=== PATIENT | male | born 1945 | race Caucasian/White ===

== ENCOUNTER 2020-07-01 09:58 | Outpatient (REF) | payer MEDICARE, SELFPAY ==
[2020-07-01 10:57] LABS: Alanine Aminotransferase 17 U/L (0-40); Albumin Level 4.6 g/dL (3.5-5.0); Alkaline Phosphatase 81 U/L (39-117); Anion Gap 14 (12-20); Aspartate Amino Transferase 20 U/L (5-37); Bilirubin Total 1.4 mg/dL (0.0-1.0); Blood Urea Nitrogen 14 mg/dL (9-16); Calcium 9.1 mg/dL (8.4-10.2); Carbon Dioxide 26 mmol/L (22-29); Chloride 102 mmol/L (96-108); Cholesterol 204 mg/dL; Estimated Glomerular Filt Rate > 60; Glucose Fasting 118 mg/dL (60-99); HDL Cholesterol 47 mg/dL; LDL Cholesterol Calculated 133 mg/dl; Potassium 4.3 mmol/L (3.3-5.1); Sodium 138 mmol/L (135-145); Triglycerides 121 mg/dL; Uric Acid 8.5 mg/dL (3.4-7.0)
[2020-07-01 11:04] LABS: B Type Natriuretic Peptide 891 pg/mL (<100)
[2020-07-01 11:19] LABS: Vitamin D 25-OH Total 34.9 ng/mL (>30)
== END 2020-07-01 09:59 | disposition home or self-care (01) ==
LOC: HO.LAB 09:58
PROVIDERS: PCP Internal Medicine; Visit Provider Internal Medicine
DX: E55.9 Vitamin D deficiency, unspecified (principal)
CPT/HCPCS: 36415; 80053; 80061; 82306; 83880; 84550

== ENCOUNTER 2020-07-24 10:00 | Outpatient (REF) | payer MEDICARE, SELFPAY ==
[2020-07-24 11:03] LABS: Basophils Percent Auto 0.6 % (0-2); Eosinophils Absolute Auto 0.2 X10*3/uL (0.0-0.4); Eosinophils Percent Auto 3.4 % (0-4); Hematocrit 47.6 % (42-52); Hemoglobin 15.8 g/dl (14.0-18.0); Imm Gran Abs Auto 0.01 X10*3/uL (0.00-0.03); Imm Gran Pct Auto 0.1 % (0.0-0.4); Lymphocytes Absolute Auto 1.9 X10*3/uL (1.2-4.9); Lymphocytes Percent Auto 28.3 % (20-40); MANUAL DIFF FLAG SCAN; Mean Corpuscular HGB Conc 33.2 g/dl (31.0-36.0); Mean Corpuscular Hemoglobin 29.5 pg (27.0-33.0); Mean Corpuscular Volume 88.8 fL (80-98); Monocytes Absolute Auto 0.7 X10*3/uL (0.1-1.2); Monocytes Percent Auto 10.3 % (2-11); Neutrophils Absolute Auto 3.9 X10*3/uL (2.0-8.3); Neutrophils Percent Auto 57.3 % (45-73); PLT CLUMP 1; Red Blood Count 5.36 X10*6/uL (4.60-5.80); Red Cell Distribution Width 13.5 % (11.0-16.0); SCAN SMEAR FLAG 1
[2020-07-24 11:22] LABS: Alanine Aminotransferase 27 U/L (0-40); Albumin Level 4.7 g/dL (3.5-5.0); Alkaline Phosphatase 87 U/L (39-117); Anion Gap 16 (12-20); Aspartate Amino Transferase 27 U/L (5-37); Bilirubin Total 1.3 mg/dL (0.0-1.0); Blood Urea Nitrogen 28 mg/dL (9-16); Calcium 9.3 mg/dL (8.4-10.2); Carbon Dioxide 28 mmol/L (22-29); Chloride 97 mmol/L (96-108); Cholesterol 129 mg/dL; Estimated Glomerular Filt Rate 55; Glucose Fasting 144 mg/dL (60-99); HDL Cholesterol 35 mg/dL; LDL Cholesterol Calculated 65 mg/dl; Potassium 4.8 mmol/L (3.3-5.1); Sodium 136 mmol/L (135-145); Total Protein 8.1 g/dL (6.5-8.0); Triglycerides 148 mg/dL
[2020-07-24 11:24] LABS: B Type Natriuretic Peptide 326 pg/mL (<100)
[2020-07-24 11:36] LABS: Creatinine Urine 155.85 mg/dL; Microalbum/Creatinine Ratio Ur 11.5 ug/mg cr
[2020-07-24 12:18] LABS: Platelet Count 154 X10*3/uL (160-400); White Blood Count 6.7 X10*3/uL (4.8-10.8)
[2020-07-24 12:19] LABS: SLIDE REVIEW VERIFIED
[2020-07-30 11:32] LABS: Vitamin D 25-OH, D2 <4 ng/mL; Vitamin D 25-OH, D3 34 ng/mL; Vitamin D 25-OH, Total 34 ng/mL (30-100)
== END 2020-07-24 10:01 | disposition home or self-care (01) ==
LOC: HO.LAB 10:00
PROVIDERS: PCP Internal Medicine; Visit Provider Internal Medicine
DX: I50.22 Chronic systolic (congestive) heart failure (principal); D64.9 Anemia, unspecified; E11.9 Type 2 diabetes mellitus without complications; E78.5 Hyperlipidemia, unspecified; M1A.0690 Idiopathic chronic gout, unspecified knee, without tophus (tophi); E55.9 Vitamin D deficiency, unspecified; Z79.01 Long term (current) use of anticoagulants
CPT/HCPCS: 36415; 80053; 80061; 82043; 82306; 83880; 84550; 85025

== ENCOUNTER 2020-08-19 08:35 | Inpatient (IN) | payer MEDICARE, SELFPAY ==
--- NOTE | ~2020-08-19 | CT_ITS ---
EXAMINATION: CT ABDOMEN AND PELVIS WITHOUT CONTRAST CLINICAL INFORMATION: Cholecystitis. COMPARISON: Limited abdominal ultrasound done earlier the same day. CT abdomen/pelvis dated 07/11/2017. TECHNIQUE: Multidetector volumetric imaging was performed from the superior aspect of the liver through the pubic symphysis. Sagittal and coronal reformatted images were obtained on the technologist's workstation. This CT examination was performed using dose optimization techniques as appropriate, variously including the following: *Automated exposure control *Adjustment of mA and/or kV according to patient size (this includes techniques or standardized protocols for targeted exams where dose is matched to indication/reason for exam; i.e. extremities or head) *Use of iterative reconstruction technique DLP: 522 mGy-cm FINDINGS: LUNG BASES: Mild bilateral dependent atelectasis. Mild cardiomegaly, increased when compared to the prior CT. LIVER, GALLBLADDER, AND BILIARY TREE: The liver is normal in size, shape, and attenuation. No focal hepatic lesion or biliary ductal dilatation is present. Tiny, dependent gallstone within the gallbladder fundus. Mild wall thickening with adjacent inflammatory change. Findings are consistent with acute cholecystitis. PANCREAS: Unremarkable. SPLEEN: Unremarkable. ADRENAL GLANDS: Unremarkable. KIDNEYS AND URETERS: The kidneys are normal in size, shape, and attenuation. No hydronephrosis, hydroureter, or calculi seen. Nonspecific bilateral perinephric stranding. BLADDER: Partially distended and unremarkable. GASTROINTESTINAL TRACT: Prominent diverticulosis without evidence of acute diverticulitis. No bowel wall thickening or associated inflammatory change. No small or large bowel obstruction. Appendix not identified. No other inflammatory change to suggest acute appendicitis. PERITONEAL CAVITY: No intra-abdominal free air or free fluid. No intra-abdominal mass or organized fluid collection/abscess formation. ABDOMINAL WALL: No significant hernia is appreciated. LYMPH NODES: No significant lymphadenopathy. VASCULAR: No abdominal aortic dilatation. Scattered atherosclerotic calcifications. PELVIC VISCERA: Seed implants redemonstrated within the pelvis. OSSEOUS STRUCTURES: Unremarkable. CT/CT abdomen pelvis wo con IMPRESSION: 1. Tiny, dependent gallstone with mild gallbladder wall thickening and prominent adjacent inflammatory change, consistent with acute cholecystitis. 2. Diverticulosis without evidence of acute diverticulitis. No small or large bowel obstruction. 3. No intra-abdominal mass, lymphadenopathy, or ascites.
--- NOTE | ~2020-08-19 | US_ITS ---
EXAMINATION: US ABDOMEN LIMITED CLINICAL INFORMATION: Right upper quadrant pain. COMPARISON: CT abdomen/pelvis dated 02/08/2019. TECHNIQUE: Real-time imaging of the right upper quadrant abdominal viscera. FINDINGS: PANCREAS: Predominantly obscured by overlying bowel gas. LIVER: Normal. The liver is normal in size. The liver contour is normal. Parenchymal echogenicity is normal. No focal hepatic lesion. There is no intrahepatic biliary duct dilatation seen. GALLBLADDER: Mild gallbladder wall thickening. No cholelithiasis or pericholecystic free fluid. Right upper quadrant tenderness during the examination. COMMON BILE DUCT: Normal in caliber for the patient's age measuring 0.8 cm in diameter. RIGHT KIDNEY: Unremarkable. No hydronephrosis. No renal calculi or focal parenchymal lesions. The kidney measures 10 cm in maximum dimension. FREE FLUID: None. US/US abdomen limited IMPRESSION: Mild gallbladder wall thickening. No cholelithiasis or pericholecystic free fluid to suggest acute cholecystitis. Right upper quadrant tenderness during the examination. Findings are nonspecific. If there is persistent clinical concern for cholecystitis, MRCP/ERCP or nuclear medicine HIDA scan could help further evaluate.
--- NOTE | ~2020-08-19 | MR_ITS ---
EXAMINATION: MR CHOLANGIOPANCREATOGRAPHY CLINICAL INFORMATION: Elevated bilirubin COMPARISON: 08/19/2020 CT scan and ultrasound TECHNIQUE: Multiple routine MRI sequences through the abdomen were obtained. Heavily T2-weighted images were performed utilizing a dedicated MRCP technique. Contrast was not utilized for the study. FINDINGS: Biliary system: The common bile duct is normal in course and prominent in caliber measuring up to 0.8 cm with no evidence for intra-or extrahepatic biliary ductal dilatation. No intraluminal filling defects are appreciated. Gallbladder: Tiny gallstones. There is diffuse gallbladder wall thickening and mild pericholecystic inflammatory changes. Liver parenchyma is homogeneous in signal with no focal hepatic lesion appreciated. Pancreas: The pancreatic duct is normal in course and measures up to 0.4 cm in maximal caliber with no evidence for pancreatic ductal obstruction. There is homogeneous signal to the pancreas with no focal suspicious pancreatic lesion. No visualized abnormalities are seen in the kidneys, adrenals, or spleen. MR/MR MRCP IMPRESSION: Tiny gallstones within the dependent portion of the gallbladder with associated gallbladder wall thickening and pericholecystic inflammatory changes concerning for cholecystitis. I do not appreciate any intraluminal filling defects within the common bile duct which measures up to 0.8 cm in maximal thickness.
--- NOTE | 2020-08-19 08:46 | ED.ABDPAIN ---
HPI - Abdominal Pain General Chief Complaint: Abdominal Pain Stated Complaint: ABD PAIN Time Seen by Provider: 08/19/20 08:45 Source: patient Mode of arrival: ambulatory Limitations: language barrier History of Present Illness HPI narrative: nausea, vomiting and diarrhea for 3 days, now with increased pain. patient feels that his abdomen is distended MD elicited complaint: abdominal pain Onset (ago): day(s) (3) Pain Consistency: constant Location: RUQ Severity: severe Quality: cramping, stabbing and sharp Radiation: none Migration to: no migration Exacerbating factors: eating Associated symptoms: nausea, vomiting and diarrhea Related Data Home Medications Medication Instructions Recorded Confirmed colchicine 0.6 mg tablet 0.6 mg PO DAILY 02/12/20 08/19/20 rivaroxaban 20 mg tablet 20 mg PO DAILY@1800 07/15/20 08/19/20 dicyclomine 10 mg capsule 20 mg PO QID 08/19/20 08/19/20 lisinopril 5 mg PO BID 08/19/20 08/19/20 metformin 500 mg PO BIDWM 08/19/20 08/19/20 omeprazole 20 mg capsule,delayed 20 mg PO BID 08/19/20 08/19/20 release spironolactone 12.5 tab PO DAILY 08/19/20 08/19/20 sucralfate 1 gram tablet 1 g PO QID 08/19/20 08/19/20 Previous Rx's Medication Instructions Recorded atorvastatin 80 mg tablet 80 mg PO DAILY 90 Days #90 tab 02/20/20 diclofenac sodium 1 % topical gel 4 g TOPICAL QID 30 Days #100 g 07/01/20 gabapentin 400 mg capsule 400 mg PO TID 90 Days #270 cap 07/01/20 metoprolol succinate 100 mg 100 mg PO DAILY 90 Days #90 tab 07/01/20 tablet,extended release 24 hr tamsulosin 0.4 mg capsule 0.4 mg PO BEDTIME 90 Days #90 cap 07/01/20 furosemide 40 mg tablet 40 mg PO DAILY 90 Days #90 tab 07/22/20 lancets 28 gauge #100 ea 07/22/20 clotrimazole-betamethasone 1 1 appl TOPICAL BID 30 Days #45 g 07/29/20 %-0.05 % topical cream oxycodone-acetaminophen 5 mg-325 1 tab PO Q8H PRN 30 Days #90 tab 07/29/20 mg tablet temazepam 30 mg capsule 30 mg PO BEDTIME PRN 30 Days #30 07/29/20 cap cholecalciferol (vitamin D3) 50 50 mcg PO DAILY 90 Days #90 cap 08/06/20 mcg (2,000 unit) capsule allopurinol 300 mg tablet 300 mg PO DAILY 90 Days #90 tab 08/19/20 Allergies Allergy/AdvReac Type Severity Reaction Status Date / Time No Known Allergies Allergy Verified 08/19/20 08:09 [No Known Allergies*] Review of Systems Constitutional: Reports no additional constitutional complaints Eyes: Reports no additional eye complaints Denies dizziness Cardiovascular: Reports no additional cardiovascular complaints Respiratory: Reports as per HPI Gastrointestinal: Reports no additional gastrointestinal complaints Musculoskeletal: Reports no additional musculoskeletal complaints Skin/Breast: Denies rash Reports system reviewed and no additional complaints, except as documented, Denies dizziness and Denies Sensory deficit (Neuro) Psychiatric: Denies anxiety Physical Exam Vital Signs: Vital Signs: Last Vital Signs Temp 98.3 F 08/19/20 13:43 Pulse 96 08/19/20 13:43 Resp 17 08/19/20 13:43 BP 119/79 08/19/20 13:43 Pulse Ox 97 08/19/20 13:43 Body Mass Index 26.6 Const: General: healthy appearing Nutritional Appearance: average body habitus Orientation/consciousness: oriented to person and patient oriented x3 Limitations: no limitations HENMT: Head: Yes normal to inspection Ears: external ears normal General nose exam: Normal external nose present Mouth: Normal oral and palatal mucosa present and oropharynx normal Throat: Yes posterior oropharynx normal Eyes: General: appearance normal, both eyes and all related structures Neck: Other: supple Neck: Yes normal visual inspection Chest: Chest palpation & inspection: normal inspection of the chest Resp: Auscultation: clear to auscultation bilaterally Cardio: Jugular venous distension: no JVD Rate: regular rate Rhythm: regular rhythm Heart sounds: S1 normal heart sound present and S2 normal heart sound present GI: Other: Midline scar, slightly distended, severe right upper quadrant pain with guarding and rebound Auscultation: normal bowel sounds : General: Yes no CVA tenderness Back/Spine/Pelvis: Back: no CVA tenderness Skin: General skin exam: no rashes or lesions noted Neuro: General: oriented to person and patient oriented x3 Cranial nerves: Yes CN's II-XII intact bilaterally Motor exam (neuro): 5/5 motor strength present throughout Sensory Exam: No Sensory deficit (Neuro) Extrem: General: Yes normal to inspection Psych: Appearance: grossly normal Course Course Course Narrative: discussed with Dr. Rodriguez who wants patient to have a CT scan Reevaluation(s) Reevaluation #1: Because the patient is on anticoagulation Dr. Rodriguez wants patient admitted to hospitalist, Dr Galaviz accepted MDM - Abdominal Pain MDM Narrative Medical decision making narrative: CT shows GB stones with cholecystitis will admit to Dr. Rodriguez Lab Data Result diagrams: 08/19/20 09:04 08/19/20 09:04 Labs: Lab Results 08/19/20 08/19/20 08/19/20 Range/Units 09:04 09:04 10:20 WBC 13.7 H (4.8-10.8) X10*3/uL RBC 4.84 (4.60-5.80) X10*6/uL Hgb 14.3 (14.0-18.0) g/dl Hct 42.2 (42-52) % MCV 87.2 (80-98) fL MCH 29.5 (27.0-33.0) pg MCHC 33.9 (31.0-36.0) g/dl RDW 13.8 (11.0-16.0) % Plt Count 160 (160-400) X10*3/uL MPV 8.8 L (9.4-12.4) fL Immature Gran % (Auto) 0.4 (0.0-0.4) % Neut % (Auto) 81.1 H (45-73) % Lymph % (Auto) 9.6 L (20-40) % [place] % (Auto) 8.6 (2-11) % Eos % (Auto) 0.1 (0-4) % Baso % (Auto) 0.2 (0-2) % Lymph # (Auto) 1.3 (1.2-4.9) X10*3/uL [place] # (Auto) 1.2 (0.1-1.2) X10*3/uL Eos # (Auto) 0.0 (0.0-0.4) X10*3/uL Baso # (Auto) 0.0 (0.0-0.2) X10*3/uL Abs Immat Gran (auto) 0.05 H (0.00-0.03) X10*3/uL Absolute Neuts (auto) 11.1 H (2.0-8.3) X10*3/uL Absolute Nucleated RBC 0.000 (0.0-0.012) X10*3/uL Nucleated RBC % (auto) 0.0 (0.0-0.2) /100WBC Sodium 131 L (135-145) mmol/L Potassium 4.7 (3.3-5.1) mmol/L Chloride 96 (96-108) mmol/L Carbon Dioxide 25 (22-29) mmol/L Anion Gap 15 (12-20) BUN 23 H (9-16) mg/dL Creatinine 1.52 H (0.5-1.4) mg/dL Estim Creat Clear Calc 42.6 Estimated GFR 45 Random Glucose 160 H (60-115) mg/dL Calcium 9.0 (8.4-10.2) mg/dL Total Bilirubin 2.7 H (0.0-1.0) mg/dL Direct Bilirubin 1.1 H (0.0-0.5) mg/dL AST 32 (5-37) U/L ALT 48 H (0-40) U/L Alkaline Phosphatase 84 (39-117) U/L Total Protein 7.6 (6.5-8.0) g/dL Albumin 4.2 (3.5-5.0) g/dL Lipase 35 (8-78) U/L Urine Color DARK YELLOW Urine Appearance HAZY Urine pH 5.5 (5.0-8.0) Ur Specific [place] 1.025 (1.005-1.025) Urine Protein NEG (NEG-TRACE) MG/DL Urine Glucose (UA) NEG (NEG) MG/DL Urine Ketones 5 (NEG) MG/DL Urine Blood NEG (NEG) Urine Nitrite NEG (NEG) Ur Leukocyte Esterase NEG (NEG) Imaging Data US abdoment: Radiologist's impression: thickened GB wall CT scan - abdomen: Radiologist's impression: GB stones with evidence of cholecystitis ECG Data Attestation: I personally reviewed and interpreted this ECG as follows: Interpretation: Atrial fibrillation rate of 90, old inferior and anterior septal OR, no st or twave changes Critical Care Time Critical Care Time Attestation: I spent 40 minutes of critical care, with interventions, assessments, speaking to patient, consultants, and family. Discharge Plan Discharge Clinical Impression: Acute cholecystitis Patient Disposition: Admitted As Inpatient [facility] Past Medical History Medical History Abdominal pain Atrial fibrillation CHF (congestive heart failure) Chronic anticoagulation Diabetes mellitus Essential hypertension Gout Herpes zoster Lumbar degenerative disc disease Primary insomnia Pure hypercholesterolemia Surgical History History of cardiac catheterization History of colonoscopy History of prostate surgery Family History Family History Father Diabetes Mother Cancer Social History Social History Alcohol intake: unknown Smoking Status: Never smoker Tobacco Type: Cigarette Use of substances other than those prescribed or required for medical reasons: Unknown Advance Directives: No Advance Directives Information Provided: No
[2020-08-19 08:49] VITALS: BP 132/75; PULSE 100; RESP 18; TEMP 36.8; BMI 26.6
--- NOTE | 2020-08-19 08:53 | ECG_ITS ---
Test Reason : ABDOMINAL PAIN Blood Pressure : / mmHG Vent. 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
[2020-08-19 09:09] LABS: MANUAL DIFF FLAG NO
[2020-08-19] MEDS: Morphine Sulfate 4 MG/ML CARTRIDGE IVPUSH ×3 (09:09→20:02)
[2020-08-19] MEDS: 0.9 % Sodium Chloride 1,000 ML 999 ML IVCONT ×2 (09:09→11:28)
[2020-08-19] MEDS: ondansetron HCL 4 MG/2 ML VIAL IVPUSH (09:09)
[2020-08-19] MEDS: Pantoprazole Sodium 40 MG/10 ML VIAL IVPUSH (09:09)
[2020-08-19 09:15] LABS: Basophils Percent Auto 0.2 % (0-2); Eosinophils Percent Auto 0.1 % (0-4); Hematocrit 42.2 % (42-52); Hemoglobin 14.3 g/dl (14.0-18.0); Imm Gran Abs Auto 0.05 X10*3/uL (0.00-0.03); Imm Gran Pct Auto 0.4 % (0.0-0.4); Lymphocytes Absolute Auto 1.3 X10*3/uL (1.2-4.9); Lymphocytes Percent Auto 9.6 % (20-40); Mean Corpuscular HGB Conc 33.9 g/dl (31.0-36.0); Mean Corpuscular Hemoglobin 29.5 pg (27.0-33.0); Mean Corpuscular Volume 87.2 fL (80-98); Mean Platelet Volume 8.8 fL (9.4-12.4); Monocytes Absolute Auto 1.2 X10*3/uL (0.1-1.2); Monocytes Percent Auto 8.6 % (2-11); Neutrophils Absolute Auto 11.1 X10*3/uL (2.0-8.3); Neutrophils Percent Auto 81.1 % (45-73); Platelet Count 160 X10*3/uL (160-400); Red Blood Count 4.84 X10*6/uL (4.60-5.80); Red Cell Distribution Width 13.8 % (11.0-16.0); White Blood Count 13.7 X10*3/uL (4.8-10.8)
--- NOTE | 2020-08-19 09:23 | PC.NURSE ---
t off unit to ultrasound
[2020-08-19 09:50] LABS: Alanine Aminotransferase 48 U/L (0-40); Albumin Level 4.2 g/dL (3.5-5.0); Alkaline Phosphatase 84 U/L (39-117); Anion Gap 15 (12-20); Aspartate Amino Transferase 32 U/L (5-37); Bilirubin Direct 1.1 mg/dL (0.0-0.5); Bilirubin Total 2.7 mg/dL (0.0-1.0); Blood Urea Nitrogen 23 mg/dL (9-16); Carbon Dioxide 25 mmol/L (22-29); Chloride 96 mmol/L (96-108); Creatinine Clr Calc Pharmacy 42.6; Estimated Glomerular Filt Rate 45; Glucose Random 160 mg/dL (60-115); Lipase 35 U/L (8-78); Potassium 4.7 mmol/L (3.3-5.1); Sodium 131 mmol/L (135-145); Total Protein 7.6 g/dL (6.5-8.0)
[2020-08-19 10:20] VITALS: BP 100/63; PULSE 80; RESP 18
[2020-08-19 10:43] LABS: Glucose Urine UA NEG (NEG); Leukocyte Esterase Urine NEG (NEG); Nitrite Urine NEG (NEG); PH 5.5 (5.0-8.0); Specific Gravity - Urine 1.025 (1.005-1.025); Urine Blood NEG (NEG); Urine Ketones 5 MG/DL (NEG); Urine Protein NEG (NEG-TRACE)
[2020-08-19 10:44] LABS: Appearance Urine HAZY; Color Urine DARK YELLOW
[2020-08-19] MEDS: cefTRIAXone sodium 1 GM in 0.9 % Sodium Chloride 50 ML IV (11:39)
[2020-08-19] MEDS: metroNIDAZOLE/NS 500 MG/100 ML PIGGYBACK 100 MG IV (11:56)
[2020-08-19 13:43] VITALS: BP 119/79; PULSE 96; RESP 17; TEMP 36.8; O2SAT 97
--- NOTE | 2020-08-19 18:11 | PM.CNGS ---
History of Present Illness Consult details Consult date: 08/19/20 Narrative: 74-year-old male referred from the ER because of gallstones with cholecystitis. He says he has had some pain on the upper abdomen for about 2-3 days now. He describes sensation of bloating as well. He denies any vomiting although he did have some nausea. He denies any fever. He does state that he feels better now although does have some pain on the right upper quadrant. He is ultrasound did not reveal gallstones initially he had a CAT scan showing a floating gallstone with some inflammatory changes around the gallbladder consistent with acute cholecystitis. Patient has a significant cardiac history. He had previously of NV in the past in 2009 as well as in 2019 after surgery for an incisional hernia. 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 He was noted to have an EF of 30%, with hypokinesis of the left ventricle. He is also on anticoagulation with rivaroxaban for atrial fibrillation. Review of Systems Constitutional: Constitutional: Denies chills and Denies fever(s) Cardiovascular: Cardiovascular: Denies chest pain, Denies dyspnea and Reports dyspnea on exertion Respiratory: Respiratory: Denies cough, Denies dyspnea and Reports dyspnea on exertion Gastrointestinal: Gastrointestinal: Denies hematochezia and Denies change in bowel habits Genitourinary: Genitourinary: Denies hematuria and Denies difficulty urinating Musculoskeletal: Musculoskeletal: Denies back pain and Denies limited range of motion Neurologic: Denies focal weakness and Denies convulsions Psychiatric: Psychiatric: Denies depression and Denies mood swings [facility] Past Medical History Medical History Abdominal pain Atrial fibrillation CHF (congestive heart failure) Chronic anticoagulation Diabetes mellitus Essential hypertension Gout Herpes zoster Lumbar degenerative disc disease Primary insomnia Pure hypercholesterolemia Family History Family History Father Diabetes Mother Cancer Surgical History Surgical History History of cardiac catheterization History of colonoscopy History of prostate surgery Social History Social History Alcohol intake: unknown Smoking Status: Never smoker Tobacco Type: Cigarette Use of substances other than those prescribed or required for medical reasons: Unknown Advance Directives: No Advance Directives Information Provided: No Meds Allergies Allergy/AdvReac Type Severity Reaction Status Date / Time No Known Allergies Allergy Verified 08/19/20 08:09 [No Known Allergies*] Home Medications Medication Instructions Recorded Confirmed Last Taken Type colchicine 0.6 mg tablet 0.6 mg PO DAILY 02/12/20 08/19/20 Unknown History rivaroxaban 20 mg tablet 20 mg PO DAILY@1800 07/15/20 08/19/20 Unknown History dicyclomine 10 mg capsule 20 mg PO QID 08/19/20 08/19/20 Unknown History lisinopril 5 mg PO BID 08/19/20 08/19/20 Unknown History metformin 500 mg PO BIDWM 08/19/20 08/19/20 Unknown History omeprazole 20 mg capsule,delayed 20 mg PO BID 08/19/20 08/19/20 Unknown History release spironolactone 12.5 tab PO DAILY 08/19/20 08/19/20 Unknown History sucralfate 1 gram tablet 1 g PO QID 08/19/20 08/19/20 Unknown History Physical Exam Vital Signs: Vital Signs: Last Vital Signs Temp 98.3 F 08/19/20 13:43 Pulse 96 08/19/20 13:43 Resp 17 08/19/20 13:43 BP 119/79 08/19/20 13:43 Pulse Ox 97 08/19/20 13:43 Body Mass Index 26.6 Const: General: comfortable and no acute distress Orientation/consciousness: patient oriented x3 Neck: Neck: Yes no lymphadenopathy Resp: Auscultation: clear to auscultation bilaterally Cardio: Rhythm: regular rhythm GI: Palpation (GI): Soft to palpation, Tenderness to palpation present (GI) (Some tenderness on right upper quadrant) and no guarding Neuro: General: patient oriented x3 Results Labs Result diagrams: 08/19/20 09:04 08/19/20 09:04 Labs: Abnormal lab results 08/19/20 08/19/20 Range/Units 09:04 09:04 WBC 13.7 H (4.8-10.8) X10*3/uL MPV 8.8 L (9.4-12.4) fL Neut % (Auto) 81.1 H (45-73) % Lymph % (Auto) 9.6 L (20-40) % Abs Immat Gran (auto) 0.05 H (0.00-0.03) X10*3/uL Absolute Neuts (auto) 11.1 H (2.0-8.3) X10*3/uL Sodium 131 L (135-145) mmol/L BUN 23 H (9-16) mg/dL Creatinine 1.52 H (0.5-1.4) mg/dL Random Glucose 160 H (60-115) mg/dL Total Bilirubin 2.7 H (0.0-1.0) mg/dL Direct Bilirubin 1.1 H (0.0-0.5) mg/dL ALT 48 H (0-40) U/L Short CBC 08/19/20 Range/Units 09:04 WBC 13.7 H (4.8-10.8) X10*3/uL Hgb 14.3 (14.0-18.0) g/dl Hct 42.2 (42-52) % Plt Count 160 (160-400) X10*3/uL BMP 08/19/20 09:04 Sodium 131 L Potassium 4.7 Chloride 96 Carbon Dioxide 25 BUN 23 H Creatinine 1.52 H Calcium 9.0 Liver Function 08/19/20 Range/Units 09:04 Total Bilirubin 2.7 H (0.0-1.0) mg/dL Direct Bilirubin 1.1 H (0.0-0.5) mg/dL AST 32 (5-37) U/L ALT 48 H (0-40) U/L Alkaline Phosphatase 84 (39-117) U/L Albumin 4.2 (3.5-5.0) g/dL Urine 08/19/20 Range/Units 10:20 Urine Color DARK YELLOW Urine Appearance HAZY Urine pH 5.5 (5.0-8.0) Ur Specific [place] 1.025 (1.005-1.025) Urine Protein NEG (NEG-TRACE) MG/DL Urine Glucose (UA) NEG (NEG) MG/DL All other labs normal. Imaging Abdomen CT scan report/results: report reviewed and image reviewed Assessment and Plan (1) Acute cholecystitis: Status: Acute His CAT scan does not suggest acute cholecystitis with inflammatory changes around the gallbladder. However, he has significant cardiac history. He has a low ejection fraction, CHF as well as diffuse hypokinesia of the left ventricle on an echocardiogram done last June,. I had a long discussion with his son Nikunj. I explained to him that option for acute cholecystitis is cholecystectomy. However, he was concerned about he is difficult cardiac history including a postop NV for an incisional hernia last 2018. He therefore states that if there is any way of avoiding surgery, that is the family's preference. The patient also has an elevated bilirubin. We need to work him up for CBD obstruction although this is not suggestive base CT scan. His LFTs with should therefore be followed and an MRCP should be considered. As per discussions with the family, will treat him with IV antibiotics for now. His rivaroxaban should be held temporarily. He may also benefit from CT-guided tube cholecystostomy if he does not improve with antibiotics and the family wishes to avoid surgery. I have discussed the above with the emergency room physician.
[2020-08-19 18:37] VITALS: BP 118/62; PULSE 84; RESP 18; TEMP 37.3; O2SAT 97
[2020-08-19 19:50] VITALS: BP 119/61; PULSE 101; RESP 18; TEMP 37.8; O2SAT 96
--- NOTE | 2020-08-19 19:51 | PC.NURSE ---
Pt aaox4, resting on stretcher in NAD, breathing with ease on RA. Pt [place]ian speaking primarily, able to communicate effectively with this RN. Pt endorses RUQ abd pain 6/10 as charted. Pt offers no additional complaints/concerns at this time. Pt stretcher is in lowest locked position, rails raised, call conn within reach.
[2020-08-19] MEDS: Ketorolac Tromethamine 30 MG/ML VIAL IVPUSH (20:01)
[2020-08-19 22:45] VITALS: BP 110/61; PULSE 81; RESP 19; TEMP 36.9; O2SAT 96
[2020-08-19] MEDS: Temazepam 15 MG CAPSULE 30 MG PO (22:52)
[2020-08-19] MEDS: cefEPime HCl 2 GM in 0.9 % Sodium Chloride 50 ML IV (22:52)
--- NOTE | 2020-08-19 23:04 | P.HPHOSP_ITS ---
History of Present Illness Date of Service: 08/19/20 Chief Complaint: abdominal pain 74-year-old male with past medical history of AFib on Xarelto, CHF, DM, HTN, prostate cancer status post mastectomy, HLD who presents to the hospital with abdominal pain. Patient reports that the pain started this morning localized to the right upper quadrant, 10/10, radiating to the left, worse with movement, not associated with eating or drinking, no previous similar episode. He denies any chest pain, headache, change in vision, no nausea or vomiting, no diarrhea constipation, no urinary symptoms and no lower extremity edema. On arrival to the ED Patient hemodynamically stable with no significant abnormal vitals Labs are significant for WBC count of 13.7, sodium of 131, potassium 4.7, BUN of 23, creatinine of 1.52 with a baseline around 1, total bili of 2.7, direct of 1.1, ALT of 84, UA negative. Abdominal CT shows small dependent gallstones with mild gallbladder wall thickening and prominent adjacent vomit origin consistent with acute cholecystitis. Patient was evaluated by surgical team, at this time patient is not interested in surgical intervention due to his history of MRI while having has hernia. Alee gannon wants to speak to his cardiology 1st and then decide Review of Systems Review of Systems: Yes all other systems are reviewed and are negative [facility] Medical History Abdominal pain Atrial fibrillation CHF (congestive heart failure) Chronic anticoagulation Diabetes mellitus Essential hypertension Gout Herpes zoster Lumbar degenerative disc disease Primary insomnia Pure hypercholesterolemia Family History Father Diabetes Mother Cancer Surgical History History of cardiac catheterization History of colonoscopy History of prostate surgery Social History Household Members: Spouse and Children Housing: House Do you presently have visiting nurse or other home services: No ( takes care of him) Alcohol intake: unknown Smoking Status: Never smoker Tobacco Type: Cigarette Use of substances other than those prescribed or required for medical reasons: No Have you been hit, kicked, punched, or otherwise hurt by someone within the past year? If so, by whom?: No Do you feel safe in your current relationship?: No Is there a partner from a previous relationship who is making you feel unsafe no w?: No Are you made to feel afraid or neglected: No Advance Directives: No Advance Directives Information Provided: No Do you have thoughts of harming others: None Do you have a plan to hurt others: No Plan Recently lost weight without trying: No Meds Allergies Allergy/AdvReac Type Severity Reaction Status Date / Time No Known Allergies Allergy Verified 08/19/20 08:09 [No Known Allergies*] Active Medications: Current Medications Generic Name Dose Route Start Last Admin Trade Name Freq PRN Reason Stop Dose Admin Acetaminophen 650 mg 08/19/20 22:02 Acetaminophen 325 Mg Tablet PO Q6H PRN Pain, Mild (Pain Scale 1-3) Atorvastatin Calcium 80 mg 08/20/20 21:00 Atorvastatin Calcium 80 Mg Tablet PO BEDTIME [facility] Dicyclomine HCl 20 mg 08/20/20 09:00 Dicyclomine Hcl 10 Mg Capsule PO QID [facility] Docusate Sodium 100 mg 08/19/20 22:02 Docusate Sodium 100 Mg Capsule PO DAILY PRN Constipation Furosemide 40 mg 08/20/20 09:00 Furosemide 40 Mg Tablet PO DAILY [facility] Protocol Gabapentin 400 mg 08/20/20 09:00 Gabapentin 400 Mg Capsule PO TID [facility] Cefepime HCl 2 gm/ Sodium 50 mls @ 100 mls/hr 08/19/20 23:00 08/19/20 22:52 Chloride IV 100 mls/hr Q8H [facility] Administration Insulin Human Lispro 0 unit 08/20/20 07:30 Insulin Lispro 100 Unit/Ml 3 Ml Vial SUBCUT QIDACHS [facility] Protocol Lisinopril 5 mg 08/20/20 09:00 Lisinopril 5 Mg Tablet PO BID [facility] Protocol Metoprolol Succinate 100 mg 08/20/20 09:00 Metoprolol Succinate Er 100 Mg Tab.Er.24h PO DAILY [facility] Protocol Metronidazole 500 mg 08/19/20 23:00 08/19/20 22:29 Metronidazole 500 Mg Tablet PO Not Given Q8H [facility] Morphine Sulfate 4 mg 08/19/20 21:50 Morphine Sulfate 4 Mg/Ml Cartridge IVPUSH Q4H PRN Pain, Severe (Pain Scale 7-10) Non-Formulary Medication 4 gm 08/20/20 09:00 Diclofenac Sodium TOPICAL QID [facility] Nystatin/Triamcinolone Acetonide 1 appl 08/20/20 09:00 Nystatin/Triamcinolone Cream 15 Gm Tube TOPICAL BID [facility] Omeprazole 20 mg 08/20/20 09:00 Omeprazole 20 Mg Capsule.Dr PO BID [facility] Ondansetron HCl 4 mg 08/19/20 22:02 Ondansetron Hcl 4 Mg/2 Ml Vial IVPUSH Q8H PRN Nausea and Vomiting Rivaroxaban 20 mg 08/20/20 18:00 Rivaroxaban 20 Mg Tablet PO DAILY@1800 [facility] Sodium Chloride 3 ml 08/20/20 00:00 0.9 % Sodium Chloride Flush 3 Ml Syringe IVFLUSH QSHIFT [facility] Spironolactone 12.5 mg 08/20/20 09:00 Spironolactone 25 Mg Tablet PO DAILY [facility] Protocol Sucralfate 1 gm 08/20/20 09:00 Sucralfate 1 Gm Tablet PO QID [facility] Tamsulosin HCl 0.4 mg 08/20/20 21:00 Tamsulosin Hcl 0.4 Mg Capsule PO BEDTIME [facility] Temazepam 30 mg 08/19/20 22:11 08/19/20 22:52 Temazepam 15 Mg Capsule PO 30 mg BEDTIME PRN Administration sleep Vitamin D 50 mcg 08/20/20 09:00 Cholecalciferol (Vitamin D3) 25 Mcg Tablet PO DAILY [facility] Home Medications Medication Instructions Recorded Confirmed Last Taken Type colchicine 0.6 mg tablet 0.6 mg PO DAILY 02/12/20 08/19/20 Unknown History rivaroxaban 20 mg tablet 20 mg PO DAILY@1800 07/15/20 08/19/20 Unknown History dicyclomine 10 mg capsule 20 mg PO QID 08/19/20 08/19/20 Unknown History lisinopril 5 mg PO BID 08/19/20 08/19/20 Unknown History metformin 500 mg PO BIDWM 08/19/20 08/19/20 Unknown History omeprazole 20 mg capsule,delayed 20 mg PO BID 08/19/20 08/19/20 Unknown History release spironolactone 12.5 tab PO DAILY 08/19/20 08/19/20 Unknown History sucralfate 1 gram tablet 1 g PO QID 08/19/20 08/19/20 Unknown History Physical Exam Vital Signs and Narrative: Vital Signs: Last Vital Signs Temp 98.5 F 08/19/20 22:45 Pulse 81 08/19/20 22:45 Resp 19 08/19/20 22:45 BP 110/61 08/19/20 22:45 Pulse Ox 96 08/19/20 22:45 Body Mass Index 26.6 Const: General: cooperative and no acute distress Orientation/consciousness: patient oriented x3 Eyes: General: appearance normal, both eyes and all related structures Resp: Effort & Inspection: normal respiratory effort and able to speak in complete sentences Cardio: Rate: regular rate Rhythm: regular rhythm GI: Other: Abdominal tenderness worse on the right upper quadrant, no rebound, no guarding Palpation (GI): Soft to palpation Auscultation: normal bowel sounds Skin: General skin exam: no rashes or lesions noted Neuro: General: patient oriented x3 Cognition (Neuro): normal cognition Extrem: General: Yes normal to inspection and Yes no pedal edema Results Labs CBC and Chem 7: 08/20/20 04:11 08/19/20 09:04 Labs: Laboratory Results - last 24 hr 08/19/20 08/19/20 08/19/20 09:04 09:04 10:20 MCV 87.2 MCH 29.5 MCHC 33.9 RDW 13.8 Plt Count 160 MPV 8.8 L Immature Gran % (Auto) 0.4 Neut % (Auto) 81.1 H Lymph % (Auto) 9.6 L Esmeralda % (Auto) 8.6 Eos % (Auto) 0.1 Baso % (Auto) 0.2 Lymph # (Auto) 1.3 Esmeralda # (Auto) 1.2 Eos # (Auto) 0.0 Baso # (Auto) 0.0 Abs Immat Gran (auto) 0.05 H Absolute Neuts (auto) 11.1 H Absolute Nucleated RBC 0.000 Nucleated RBC % (auto) 0.0 Anion Gap 15 Estim Creat Clear Calc 42.6 Estimated GFR 45 Random Glucose 160 H Calcium 9.0 Total Bilirubin 2.7 H Direct Bilirubin 1.1 H AST 32 ALT 48 H Alkaline Phosphatase 84 Total Protein 7.6 Albumin 4.2 Lipase 35 Urine Color DARK YELLOW Urine Appearance HAZY Urine pH 5.5 Ur Specific [place] 1.025 Urine Protein NEG Urine Glucose (UA) NEG Urine Ketones 5 Urine Blood NEG Urine Nitrite NEG Ur Leukocyte Esterase NEG Imaging Radiologist's Impressions: Impressions Abdomen Ultrasound 08/19/20 08:53 IMPRESSION: Mild gallbladder wall thickening. No cholelithiasis or pericholecystic free fluid to suggest acute cholecystitis. Right upper quadrant tenderness during the examination. Findings are nonspecific. If there is persistent clinical concern for cholecystitis, MRCP/ERCP or nuclear medicine HIDA scan could help further evaluate. Abdomen/Pelvis CT 08/19/20 11:39 IMPRESSION: 1. Tiny, dependent gallstone with mild gallbladder wall thickening and prominent adjacent inflammatory change, consistent with acute cholecystitis. 2. Diverticulosis without evidence of acute diverticulitis. No small or large bowel obstruction. 3. No intra-abdominal mass, lymphadenopathy, or ascites. Assessment and Plan (1) Acute cholecystitis: Status: Acute (2) Abdominal pain: Qualifiers: Abdominal location: right upper quadrant Qualified Code(s): R10.11 - Right upper quadrant pain Status: Acute 74-year-old male with past medical history of CHF, AFib, diabetes, hypertension, among others who presents to the hospital with abdominal pain # acute cholecystitis - CT findings as above - patient at this time is not interested in surgical intervention due to his history of ND while getting hernia repaired - will start him on IV antibiotics Flagyl and cefepime - follow blood cultures - spoke to patient about possibility of not improving on IV antibiotics alone and needing surgical intervention - 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
[2020-08-19 23:56] LABS: COVID-19 Test Negative (Negative); IDNOW Serial# 9DD0AD1C
[2020-08-20] VITALS (8 sets, daily range): BP systolic 96–139; BP diastolic 54–78; PULSE 82–130; RESP 18–20; TEMP 36.3–37.2; O2SAT 94–98
[2020-08-20] MEDS: 0.9 % Sodium Chloride Flush 3 ML SYRINGE IVFLUSH ×4 (00:10→22:32)
[2020-08-20 00:19] LABS: Glucose, Whole Blood 123 mg/dL (60-115)
--- NOTE | 2020-08-20 01:50 | PC.NURSE ---
Report attempted x 1
[2020-08-20] MEDS: Morphine Sulfate 4 MG/ML CARTRIDGE IVPUSH (03:01)
[2020-08-20 05:01] LABS: MANUAL DIFF FLAG NO
[2020-08-20 05:08] LABS: Basophils Percent Auto 0.3 % (0-2); Eosinophils Absolute Auto 0.1 X10*3/uL (0.0-0.4); Eosinophils Percent Auto 0.8 % (0-4); Hematocrit 37.8 % (42-52); Hemoglobin 12.6 g/dl (14.0-18.0); Imm Gran Abs Auto 0.03 X10*3/uL (0.00-0.03); Imm Gran Pct Auto 0.4 % (0.0-0.4); Lymphocytes Absolute Auto 0.8 X10*3/uL (1.2-4.9); Lymphocytes Percent Auto 10.4 % (20-40); Mean Corpuscular HGB Conc 33.3 g/dl (31.0-36.0); Mean Corpuscular Hemoglobin 29.5 pg (27.0-33.0); Mean Corpuscular Volume 88.5 fL (80-98); Mean Platelet Volume 9.6 fL (9.4-12.4); Monocytes Absolute Auto 0.7 X10*3/uL (0.1-1.2); Neutrophils Absolute Auto 5.8 X10*3/uL (2.0-8.3); Neutrophils Percent Auto 78.1 % (45-73); Platelet Count 134 X10*3/uL (160-400); Red Blood Count 4.27 X10*6/uL (4.60-5.80); Red Cell Distribution Width 13.8 % (11.0-16.0); White Blood Count 7.4 X10*3/uL (4.8-10.8)
[2020-08-20 05:59] LABS: Anion Gap 14 (12-20); Blood Urea Nitrogen 22 mg/dL (9-16); Calcium 8.3 mg/dL (8.4-10.2); Carbon Dioxide 23 mmol/L (22-29); Chloride 101 mmol/L (96-108); Creatinine Clr Calc Pharmacy 54.4; Estimated Glomerular Filt Rate 60; Glucose Random 117 mg/dL (60-115); Potassium 4.2 mmol/L (3.3-5.1); Sodium 134 mmol/L (135-145)
[2020-08-20 06:37] LABS: INTERNATIONAL NORM RATIO 1.5 (0.9-1.1); Prothrombin Time 18.2 SEC (10.8-13.0)
[2020-08-20] MEDS: cefEPime HCl 2 GM in 0.9 % Sodium Chloride 50 ML IV ×3 (06:39→22:26)
[2020-08-20] MEDS: metroNIDAZOLE 500 MG TABLET PO ×3 (06:41→22:26)
[2020-08-20 08:07] LABS: Glucose, Whole Blood 105 mg/dL (60-115)
--- NOTE | 2020-08-20 08:43 | PM.PNGS ---
Subjective Subjective Date of Service: 08/20/20 Interval history: Feels much better states pain has resolved denies GI complaints Physical Exam Vital Signs: Vital Signs: Last Vital Signs Temp 98.4 F 08/20/20 07:16 Pulse 112 H 08/20/20 07:16 Resp 18 08/20/20 07:16 BP 107/77 08/20/20 07:16 Pulse Ox 95 08/20/20 07:16 Body Mass Index 26.6 Laboratory Results - last 24 hr 08/19/20 08/19/20 08/19/20 09:04 09:04 10:20 WBC 13.7 H RBC 4.84 Hgb 14.3 Hct 42.2 MCV 87.2 MCH 29.5 MCHC 33.9 RDW 13.8 Plt Count 160 MPV 8.8 L Immature Gran % (A uto) 0.4 Neut % (Auto) 81.1 H Lymph % (Auto) 9.6 L [place] % (Auto) 8.6 Eos % (Auto) 0.1 Baso % (Auto) 0.2 Lymph # (Auto) 1.3 [place] # (Auto) 1.2 Eos # (Auto) 0.0 Baso # (Auto) 0.0 Abs Immat Gran (au to) 0.05 H Absolute Neuts (au to) 11.1 H Absolute Nucleated RBC 0.000 Nucleated RBC % (a uto) 0.0 PT INR Sodium 131 L Potassium 4.7 Chloride 96 Carbon Dioxide 25 Anion Gap 15 BUN 23 H Creatinine 1.52 H Estim Creat Clear Calc 42.6 Estimated GFR 45 POC Glucose Random Glucose 160 H Calcium 9.0 Total Bilirubin 2.7 H Direct Bilirubin 1.1 H AST 32 ALT 48 H Alkaline Phosphata se 84 Total Protein 7.6 Albumin 4.2 Lipase 35 Urine Color DARK YELLOW Urine Appearance HAZY Urine pH 5.5 Ur Specific Gravit y 1.025 Urine Protein NEG Urine Glucose (UA) NEG Urine Ketones 5 Urine Blood NEG Urine Nitrite NEG Ur Leukocyte Danielle ase NEG COVID-19 ([facility]) COVID-19 Clin Com 08/19/20 08/20/20 08/20/20 23:33 00:15 04:11 WBC 7.4 RBC 4.27 L Hgb 12.6 L Hct 37.8 L MCV 88.5 MCH 29.5 MCHC 33.3 RDW 13.8 Plt Count 134 L MPV 9.6 Immature Gran % (A uto) 0.4 Neut % (Auto) 78.1 H Lymph % (Auto) 10.4 L [place] % (Auto) 10.0 Eos % (Auto) 0.8 Baso % (Auto) 0.3 Lymph # (Auto) 0.8 L [place] # (Auto) 0.7 Eos # (Auto) 0.1 Baso # (Auto) 0.0 Abs Immat Gran (au to) 0.03 Absolute Neuts (au to) 5.8 Absolute Nucleated RBC 0.000 Nucleated RBC % (a uto) 0.0 PT INR Sodium Potassium Chloride Carbon Dioxide Anion Gap BUN Creatinine Estim Creat Clear Calc Estimated GFR POC Glucose 123 H Random Glucose Calcium Total Bilirubin Direct Bilirubin AST ALT Alkaline Phosphata se Total Protein Albumin Lipase Urine Color Urine Appearance Urine pH Ur Specific Gravit y Urine Protein Urine Glucose (UA) Urine Ketones Urine Blood Urine Nitrite Ur Leukocyte Danielle ase COVID-19 ([facility]) Negative COVID-19 Clin Com See Note 08/20/20 08/20/20 08/20/20 04:11 05:58 07:14 WBC RBC Hgb Hct MCV MCH MCHC RDW Plt Count MPV Immature Gran % (A uto) Neut % (Auto) Lymph % (Auto) [place] % (Auto) Eos % (Auto) Baso % (Auto) Lymph # (Auto) [place] # (Auto) Eos # (Auto) Baso # (Auto) Abs Immat Gran (au to) Absolute Neuts (au to) Absolute Nucleated RBC Nucleated RBC % (a uto) PT 18.2 H INR 1.5 H Sodium 134 L Potassium 4.2 Chloride 101 Carbon Dioxide 23 Anion Gap 14 BUN 22 H Creatinine 1.19 Estim Creat Clear Calc 54.4 Estimated GFR 60 POC Glucose 105 Random Glucose 117 H Calcium 8.3 L D Total Bilirubin Direct Bilirubin AST ALT Alkaline Phosphata se Total Protein Albumin Lipase Urine Color Urine Appearance Urine pH Ur Specific Gravit y Urine Protein Urine Glucose (UA) Urine Ketones Urine Blood Urine Nitrite Ur Leukocyte Danielle ase COVID-19 ([facility]) COVID-19 Clin Com Const: General: comfortable and no acute distress Eyes: Sclerae: sclerae normal Resp: Effort & Inspection: normal respiratory effort Cardio: Rate: tachycardic GI: Palpation (GI): Soft to palpation, not firm, nontender, no guarding and not rigid Progress Note: A&P Assessment and plan (1) Acute cholecystitis: Status: Acute Assessment and Plan: Much improved White count down No fever Tachycardia- has chronic atrial fibrillation Significant cardiac problems with AR in the past postop - As per son, antibiotics for now, no surgery Patient is improving with current treatment MRCP ordered for elevated bilirubin yesterday Plans discussed with son again today Fall Risk Details Current Medications: Current Medications Generic Name Dose Route Start Last Admin Trade Name Freq PRN Reason Stop Dose Admin Acetaminophen 650 mg 08/19/20 22:02 Acetaminophen 325 Mg Tablet PO Q6H PRN Pain, Mild (Pain Scale 1-3) Atorvastatin Calcium 80 mg 08/20/20 21:00 Atorvastatin Calcium 80 Mg Tablet PO BEDTIME [facility] Dicyclomine HCl 20 mg 08/20/20 09:00 Dicyclomine Hcl 10 Mg Capsule PO QID [facility] Docusate Sodium 100 mg 08/19/20 22:02 Docusate Sodium 100 Mg Capsule PO DAILY PRN Constipation Furosemide 40 mg 08/20/20 09:00 Furosemide 40 Mg Tablet PO DAILY [facility] Protocol Gabapentin 400 mg 08/20/20 09:00 Gabapentin 400 Mg Capsule PO TID [facility] Cefepime HCl 2 gm/ Sodium 50 mls @ 100 mls/hr 08/19/20 23:00 08/20/20 07:13 Chloride IV Infused Q8H [facility] Infusion Insulin Human Lispro 0 unit 08/20/20 07:30 08/20/20 07:51 Insulin Lispro 100 Unit/Ml 3 Ml Vial SUBCUT Not Given QIDACHS [facility] Protocol Lisinopril 5 mg 08/20/20 09:00 Lisinopril 5 Mg Tablet PO BID [facility] Protocol Metoprolol Succinate 100 mg 08/20/20 09:00 Metoprolol Succinate Er 100 Mg Tab.Er.24h PO DAILY [facility] Protocol Metronidazole 500 mg 08/19/20 23:00 08/20/20 06:41 Metronidazole 500 Mg Tablet PO 500 mg Q8H [facility] Administration Morphine Sulfate 4 mg 08/19/20 21:50 08/20/20 03:01 Morphine Sulfate 4 Mg/Ml Cartridge IVPUSH 4 mg Q4H PRN Administration Pain, Severe (Pain Scale 7-10) Non-Formulary Medication 4 gm 08/20/20 09:00 Diclofenac Sodium TOPICAL QID [facility] Nystatin/Triamcinolone Acetonide 1 appl 08/20/20 09:00 Nystatin/Triamcinolone Cream 15 Gm Tube TOPICAL BID [facility] Omeprazole 20 mg 08/20/20 09:00 Omeprazole 20 Mg Capsule.Dr PO BID [facility] Ondansetron HCl 4 mg 08/19/20 22:02 Ondansetron Hcl 4 Mg/2 Ml Vial IVPUSH Q8H PRN Nausea and Vomiting Rivaroxaban 20 mg 08/20/20 18:00 Rivaroxaban 20 Mg Tablet PO DAILY@1800 [facility] Sodium Chloride 3 ml 08/20/20 00:00 08/20/20 00:10 0.9 % Sodium Chloride Flush 3 Ml Syringe IVFLUSH 3 ml QSHIFT [facility] Administration Spironolactone 12.5 mg 08/20/20 09:00 Spironolactone 25 Mg Tablet PO DAILY [facility] Protocol Sucralfate 1 gm 08/20/20 09:00 Sucralfate 1 Gm Tablet PO QID [facility] Tamsulosin HCl 0.4 mg 08/20/20 21:00 Tamsulosin Hcl 0.4 Mg Capsule PO BEDTIME [facility] Temazepam 30 mg 08/19/20 22:11 08/19/20 22:52 Temazepam 15 Mg Capsule PO 30 mg BEDTIME PRN Administration sleep Vitamin D 50 mcg 08/20/20 09:00 Cholecalciferol (Vitamin D3) 25 Mcg Tablet PO DAILY [facility] Time Spent With Patient Time: Total time spent is greater than 50% in coordination of care (as documented) at patient's floor/unit and/or counseling patient: Time with patient: 15 - 24 minutes
[2020-08-20] MEDS: Dicyclomine HCl 10 MG CAPSULE 20 MG PO ×4 (08:52→20:50)
[2020-08-20] MEDS: Metoprolol Succinate ER 100 MG TAB.ER.24H PO (08:52)
[2020-08-20] MEDS: Cholecalciferol (Vitamin D3) 25 MCG TABLET 50 MCG PO (08:52)
[2020-08-20] MEDS: Omeprazole 20 MG CAPSULE.DR PO ×2 (08:52→20:51)
[2020-08-20] MEDS: Sucralfate 1 GM TABLET PO ×4 (08:52→20:50)
[2020-08-20] MEDS: Spironolactone 25 MG TABLET 12.5 MG PO (08:54)
[2020-08-20] MEDS: Furosemide 40 MG TABLET PO (08:54)
[2020-08-20] MEDS: Nystatin/Triamcinolone Cream 15 GM TUBE 1 APPL TOPICAL ×2 (08:54→22:16)
[2020-08-20] MEDS: Gabapentin 400 MG CAPSULE PO ×3 (08:54→20:51)
[2020-08-20] MEDS: lisinopriL 5 MG TABLET PO (08:54)
--- NOTE | 2020-08-20 11:30 | MHC.CM.PN ---
this interview was conducted through pt's son who is at bedside as he speaks comoran. pt lives in his home c his who is also cares for him. he uses a cane and walker as needed for ambulation and has a [employer] chair through [employer] pt's son will provide transportation [place] dc plan is home c [employer] social [employer] department chair via [employer]. cm to cont. to follow.
[2020-08-20 11:32] LABS: Glucose, Whole Blood 125 mg/dL (60-115)
--- NOTE | 2020-08-20 11:32 | HO.PM.IMPN ---
Subjective Subjective Date of Service: 08/20/20 Interval History: Seen in f/u cholecystitis, feels better, no fever and in AFIB with RVR, he has opted for no surgery at this time. Review of Systems Gen: no fever Resp: no sob, no cough CV: no chest, no POWELL, no leg edema, tachycar GI: No n/v, no abd pain Neuro: No confusion Physical Exam Vital Signs: Vital Signs: Last Vital Signs Temp 98.4 F 08/20/20 07:16 Pulse 130 H 08/20/20 08:54 Resp 18 08/20/20 07:16 BP 107/77 08/20/20 08:54 Pulse Ox 95 08/20/20 07:16 Body Mass Index 26.6 General: AO X 3, no acute distress Resp: CTA bilateral CVS: S1,S2,RRR GI: Soft to palpation, not firm, nontender, no guarding and not rigid Skin: No rash Neuro: motor grossly intact Psych: appropriate affect Objective Data Current Medications Generic Name Dose Route Start Last Admin Trade Name Freq PRN Reason Stop Dose Admin Acetaminophen 650 mg 08/19/20 22:02 Acetaminophen 325 Mg Tablet PO Q6H PRN Pain, Mild (Pain Scale 1-3) Atorvastatin Calcium 80 mg 08/20/20 21:00 Atorvastatin Calcium 80 Mg Tablet PO BEDTIME ALEX Dicyclomine HCl 20 mg 08/20/20 09:00 08/20/20 08:52 Dicyclomine Hcl 10 Mg Capsule PO 20 mg QID ALEX Administration Docusate Sodium 100 mg 08/19/20 22:02 Docusate Sodium 100 Mg Capsule PO DAILY PRN Constipation Furosemide 40 mg 08/20/20 09:00 08/20/20 08:54 Furosemide 40 Mg Tablet PO 40 mg DAILY ALEX Administration Protocol Gabapentin 400 mg 08/20/20 09:00 08/20/20 08:54 Gabapentin 400 Mg Capsule PO 400 mg TID ALEX Administration Cefepime HCl 2 gm/ Sodium 50 mls @ 100 mls/hr 08/19/20 23:00 08/20/20 07:13 Chloride IV Infused Q8H ALEX Infusion Insulin Human Lispro 0 unit 08/20/20 07:30 08/20/20 07:51 Insulin Lispro 100 Unit/Ml 3 Ml Vial SUBCUT Not Given QIDACHS [facility] Protocol Lisinopril 5 mg 08/20/20 09:00 08/20/20 08:54 Lisinopril 5 Mg Tablet PO 5 mg BID [facility] Administration Protocol Metoprolol Succinate 100 mg 08/20/20 09:00 08/20/20 08:52 Metoprolol Succinate Er 100 Mg Tab.Er.24h PO 100 mg DAILY [facility] Administration Protocol Metronidazole 500 mg 08/19/20 23:00 08/20/20 06:41 Metronidazole 500 Mg Tablet PO 500 mg Q8H ALEX Administration Morphine Sulfate 4 mg 08/19/20 21:50 08/20/20 03:01 Morphine Sulfate 4 Mg/Ml Cartridge IVPUSH 4 mg Q4H PRN Administration Pain, Severe (Pain Scale 7-10) Non-Formulary Medication 4 gm 08/20/20 09:00 Diclofenac Sodium TOPICAL QID [facility] Nystatin/Triamcinolone Acetonide 1 appl 08/20/20 09:00 08/20/20 08:54 Nystatin/Triamcinolone Cream 15 Gm Tube TOPICAL 1 appl BID [facility] Administration Omeprazole 20 mg 08/20/20 09:00 08/20/20 08:52 Omeprazole 20 Mg Capsule.Dr PO 20 mg BID [facility] Administration Ondansetron HCl 4 mg 08/19/20 22:02 Ondansetron Hcl 4 Mg/2 Ml Vial IVPUSH Q8H PRN Nausea and Vomiting Rivaroxaban 20 mg 08/20/20 18:00 Rivaroxaban 20 Mg Tablet PO DAILY@1800 [facility] Sodium Chloride 3 ml 08/20/20 00:00 08/20/20 08:52 0.9 % Sodium Chloride Flush 3 Ml Syringe IVFLUSH 3 ml QSHIFT [facility] Administration Spironolactone 12.5 mg 08/20/20 09:00 08/20/20 08:54 Spironolactone 25 Mg Tablet PO 12.5 mg DAILY [facility] Administration Protocol Sucralfate 1 gm 08/20/20 09:00 08/20/20 08:52 Sucralfate 1 Gm Tablet PO 1 gm QID [facility] Administration Tamsulosin HCl 0.4 mg 08/20/20 21:00 Tamsulosin Hcl 0.4 Mg Capsule PO BEDTIME [facility] Temazepam 30 mg 08/19/20 22:11 08/19/20 22:52 Temazepam 15 Mg Capsule PO 30 mg BEDTIME PRN Administration sleep Vitamin D 50 mcg 08/20/20 09:00 08/20/20 08:52 Cholecalciferol (Vitamin D3) 25 Mcg Tablet PO 50 mcg DAILY ALEX Administration Labs CBC & Chem 7: 08/20/20 04:11 08/20/20 04:11 Assessment and Plan (1) Acute cholecystitis: Status: Acute (2) Abdominal pain: Status: Acute Assessment and Plan: 74-year-old male with past medical history of CHF, AFib, diabetes, hypertension, among others who presents to the hospital with abdominal pain # acute cholecystitis, responding to IV abx -He and son wants to hold of surgery -continue Cefepime and Flagyl D2 -Dr. Rodriguez following and if worse might consider cholecystoctomy # abdominal pain d/t above, -Morphine for pain # HTN--controlled, continue metoprolol, aldactone and lisinopril # diabetes - low-dose sliding scale insulin, diabetic diet # CHF - no exacerbation - continue continue lasix # AFib--briefly was on RVR -continue Toprol -hold Xarelto in the even he needs procedure
[2020-08-20 16:17] LABS: Glucose, Whole Blood 179 mg/dL (60-115)
[2020-08-20] MEDS: Insulin Lispro 100 UNIT/ML 3 ML VIAL SUBCUT (16:29)
[2020-08-20 20:21] LABS: Glucose, Whole Blood 117 mg/dL (60-115)
[2020-08-20] MEDS: Tamsulosin HCL 0.4 MG CAPSULE PO (20:51)
[2020-08-20] MEDS: Atorvastatin Calcium 80 MG TABLET PO (20:51)
[2020-08-20] MEDS: Temazepam 15 MG CAPSULE 30 MG PO (22:08)
[2020-08-21] VITALS (10 sets, daily range): BP systolic 100–132; BP diastolic 54–72; PULSE 54–111; RESP 18–20; TEMP 36.3–36.9; O2SAT 97–100
--- NOTE | 2020-08-21 02:48 | PC.NURSE ---
Pt had a 10 beat V tach. Otherwise asymptomatic notified
[2020-08-21 04:41] LABS: Magnesium 2.2 mg/dL (1.6-2.6); Potassium 4.2 mmol/L (3.3-5.1)
[2020-08-21] MEDS: cefEPime HCl 2 GM in 0.9 % Sodium Chloride 50 ML IV ×3 (06:06→22:33)
[2020-08-21] MEDS: metroNIDAZOLE 500 MG TABLET PO ×3 (06:31→22:33)
[2020-08-21 08:07] LABS: Glucose, Whole Blood 132 mg/dL (60-115)
[2020-08-21] MEDS: 0.9 % Sodium Chloride Flush 3 ML SYRINGE IVFLUSH ×2 (09:56→16:27)
[2020-08-21] MEDS: Spironolactone 25 MG TABLET 12.5 MG PO (09:56)
[2020-08-21] MEDS: Dicyclomine HCl 10 MG CAPSULE 20 MG PO ×4 (09:56→20:56)
[2020-08-21] MEDS: Cholecalciferol (Vitamin D3) 25 MCG TABLET 50 MCG PO (09:56)
[2020-08-21] MEDS: Furosemide 40 MG TABLET PO (09:56)
[2020-08-21] MEDS: Metoprolol Succinate ER 100 MG TAB.ER.24H PO (09:57)
[2020-08-21] MEDS: Gabapentin 400 MG CAPSULE PO ×3 (09:57→20:56)
[2020-08-21] MEDS: Sucralfate 1 GM TABLET PO ×4 (09:57→20:56)
[2020-08-21] MEDS: Omeprazole 20 MG CAPSULE.DR PO ×2 (09:57→20:56)
[2020-08-21] MEDS: lisinopriL 5 MG TABLET PO (09:57)
[2020-08-21] MEDS: Nystatin/Triamcinolone Cream 15 GM TUBE 1 APPL TOPICAL ×2 (10:03→20:58)
--- NOTE | 2020-08-21 11:07 | P.PNIM_ITS ---
Subjective Subjective Date of Service: 08/21/20 Interval History: Seen in f/u cholecystitis, feels better, no fever, no palpitation, has minimal pain Review of Systems Gen: no fever Resp: no sob, no cough CV: no chest, no POWELL, no leg edema, tachycar GI: No n/v, mild abd pain Neuro: No confusion Physical Exam Vital Signs: Vital Signs: Last Vital Signs Temp 98.4 F 08/21/20 07:21 Pulse 111 H 08/21/20 09:57 Resp 20 08/21/20 07:21 BP 114/57 L 08/21/20 09:57 Pulse Ox 98 08/21/20 07:21 Body Mass Index 26.6 Const: Other: General: AO X 3, no acute distress Resp: CTA bilateral CVS: S1,S2,RRR GI: +BS, mild ruq tenderness Skin: No rash Neuro: motor grossly intact Psych: appropriate affect Objective Data Current Medications Generic Name Dose Route Start Last Admin Trade Name Freq PRN Reason Stop Dose Admin Acetaminophen 650 mg 08/19/20 22:02 Acetaminophen 325 Mg Tablet PO Q6H PRN Pain, Mild (Pain Scale 1-3) Atorvastatin Calcium 80 mg 08/20/20 21:00 08/20/20 20:51 Atorvastatin Calcium 80 Mg Tablet PO 80 mg BEDTIME ALEX Administration Dicyclomine HCl 20 mg 08/20/20 09:00 08/21/20 09:56 Dicyclomine Hcl 10 Mg Capsule PO 20 mg QID ALEX Administration Docusate Sodium 100 mg 08/19/20 22:02 Docusate Sodium 100 Mg Capsule PO DAILY PRN Constipation Furosemide 40 mg 08/20/20 09:00 08/21/20 09:56 Furosemide 40 Mg Tablet PO 40 mg DAILY ALEX Administration Protocol Gabapentin 400 mg 08/20/20 09:00 08/21/20 09:57 Gabapentin 400 Mg Capsule PO 400 mg TID ALEX Administration Cefepime HCl 2 gm/ Sodium 50 mls @ 100 mls/hr 08/19/20 23:00 08/21/20 06:46 Chloride IV Infused Q8H ALEX Infusion Insulin Human Lispro 0 unit 08/20/20 07:30 08/21/20 08:08 Insulin Lispro 100 Unit/Ml 3 Ml Vial SUBCUT Not Given QIDACHS [facility] Protocol Lisinopril 5 mg 08/20/20 09:00 08/21/20 09:57 Lisinopril 5 Mg Tablet PO 5 mg BID [facility] Administration Protocol Metoprolol Succinate 100 mg 08/20/20 09:00 08/21/20 09:57 Metoprolol Succinate Er 100 Mg Tab.Er.24h PO 100 mg DAILY [facility] Administration Protocol Metronidazole 500 mg 08/19/20 23:00 08/21/20 06:31 Metronidazole 500 Mg Tablet PO 500 mg Q8H ALEX Administration Morphine Sulfate 4 mg 08/19/20 21:50 08/20/20 03:01 Morphine Sulfate 4 Mg/Ml Cartridge IVPUSH 4 mg Q4H PRN Administration Pain, Severe (Pain Scale 7-10) Non-Formulary Medication 4 gm 08/20/20 09:00 Diclofenac Sodium TOPICAL QID [facility] Nystatin/Triamcinolone Acetonide 1 appl 08/20/20 09:00 08/21/20 10:03 Nystatin/Triamcinolone Cream 15 Gm Tube TOPICAL 1 appl BID [facility] Administration Omeprazole 20 mg 08/20/20 09:00 08/21/20 09:57 Omeprazole 20 Mg Capsule.Dr PO 20 mg BID [facility] Administration Ondansetron HCl 4 mg 08/19/20 22:02 Ondansetron Hcl 4 Mg/2 Ml Vial IVPUSH Q8H PRN Nausea and Vomiting Rivaroxaban 20 mg 08/20/20 18:00 08/20/20 17:13 Rivaroxaban 20 Mg Tablet PO Not Given DAILY@1800 [facility] Sodium Chloride 3 ml 08/20/20 00:00 08/21/20 09:56 0.9 % Sodium Chloride Flush 3 Ml Syringe IVFLUSH 3 ml QSHIFT [facility] Administration Spironolactone 12.5 mg 08/20/20 09:00 08/21/20 09:56 Spironolactone 25 Mg Tablet PO 12.5 mg DAILY [facility] Administration Protocol Sucralfate 1 gm 08/20/20 09:00 08/21/20 09:57 Sucralfate 1 Gm Tablet PO 1 gm QID [facility] Administration Tamsulosin HCl 0.4 mg 08/20/20 21:00 08/20/20 20:51 Tamsulosin Hcl 0.4 Mg Capsule PO 0.4 mg BEDTIME ALEX Administration Temazepam 30 mg 08/19/20 22:11 08/20/20 22:08 Temazepam 15 Mg Capsule PO 30 mg BEDTIME PRN Administration sleep Vitamin D 50 mcg 08/20/20 09:00 08/21/20 09:56 Cholecalciferol (Vitamin D3) 25 Mcg Tablet PO 50 mcg DAILY ALEX Administration Labs CBC & Chem 7: 08/20/20 04:11 08/21/20 03:50 Microbiology Microbiology Results: Microbiology 08/19/20 11:37 Blood - Venous Blood Culture - Preliminary No growth after 24 hours. 08/19/20 11:32 Blood - Venous Blood Culture - Preliminary No growth after 24 hours. Assessment and Plan (1) Acute cholecystitis: Status: Acute (2) Abdominal pain: Status: Acute Assessment and Plan: 74-year-old male with past medical history of CHF, AFib, diabetes, hypertension, among others who presents to the hospital with abdominal pain # acute cholecystitis, responding to IV abx -He and son wants to hold of surgery -continue Cefepime and Flagyl D3 -Dr. Rodriguez following and if worse might consider cholecystoctomy if not getting beter # abdominal pain d/t above, -Morphine for pain # HTN--controlled, continue metoprolol, aldactone and lisinopril # diabetes - low-dose sliding scale insulin, diabetic diet # CHF - no exacerbation - continue continue lasix # AFib--rate is high -continue Toprol and persistently high add cardizem or dig -continu Xarelto if no surgery is planned
[2020-08-21 11:37] LABS: Glucose, Whole Blood 216 mg/dL (60-115)
[2020-08-21] MEDS: Insulin Lispro 100 UNIT/ML 3 ML VIAL SUBCUT (11:42)
--- NOTE | 2020-08-21 16:10 | PM.PNGS ---
Subjective Subjective Date of Service: 08/21/20 Interval history: Patient reports feeling improved today with minimal to no abdominal pain. Family not interested in pursuing surgery due to his cardiac history. Physical Exam Vital Signs: Vital Signs: Last Vital Signs Temp 97.5 F 08/21/20 15:45 Pulse 110 H 08/21/20 15:45 Resp 18 08/21/20 15:45 BP 103/58 L 08/21/20 15:45 Pulse Ox 100 08/21/20 15:45 Body Mass Index 26.6 Const: General: cooperative, healthy appearing, comfortable and no acute distress GI: Other: soft, nondistended, non tender, no rebound or guarding. Abdomen image: 1. Skin: General skin exam: no rashes or lesions noted Extrem: General: Yes normal to inspection and Yes full ROM Progress Note: A&P Assessment and plan (1) Acute cholecystitis: Status: Acute Assessment and Plan: Patient is now much improved with no further abdominal pain. Patient and family are not interested in surgical intervention. Will sign off; please consult for any changes. Fall Risk Details Current Medications: Current Medications Generic Name Dose Route Start Last Admin Trade Name Freq PRN Reason Stop Dose Admin Acetaminophen 650 mg 08/19/20 22:02 Acetaminophen 325 Mg Tablet PO Q6H PRN Pain, Mild (Pain Scale 1-3) Atorvastatin Calcium 80 mg 08/20/20 21:00 08/20/20 20:51 Atorvastatin Calcium 80 Mg Tablet PO 80 mg BEDTIME ALEX Administration Dicyclomine HCl 20 mg 08/20/20 09:00 08/21/20 13:46 Dicyclomine Hcl 10 Mg Capsule PO 20 mg QID ALEX Administration Diltiazem HCl 30 mg 08/21/20 15:00 Diltiazem Hcl 30 Mg Tablet PO TID ALEX Protocol Docusate Sodium 100 mg 08/19/20 22:02 Docusate Sodium 100 Mg Capsule PO DAILY PRN Constipation Furosemide 40 mg 08/20/20 09:00 08/21/20 09:56 Furosemide 40 Mg Tablet PO 40 mg DAILY ALEX Administration Protocol Gabapentin 400 mg 08/20/20 09:00 08/21/20 09:57 Gabapentin 400 Mg Capsule PO 400 mg TID ALEX Administration Cefepime HCl 2 gm/ Sodium 50 mls @ 100 mls/hr 08/19/20 23:00 08/21/20 06:46 Chloride IV Infused Q8H [facility] Infusion Insulin Human Lispro 0 unit 08/20/20 07:30 08/21/20 11:42 Insulin Lispro 100 Unit/Ml 3 Ml Vial SUBCUT 4 unit QIDACHS [facility] Administration Protocol Lisinopril 5 mg 08/20/20 09:00 08/21/20 09:57 Lisinopril 5 Mg Tablet PO 5 mg BID [facility] Administration Protocol Metoprolol Succinate 100 mg 08/20/20 09:00 08/21/20 09:57 Metoprolol Succinate Er 100 Mg Tab.Er.24h PO 100 mg DAILY [facility] Administration Protocol Metronidazole 500 mg 08/19/20 23:00 08/21/20 06:31 Metronidazole 500 Mg Tablet PO 500 mg Q8H [facility] Administration Morphine Sulfate 4 mg 08/19/20 21:50 08/20/20 03:01 Morphine Sulfate 4 Mg/Ml Cartridge IVPUSH 4 mg Q4H PRN Administration Pain, Severe (Pain Scale 7-10) Non-Formulary Medication 4 gm 08/20/20 09:00 Diclofenac Sodium TOPICAL QID [facility] Nystatin/Triamcinolone Acetonide 1 appl 08/20/20 09:00 08/21/20 10:03 Nystatin/Triamcinolone Cream 15 Gm Tube TOPICAL 1 appl BID [facility] Administration Omeprazole 20 mg 08/20/20 09:00 08/21/20 09:57 Omeprazole 20 Mg Capsule.Dr PO 20 mg BID [facility] Administration Ondansetron HCl 4 mg 08/19/20 22:02 Ondansetron Hcl 4 Mg/2 Ml Vial IVPUSH Q8H PRN Nausea and Vomiting Rivaroxaban 20 mg 08/20/20 18:00 08/20/20 17:13 Rivaroxaban 20 Mg Tablet PO Not Given DAILY@1800 [facility] Sodium Chloride 3 ml 08/20/20 00:00 08/21/20 09:56 0.9 % Sodium Chloride Flush 3 Ml Syringe IVFLUSH 3 ml QSHIFT [facility] Administration Spironolactone 12.5 mg 08/20/20 09:00 08/21/20 09:56 Spironolactone 25 Mg Tablet PO 12.5 mg DAILY [facility] Administration Protocol Sucralfate 1 gm 08/20/20 09:00 08/21/20 13:46 Sucralfate 1 Gm Tablet PO 1 gm QID [facility] Administration Tamsulosin HCl 0.4 mg 08/20/20 21:00 08/20/20 20:51 Tamsulosin Hcl 0.4 Mg Capsule PO 0.4 mg BEDTIME [facility]LEX Administration Temazepam 30 mg 08/19/20 22:11 08/20/20 22:08 Temazepam 15 Mg Capsule PO 30 mg BEDTIME PRN Administration sleep Vitamin D 50 mcg 08/20/20 09:00 08/21/20 09:56 Cholecalciferol (Vitamin D3) 25 Mcg Tablet PO 50 mcg DAILY ALEX Administration Time Spent With Patient Time: Total time spent is greater than 50% in coordination of care (as documented) at patient's floor/unit and/or counseling patient: Time with patient: 15 - 24 minutes
[2020-08-21 16:19] LABS: Glucose, Whole Blood 107 mg/dL (60-115)
[2020-08-21] MEDS: Rivaroxaban 20 MG TABLET PO (16:26)
[2020-08-21] MEDS: dilTIAZem HCL 30 MG TABLET PO (16:27)
[2020-08-21 20:20] LABS: Glucose, Whole Blood 146 mg/dL (60-115)
[2020-08-21] MEDS: Tamsulosin HCL 0.4 MG CAPSULE PO (20:56)
[2020-08-21] MEDS: Atorvastatin Calcium 80 MG TABLET PO (20:56)
[2020-08-21] MEDS: Temazepam 15 MG CAPSULE 30 MG PO (22:33)
[2020-08-22] MEDS: 0.9 % Sodium Chloride Flush 3 ML SYRINGE IVFLUSH ×2 (00:13→08:14)
[2020-08-22 04:00] VITALS: BP 146/83; PULSE 78; RESP 20; TEMP 36.9; O2SAT 98
[2020-08-22] MEDS: cefEPime HCl 2 GM in 0.9 % Sodium Chloride 50 ML IV (06:12)
[2020-08-22] MEDS: metroNIDAZOLE 500 MG TABLET PO (06:16)
[2020-08-22 07:10] VITALS: BP 124/64; PULSE 72; RESP 18; TEMP 36.4; O2SAT 98
[2020-08-22 08:11] VITALS: PULSE 79
[2020-08-22] MEDS: Dicyclomine HCl 10 MG CAPSULE 20 MG PO (08:11)
[2020-08-22] MEDS: Spironolactone 25 MG TABLET 12.5 MG PO (08:11)
[2020-08-22 08:13] VITALS: BP 124/64; PULSE 79
[2020-08-22] MEDS: Cholecalciferol (Vitamin D3) 25 MCG TABLET 50 MCG PO (08:13)
[2020-08-22] MEDS: Omeprazole 20 MG CAPSULE.DR PO (08:13)
[2020-08-22] MEDS: Furosemide 40 MG TABLET PO (08:13)
[2020-08-22] MEDS: Gabapentin 400 MG CAPSULE PO (08:13)
[2020-08-22] MEDS: lisinopriL 5 MG TABLET PO (08:13)
[2020-08-22] MEDS: Metoprolol Succinate ER 100 MG TAB.ER.24H PO (08:13)
[2020-08-22] MEDS: Sucralfate 1 GM TABLET PO (08:14)
[2020-08-22] MEDS: Nystatin/Triamcinolone Cream 15 GM TUBE 1 APPL TOPICAL (08:22)
[2020-08-22 08:27] LABS: Glucose, Whole Blood 128 mg/dL (60-115)
--- NOTE | 2020-08-22 09:45 | PM.DS ---
DS: Providers Provider Date of Service: 09/02/20 Date of admission: 08/19/20 21:49 Primary care physician: Tatiana Stokes MD Consults: 08/20/20 08:33 Consult to General Surgery Routine Consulting Provider: Tong Rodriguez Reason for consultation: cholecystitis Has provider been notified: Yes DS: Diagnosis Discharge Diagnosis (1) Acute cholecystitis: Status: Acute DS: Medications Discharge Medications Home Medications: Home Medications Medication Instructions Recorded Confirmed rivaroxaban 20 mg tablet 20 mg PO DAILY@1800 07/15/20 08/19/20 dicyclomine 10 mg capsule 20 mg PO QID 08/19/20 08/19/20 lisinopril 5 mg PO BID 08/19/20 08/19/20 metformin 500 mg PO BIDWM 08/19/20 08/19/20 omeprazole 20 mg capsule,delayed 20 mg PO BID 08/19/20 08/19/20 release spironolactone 12.5 tab PO DAILY 08/19/20 08/19/20 sucralfate 1 gram tablet 1 g PO QID 08/19/20 08/19/20 Previous Rx's Medication Instructions Recorded atorvastatin 80 mg tablet 80 mg PO DAILY 90 Days #90 tab 02/20/20 diclofenac sodium 1 % topical gel 4 g TOPICAL QID 30 Days #100 g 07/01/20 gabapentin 400 mg capsule 400 mg PO TID 90 Days #270 cap 07/01/20 metoprolol succinate 100 mg 100 mg PO DAILY 90 Days #90 tab 07/01/20 tablet,extended release 24 hr tamsulosin 0.4 mg capsule 0.4 mg PO BEDTIME 90 Days #90 cap 07/01/20 furosemide 40 mg tablet 40 mg PO DAILY 90 Days #90 tab 07/22/20 lancets 28 gauge #100 ea 07/22/20 clotrimazole-betamethasone 1 1 appl TOPICAL BID 30 Days #45 g 07/29/20 %-0.05 % topical cream oxycodone-acetaminophen 5 mg-325 1 tab PO Q8H PRN 30 Days #90 tab 07/29/20 mg tablet temazepam 30 mg capsule 30 mg PO BEDTIME PRN 30 Days #30 07/29/20 cap cholecalciferol (vitamin D3) 50 50 mcg PO DAILY 90 Days #90 cap 08/06/20 mcg (2,000 unit) capsule allopurinol 300 mg tablet 300 mg PO DAILY 90 Days #90 tab 08/19/20 DS: Summary Hospital Course Hospital Course: Chief Complaint: abdominal pain 74-year-old male with past medical history of AFib on Xarelto, CHF, DM, HTN, prostate cancer status post mastectomy, HLD who presents to the hospital with abdominal pain. Patient reports that the pain started this morning localized to the right upper quadrant, 10/10, radiating to the left, worse with movement, not associated with eating or drinking, no previous similar episode. He denies any chest pain, headache, change in vision, no nausea or vomiting, no diarrhea constipation, no urinary symptoms and no lower extremity edema. On arrival to the ED Patient hemodynamically stable with no significant abnormal vitals Labs are significant for WBC count of 13.7, sodium of 131, potassium 4.7, BUN of 23, creatinine of 1.52 with a baseline around 1, total bili of 2.7, direct of 1.1, ALT of 84, UA negative. Abdominal CT shows small dependent gallstones with mild gallbladder wall thickening and prominent adjacent vomit origin consistent with acute cholecystitis. Patient was evaluated by surgical team, at this time patient is not interested in surgical intervention and therefore was admitted to the surgical service and treated with IV Abx Hospital course: Patient presented with acute abdominal pain and labs, clinical and imaging finding was consistent with acute cholecystitis and was offered sugical intervention but patient and son(HCP) declined in favor of antibotics. Surgery followed and opted for possible Cholecystectomy if did not improve but they are not intrested in intervention. He has been treated with Cefepime and Flagyl and is doing well no pain at this time, no fever and benng exam and is tolerating regular diet. He will be transition to oral Augmentin and Flagyl and to follow up with surgery on outpatient basis and perhaps reconsider surgery LANDON--pre renal, Creatinine was 1.52 on presentation and next day improved to 1.19 AFIB--he has history of AFIB and did have episodes or RVR, likely from acute . His rate is controlled with Toprol and should continue anticoagulation with Xarelto # HTN--controlled, continue metoprolol, aldactone and lisinopril # diabetes - low-dose sliding scale insulin, diabetic diet # CHF - no exacerbation - continue Lasix Discharge plan discussed with patient and son at bedside and they are comfortable with the plan as set forth Time Spent with Patient Time attestation: Total time spent providing and/or coordinating discharge services: Discharge coordination time: Greater than 30 minutes Physical Exam Vital Signs: Vital Signs: Last Vital Signs Temp 97.6 F 08/22/20 07:10 Pulse 79 08/22/20 08:13 Resp 18 08/22/20 07:10 BP 124/64 08/22/20 08:13 Pulse Ox 98 08/22/20 07:10 Body Mass Index 26.6 DS: Data Data Completed and Pending Labs on day of discharge: Laboratory Results - last 24 hr 08/21/20 08/21/20 08/21/20 11:05 16:11 20:12 POC Glucose 216 H 107 146 H 08/22/20 07:13 POC Glucose 128 H Preliminary micro results at discharge 08/19/20 11:37 Blood Culture - Preliminary Blood - Venous No growth after 48 hours. 08/19/20 11:32 Blood Culture - Preliminary Blood - Venous No growth after 48 hours. Discharge Plan Discharge Anticipated Discharge Date/Time: 08/22/20 09:33 Patient Disposition: Home, Self-Care Discharge Diagnosis: Acute cholecystitis Referrals: Tong Rodriguez MD [Physician] - 1 Week (follow up for acute cholecystitis) Tatiana Gordon MD [Primary Care Provider] - 1 Week Discharge Medications: New amoxicillin-pot clavulanate 875-125 mg Tablet 1 tab PO Q12H Qty: 14 RF: 0 metronidazole 500 mg Tablet 500 mg PO Q8H Qty: 21 RF: 0 oxycodone 5 mg tablet 5 mg PO Q6H PRN (Reason: pain (scale score 7-10)) Qty: 10 RF: 0 Continued atorvastatin 80 mg tablet 80 mg PO DAILY 90 Days Qty: 90 RF: 3 diclofenac sodium 1 % gel 4 g topical QID 30 Days Qty: 100 RF: 11 tamsulosin 0.4 mg capsule 0.4 mg PO BEDTIME 90 Days Qty: 90 RF: 3 metoprolol succinate 100 mg tablet extended release 24 hr 100 mg PO DAILY 90 Days Qty: 90 RF: 3 gabapentin 400 mg capsule 400 mg PO TID 90 Days Qty: 270 RF: 3 (DME) lancets [Acti-Ambrocio Lancets] 28 gauge misc See Rx Instructions .ROUTE .MEDSUPPLY Qty: 100 RF: 11 furosemide 40 mg tablet 40 mg PO DAILY 90 Days Qty: 90 RF: 3 clotrimazole-betamethasone 1-0.05 % cream 1 appl topical BID 30 Days Qty: 45 RF: 2 cholecalciferol (vitamin D3) 50 mcg (2,000 unit) capsule 50 mcg PO DAILY 90 Days Qty: 90 RF: 3 spironolactone 25 mg tablet 12.5 tab PO DAILY RF: 0 metformin 500 mg tablet 500 mg PO BIDWM RF: 0 lisinopril 5 mg tablet 5 mg PO BID RF: 0 Xarelto 20 mg tablet 20 mg PO DAILY@1800 RF: 0 omeprazole 20 mg capsule,delayed release(DR/EC) 20 mg PO BID RF: 0 dicyclomine 10 mg capsule 20 mg PO QID RF: 0 sucralfate 1 gram tablet 1 g PO QID RF: 0 allopurinol 300 mg tablet 300 mg PO DAILY 90 Days Qty: 90 RF: 3 No Action oxycodone-acetaminophen 5-325 mg tablet 1 tab PO Q8H PRN (Reason: pain) 30 Days Qty: 90 RF: 0 temazepam 30 mg capsule 30 mg PO BEDTIME PRN (Reason: sleep) 30 Days Qty: 30 RF: 0 Discharge Orders: Discharge Order (Routine); Ordered 08/22/20 Ordered By: Eran Williamson Diet: advance to usual diet Activity on Discharge: As tolerated Stand Alone Forms: Patient Portal Discharge page Care Plan Goals: Resolution of acute cholecystitis (gallbladder infection) Health Concerns: Acute gallbladder infection Assessment: cholecystitis Discharge Date/Time: 08/22/20 11:00
--- NOTE | 2020-08-22 09:56 | PC.NURSE ---
Cardizem and lisinopril held overnight a pt HR in 40s. In am RN checked with MD on if wanted any meds held as pt HR then in 70s but had metoprolol cardizem and lisinopril due. Per MD hold cardizem this am. PT remains in a fib. VSS.
--- NOTE | 2020-08-22 10:26 | MHC.CM.PN ---
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 MARTIN AT [facility] NOTIFIED OF DC VIA T/C ([phone]).
[2020-08-22] MEDS: Amoxicillin/Potassium Clav 875 MG TABLET PO (11:02)
== END 2020-08-22 11:00 | disposition home or self-care (01) | DRG 445 ==
LOC: HO.ED 15:55 → HO.EDOVER 22:08 → HO.S3 08-20 00:52
PROVIDERS: Admitting Provider Internal Medicine; Emergency Provider Emergency Medicine; PCP Internal Medicine; Visit Provider Internal Medicine
DX: K81.0 Acute cholecystitis (principal); N17.9 Acute kidney failure, unspecified; I50.22 Chronic systolic (congestive) heart failure; I48.91 Unspecified atrial fibrillation; I11.0 Hypertensive heart disease with heart failure; I25.2 Old myocardial infarction; Z20.822 Contact with and (suspected) exposure to COVID-19; Z79.01 Long term (current) use of anticoagulants; Z79.84 Long term (current) use of oral hypoglycemic drugs; Z79.899 Other long term (current) drug therapy
CPT/HCPCS: 36415; 74176; 74181; 76705; 80048; 80076; 81003; 82947; 83690; 83735; 84132; 85025; 85610; 87040; 87635; 93005; 96365; 96368; 96375; 99285; 99291; J0692; J0696; J1885; J2270; J2405

== ENCOUNTER 2020-10-07 09:51 | Outpatient (REF) | payer MEDICARE, SELFPAY ==
--- NOTE | ~2020-10-07 | XR_ITS ---
EXAMINATION: XR KNEE, RIGHT CLINICAL INFORMATION: Right knee pain. COMPARISON: None TECHNIQUE: AP and lateral views of the right knee. FINDINGS: Mild patellofemoral joint space narrowing with tiny marginal osteophytes. No osseous erosion. No fracture or dislocation. Medial and lateral compartment chondrocalcinosis. Atherosclerotic calcifications. XR/XR knee RT 2V IMPRESSION: Mild patellofemoral osteoarthritis. Medial and lateral compartment chondrocalcinosis.
[2020-10-07 12:01] LABS: MANUAL DIFF FLAG NO
[2020-10-07 12:11] LABS: Basophils Absolute Auto 0.1 X10*3/uL (0.0-0.2); Basophils Percent Auto 0.7 % (0-2); Eosinophils Absolute Auto 0.2 X10*3/uL (0.0-0.4); Eosinophils Percent Auto 2.7 % (0-4); Hematocrit 40.8 % (42-52); Hemoglobin 14.1 g/dl (14.0-18.0); Imm Gran Abs Auto 0.08 X10*3/uL (0.00-0.03); Imm Gran Pct Auto 1.1 % (0.0-0.4); Lymphocytes Absolute Auto 1.9 X10*3/uL (1.2-4.9); Lymphocytes Percent Auto 25.3 % (20-40); Mean Corpuscular HGB Conc 34.6 g/dl (31.0-36.0); Mean Corpuscular Hemoglobin 30.7 pg (27.0-33.0); Mean Corpuscular Volume 88.7 fL (80-98); Mean Platelet Volume 9.5 fL (9.4-12.4); Monocytes Absolute Auto 0.6 X10*3/uL (0.1-1.2); Neutrophils Absolute Auto 4.6 X10*3/uL (2.0-8.3); Neutrophils Percent Auto 62.2 % (45-73); Platelet Count 258 X10*3/uL (160-400); Red Cell Distribution Width 14.3 % (11.0-16.0); White Blood Count 7.4 X10*3/uL (4.8-10.8)
[2020-10-07 13:45] LABS: Alanine Aminotransferase 38 U/L (0-40); Albumin Level 4.7 g/dL (3.5-5.0); Alkaline Phosphatase 104 U/L (39-117); Anion Gap 16 (12-20); Aspartate Amino Transferase 29 U/L (5-37); Bilirubin Total 1.3 mg/dL (0.0-1.0); Blood Urea Nitrogen 20 mg/dL (9-16); Calcium 9.9 mg/dL (8.4-10.2); Carbon Dioxide 26 mmol/L (22-29); Chloride 97 mmol/L (96-108); Cholesterol 167 mg/dL; Estimated Glomerular Filt Rate 50; Glucose Fasting 160 mg/dL (60-99); HDL Cholesterol 34 mg/dL; LDL Cholesterol Calculated 76 mg/dl; Potassium 4.9 mmol/L (3.3-5.1); Sodium 134 mmol/L (135-145); Total Protein 8.2 g/dL (6.5-8.0); Triglycerides 285 mg/dL
[2020-10-07 13:53] LABS: Creatinine Urine 251.35 mg/dL; Microalbum/Creatinine Ratio Ur 7.1 ug/mg cr
[2020-10-08 18:07] LABS: NT-proBNP 1150 pg/mL
[2020-10-11 13:22] LABS: Vitamin D 25-OH, D2 <4 ng/mL; Vitamin D 25-OH, D3 37 ng/mL; Vitamin D 25-OH, Total 37 ng/mL (30-100)
== END 2020-10-07 09:52 | disposition home or self-care (01) ==
LOC: HO.LAB 09:51
PROVIDERS: PCP Internal Medicine; Visit Provider Internal Medicine
DX: Z01.812 Encounter for preprocedural laboratory examination (principal); E78.5 Hyperlipidemia, unspecified; D64.9 Anemia, unspecified; E11.9 Type 2 diabetes mellitus without complications; M25.561 Pain in right knee; E55.9 Vitamin D deficiency, unspecified; I50.22 Chronic systolic (congestive) heart failure; Z20.822 Contact with and (suspected) exposure to COVID-19
CPT/HCPCS: 36415; 73560; 80053; 80061; 82043; 82306; 83880; 85025; C9803; U0003; U0005

== ENCOUNTER 2020-11-21 08:42 | Outpatient (REF) | payer MEDICARE, SELFPAY ==
[2020-11-21 09:37] LABS: Anion Gap 14 (12-20); Blood Urea Nitrogen 21 mg/dL (9-16); Calcium 9.7 mg/dL (8.4-10.2); Carbon Dioxide 24 mmol/L (22-29); Chloride 102 mmol/L (96-108); Estimated Glomerular Filt Rate 53; Glucose Random 130 mg/dL (60-115); Potassium 5.4 mmol/L (3.3-5.1); Sodium 135 mmol/L (135-145)
== END 2020-11-21 08:43 | disposition home or self-care (01) ==
LOC: HO.LAB 08:42
PROVIDERS: Visit Provider Internal Medicine
DX: I25.10 Atherosclerotic heart disease of native coronary artery without angina pectoris (principal); I50.22 Chronic systolic (congestive) heart failure
CPT/HCPCS: 36415; 80048

== ENCOUNTER 2020-11-25 12:49 | Outpatient (REF) | payer MEDICARE, SELFPAY ==
[2020-11-25 13:56] LABS: MANUAL DIFF FLAG NO
[2020-11-25 14:04] LABS: Basophils Percent Auto 0.5 % (0-2); Eosinophils Absolute Auto 0.6 X10*3/uL (0.0-0.4); Eosinophils Percent Auto 8.4 % (0-4); Hematocrit 36.8 % (42-52); Hemoglobin 12.2 g/dl (14.0-18.0); Imm Gran Abs Auto 0.03 X10*3/uL (0.00-0.03); Imm Gran Pct Auto 0.5 % (0.0-0.4); Lymphocytes Absolute Auto 1.6 X10*3/uL (1.2-4.9); Lymphocytes Percent Auto 23.9 % (20-40); Mean Corpuscular HGB Conc 33.2 g/dl (31.0-36.0); Mean Corpuscular Hemoglobin 30.7 pg (27.0-33.0); Mean Corpuscular Volume 92.7 fL (80-98); Mean Platelet Volume 10.1 fL (9.4-12.4); Monocytes Absolute Auto 0.7 X10*3/uL (0.1-1.2); Monocytes Percent Auto 11.3 % (2-11); Neutrophils Absolute Auto 3.6 X10*3/uL (2.0-8.3); Neutrophils Percent Auto 55.4 % (45-73); Platelet Count 256 X10*3/uL (160-400); Red Blood Count 3.97 X10*6/uL (4.60-5.80); Red Cell Distribution Width 13.1 % (11.0-16.0); White Blood Count 6.5 X10*3/uL (4.8-10.8)
[2020-11-25 14:23] LABS: Creatinine Urine 160.04 mg/dL; Microalbum/Creatinine Ratio Ur 6.8 ug/mg cr
[2020-11-25 14:25] LABS: Alanine Aminotransferase 16 U/L (0-40); Albumin Level 4.4 g/dL (3.5-5.0); Alkaline Phosphatase 106 U/L (39-117); Anion Gap 15 (12-20); Aspartate Amino Transferase 23 U/L (5-37); Bilirubin Total 0.8 mg/dL (0.0-1.0); Blood Urea Nitrogen 23 mg/dL (9-16); Calcium 9.2 mg/dL (8.4-10.2); Carbon Dioxide 21 mmol/L (22-29); Chloride 105 mmol/L (96-108); Cholesterol 116 mg/dL; Estimated Glomerular Filt Rate > 60; Glucose Fasting 108 mg/dL (60-99); HDL Cholesterol 27 mg/dL; LDL Cholesterol Calculated 55 mg/dl; Sodium 136 mmol/L (135-145); Total Protein 7.6 g/dL (6.5-8.0); Triglycerides 171 mg/dL; Uric Acid 6.8 mg/dL (3.4-7.0)
[2020-11-30 13:26] LABS: Vitamin D 25-OH, D2 <4 ng/mL; Vitamin D 25-OH, D3 29 ng/mL; Vitamin D 25-OH, Total 29 ng/mL (30-100)
== END 2020-11-25 12:50 | disposition home or self-care (01) ==
LOC: HO.LAB 12:49
PROVIDERS: PCP Internal Medicine; Visit Provider Internal Medicine Cardiovascular Disease
DX: E55.9 Vitamin D deficiency, unspecified (principal); D64.9 Anemia, unspecified; M10.9 Gout, unspecified; E11.9 Type 2 diabetes mellitus without complications; E78.5 Hyperlipidemia, unspecified; I50.22 Chronic systolic (congestive) heart failure; I27.9 Pulmonary heart disease, unspecified
CPT/HCPCS: 36415; 80053; 80061; 82043; 82306; 84550; 85025

== ENCOUNTER 2020-12-03 08:00 | Outpatient (REF) | payer MEDICARE, SELFPAY ==
[2020-12-03 09:11] LABS: Glucose Urine UA NEG (NEG); Leukocyte Esterase Urine 3+ (NEG); Nitrite Urine NEG (NEG); UACC Culture Trigger YES; Urine Blood 3+ (NEG); Urine Ketones NEG (NEG); Urine Protein 2+ MG/DL (NEG-TRACE)
[2020-12-03 09:13] LABS: Appearance Urine CLOUDY; Color Urine YELLOW
[2020-12-03 09:44] LABS: Bacteria Urine 2+ /LPF; Squamous Epithelial Cell Urine 2+ /LPF; WBC Urine TNTC /HPF (0-4)
== END 2020-12-03 08:01 | disposition home or self-care (01) ==
LOC: HO.LAB 08:00
PROVIDERS: PCP Internal Medicine; Visit Provider Internal Medicine
DX: R30.0 Dysuria (principal)
CPT/HCPCS: 81001

== ENCOUNTER → 2020-12-04 14:50 | Outpatient (REF) | payer MEDICARE, SELFPAY ==
[2020-12-04 15:42] LABS: Glucose Urine UA NEG (NEG); Leukocyte Esterase Urine 2+ (NEG); Nitrite Urine NEG (NEG); Specific Gravity - Urine 1.025 (1.005-1.025); UACC Culture Trigger YES; Urine Blood 2+ (NEG); Urine Ketones NEG (NEG); Urine Protein 1+ MG/DL (NEG-TRACE)
[2020-12-04 15:45] LABS: Color Urine YELLOW
[2020-12-04 15:46] LABS: Appearance Urine CLOUDY
[2020-12-04 16:11] LABS: Bacteria Urine TRACE /LPF; Squamous Epithelial Cell Urine 1+ /LPF
== END ==
LOC: HO.CARD 14:50
PROVIDERS: PCP Internal Medicine; Visit Provider Internal Medicine
DX: R30.0 Dysuria (principal)
CPT/HCPCS: 81001; 87086

== ENCOUNTER → 2020-12-08 12:33 | Outpatient (REF) | payer MEDICARE, SELFPAY ==
--- NOTE | 2020-12-08 12:44 | ECG_ITS ---
Test Reason : PERSISTENT AFIB Blood Pressure : / mmHG Vent. Rate : 078 BPM Atrial Rate : 081 BPM P-R Int : 000 ms QRS Dur : 078 ms QT Int : 366 ms P-R-T Axes : 000 -52 -23 degrees QTc Int : 417 ms Atrial fibrillation Left axis deviation Inferior infarct (cited on or before 11-JUL-2017) Abnormal ECG When compared with ECG of 19-AUG-2020 10:13, Nonspecific T wave abnormality no longer evident in Lateral leads Referred By: Tatiana Stokes Electronically Signed By:ANGEL LOPEZ MD
== END ==
LOC: HO.CARD 12:33
PROVIDERS: PCP Internal Medicine; Visit Provider Internal Medicine
DX: I48.11 Longstanding persistent atrial fibrillation (principal)
CPT/HCPCS: 93005

== ENCOUNTER 2020-12-23 12:42 | Outpatient (REF) | payer MEDICARE, SELFPAY ==
[2020-12-23 14:02] LABS: Glucose Urine UA NEG (NEG); Leukocyte Esterase Urine NEG (NEG); Nitrite Urine NEG (NEG); Specific Gravity - Urine 1.025 (1.005-1.025); Urine Blood NEG (NEG); Urine Ketones NEG (NEG); Urine Protein NEG (NEG-TRACE)
[2020-12-23 14:11] LABS: Appearance Urine CLEAR; Color Urine YELLOW
== END 2020-12-23 12:43 | disposition home or self-care (01) ==
LOC: HO.LAB 12:42
PROVIDERS: PCP Internal Medicine; Visit Provider Internal Medicine
DX: R30.0 Dysuria (principal); N39.0 Urinary tract infection, site not specified
CPT/HCPCS: 81003; 87086

== ENCOUNTER 2021-01-16 10:12 | Outpatient (REF) | payer MEDICARE, SELFPAY ==
--- NOTE | ~2021-01-16 | XR_ITS ---
EXAMINATION: XR SHOULDER, RIGHT CLINICAL INFORMATION: Right shoulder pain. COMPARISON: None TECHNIQUE: AP external rotation, Grashey, scapular Y, and axillary views of the right shoulder. FINDINGS: No acute fracture or dislocation. Severe glenohumeral joint space narrowing with bony remodeling, subchondral sclerosis, subchondral cystic change, and large marginal osteophytes. Acromioclavicular joint space narrowing with marginal osteophytes. No abnormal soft tissue calcification. 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
== END 2021-01-16 10:13 | disposition home or self-care (01) ==
LOC: HO.XRAY 10:12
PROVIDERS: PCP Internal Medicine; Referring Provider Internal Medicine; Visit Provider Nurse Practitioner Family
DX: M25.511 Pain in right shoulder (principal); M89.49 Other hypertrophic osteoarthropathy, multiple sites; M10.9 Gout, unspecified; Z79.899 Other long term (current) drug therapy
CPT/HCPCS: 73030; 99212

== ENCOUNTER → 2021-01-29 08:28 | Outpatient (BNVA) | payer MEDICARE, SELFPAY | PROVIDERS: Visit Provider Physician Assistant | DX: M19.011 Primary osteoarthritis, right shoulder (principal) | CPT/HCPCS: 99202 ==

== ENCOUNTER 2021-03-20 08:54 | Outpatient (REF) | payer MEDICARE, SELFPAY ==
[2021-03-20 10:50] LABS: Alanine Aminotransferase 22 U/L (0-40); Albumin Level 4.2 g/dL (3.5-5.0); Alkaline Phosphatase 91 U/L (39-117); Anion Gap 14 (12-20); Aspartate Amino Transferase 23 U/L (5-37); Bilirubin Total 0.7 mg/dL (0.0-1.0); Blood Urea Nitrogen 18 mg/dL (9-16); Calcium 9.1 mg/dL (8.4-10.2); Carbon Dioxide 25 mmol/L (22-29); Chloride 103 mmol/L (96-108); Cholesterol 119 mg/dL; Estimated Glomerular Filt Rate > 60; Glucose Fasting 133 mg/dL (60-99); HDL Cholesterol 29 mg/dL; LDL Cholesterol Calculated 63 mg/dl; Potassium 5.4 mmol/L (3.3-5.1); Sodium 137 mmol/L (135-145); Total Protein 7.4 g/dL (6.5-8.0); Triglycerides 137 mg/dL
[2021-03-20 11:35] LABS: Creatinine Urine 85.22 mg/dL
[2021-03-20 11:38] LABS: Microalbum/Creatinine Ratio Ur 5.8 ug/mg cr
[2021-03-25 13:11] LABS: Vitamin D 25-OH, D2 <4 ng/mL; Vitamin D 25-OH, D3 30 ng/mL; Vitamin D 25-OH, Total 30 ng/mL (30-100)
== END 2021-03-20 08:55 | disposition home or self-care (01) ==
LOC: HO.LAB 08:54
PROVIDERS: PCP Internal Medicine; Visit Provider Internal Medicine
DX: M19.011 Primary osteoarthritis, right shoulder (principal); E55.9 Vitamin D deficiency, unspecified; E11.9 Type 2 diabetes mellitus without complications; E78.5 Hyperlipidemia, unspecified
CPT/HCPCS: 36415; 80053; 80061; 82043; 82306

== ENCOUNTER 2021-03-20 09:06 | Outpatient (REF) | payer MEDICARE, SELFPAY | END 2021-03-20 09:07 | disposition home or self-care (01) | LOC: HO.LAB 09:06 | PROVIDERS: PCP Internal Medicine; Visit Provider Internal Medicine | DX: Z20.822 Contact with and (suspected) exposure to COVID-19 (principal) | CPT/HCPCS: C9803; U0003; U0005 ==

== ENCOUNTER → 2021-03-23 14:17 | Outpatient (BNVA) | payer MEDICARE, SELFPAY | PROVIDERS: PCP Internal Medicine; Visit Provider Internal Medicine | DX: M19.011 Primary osteoarthritis, right shoulder (principal) | CPT/HCPCS: 20611; J3300 ==

== ENCOUNTER 2021-07-30 08:37 | Outpatient (REF) | payer OTHER, SELFPAY ==
[2021-07-30 09:12] LABS: MANUAL DIFF FLAG NO
[2021-07-30 09:28] LABS: Basophils Percent Auto 0.6 % (0-2); Eosinophils Absolute Auto 0.3 X10*3/uL (0.0-0.4); Eosinophils Percent Auto 5.6 % (0-4); Hemoglobin 14.1 g/dl (14.0-18.0); Imm Gran Abs Auto 0.03 X10*3/uL (0.00-0.03); Imm Gran Pct Auto 0.6 % (0.0-0.4); Lymphocytes Absolute Auto 1.9 X10*3/uL (1.2-4.9); Lymphocytes Percent Auto 37.7 % (20-40); Mean Corpuscular HGB Conc 32.8 g/dl (31.0-36.0); Mean Corpuscular Hemoglobin 30.3 pg (27.0-33.0); Mean Corpuscular Volume 92.3 fL (80.0-98.0); Monocytes Absolute Auto 0.5 X10*3/uL (0.1-1.2); Monocytes Percent Auto 10.1 % (2-11); Neutrophils Absolute Auto 2.3 x10*3/uL (2.0-8.3); Neutrophils Percent Auto 45.4 % (45-73); Platelet Count 204 X10*3/uL (160-400); Red Blood Count 4.66 X10*6/uL (4.60-5.80); Red Cell Distribution Width 13.4 % (11.0-16.0); White Blood Count 5.1 X10*3/uL (4.8-10.8)
[2021-07-30 10:03] LABS: Alanine Aminotransferase 22 U/L (0-40); Albumin Level 4.6 g/dL (3.5-5.0); Alkaline Phosphatase 96 U/L (39-117); Anion Gap 13 (12-20); Aspartate Amino Transferase 21 U/L (5-37); Blood Urea Nitrogen 20 mg/dL (9-16); Calcium 9.5 mg/dL (8.4-10.2); Carbon Dioxide 29 mmol/L (22-29); Chloride 100 mmol/L (96-108); Cholesterol 123 mg/dL; Estimated Glomerular Filt Rate 52; Glucose Fasting 127 mg/dL (60-99); HDL Cholesterol 34 mg/dL; LDL Cholesterol Calculated 65 mg/dl; Potassium 4.8 mmol/L (3.3-5.1); Sodium 137 mmol/L (135-145); Total Protein 8.1 g/dL (6.5-8.0); Triglycerides 124 mg/dL
[2021-07-30 10:10] LABS: Creatinine Urine 140.09 mg/dL; Microalbum/Creatinine Ratio Ur 9.2 ug/mg cr
[2021-08-04 14:06] LABS: Vitamin D 25-OH, D2 <4 ng/mL; Vitamin D 25-OH, D3 30 ng/mL; Vitamin D 25-OH, Total 30 ng/mL (30-100)
== END 2021-07-30 08:38 | disposition home or self-care (01) ==
LOC: HO.LAB 08:37
PROVIDERS: PCP Internal Medicine; Visit Provider Internal Medicine
DX: E55.9 Vitamin D deficiency, unspecified (principal); E11.9 Type 2 diabetes mellitus without complications; E78.5 Hyperlipidemia, unspecified; M89.49 Other hypertrophic osteoarthropathy, multiple sites; D64.9 Anemia, unspecified
CPT/HCPCS: 36415; 80053; 80061; 82043; 82306; 85025

== ENCOUNTER 2021-10-29 14:25 | Outpatient (REF) | payer OTHER, SELFPAY ==
--- NOTE | ~2021-10-29 | XR_ITS ---
EXAMINATION: XR SACROILIAC JOINTS CLINICAL INFORMATION: M53.3 - Sacrococcygeal disorders, not elsewhere classified COMPARISON: CT abdomen and pelvis 08/19/2020. TECHNIQUE: 4 views of the sacroiliac joints FINDINGS: There are seed implants again seen overlying the prostate. There is no bony sclerotic or lytic lesion. No fracture or destructive process. No diastases SI joints or pubis. No SI joint erosive change or subchondral sclerosis or ankylosis. There are degenerative changes facet joints L4-S1. 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 XR/XR sacroiliac joint 1-2V IMPRESSION: -Unremarkable SI joints. No erosive change or subchondral sclerosis. -Degenerative changes L4-S1.
== END 2021-10-29 14:26 | disposition home or self-care (01) ==
LOC: HO.XRAY 14:25
PROVIDERS: PCP Internal Medicine; Visit Provider Nurse Practitioner Family
DX: M51.36 Other intervertebral disc degeneration, lumbar region (principal); M53.3 Sacrococcygeal disorders, not elsewhere classified
CPT/HCPCS: 72200; 99212

== ENCOUNTER 2021-11-12 09:44 | Outpatient (REF) | payer OTHER, SELFPAY ==
[2021-11-12 11:33] LABS: Alanine Aminotransferase 23 U/L (0-40); Alanine Aminotransferase 25 U/L (0-40); Albumin Level 4.3 g/dL (3.5-5.0); Albumin Level 4.4 g/dL (3.5-5.0); Alkaline Phosphatase 103 U/L (39-117); Alkaline Phosphatase 105 U/L (39-117); Anion Gap 12 (12-20); Anion Gap 13 (12-20); Aspartate Amino Transferase 19 U/L (5-37); Bilirubin Total 0.8 mg/dL (0.0-1.0); Bilirubin Total 0.9 mg/dL (0.0-1.0); Blood Urea Nitrogen 18 mg/dL (9-16); Blood Urea Nitrogen 20 mg/dL (9-16); Calcium 9.3 mg/dL (8.4-10.2); Calcium 9.5 mg/dL (8.4-10.2); Carbon Dioxide 25 mmol/L (22-29); Carbon Dioxide 26 mmol/L (22-29); Chloride 102 mmol/L (96-108); Cholesterol 115 mg/dL; Estimated Glomerular Filt Rate > 60; Glucose Fasting 147 mg/dL (60-99); Glucose Random 148 mg/dL (60-115); HDL Cholesterol 29 mg/dL; LDL Cholesterol Calculated 59 mg/dl; Potassium 4.9 mmol/L (3.3-5.1); Sodium 134 mmol/L (135-145); Sodium 136 mmol/L (135-145); Total Protein 7.6 g/dL (6.5-8.0); Total Protein 7.7 g/dL (6.5-8.0); Triglycerides 139 mg/dL
[2021-11-12 11:52] LABS: Uric Acid 4.2 mg/dL (3.4-7.0)
[2021-11-12 11:59] LABS: Vitamin D 25-OH Total 30.7 ng/mL (>30)
[2021-11-16 21:22] LABS: NT-proBNP 856 pg/mL
== END 2021-11-12 09:45 | disposition home or self-care (01) ==
LOC: HO.LAB 09:44
PROVIDERS: Absent Provider Nurse Practitioner Family; PCP Internal Medicine; Referring Provider Internal Medicine Cardiovascular Disease; Visit Provider Internal Medicine
DX: M1A.0690 Idiopathic chronic gout, unspecified knee, without tophus (tophi) (principal); I11.0 Hypertensive heart disease with heart failure; I50.22 Chronic systolic (congestive) heart failure; E55.9 Vitamin D deficiency, unspecified; E78.5 Hyperlipidemia, unspecified
CPT/HCPCS: 36415; 80053; 80061; 82306; 83880; 84550

== ENCOUNTER → 2021-11-30 13:43 | Outpatient (BNVA) | payer OTHER, SELFPAY | PROVIDERS: PCP Internal Medicine; Visit Provider Internal Medicine | DX: M47.816 Spondylosis without myelopathy or radiculopathy, lumbar region (principal); M19.011 Primary osteoarthritis, right shoulder | CPT/HCPCS: 99212 ==

== ENCOUNTER 2021-12-08 11:11 | Emergency (ER) | payer OTHER, SELFPAY ==
--- NOTE | ~2021-12-08 | US_ITS ---
EXAMINATION: US SCROTUM CLINICAL INFORMATION: Bilateral testicular pain. COMPARISON: None TECHNIQUE: A sonogram of the scrotum was performed assessing page-scale appearance and color Doppler flow. Spectral Doppler analysis of the arterial and venous flow were performed in the testes bilaterally. FINDINGS: RIGHT: Right testicle measures 4.6 x 2.3 x 2.6 cm, volume 14 mL. No focal testicular parenchymal lesions are visualized. Spectral Doppler analysis of the arterial and venous flow is normal in the right testis. Right epididymal head is normal in size. There is a 3 x 4 mm right epididymal head. There is a small right varicocele. There is no right hydrocele. Right epididymal Doppler flow is normal. LEFT: Left testicle measures 3.5 x 2.5 x 2.9 cm, volume 13 mL. No focal testicular parenchymal lesions are visualized. Spectral Doppler analysis of the arterial and venous flow is normal in the left testis. There are 2 left epididymal head cysts measuring 1.2 x 1 x 1.3 cm 0.8 x 0.6 x 0.6 cm. The left epididymis is slightly prominent, heterogeneous and hypervascular questionable for epididymitis. There is a large complex left hydrocele. There is a small left varicocele. US/US scrotum doppler IMPRESSION: Normal-appearing testicles. Bilateral epididymal head cysts in the slightly heterogeneous enlarged hypervascular left epididymis questionable for epididymitis and large complex left hydrocele. Bilateral small varicoceles.
--- NOTE | ~2021-12-08 | US_ITS ---
EXAMINATION: US SCROTUM CLINICAL INFORMATION: Bilateral testicular pain. COMPARISON: None TECHNIQUE: A sonogram of the scrotum was performed assessing page-scale appearance and color Doppler flow. Spectral Doppler analysis of the arterial and venous flow were performed in the testes bilaterally. FINDINGS: RIGHT: Right testicle measures 4.6 x 2.3 x 2.6 cm, volume 14 mL. No focal testicular parenchymal lesions are visualized. Spectral Doppler analysis of the arterial and venous flow is normal in the right testis. Right epididymal head is normal in size. There is a 3 x 4 mm right epididymal head. There is a small right varicocele. There is no right hydrocele. Right epididymal Doppler flow is normal. LEFT: Left testicle measures 3.5 x 2.5 x 2.9 cm, volume 13 mL. No focal testicular parenchymal lesions are visualized. Spectral Doppler analysis of the arterial and venous flow is normal in the left testis. There are 2 left epididymal head cysts measuring 1.2 x 1 x 1.3 cm 0.8 x 0.6 x 0.6 cm. The left epididymis is slightly prominent, heterogeneous and hypervascular questionable for epididymitis. There is a large complex left hydrocele. There is a small left varicocele. US/US scrotum IMPRESSION: Normal-appearing testicles. Bilateral epididymal head cysts in the slightly heterogeneous enlarged hypervascular left epididymis questionable for epididymitis and large complex left hydrocele. Bilateral small varicoceles.
[2021-12-08 11:13] VITALS: BP 147/86; PULSE 94; RESP 16; TEMP 36.5; O2SAT 98; BMI 25.8
[2021-12-08 11:36] LABS: MANUAL DIFF FLAG NO
[2021-12-08 11:39] LABS: Basophils Percent Auto 0.3 % (0-2); Eosinophils Absolute Auto 0.2 X10*3/uL (0.0-0.4); Eosinophils Percent Auto 2.2 % (0-4); Hematocrit 39.4 % (42.0-52.0); Hemoglobin 13.5 g/dl (14.0-18.0); Imm Gran Abs Auto 0.03 X10*3/uL (0.00-0.03); Imm Gran Pct Auto 0.4 % (0.0-0.4); Lymphocytes Absolute Auto 1.4 X10*3/uL (1.2-4.9); Lymphocytes Percent Auto 18.3 % (20-40); Mean Corpuscular HGB Conc 34.3 g/dl (31.0-36.0); Mean Corpuscular Hemoglobin 29.7 pg (27.0-33.0); Mean Corpuscular Volume 86.8 fL (80.0-98.0); Mean Platelet Volume 9.2 fL (9.4-12.4); Monocytes Absolute Auto 0.7 X10*3/uL (0.1-1.2); Monocytes Percent Auto 8.9 % (2-11); Neutrophils Absolute Auto 5.5 x10*3/uL (2.0-8.3); Neutrophils Percent Auto 69.9 % (45-73); Platelet Count 216 X10*3/uL (160-400); Red Blood Count 4.54 X10*6/uL (4.60-5.80); Red Cell Distribution Width 13.8 % (11.0-16.0); White Blood Count 7.9 X10*3/uL (4.8-10.8)
[2021-12-08 11:47] LABS: Appearance Urine HAZY; Color Urine YELLOW; Glucose Urine UA NEG (NEG); Leukocyte Esterase Urine NEG (NEG); Nitrite Urine NEG (NEG); PH 5.5 (5.0-8.0); Urine Blood NEG (NEG); Urine Ketones NEG (NEG); Urine Protein NEG (NEG-TRACE)
[2021-12-08 12:09] LABS: Anion Gap 19 (12-20); Blood Urea Nitrogen 23 mg/dL (9-16); Calcium 9.5 mg/dL (8.4-10.2); Carbon Dioxide 21 mmol/L (22-29); Chloride 105 mmol/L (96-108); Creatinine Clr Calc Pharmacy 49.4; Estimated Glomerular Filt Rate 54; Glucose Random 114 mg/dL (60-115); Potassium 4.5 mmol/L (3.3-5.1); Sodium 140 mmol/L (135-145)
--- NOTE | 2021-12-08 14:12 | ED.MALEGU ---
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 Patient denies any injury or trauma. No reports of burning, frequency, blood in the urine, fevers, chills, nausea or vomiting or abdominal pain. Related Data Home Medications Medication Instructions Recorded Confirmed sacubitril 49 mg-valsartan 51 mg 1 tab PO BID 11/26/21 11/30/21 tablet (Entresto) Previous Rx's Medication Instructions Recorded dicyclomine 10 mg capsule 20 mg PO QID 30 days #240 caps 10/07/20 blood-glucose meter (FreeStyle #1 ea 12/09/20 Lite Meter kit) allopurinol 300 mg tablet 300 mg PO DAILY 90 days #90 tabs 01/06/21 cane #1 ea 01/16/21 diabetic shoes #1 ea 01/29/21 atorvastatin 80 mg tablet 80 mg PO DAILY 90 days #90 tabs 04/01/21 lancets 28 gauge (Acti-Ambrocio #100 ea 04/01/21 Lancets) rivaroxaban 20 mg tablet (Xarelto) 20 mg PO QPM 90 days #90 tabs 04/27/21 tamsulosin 0.4 mg capsule 0.4 mg PO BEDTIME 90 days #90 caps 05/21/21 diclofenac sodium 1 % topical gel 4 g topical QID 30 days #100 grams 07/05/21 clotrimazole-betamethasone 1 1 appl topical BID 30 days #45 07/09/21 %-0.05 % topical cream grams gabapentin 400 mg capsule 400 mg PO TID 90 days #270 caps 08/11/21 omeprazole 20 mg capsule,delayed 20 mg PO BID 90 days #180 caps 08/11/21 release sucralfate 1 gram tablet 1 g PO QID 30 days #120 tabs 08/11/21 blood sugar diagnostic (FreeStyle #100 ea 08/13/21 Test strips) cholecalciferol (vitamin D3) 50 50 mcg PO DAILY 90 days #90 caps 08/29/21 mcg (2,000 unit) capsule nitroglycerin 0.4 mg sublingual 0.4 mg sublingual ONCE PRN chest 09/21/21 tablet pain 30 days #7 tabs loratadine 10 mg tablet (Allergy 10 mg PO DAILY 90 days #90 tabs 10/28/21 Relief (loratadine)) colchicine 0.6 mg tablet 0.6 mg PO DAILY #4 tabs 11/26/21 spironolactone 25 mg tablet 12.5 mg PO DAILY 90 days #45 tabs 11/27/21 oxycodone-acetaminophen 5 mg-325 1 tab PO Q8H PRN pain 30 days #90 12/03/21 mg tablet tabs temazepam 30 mg capsule 30 mg PO BEDTIME PRN sleep 30 days 12/03/21 #30 caps metformin 500 mg tablet 500 mg PO BID 90 days #180 tabs 12/05/21 amoxicillin 875 mg-potassium 1 tab PO BID #20 tabs 12/08/21 clavulanate 125 mg tablet Allergies Allergy/AdvReac Type Severity Reaction Status Date / Time No Known Allergies Allergy Verified 11/30/21 14:02 [No Known Allergies*] Review of Systems Review of Systems: Yes all other systems are reviewed and are negative Constitutional: Constitutional: Reports no additional constitutional complaints, Denies body ache(s), Denies chills, Denies fever(s), Denies headache(s) and Denies weakness Eyes: Eyes: Reports no additional eye complaints and Denies change in vision ENT: Reports system reviewed and no additional complaints, except as documented, Denies dizziness, Denies headache(s), Denies nasal congestion, Denies nasal discharge and Denies neck pain Cardiovascular: Cardiovascular: Reports no additional cardiovascular complaints, Denies chest pain, Denies leg edema and Denies dyspnea Respiratory: Respiratory: Reports no additional respiratory complaints, Denies cough and Denies dyspnea Gastrointestinal: Gastrointestinal: Reports no additional gastrointestinal complaints, Denies abdominal pain, Denies diarrhea, Denies nausea and Denies vomiting Genitourinary: Genitourinary: Denies hematuria, Denies dysuria, Denies flank pain, Reports scrotal swelling, Reports testicular pain, Denies urinary frequency and Denies urinary incontinence Musculoskeletal: Musculoskeletal: Reports no additional musculoskeletal complaints, Denies back pain, Denies arthralgias, Denies joint swelling, Denies neck pain, Denies numbness and Denies tingling Integumentary/Breasts: Skin/Breast: Reports system reviewed and no additional complaints, except as docu and Denies rash Neurologic: Reports system reviewed and no additional complaints, except as documented, Denies Abnormal speech present, Denies dizziness, Denies headache(s), Denies numbness, Denies tingling and Denies weakness PMFSH Past Medical History Attestation statement: The following information was validated with the patient. Source: old records reviewed and nursing notes reviewed Medical History Abdominal pain Atrial fibrillation CHF (congestive heart failure) Chronic anticoagulation Diabetes mellitus Essential hypertension Gout Herpes zoster Lumbar degenerative disc disease Primary insomnia Pure hypercholesterolemia Right knee pain Right shoulder pain UTI (urinary tract infection), uncomplicated Surgical History History of cardiac catheterization History of colonoscopy History of laparoscopic cholecystectomy History of prostate surgery Family History Family History Father Diabetes Mother Cancer Social History Social History Household Members: Spouse and Children Housing: House Do you presently have visiting nurse or other home services: No ( takes care of him) Alcohol intake: never Patient Tobacco Use Status: Former Tobacco user Tobacco use type: Cigarette e-Cigarette/Vaping Use: Never Used Second Hand Smoke Exposure: No Advance Directives: Yes Advance Directives Information Provided: No Advance Directives on File: No service: No Current occupational status: disabled Current occupation: right hand Cognitive needs: Yes Hearing needs: No Vision needs: Yes Physical Exam Vital Signs: Vital Signs: Last Vital Signs Temp 97.7 F 12/08/21 11:13 Pulse 72 12/08/21 14:15 Resp 14 12/08/21 14:15 BP 111/67 12/08/21 14:15 Pulse Ox 99 12/08/21 14:15 O2 Del Method 12/08/21 14:15 BMI result Body Mass Index 25.8 Const: General: cooperative, healthy appearing, comfortable and no acute distress Orientation/consciousness: patient oriented x3 Limitations: no limitations HEENT: Head: Yes normal to inspection Ears: hearing grossly normal bilaterally General nose exam: Normal external nose present Face and sinus: Yes normal facial exam Mouth: Normal oral and palatal mucosa present Throat: Yes posterior oropharynx normal Eyes: General: appearance normal, both eyes and all related structures Pupils: Equal, round and reactive pupils present Neck: Neck: Yes normal visual inspection Chest: Chest palpation & inspection: normal inspection of the chest Resp: Effort & Inspection: normal respiratory effort Auscultation: clear to auscultation bilaterally Cardio: Rate: regular rate Rhythm: regular rhythm Peripheral pulses: Peripheral pulses 2+ throughout GI: Inspection: Yes normal to inspection Palpation (GI): Soft to palpation and nontender Auscultation: normal bowel sounds : Other: There is tenderness the left testicle with a local swelling. There is no warmth or redness. Penis: normal penis Back/Spine/Pelvis: Thoracic/Lumbar Spine: thoracic and lumbar spine normal to inspection Skin: General skin exam: no rashes or lesions noted Neuro: General: patient oriented x3, no focal motor deficits and normal sensation to monofilament Cranial nerves: Yes Equal, round and reactive pupils present Cognition (Neuro): normal cognition Speech: No Abnormal speech present Gait exam (Neuro): Normal gait present Motor exam (neuro): 5/5 motor strength present throughout Extrem: General: Yes normal to inspection Course Course Course Narrative: Ultrasound shows a left-sided hydrocele and epididymitis. Patient has a UA that is negative. His labs are unremarkable. He will be treated with Augmentin. Recommend follow-up with Urology either at [facility] or at [place]. Reviewed worrisome signs and symptoms of when to return to the emergency department. Comfortable discharge home. MDM - Male Genitourinary MDM Narrative Medical decision making narrative: 75-year-old male here with a swollen and painful left testicle since Tuesday with no reports of injury or trauma or urinary or fevers or chills. Will check labs, UA, testicular ultrasound Consider torsion, UTI, epididymitis Differential Diagnosis Differential diagnosis: Likely urinary tract infection and epididymitis Medical Records Attestation: I reviewed the patient's medical records. Lab Data Attestation: I reviewed the patient's lab results. Result diagrams: 12/08/21 11:28 12/08/21 11:28 Labs: Lab Results 12/08/21 12/08/21 12/08/21 Range/Units 11:28 11:28 11:28 WBC 7.9 (4.8-10.8) X10*3/uL RBC 4.54 L (4.60-5.80) X10*6/uL Hgb 13.5 L (14.0-18.0) g/dl Hct 39.4 L (42.0-52.0) % MCV 86.8 (80.0-98.0) fL MCH 29.7 (27.0-33.0) pg MCHC 34.3 (31.0-36.0) g/dl RDW 13.8 (11.0-16.0) % Plt Count 216 (160-400) X10*3/uL MPV 9.2 L (9.4-12.4) fL Immature Gran % (Auto) 0.4 (0.0-0.4) % Neut % (Auto) 69.9 (45-73) % Lymph % (Auto) 18.3 L (20-40) % [place] % (Auto) 8.9 (2-11) % Eos % (Auto) 2.2 (0-4) % Baso % (Auto) 0.3 (0-2) % Lymph # (Auto) 1.4 (1.2-4.9) X10*3/uL [place] # (Auto) 0.7 (0.1-1.2) X10*3/uL Eos # (Auto) 0.2 (0.0-0.4) X10*3/uL Baso # (Auto) 0.0 (0.0-0.2) X10*3/uL Abs Immat Gran (auto) 0.03 (0.00-0.03) X10*3/uL Absolute Neuts (auto) 5.5 (2.0-8.3) x10*3/uL Absolute Nucleated RBC 0.000 (0.0-0.012) X10*3/uL Nucleated RBC % (auto) 0.0 (0.0-0.2) /100WBC Sodium 140 (135-145) mmol/L Potassium 4.5 (3.3-5.1) mmol/L Chloride 105 (96-108) mmol/L Carbon Dioxide 21 L (22-29) mmol/L Anion Gap 19 (12-20) BUN 23 H (9-16) mg/dL Creatinine 1.29 (0.5-1.4) mg/dL Estim Creat Clear Calc 49.4 Estimated GFR 54 Random Glucose 114 (60-115) mg/dL Calcium 9.5 (8.4-10.2) mg/dL Urine Color YELLOW Urine Appearance HAZY Urine pH 5.5 (5.0-8.0) Ur Specific [place] 1.020 (1.005-1.025) Urine Protein NEG (NEG-TRACE) MG/DL Urine Glucose (UA) NEG (NEG) MG/DL Urine Ketones NEG (NEG) MG/DL Urine Blood NEG (NEG) Urine Nitrite NEG (NEG) Ur Leukocyte Esterase NEG (NEG) Imaging Data Testicular ultrasound: Attestation: I personally reviewed and interpreted this imaging study as follows: Radiologist's impression: [place] [id number] Ultrasound Report Signed Patient: J Luis Meyer MR#: [id number] : 1945 Acct:[id number] Age/Sex: 75 / M ADM Date: 12/08/21 Loc: .ED Attending Dr: Ordering Physician: Patsy Ly MD Date of Service: 12/08/21 Procedure(s): US scrotum Accession Number(s): [id number] cc: Patsy Ly MD~ EXAMINATION: US SCROTUM CLINICAL INFORMATION: Bilateral testicular pain. COMPARISON: None TECHNIQUE: A sonogram of the scrotum was performed assessing page-scale appearance and color Doppler flow. Spectral Doppler analysis of the arterial and venous flow were performed in the testes bilaterally. FINDINGS: RIGHT: Right testicle measures 4.6 x 2.3 x 2.6 cm, volume 14 mL. No focal testicular parenchymal lesions are visualized. Spectral Doppler analysis of the arterial and venous flow is normal in the right testis. Right epididymal head is normal in size. There is a 3 x 4 mm right epididymal head. There is a small right varicocele. There is no right hydrocele. Right epididymal Doppler flow is normal. LEFT: Left testicle measures 3.5 x 2.5 x 2.9 cm, volume 13 mL. No focal testicular parenchymal lesions are visualized. Spectral Doppler analysis of the arterial and venous flow is normal in the left testis. There are 2 left epididymal head cysts measuring 1.2 x 1 x 1.3 cm 0.8 x 0.6 x 0.6 cm. The left epididymis is slightly prominent, heterogeneous and hypervascular questionable for epididymitis. There is a large complex left hydrocele. There is a small left varicocele. US/US scrotum IMPRESSION: Normal-appearing testicles. Bilateral epididymal head cysts in the slightly heterogeneous enlarged hypervascular left epididymis questionable for epididymitis and large complex left hydrocele. Bilateral small varicoceles. Discharge Plan Discharge Clinical Impression: Epididymitis, Hydrocele Patient Disposition: Home, Self-Care Instructions: Epididymitis (ED), Hydrocele (ED) Additional Instructions: Elevate the scrotum Prescriptions: New amoxicillin-pot clavulanate 875-125 mg tablet 1 tab PO BID Qty: 20 0RF No Action dicyclomine 10 mg capsule 20 mg PO QID 30 Days Qty: 240 6RF (DME) blood-glucose meter [FreeStyle Lite Meter] Kit See Rx Instructions .Route Qty: 1 0RF Rx Instructions: Test Daily allopurinol 300 mg tablet 300 mg PO DAILY 90 Days Qty: 90 3RF (DME) diabetic shoes 9.5 See Rx Instructions .Route .MEDSUPPLY Qty: 1 0RF Rx Instructions: As directed atorvastatin 80 mg tablet 80 mg PO DAILY 90 Days Qty: 90 3RF (DME) lancets [Acti-Ambrocio Lancets] 28 gauge misc See Rx Instructions .ROUTE .MEDSUPPLY Qty: 100 11RF Rx Instructions: As directed Xarelto 20 mg tablet 20 mg PO QPM 90 Days Qty: 90 3RF tamsulosin 0.4 mg capsule 0.4 mg PO BEDTIME 90 Days Qty: 90 3RF diclofenac sodium 1 % gel 4 g topical QID 30 Days Qty: 100 11RF Rx Instructions: apply to single knee, ankle, foot; for foot includes sole/toes/top of foot clotrimazole-betamethasone 1-0.05 % cream 1 appl topical BID 30 Days Qty: 45 2RF gabapentin 400 mg capsule 400 mg PO TID 90 Days Qty: 270 3RF omeprazole 20 mg capsule,delayed release(/EC) 20 mg PO BID 90 Days Qty: 180 3RF sucralfate 1 gram tablet 1 g PO QID 30 Days Qty: 120 6RF (DME) FreeStyle Test Strip See Rx Instructions .Route Qty: 100 3RF Rx Instructions: Use 1 test strip once a day cholecalciferol (vitamin D3) 50 mcg (2,000 unit) capsule 50 mcg PO DAILY 90 Days Qty: 90 3RF nitroglycerin 0.4 mg tablet, sublingual 0.4 mg sublingual ONCE PRN (Reason: chest pain) 30 Days Qty: 7 0RF loratadine [Allergy Relief (loratadine)] 10 mg tablet 10 mg PO DAILY 90 Days Qty: 90 0RF spironolactone 25 mg tablet 12.5 mg PO DAILY 90 Days Qty: 45 0RF oxycodone-acetaminophen 5-325 mg tablet 1 tab PO Q8H PRN (Reason: pain) 30 Days Qty: 90 0RF temazepam 30 mg capsule 30 mg PO BEDTIME PRN (Reason: sleep) 30 Days Qty: 30 0RF metformin 500 mg tablet 500 mg PO BID 90 Days Qty: 180 2RF Entresto 49-51 mg tablet 1 tab PO BID colchicine 0.6 mg tablet 0.6 mg PO DAILY Qty: 4 0RF Rx Instructions: hold dose if diarrhea occurs (DME) cane Device See Rx Instructions .Route Qty: 1 0RF Rx Instructions: As directed Referrals: Jared Villanueva MD [Physician] - 2 weeks Print Language: Ukrainian
[2021-12-08 14:15] VITALS: BP 111/67; PULSE 72; RESP 14; O2SAT 99
[2021-12-08] MEDS: Amoxicillin/Potassium Clav 875 MG TABLET PO (15:02)
== END 2021-12-08 15:45 | disposition home or self-care (01) ==
PROVIDERS: Emergency Provider Student in an Organized Health Care Education/Training Program; PCP Internal Medicine
DX: N45.1 Epididymitis (principal); N43.3 Hydrocele, unspecified; N50.812 Left testicular pain; I11.0 Hypertensive heart disease with heart failure; I50.9 Heart failure, unspecified; E11.9 Type 2 diabetes mellitus without complications; I48.91 Unspecified atrial fibrillation; C61 Malignant neoplasm of prostate; Z79.01 Long term (current) use of anticoagulants; Z79.02 Long term (current) use of antithrombotics/antiplatelets; Z79.899 Other long term (current) drug therapy; Z79.84 Long term (current) use of oral hypoglycemic drugs
CPT/HCPCS: 36415; 76870; 80048; 81003; 85025; 93975; 99283; 99284

== ENCOUNTER 2022-01-07 14:29 | Outpatient (REF) | payer OTHER, SELFPAY ==
[2022-01-07 16:38] LABS: Prostate Specific Antigen < 0.05 ng/mL (<0.05-4.0)
== END 2022-01-07 14:30 | disposition home or self-care (01) ==
LOC: HO.LAB 14:29
PROVIDERS: PCP Internal Medicine; Visit Provider Internal Medicine
DX: Z12.5 Encounter for screening for malignant neoplasm of prostate (principal); N40.0 Benign prostatic hyperplasia without lower urinary tract symptoms
CPT/HCPCS: 36415; 84153

== ENCOUNTER 2022-01-20 05:52 | Outpatient (REF) | payer OTHER, SELFPAY ==
--- NOTE | ~2022-01-20 | FL_ITS ---
EXAMINATION: XR FLUOROSCOPY WITH IMAGES CLINICAL INFORMATION: Shoulder pain. Right glenohumeral joint injection. COMPARISON: Radiographs right shoulder 01/16/2021 TECHNIQUE: Fluoroscopy performed by Dr. Nakul Martinez. Fluoroscopy time: 0.3 minutes. Cumulative Dose: 2.13 mGy. DAP: 0.275 Gy-cm2. Images: 2. FINDINGS: There is spinal needle overlying the right medial humeral head. There is contrast in the joint capsule. No visible vascular communication. There are prominent osteoarthritic changes glenohumeral joint. There are degenerative changes acromioclavicular joint. Normal acromioclavicular alignment. FL/FL guidance in treatment room IMPRESSION: Fluoroscopy for pain management procedure.
--- NOTE | ~2022-01-20 | FL_ITS ---
EXAMINATION: XR FLUOROSCOPY WITH IMAGES CLINICAL INFORMATION: M47.816 - Spondylosis without myelopathy or radiculopathy, lumbar region COMPARISON: CT abdomen and pelvis 08/19/2020 TECHNIQUE: Fluoroscopy performed by Dr. Nakul Martinez. Fluoroscopy time: 0.2 minutes. Cumulative Dose: 4.44 mGy. DAP: 0.566 Gy-cm2. Images: 3. FINDINGS: There are spinal needles overlying the bilateral outer L3, L4, and L5 neural foramen. There is contrast seen in the respective nerve sheaths. Some early transforaminal epidural extension is suggested. No visible vascular communication. There are degenerative disc changes with associated vertebral spurring. FL/FL guidance in treatment room IMPRESSION: Fluoroscopy for pain management procedures.
== END 2022-01-20 05:53 | disposition home or self-care (01) ==
LOC: HO.RADIR 05:52
PROVIDERS: Visit Provider Internal Medicine
DX: M47.816 Spondylosis without myelopathy or radiculopathy, lumbar region (principal); M19.011 Primary osteoarthritis, right shoulder
CPT/HCPCS: 20610; 64493; 64494; J1020

== ENCOUNTER → 2022-01-22 12:15 | Outpatient (BNVA) | payer OTHER, SELFPAY | PROVIDERS: PCP Internal Medicine; Visit Provider Internal Medicine | DX: M47.816 Spondylosis without myelopathy or radiculopathy, lumbar region (principal) | CPT/HCPCS: Q3014 ==

== ENCOUNTER 2022-01-27 12:51 | Emergency (ER) | payer OTHER, SELFPAY ==
[2022-01-27 14:45] VITALS: BP 144/84; PULSE 82; RESP 16; TEMP 36.4; O2SAT 98; BMI 26.9
[2022-01-27 15:13] LABS: MANUAL DIFF FLAG NO
[2022-01-27 15:15] LABS: Basophils Percent Auto 0.4 % (0-2); Eosinophils Absolute Auto 0.3 X10*3/uL (0.0-0.4); Eosinophils Percent Auto 3.4 % (0-4); Hematocrit 40.2 % (42.0-52.0); Hemoglobin 13.5 g/dl (14.0-18.0); Imm Gran Abs Auto 0.07 X10*3/uL (0.00-0.03); Imm Gran Pct Auto 0.9 % (0.0-0.4); Lymphocytes Absolute Auto 1.8 X10*3/uL (1.2-4.9); Lymphocytes Percent Auto 23.8 % (20-40); Mean Corpuscular HGB Conc 33.6 g/dl (31.0-36.0); Mean Corpuscular Hemoglobin 29.1 pg (27.0-33.0); Mean Corpuscular Volume 86.6 fL (80.0-98.0); Mean Platelet Volume 8.7 fL (9.4-12.4); Monocytes Absolute Auto 0.7 X10*3/uL (0.1-1.2); Monocytes Percent Auto 9.6 % (2-11); Neutrophils Absolute Auto 4.6 x10*3/uL (2.0-8.3); Neutrophils Percent Auto 61.9 % (45-73); Platelet Count 206 X10*3/uL (160-400); Red Blood Count 4.64 X10*6/uL (4.60-5.80); Red Cell Distribution Width 14.1 % (11.0-16.0); White Blood Count 7.4 X10*3/uL (4.8-10.8)
[2022-01-27 15:33] LABS: Alanine Aminotransferase 31 U/L (0-40); Albumin Level 4.7 g/dL (3.5-5.0); Alkaline Phosphatase 105 U/L (39-117); Anion Gap 20 (12-20); Aspartate Amino Transferase 24 U/L (5-37); Bilirubin Direct 0.4 mg/dL (0.0-0.5); Bilirubin Total 0.9 mg/dL (0.0-1.0); Blood Urea Nitrogen 20 mg/dL (9-16); Calcium 9.3 mg/dL (8.4-10.2); Carbon Dioxide 23 mmol/L (22-29); Chloride 99 mmol/L (96-108); Creatinine Clr Calc Pharmacy 54.1; Estimated Glomerular Filt Rate > 60; Glucose Random 109 mg/dL (60-115); Sodium 137 mmol/L (135-145)
== END 2022-01-28 02:57 | disposition left against medical advice (07) ==
PROVIDERS: Emergency Provider Emergency Medicine; PCP Internal Medicine
DX: R10.9 Unspecified abdominal pain (principal); R51.9 Headache, unspecified; R11.0 Nausea
CPT/HCPCS: 36415; 80053; 82248; 85025; 99281; 99283

== ENCOUNTER 2022-04-02 08:53 | Outpatient (REF) | payer OTHER, SELFPAY ==
[2022-04-02 10:19] LABS: Alanine Aminotransferase 26 U/L (0-40); Albumin Level 4.4 g/dL (3.5-5.0); Alkaline Phosphatase 121 U/L (39-117); Anion Gap 11 (12-20); Aspartate Amino Transferase 22 U/L (5-37); Bilirubin Total 0.7 mg/dL (0.0-1.0); Blood Urea Nitrogen 13 mg/dL (9-16); Calcium 9.9 mg/dL (8.4-10.2); Carbon Dioxide 29 mmol/L (22-29); Chloride 98 mmol/L (96-108); Cholesterol 116 mg/dL; Estimated Glomerular Filt Rate > 60; Glucose Fasting 124 mg/dL (60-99); HDL Cholesterol 32 mg/dL; LDL Cholesterol Calculated 64 mg/dl; Potassium 4.9 mmol/L (3.3-5.1); Sodium 133 mmol/L (135-145); Total Protein 7.6 g/dL (6.5-8.0); Triglycerides 102 mg/dL; Vitamin D 25-OH Total 35.9 ng/mL (>30)
[2022-04-02 13:29] LABS: Creatinine Urine 47.83 mg/dL; Microalbum/Creatinine Ratio Ur 22.9 ug/mg cr
[2022-04-06 12:04] LABS: NT-proBNP 590 pg/mL
== END 2022-04-02 08:54 | disposition home or self-care (01) ==
LOC: HO.LAB 08:53
PROVIDERS: PCP Internal Medicine; Visit Provider Internal Medicine
DX: E55.9 Vitamin D deficiency, unspecified (principal); E11.9 Type 2 diabetes mellitus without complications; E78.5 Hyperlipidemia, unspecified; I50.22 Chronic systolic (congestive) heart failure
CPT/HCPCS: 36415; 80053; 80061; 82043; 82306; 83880

== ENCOUNTER 2022-07-20 10:15 | Outpatient (REF) | payer OTHER, SELFPAY ==
--- NOTE | ~2022-07-20 | US_ITS ---
EXAMINATION: MM DIAGNOSTIC DIGITAL BREAST TOMOSYNTHESIS, BILATERAL US DIAGNOSTIC ULTRASOUND BREAST, LEFT CLINICAL INFORMATION: 76-year-old male with tenderness and fullness left breast for approximately 6 months. Family history breast cancer and brother at age 65. No prior breast imaging. COMPARISON: None (current study represents initial baseline exam). TECHNIQUE: Digital breast tomosynthesis is performed in both the craniocaudal and mediolateral oblique views along with computer-aided detection (CAD). Synthesized 2D images are generated from the tomosynthesis. Additional exaggerated left CC view is provided. Ultrasound left breast is is performed with additional attention to the area of gynecomastia subareolar and periareolar region. In addition, ultrasound of the left axilla is performed. Grayscale imaging and color Doppler are performed without and with harmonics. FINDINGS: There are scattered areas of fibroglandular density (ACR BI-RADS breast composition Category b). There is typical gynecomastia type parenchymal pattern, moderate on left and mild right. There is no mass or architectural abnormality. No abnormal calcifications. The skin contours are smooth. No skin thickening or coarsening of the stromal markings. There is a 2-3 cm node left axilla with abundant fatty hilus and normal nolan architecture and tomography. Ultrasound left breast demonstrates no cystic or solid mass or architectural abnormality. No skin thickening or edema tracking in soft tissue planes. There is an incidental 2-3 cm node left axilla with normal fatty hilus and thin cortex and normal color flow pattern corresponding to the mammography. No lymphadenopathy. Comparison scanning retroareolar right breast also performed and unremarkable. Results are discussed with the patient at time of visit, using an black top machine operator. US/US breast LT limited IMPRESSION: -Asymmetric gynecomastia, moderate on left and mild right. -Unremarkable ultrasound left breast and axilla. ASSESSMENT: BI-RADS 2: Benign RECOMMENDATION: -Patient should be managed based on the clinical impression. If clinically indicated, further evaluation may be considered with surgical consult.
== END 2022-07-20 10:16 | disposition home or self-care (01) ==
LOC: HO.MAMMO 10:15
PROVIDERS: PCP Internal Medicine; Visit Provider Nurse Practitioner Family
DX: N63.21 Unspecified lump in the left breast, upper outer quadrant (principal)
CPT/HCPCS: 76642; 77062; 77066

== ENCOUNTER 2022-08-27 09:21 | Outpatient (REF) | payer OTHER, SELFPAY ==
[2022-08-27 10:46] LABS: Creatinine Urine 75.06 mg/dL; Microalbum/Creatinine Ratio Ur 22.6 ug/mg cr
[2022-08-27 11:17] LABS: Alanine Aminotransferase 32 U/L (0-40); Albumin Level 4.3 g/dL (3.5-5.0); Alkaline Phosphatase 96 U/L (39-117); Anion Gap 15 (12-20); Aspartate Amino Transferase 27 U/L (5-37); Blood Urea Nitrogen 19 mg/dL (9-16); Calcium 9.4 mg/dL (8.4-10.2); Carbon Dioxide 24 mmol/L (22-29); Chloride 102 mmol/L (96-108); Cholesterol 120 mg/dL; Estimated Glomerular Filt Rate > 60; Glucose Fasting 146 mg/dL (60-99); HDL Cholesterol 30 mg/dL; LDL Cholesterol Calculated 57 mg/dl; Potassium 5.2 mmol/L (3.3-5.1); Sodium 136 mmol/L (135-145); Total Protein 7.3 g/dL (6.5-8.0); Triglycerides 165 mg/dL; Vitamin D 25-OH Total 34.7 ng/mL (>30)
[2022-08-30 11:53] LABS: NT-proBNP 599 pg/mL
== END 2022-08-27 09:22 | disposition home or self-care (01) ==
LOC: HO.LAB 09:21
PROVIDERS: PCP Internal Medicine; Visit Provider Internal Medicine
DX: E55.9 Vitamin D deficiency, unspecified (principal); I50.22 Chronic systolic (congestive) heart failure; E11.9 Type 2 diabetes mellitus without complications; E78.5 Hyperlipidemia, unspecified
CPT/HCPCS: 36415; 80053; 80061; 82043; 82306; 83880

== ENCOUNTER 2023-03-14 12:54 | Outpatient (AMB) | payer OTHER, SELFPAY ==
[2023-03-14 12:55] VITALS: BP 112/74; PULSE 66; O2SAT 99; BMI 26.4
--- NOTE | 2023-03-14 12:55 | A.OFFPC_ITS ---
Vital Signs 03/14/23 12:55 Height 5 ft 9 in Weight 179 lb BMI 26.4 BP 112/74 Blood Pressure Location Lt brachial Position Sitting Pulse 66 Pulse Source Pulse Oximeter Pulse Oximetry (%) 99 Oxygen Delivery Method Room Air Intake Visit Reasons: Rheumatology referral Project Development Director Required: Yes Project Development Director Language: Sales Administration Specialist Name: Akiko in office stripper color. Information Interpreted: non-clinical & clinical Allergies No Known Allergies [No Known Allergies*] Allergy (Verified 03/14/23 13:01) Medication List - Last Reconciled 03/15/23 by ANDREE Sherman allopurinol 300 mg PO DAILY 90 days atorvastatin 80 mg PO DAILY 90 days blood sugar diagnostic (FreeStyle Test strips) Use 1 test strip 3 times per days directed blood-glucose meter (FreeStyle Lite Meter kit) Test Daily cane As directed cholecalciferol (vitamin D3) 50 mcg PO DAILY 90 days clotrimazole-betamethasone 1-0.05 % 1 appl topical BID 30 days colchicine (gout) 0.6 mg PO DAILY PRN 30 days [diabetic shoes with 3 inserts diabetic shoes with 3 inserts] diclofenac sodium 1% 4 grams topical QID 30 days eplerenone 25 mg PO DAILY 90 days gabapentin 400 mg PO TID 90 days lancets (Acti-Ambrocio Lancets) As directed loratadine (Allergy Relief (loratadine)) 10 mg PO DAILY 90 days metformin 1,000 mg (2 x 500 mg) PO BID 90 days metoprolol succinate ER 25 mg PO DAILY 90 days nitroglycerin 0.4 mg sublingual ONCE PRN 30 days omeprazole 20 mg PO BID 90 days oxycodone-acetaminophen 5-325 mg 1 tab PO Q8H PRN 30 days rivaroxaban (Xarelto) 20 mg PO QPM 90 days sacubitril-valsartan 24-26 mg (Entresto) 1 tab PO BID 30 days sucralfate 1 g PO QID 30 days tamsulosin 0.4 mg PO BEDTIME 90 days temazepam 30 mg PO BEDTIME PRN 30 days Tobacco use date assessed: 03/14/23 Fall risk assessment: No Falls in past year Last assessed Fall Risk: 03/14/23 Dental Screening Dental Screen Date: 03/14/23 Did you have a dental visit in the last 12 months?: Yes Did you have a dental problem in the last 6 months where you did not have access to dental care?: No Was dental information given to patient?: Patient has dentist HPI HPI Comments History of Present Illness Details This is a 76-year-old male with diabetes mellitus type 2, chronic systolic congestive heart failure, atrial fibrillation and pure hyperc holesterolemia. Patient of Dr. Marie, patient presents today for rheumatology referral. Patient was previous followed by [facility] Rheumatology for osteoarthritis last seen in September 2021, patient states he was told he needed a new referral to follow up. Referral entered. Patient reports ongoing joing pain in bilateral knees and elbows. Patient reports BS in 100's at home, denies low blood sugars. hgb A1c 7.0% today. [facility] Medical History Abdominal pain Atrial fibrillation CHF (congestive heart failure) Chronic anticoagulation Diabetes mellitus Essential hypertension Gout Herpes zoster Left breast lump Lumbar degenerative disc disease Primary insomnia Pure hypercholesterolemia Right knee pain Right shoulder pain UTI (urinary tract infection), uncomplicated Surgical History History of cardiac catheterization History of colonoscopy History of laparoscopic cholecystectomy History of prostate surgery Family History Father Diabetes Mother Cancer Son Diabetes Brother Prostate CA Social History Household Members: Spouse and Children Housing: House Do you presently have visiting nurse or other home services: No ( takes care of him) Alcohol intake: never Patient Tobacco Use Status: Former Tobacco user Tobacco use type: Cigarette e-Cigarette/Vaping Use: Never Used Second Hand Smoke Exposure: No service: No Current occupational status: disabled Current occupation: right hand Cognitive needs: Yes Hearing needs: No Vision needs: Yes Questionnaire Thrive Questionnaire Date Thrive assessed: 07/06/22 AUDIT C Alcohol Use Questionnaire (AUDIT-C) 1. How often do you have a drink containing alcohol?: Never Total Score: 0 MELBA-7 AMB Questionnaire MELBA-7 Date MELBA - 7 assessed: 07/06/22 Source: Developed by Drs. Isaiah Paul, Corinne Sierra, Shalom Leung and colleagues, with an educational neyda from [email or web address]. Review of Systems Const Denies chills, Denies fatigue, Denies fever(s) and Denies poor appetite Eyes Denies no additional complaints ENT Reports Normal hearing present Card Denies chest pain, Denies syncope, Denies rapid heart rate and Denies dyspnea Resp Denies cough and Denies dyspnea GI Denies change in stool character, Denies constipation, Denies diarrhea, Denies nausea and Denies vomiting Denies dysuria, Denies urinary frequency and Denies urinary urgency Neuro Reports Normal hearing present, Denies confusion and Denies syncope Psych Denies confusion Endo Denies fatigue Physical exam (Primary Care) Vital Signs: Last Vital Signs Pulse 66 03/14/23 12:55 BP 112/74 03/14/23 12:55 Pulse Ox 99 03/14/23 12:55 Oxygen Delivery Method Room Air 03/14/23 12:55 BMI result Body Mass Index 26.4 Tobacco/Smoking Status: Tobacco use Status Tobacco use date assessed 03/14/23 03/14/23 13:05 Patient Tobacco Use Status Former Tobacco user 03/14/23 13:05 Tobacco use type Cigarette 03/14/23 13:05 e-Cigarette/Vaping Use Never Used 03/14/23 13:05 Thrive Assessment: Date of Thrive Assessment Date Thrive assessed 07/06/22 03/14/23 13:05 Const General: No confusion Orientation/consciousness: No confusion HENMT Head: Yes normocephalic and Yes atraumatic Eyes Conjunctivae: conjunctivae normal Chest Chest palpation & inspection: normal inspection of the chest Resp Effort & Inspection: normal respiratory effort Auscultation: clear to auscultation bilaterally, no crackles, no rhonchi and no wheezes Cardio Rate: regular rate Rhythm: regular rhythm Heart sounds: S1 normal heart sound present and S2 normal heart sound present GI Inspection: Yes normal to inspection Neuro General: No confusion Cranial nerves: Yes Normal hearing present Extrem General: No edema Results AMB Hemoglobin A1c AMB Hemoglobin A1c 7.0 % Last Edit by WANG Arndt on 03/14/23 13:14 Results Reviewed Results Reviewed: Laboratory Last Values Hgb A1c (Clinic) 7.0 % (4.0-6.0) H 03/14/23 13:13 Assessment and Plan Assessment & Plan (1) Gout: Code(s): M10.9 - Gout, unspecified Qualifiers: Chronicity: chronic Gout etiology: idiopathic Gout site: knee Laterality: unspecified laterality Presence of tophus: without tophus Qualified Code(s): M1A.0690 - Idiopathic chronic gout, unspecified knee, without tophus (tophi) Plan: Continue on allipurinol 300mg daily (2) Arthritis: Code(s): M19.90 - Unspecified osteoarthritis, unspecified site Plan: Referral entered to Rheumatology. Can take tyleonol as needed for pain (3) Diabetes mellitus: Code(s): E11.9 - Type 2 diabetes mellitus without complications Qualifiers: Diabetes mellitus type: type 2 Diabetes mellitus group home insulin use: without group home use Diabetes mellitus complication status: without c omplication Qualified Code(s): E11.9 - Type 2 diabetes mellitus without complications Plan: Continue on current medications. hgb a1c 7.0% Patient educated to decrease the amount of carbohydrate intake such as pasta, bread, rice and potatoes are all sugar in addition to the sweet stuff. Remember that fruits are good but they also have sugar. (4) Essential hypertension: Code(s): I10 - Essential (primary) hypertension Plan: Continue on current medications. Blood pressure optimal in office today. Follow low salt diet and exercise. (5) Atrial fibrillation: Code(s): I48.91 - Unspecified atrial fibrillation Qualifiers: Atrial fibrillation type: longstanding persistent Qualified Code(s): I48.11 - Longstanding persistent atrial fibrillation Plan: Continue on metoprolol and xarelto. Plan Keep scheduled follow up with pcp. 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
== END 2023-03-14 13:17 | disposition home or self-care (01) ==
PROVIDERS: PCP Internal Medicine; Visit Provider Nurse Practitioner Family
DX: E11.9 Type 2 diabetes mellitus without complications (principal)
CPT/HCPCS: 83036; 99214

== ENCOUNTER 2023-03-29 13:41 | Outpatient (AMB) | payer OTHER, SELFPAY ==
[2023-03-29 13:49] VITALS: BP 112/68; PULSE 67; TEMP 36.2; O2SAT 98; BMI 27.0
--- NOTE | 2023-03-29 13:49 | A.OFFVIS_ITS ---
Intake Vital Signs 03/29/23 13:49 Height 5 ft 9 in Weight 182 lb 12.211 oz BMI 27.0 BP 112/68 Blood Pressure Location Rt brachial Position Sitting Pulse 67 Pulse Source Pulse Oximeter Temp 97.2 F Temp Source Skin Pulse Oximetry (%) 98 Oxygen Delivery Method Room Air Intake Visit Reasons: Gout Intake Note: Patient presents today to discuss gout and OA. Reports taking Colchicine PRN. Last seen by Helen 10/29/21. Sacroiliac x-ray and pain management referral completed then. c/o left knee swelling and pain Residential Monitor Required: Yes Residential Monitor Language: Publicity Expert Name: [id number] [id number] Information Interpreted: clinical only Accompanied by: Spouse Allergies No Known Allergies [No Known Allergies*] Allergy (Verified 03/29/23 13:55) HPI HPI Comments History of Present Illness Details Mr. Meyer 77 yo M here for follow-up of osteoarthritis and a recent gout flare. Last seen in September 2021. Patient reports he usually gets swelling in his knees, sometimes the left and other times the right. This time it is Prior Visit: Patient reports chronic low back pain that is worsening. Pain is in the lower spine and is worse with use. He states that pain is most noticeable when starting to walk, then gets better, then worse again after prolonged use. Pain is aching then sharp. He is using gabapentin, oxycodone and topical diclofenac. He reports numbness in the left lower leg x 3 years. He admits to episodes of incontinence after treatment for prostate cancer in [place]. He states that he did not have a prostatectomy and follows with Urology at [facility] yearly. He is following with pain management for right glenohumeral joint injections for glenohumeral arthritis. Last injection was in March with good effect. He continues to have some limited range of motion. He also has a history of gout in both knees, currently on Allopurinol 300mg po daily. He denies recent gout flare. He follows with Cardiology at [facility]. [facility] Medical History Abdominal pain Atrial fibrillation CHF (congestive heart failure) Chronic anticoagulation Diabetes mellitus Essential hypertension Gout Herpes zoster Left breast lump Lumbar degenerative disc disease Primary insomnia Pure hypercholesterolemia Right knee pain Right shoulder pain UTI (urinary tract infection), uncomplicated Surgical History History of laparoscopic cholecystectomy History of colonoscopy History of cardiac catheterization History of prostate surgery Family History Father Diabetes Mother Cancer Son Diabetes Brother Prostate CA Social History Household Members: Spouse and Children Housing: House Do you presently have visiting nurse or other home services: No ( takes care of him) Alcohol intake: never Comment: tele Patient Tobacco Use Status: Former Tobacco user Tobacco use type: Cigarette e-Cigarette/Vaping Use: Never Used Second Hand Smoke Exposure: No service: No Current occupational status: disabled Current occupation: right hand Cognitive needs: Yes Hearing needs: No Vision needs: Yes Review of Systems Const All systems reviewed & are unremarkable except as noted in HPI and below Physical Exam Vital Signs: Last Vital Signs Temp 97.2 F 03/29/23 13:49 Pulse 67 03/29/23 13:49 BP 112/68 03/29/23 13:49 Pulse Ox 98 03/29/23 13:49 Oxygen Delivery Method Room Air 03/29/23 13:49 BMI result Body Mass Index 27.0 APPEARANCE: Patient in no acute distress EYES no redness, pupils equal and reactive to light, eyelids normal HEART: Regular rhythm, S1-S2 heard, no murmurs, rubs or gallops. LUNG: Clear to percussion and auscultation EXTREMITIES: No edema, no calf tenderness, normal peripheral pulses. No sensory loss to light touch detected bilaterally. NEURO: Oriented and alert x3. No focal weakness. Reflexes symmetric. Uses a cane. SKIN: No inflammatory or neoplastic lesions. Normal color and turgor JOINT EXAM:?? Hands:Normal pain-free range of motion without tenderness, swelling, increased warmth or erythema. 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 [place] nodes Wrists: Normal pain-free range of motion without tenderness, swelling, increased warmth or erythema. Elbows: Normal pain-free range of motion without tenderness, swelling, increased warmth or erythema. Shoulders:?LEFT: Full range of motion without pain. No tenderness, weakness, swelling, increased warmth or erythema. RIGHT: Pain well controlled but limited range of motion, unable to extend or abduct greater than 90 degrees, difficulty with internal rotation. No swelling, increased warmth, or erythema. Knees: Normal of motion mild pain and tenderness, but no increased warmth or erythema.? There is mild effusion to left knee Ankles:? Normal pain-free range of motion without tenderness, swelling, increased warmth or erythema. Feet: Normal pain-free range of motion without tenderness, swelling, increased warmth or erythema. Office Procedures Joint Inj/Aspir; Non-Pain Clin Joint Injection/Drain Prep: site was prepped using aseptic technique and injection warnings given Approach Used: anteromedial Procedure: The patient tolerated the procedure well, but had some pain with the injection and there was some relief with the local anesthesia Shoulders, Hips, Knees, Knee Large Joint Injection [id number]: Left Knee Coding Procedure code (CPT) selection complete Results Reviewed Results Reviewed: Laboratory Tests 11/12/21 08/27/22 08/27/22 10:32 09:38 09:38 Potassium 5.2 H BUN 19 H Estimated GFR > 60 Uric Acid 4.2 25-OH Vitamin D Total 34.7 EXAMINATION: XR KNEE, RIGHT CLINICAL INFORMATION: Right knee pain. COMPARISON: None TECHNIQUE: AP and lateral views of the right knee. FINDINGS: Mild patellofemoral joint space narrowing with tiny marginal osteophytes. No osseous erosion. No fracture or dislocation. Medial and lateral compartment chondrocalcinosis. Atherosclerotic calcifications. XR/XR knee RT 2V IMPRESSION: Mild patellofemoral osteoarthritis. Medial and lateral compartment chondrocalcinosis. EXAMINATION: XR SHOULDER, RIGHT CLINICAL INFORMATION: Right shoulder pain. COMPARISON: None TECHNIQUE: AP external rotation, Grashey, scapular Y, and axillary views of the right shoulder. FINDINGS: No acute fracture or dislocation. Severe glenohumeral joint space narrowing with bony remodeling, subchondral sclerosis, subchondral cystic change, and large marginal osteophytes. Acromioclavicular joint space narrowing with marginal osteophytes. No abnormal soft tissue calcification. Assessment & Plan Assessment & Plan (1) Gout: Code(s): M10.9 - Gout, unspecified Qualifiers: Chronicity: chronic Gout etiology: idiopathic Gout site: knee Laterality: unspecified laterality Presence of tophus: without tophus Qualified Code(s): M1A.0690 - Idiopathic chronic gout, unspecified knee, without tophus (tophi) (2) Left knee pain: Code(s): M25.562 - Pain in left knee Qualifiers: Chronicity: acute Qualified Code(s): M25.562 - Pain in left knee (3) Chondrocalcinosis of right knee: Code(s): M11.261 - Other chondrocalcinosis, right knee (4) Right shoulder pain: Code(s): M25.511 - Pain in right shoulder Qualifiers: Chronicity: acute Qualified Code(s): M25.511 - Pain in right shoulder Plan #Gout Arthritis/Left Knee Gout Flare: Patient is on allopurinol 300 mg q.d. and is colchicine 0.6 mg for flare. Most recent flare was in January 2023. Patient states that the colchicine got rid of the swelling but the pain remains in his left knee. On PE there was tenderness to palpation more on the medial joint line with trace swelling - I think it is reason to give him a joint injection today to help resolve the inflammation. I will also order updated labs for chemistry and uric acid since patient has not had labs done in over a year. I also gave him written instructions on precautions to take for the next 2 days to prevent further injury to his left knee after the steroid injection. I injected his left knee with Kenalog 80 mg and 1 mL lidocaine 1%. Patient tolerated the procedure well. #Chondrocalcinosis of Right Knee: Colchicine can be used to treat Chondrocalci nosis but is not always effective. Given that patient is T2DM, will consider joint injection vs system steroids if his right knee flares and colchicine is not effective . #Right shoulder pain s/p fall in September 2021. Limited range of motion. Patient was evaluated by Ortho and referred to Pain Management for cortisone injection under fluoroscopy guidance. Pain well controlled at this time s/p right glenohumeral joint injection for glenohumeral arthritis with pain management. Continue oxycodone-acetaminophen and gabapentin prescribed by PCP. Continue follow-up with pain management. #T2DM: Patient was instructed to observe blood sugar level and for signs and symptoms of hyperglycemia after cortisone injection. 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
== END 2023-03-29 14:38 | disposition home or self-care (01) ==
PROVIDERS: PCP Internal Medicine; Visit Provider Nurse Practitioner Family
DX: M1A.0690 Idiopathic chronic gout, unspecified knee, without tophus (tophi) (principal); M25.562 Pain in left knee; M11.261 Other chondrocalcinosis, right knee; M25.511 Pain in right shoulder
CPT/HCPCS: 20610; 99213

== ENCOUNTER → 2023-03-29 13:41 | Outpatient (BNVA) | payer OTHER, SELFPAY | PROVIDERS: PCP Internal Medicine; Visit Provider Nurse Practitioner Family | DX: M1A.0690 Idiopathic chronic gout, unspecified knee, without tophus (tophi) (principal); M25.562 Pain in left knee; M11.261 Other chondrocalcinosis, right knee; M25.511 Pain in right shoulder | CPT/HCPCS: 20610; 99212 ==

== ENCOUNTER 2023-03-30 11:03 | Outpatient (REF) | payer OTHER, SELFPAY ==
[2023-03-30 11:34] LABS: MANUAL DIFF FLAG NO
[2023-03-30 11:49] LABS: Basophils Percent Auto 0.1 % (0-2); Hematocrit 44.9 % (42.0-52.0); Hemoglobin 15.1 g/dl (14.0-18.0); Imm Gran Abs Auto 0.09 X10*3/uL (0.00-0.03); Imm Gran Pct Auto 0.6 % (0.0-0.4); Lymphocytes Absolute Auto 1.2 X10*3/uL (1.2-4.9); Lymphocytes Percent Auto 7.4 % (20-40); Mean Corpuscular HGB Conc 33.6 g/dl (31.0-36.0); Mean Corpuscular Hemoglobin 29.5 pg (27.0-33.0); Mean Corpuscular Volume 87.9 fL (80.0-98.0); Mean Platelet Volume 9.1 fL (9.4-12.4); Monocytes Absolute Auto 0.4 X10*3/uL (0.1-1.2); Monocytes Percent Auto 2.8 % (2-11); Neutrophils Absolute Auto 13.9 x10*3/uL (2.0-8.3); Neutrophils Percent Auto 89.1 % (45-73); Platelet Count 219 X10*3/uL (160-400); Red Blood Count 5.11 X10*6/uL (4.60-5.80); Red Cell Distribution Width 13.2 % (11.0-16.0); White Blood Count 15.6 X10*3/uL (4.8-10.8)
[2023-03-30 12:24] LABS: Erythrocyte Sedimentation Rate 14 MM/HR (0-15)
[2023-03-30 12:43] LABS: Vitamin D 25-OH Total 39.8 ng/mL (>30)
[2023-03-30 12:44] LABS: Alanine Aminotransferase 21 U/L (0-40); Albumin Level 4.5 g/dL (3.5-5.0); Alkaline Phosphatase 98 U/L (39-117); Anion Gap 14 (12-20); Aspartate Amino Transferase 18 U/L (5-37); Bilirubin Total 0.8 mg/dL (0.0-1.0); Blood Urea Nitrogen 20 mg/dL (9-16); Calcium 9.8 mg/dL (8.4-10.2); Carbon Dioxide 25 mmol/L (22-29); Chloride 101 mmol/L (96-108); Cholesterol 123 mg/dL (<200); Estimated Glomerular Filt Rate > 60; Glucose Fasting 170 mg/dL (60-99); HDL Cholesterol 38 mg/dL (>40); LDL Cholesterol Calculated 68 mg/dL (<100); Potassium 4.8 mmol/L (3.3-5.1); Sodium 135 mmol/L (135-145); Total Protein 8.4 g/dL (6.5-8.0); Triglycerides 88 mg/dL (<150)
[2023-03-30 13:07] LABS: Appearance Urine Clear; Color Urine Dark Yellow; Glucose Urine UA Negative (Negative); Leukocyte Esterase Urine Negative (Negative); Nitrite Urine Negative (Negative); PH 5.5 (5.0-9.0); Specific Gravity - Urine 1.025 (1.005-1.025); Urine Blood Negative (Negative); Urine Ketones Trace mg/dL (Negative); Urine Protein Trace mg/dL (Neg-Trace)
[2023-03-30 14:01] LABS: Uric Acid 7.4 mg/dL (3.4-7.0)
[2023-03-30 14:15] LABS: Creatinine Urine 243.68 mg/dL; Microalbum/Creatinine Ratio Ur 36.9 ug/mg cr (<30)
[2023-04-03 22:08] LABS: NT-proBNP 1008 pg/mL (<450)
== END 2023-03-30 11:04 | disposition home or self-care (01) ==
LOC: HO.LAB 11:03
PROVIDERS: PCP Internal Medicine; Visit Provider Nurse Practitioner Family
DX: M10.9 Gout, unspecified (principal); I50.22 Chronic systolic (congestive) heart failure; E11.9 Type 2 diabetes mellitus without complications; E55.9 Vitamin D deficiency, unspecified; E78.5 Hyperlipidemia, unspecified; R30.0 Dysuria
CPT/HCPCS: 36415; 80053; 80061; 81003; 82043; 82306; 82570; 83880; 84550; 85025; 85652; 86140

== ENCOUNTER 2023-05-30 16:53 | Outpatient (AMB) | payer OTHER, SELFPAY ==
[2023-05-30 17:01] VITALS: BP 122/70; BMI 26.9
--- NOTE | 2023-05-30 17:01 | MHC.PC.OV ---
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: No Accompanied by: Spouse Allergies No Known Allergies [No Known Allergies*] Allergy (Verified 05/30/23 17:26) Medication List - Last Reconciled 05/30/23 by Tatiana Stokes MD allopurinol 300 mg PO DAILY 90 days atorvastatin 80 mg PO DAILY 90 days blood sugar diagnostic (FreeStyle Test strips) Use 1 test strip 3 times per days directed blood-glucose meter (FreeStyle Lite Meter kit) Test Daily cane As directed cholecalciferol (vitamin D3) 50 mcg PO DAILY 90 days clotrimazole-betamethasone 1-0.05 % 1 appl topical BID 30 days colchicine 0.6 mg PO DAILY PRN 30 days [diabetic shoes with 3 inserts diabetic shoes with 3 inserts] diclofenac sodium 1% 4 grams topical QID 30 days eplerenone 25 mg PO DAILY 90 days gabapentin 400 mg PO TID 90 days lancets (Acti-Ambrocio Lancets) As directed loratadine (Allergy Relief (loratadine)) 10 mg PO DAILY 90 days metformin 1,000 mg (2 x 500 mg) PO BID 90 days metoprolol succinate ER 25 mg PO DAILY 90 days nitroglycerin 0.4 mg sublingual ONCE PRN 30 days omeprazole 20 mg PO BID 90 days oxycodone-acetaminophen 5-325 mg 1 tab PO Q8H PRN 30 days rivaroxaban (Xarelto) 20 mg PO QPM 90 days sacubitril-valsartan 24-26 mg (Entresto) 1 tab PO BID 30 days sucralfate 1 g PO QID 30 days tamsulosin 0.4 mg PO BEDTIME 90 days temazepam 30 mg PO BEDTIME PRN 30 days Tobacco use date assessed: 05/30/23 Fall risk assessment: No Falls in past year Last assessed Fall Risk: 05/30/23 Dental Screening Dental Screen Date: 05/30/23 Did you have a dental visit in the last 12 months?: No Did you have a dental problem in the last 6 months where you did not have access to dental care?: No Was dental information given to patient?: Patient has dentist HPI HPI Comments History of Present Illness Details This is a 77-year-old male with diabetes mellitus type 2, pure hypercholesterolemia, atrial fibrillation and congestive heart failure that comes today for follow-up on his conditions. Last A1c was within goal. Last LDL was within goal. On chronic anticoagulation for atrial fibrillation and denies any active bleeding. Has not gain 5 lb in a week. Congestive heart failure and atrial fibrillation are follow by cardiology. Accompanied by . [facility] Medical History (Updated 05/30/23 @ 17:32 by Tatiana Stokes MD) Left breast lump UTI (urinary tract infection), uncomplicated Right shoulder pain Right knee pain Abdominal pain CHF (congestive heart failure) Pure hypercholesterolemia Herpes zoster Chronic anticoagulation Atrial fibrillation Gout Essential hypertension Diabetes mellitus Lumbar degenerative disc disease Primary insomnia Surgical History History of laparoscopic cholecystectomy History of colonoscopy History of cardiac catheterization History of prostate surgery Family History Father Diabetes Mother Cancer Son Diabetes Brother Prostate CA Social History Household Members: Spouse and Children Housing: House Do you presently have visiting nurse or other home services: No ( takes care of him) Alcohol intake: never Comment: tele Patient Tobacco Use Status: Former Tobacco user Tobacco use type: Cigarette e-Cigarette/Vaping Use: Never Used Second Hand Smoke Exposure: No service: No Current occupational status: disabled Current occupation: right hand Cognitive needs: Yes Hearing needs: No Vision needs: Yes Questionnaire PHQ-9 Over the last 2 weeks, how often have you been bothered by any of the following problems? 1. Little interest or pleasure in doing things: not at all 2. Feeling down, depressed, or hopeless: several days 3. Trouble falling or staying asleep, or sleeping too much: not at all 4. Feeling tired or having little energy: not at all 5. Poor appetite or overeating: not at all 6. Feeling bad about yourself - or that you are a failure or have let yourself or your family down: not at all 7. Trouble concentrating on things, such as reading the newspaper or watching television: not at all 8. Moving or speaking so slowly that other people could have noticed. Or the opposite - being so fidgety or restless that you have been moving around a lot more than usual: not at all 9. Thoughts that you would be better off or of hurting yourself in some way: not at all Total score: 1 Depression Screening Interpretation: Negative Depression Screening Done: Yes 09780 - PHQ-9 Billing: Yes Source: Developed by Drs. Isaiah Paul, Corinne Sierra, Shalom Leung and colleagues, with an educational neyda from [employer]. Thrive Questionnaire Date Thrive assessed: 05/30/23 I am a: Patient What is your living situation today?: I have a steady place to live Within the past 12 months, did the food you bought not last and you didn't have the money to get more?: Never true Within the past 12 months, did you worry whether your food would run out before you got money to buy more?: Never true Do you have trouble paying for medicines?: No Do you have trouble getting transportation to medical appointments?: No Do you have trouble paying your heating and electricity bill?: No Do you have trouble taking care of your child, family member or friend?: No Do you have trouble with day-to-day activities such as bathing, preparing meals, shopping, managing finances, etc.?: No Are you currently unemployed and looking for a job?: No Are you interested in more education?: No Please select the resources that you would like help with: None Currently or been in a relationship where the following occur: no concerns reported THRIVE Score: 0 AUDIT C Alcohol Use Questionnaire (AUDIT-C) 1. How often do you have a drink containing alcohol?: Never Total Score: 0 MELBA-7 AMB Questionnaire MELBA-7 Date MELBA - 7 assessed: 05/30/23 Feeling nervous, anxious, or on edge: 1 = Several days Not being able to stop or control worryin = Not at all Worrying too much about different things: 0 = Not at all Trouble relaxin = Not at all Being so restless that it is hard to sit still: 0 = Not at all Becoming easily annoyed or irritable: 0 = Not at all Feeling afraid as if something awful might happen: 0 = Not at all Total MELBA-7 score (0-4 normal; 5-9 mild; 10-14 moderate; 15-21 severe): 1 Source: Developed by Drs. Isaiah Paul, Corinne Sierra, Shalom Leung and colleagues, with an educational neyda from [employer]. MELBA-7 Assessment Billing MELBA-7 Assessment Tool: MELBA-7 Assessment 52073 Review of Systems Const All systems reviewed & are unremarkable except as noted in HPI and below Eyes Reports no additional complaints, Denies change in vision and Denies other visual disturbances Card Denies chest pain at rest, Denies chest pain with activity, Denies edema, Denies irregular heart rhythm, Denies claudication, Denies dyspnea, Denies dyspnea on exertion, Denies orthopnea, Denies paroxysmal nocturnal dyspnea and Denies slow heart rate Resp Denies cough, Denies dyspnea and Denies dyspnea on exertion GI Denies abdominal pain, Denies change in bowel habits, Denies excessive flatus, Denies nausea and Denies vomiting Denies urinary hesitancy, Denies urinary incontinence and Denies urinary urgency Musc Denies abnormal gait, Denies atrophy, Denies deformity and Denies limited range of motion Skin/Breast Denies bleeding lesions, Denies changing lesions and Denies rash Neuro Denies abnormal gait, Denies behavioral changes and Denies lack of coordination Psych Denies behavioral changes Physical exam (Primary Care) Vital Signs: Last Vital Signs BP 122/70 05/30/23 17:01 BMI result Body Mass Index 26.9 Tobacco/Smoking Status: Tobacco use Status Tobacco use date assessed 05/30/23 05/30/23 17:06 Patient Tobacco Use Status Former Tobacco user 05/30/23 17:06 Tobacco use type Cigarette 05/30/23 17:06 e-Cigarette/Vaping Use Never Used 05/30/23 17:06 PHQ-9: PHQ-9 Score PHQ-9: Total score 1 05/30/23 18:04 Depression Screening Interpretation: Negative Thrive Assessment: Date of Thrive Assessment Date Thrive assessed 05/30/23 05/30/23 17:06 Currently or been in a relationship where the following occur: no concerns reported Eyes General: appearance normal, both eyes and all related structures Eyelids: Yes eyelids normal Conjunctivae: conjunctivae normal Neck Neck: Yes normal visual inspection and Yes supple Resp Effort & Inspection: normal respiratory effort Auscultation: clear to auscultation bilaterally Cardio Jugular venous distension: no JVD Rate: regular rate Rhythm: regular rhythm Heart sounds: S1 normal heart sound present and S2 normal heart sound present Extrem General: Yes full ROM Results AMB Urinalysis, Automated UA Leukoctes 0 Rere/uL Last Edit by Tatianamarnie Jain, A on 05/30/23 17:43 UA Nitrite Negative Last Edit by Sophie Jain, A on 05/30/23 17:43 UA Urobilinogen 0.2 mg/dL Last Edit by Sophie Jain, A on 05/30/23 17:43 UA Protein 0 mg/dL Last Edit by Sophie Jain, A on 05/30/23 17:43 UA pH 6.0 Last Edit by Sophie Jain, A on 05/30/23 17:43 UA Blood 0 Reinaldo/uL Last Edit by Tatianamarnie Jain, A on 05/30/23 17:43 UA Specific [place] 1.025 Last Edit by Sophie Jain, [facility] on 05/30/23 17:43 UA Ketone Negative Last Edit by Bhavaniyanira Jain, A on 05/30/23 17:43 UA Bilirubin 0 mg/dL Last Edit by Bhavaniyanira Jain, [facility] on 05/30/23 17:43 UA Glucose 0 mg/dL Last Edit by Bhavaniyanira Jain, A on 05/30/23 17:43 Results Reviewed Results Reviewed: Laboratory Last Values Urine pH (Auto) 6.0 05/30/23 17:41 Specific [place] (Auto) 1.025 05/30/23 17:41 Urine Protein (Auto) 0 mg/dL 05/30/23 17:41 Glucose (UA)(Auto) 0 mg/dL 05/30/23 17:41 Urine Ketones (Auto) Negative 05/30/23 17:41 Urine Blood (Auto) 0 Reinaldo/uL 05/30/23 17:41 Urine Nitrite (Auto) Negative 05/30/23 17:41 Urine Bilirubin (Auto) 0 mg/dL 05/30/23 17:41 Urine Urobilinogen (Auto) 0.2 mg/dL 05/30/23 17:41 Leukocyte Esterase (Auto) 0 Rere/uL 05/30/23 17:41 Assessment and Plan Assessment & Plan (1) Atrial fibrillation: Code(s): I48.91 - Unspecified atrial fibrillation Qualifiers: Atrial fibrillation type: longstanding persistent Qualified Code(s): I48.11 - Longstanding persistent atrial fibrillation Plan: On chronic anticoagulation. Follow-up with Cardiology. (2) CHF (congestive heart failure): Code(s): I50.9 - Heart failure, unspecified Qualifiers: Heart failure type: systolic Heart failure chronicity: chronic Qualified Code(s): I50.22 - Chronic systolic (congestive) heart failure Plan: Continue Entresto. The goal is to not gain 5 lb in a week. Follow-up with Cardiology. (3) Pure hypercholesterolemia: Code(s): E78.00 - Pure hypercholesterolemia, unspecified Plan: Continue statins. LDL goal is less than 70. (4) Diabetes mellitus: Code(s): E11.9 - Type 2 diabetes mellitus without complications Qualifiers: Diabetes mellitus type: type 2 Diabetes mellitus residential insulin use: without residential use Diabetes mellitus complication status: without complication Qualified Code(s): E11.9 - Type 2 diabetes mellitus without complications Plan: Continue metformin. A1c goal is equal or less than 7%. Orders: Orders Vitamin D 25-OH Total Today E55.9 - Vitamin D deficiency, unspecified Uric Acid Today M10.9 - Gout, unspecified Vitamin B12 and Folate Today E53.8 - Deficiency of other specified B group vitamins Lipid Panel Today E78.5 - Hyperlipidemia, unspecified Complete Blood Count Auto Diff Today D64.9 - Anemia, unspecified NT-proBNP Today I50.9 - Heart failure, unspecified Microalbumin, Random (w Creat) Today E11.9 - Type 2 diabetes mellitus without complications Comprehensive [place]. Panel Fast Today D72.829 - Elevated white blood cell count, unspecified AMB Urinalysis Automated Today R30.0 - Dysuria Medications: New bacitracin 1 appl topical Q8H 28 grams 0RF 7 days Coding Level of Care Code Est Pt Level 4 (01835) Diagnoses Longstanding persistent atrial fibrillation I48.11 Atrial fibrillation type: longstanding persistent Chronic systolic congestive heart failure I50.22 Heart failure type: systolic Heart failure chronicity: chronic Pure hypercholesterolemia E78.00 Type 2 diabetes mellitus without complication, without long-term current use of insulin E11.9 Diabetes mellitus type: type 2 Diabetes mellitus residential insulin use: without residential use Diabetes mellitus complication status: without complication Additional Codes MELBA-7 Assessment Billing - MELBA-7 Assessment Tool: MELBA-7 Assessment 45513 ([id number]) Time Spent (min) 25
== END 2023-05-30 17:41 | disposition home or self-care (01) ==
PROVIDERS: PCP Internal Medicine; Visit Provider Internal Medicine
DX: I48.11 Longstanding persistent atrial fibrillation (principal); I50.22 Chronic systolic (congestive) heart failure; E78.00 Pure hypercholesterolemia, unspecified; E11.9 Type 2 diabetes mellitus without complications; R30.0 Dysuria
CPT/HCPCS: 81003; 99214

== ENCOUNTER 2023-06-03 12:46 | Outpatient (AMB) | payer OTHER, SELFPAY ==
--- NOTE | 2023-06-03 13:08 | AM.OFFVISNUR ---
Intake Intake Visit Reasons: Tetanus shot Allergies No Known Allergies [No Known Allergies*] Allergy (Verified 05/30/23 17:26) Immunizations tetanus-diphtheria toxoids-Td 2 Lf unit-2 Lf unit/0.5 mL IM suspension Performing Provider: Tatiana Stokes MD [facility] Administered by: Nelia Hernandes RN on 06/03/23 13:08 Dose Route Admin Location Dispensed Lot Number Expiration Date [employer] 0.5 mL IM Left Deltoid 0.5 mL [id number] 09/05/23 [address]-0 [employer] VIS Given Date VIS Provided VIS Publication Date 06/03/23 Single Vaccine 20 Eligibility Eligibility Date Funding Source Not VFC Eligible 06/03/23 State funds Coding Assessment & Plan Assessment & Plan Orders: Orders Td State Immunization Today Z23 - Encounter for immunization
== END 2023-06-03 13:15 | disposition home or self-care (01) ==
PROVIDERS: PCP Internal Medicine; Visit Provider Internal Medicine
DX: Z23 Encounter for immunization (principal)
CPT/HCPCS: 90471; 90714

== ENCOUNTER 2023-07-26 12:54 | Outpatient (AMB) | payer OTHER, SELFPAY ==
--- NOTE | 2023-07-26 13:03 | A.OFFPC_ITS ---
Vital Signs 07/26/23 13:04 Height 5 ft 9 in Weight 179 lb BMI 26.4 BP 132/80 Blood Pressure Location Lt brachial Position Sitting Pulse 82 Pulse Source Pulse Oximeter Pulse Oximetry (%) 99 Oxygen Delivery Method Room Air Intake Visit Reasons: PE/ Intake Note: Patient here for a physical exam/ dental clearance Patient Registration Representative Required: No Accompanied by: Spouse Allergies No Known Allergies [No Known Allergies*] Allergy (Verified 07/26/23 13:22) Medication List - Last Reconciled 07/26/23 by Tatiana Stokes MD allopurinol 300 mg PO DAILY 90 days atorvastatin 80 mg PO DAILY 90 days bacitracin 1 appl topical Q8H 7 days blood sugar diagnostic (FreeStyle Test strips) Use 1 test strip 3 times per days directed blood-glucose meter (FreeStyle Lite Meter kit) Test Daily cane As directed cholecalciferol (vitamin D3) 50 mcg PO DAILY 90 days clotrimazole-betamethasone 1-0.05 % 1 appl topical BID 30 days colchicine 0.6 mg PO DAILY PRN 10 days [diabetic shoes with 3 inserts diabetic shoes with 3 inserts] diclofenac sodium 1% 4 grams topical QID 30 days eplerenone 25 mg PO DAILY 90 days gabapentin 400 mg PO TID 90 days lancets (Acti-Ambrocio Lancets) As directed loratadine (Allergy Relief (loratadine)) 10 mg PO DAILY 90 days metformin 1,000 mg (2 x 500 mg) PO BID 90 days metoprolol succinate ER 25 mg PO DAILY 90 days nitroglycerin 0.4 mg sublingual ONCE PRN 30 days omeprazole 20 mg PO BID 90 days oxycodone-acetaminophen 5-325 mg 1 tab PO Q8H PRN 30 days rivaroxaban (Xarelto) 20 mg PO QPM 90 days sacubitril-valsartan 24-26 mg (Entresto) 1 tab PO BID 30 days sucralfate 1 g PO QID 30 days tamsulosin 0.4 mg PO BEDTIME 90 days temazepam 30 mg PO BEDTIME PRN 30 days Tobacco use date assessed: 05/30/23 Fall risk assessment: No Falls in past year Last assessed Fall Risk: 07/26/23 Dental Screening Dental Screen Date: 07/26/23 Did you have a dental visit in the last 12 months?: No Did you have a dental problem in the last 6 months where you did not have access to dental care?: No Was dental information given to patient?: Patient has dentist HPI HPI Comments History of Present Illness Details This is a 77-year-old male with chronic systolic congestive heart failure, chronic atrial fibrillation, diabetes mellitus type 2 and history of prostate cancer treated with surgery that comes accompanied by for his physical exam. Last echocardiogram done 2022 shows ejection fraction of 57% as per Cardiology in [facility]. He denies any chest pain or shortness breath. No leg swelling. Has not gain 5 lb in a week. Has chronic atrial fibrillation on chronic anticoagulation and denies any active bleeding. A1c within goal being 6.9% today. Last colonoscopy 2018. Use to see urology for his prostate cancer but was too far away and I will refer him to [facility] [place]. No history of infective endocarditis in the past. No need for antibiotic prophylaxis for dental procedure. Walks with a cane for gait stability due to chronic low back pain that is significant relieved by opiates which he is aware can cause addiction and sedation. [facility] Medical History Left breast lump UTI (urinary tract infection), uncomplicated Right shoulder pain Right knee pain Abdominal pain CHF (congestive heart failure) Pure hypercholesterolemia Herpes zoster Chronic anticoagulation Atrial fibrillation Gout Essential hypertension Diabetes mellitus Lumbar degenerative disc disease Primary insomnia Surgical History History of laparoscopic cholecystectomy History of colonoscopy History of cardiac catheterization History of prostate surgery Family History Father Diabetes Mother Cancer Son Diabetes Brother Prostate CA Social History Household Members: Spouse and Children Housing: House Do you presently have visiting nurse or other home services: No ( takes care of him) Alcohol intake: never Comment: tele Patient Tobacco Use Status: Former Tobacco user Tobacco use type: Cigarette e-Cigarette/Vaping Use: Never Used Second Hand Smoke Exposure: No service: No Current occupational status: disabled Current occupation: right hand Cognitive needs: Yes Hearing needs: No Vision needs: Yes Questionnaire Thrive Questionnaire Date Thrive assessed: 05/30/23 MELBA-7 AMB Questionnaire MELBA-7 Date MELBA - 7 assessed: 05/30/23 Source: Developed by Drs. Isaiah Paul, Corinne Sierra, Shalom Leung and colleagues, with an educational neyda from [employer]. Review of Systems Const All systems reviewed & are unremarkable except as noted in HPI and below Eyes Reports no additional complaints, Denies change in vision and Denies other visual disturbances Card Denies chest pain at rest, Denies chest pain with activity, Denies edema, Denies irregular heart rhythm, Denies claudication, Denies dyspnea, Denies dyspnea on exertion, Denies orthopnea, Denies paroxysmal nocturnal dyspnea and Denies slow heart rate Resp Denies cough, Denies dyspnea and Denies dyspnea on exertion GI Denies abdominal pain, Denies change in bowel habits, Denies excessive flatus, Denies nausea and Denies vomiting Denies urinary hesitancy, Denies urinary incontinence and Denies urinary urgency Physical exam (Primary Care) Vital Signs: Last Vital Signs Pulse 82 07/26/23 13:04 BP 132/80 07/26/23 13:04 Pulse Ox 99 07/26/23 13:04 Oxygen Delivery Method Room Air 07/26/23 13:04 BMI result Body Mass Index 26.4 Tobacco/Smoking Status: Tobacco use Status Tobacco use date assessed 05/30/23 07/26/23 13:05 Patient Tobacco Use Status Former Tobacco user 07/26/23 13:05 Tobacco use type Cigarette 07/26/23 13:05 e-Cigarette/Vaping Use Never Used 07/26/23 13:05 Thrive Assessment: Date of Thrive Assessment Date Thrive assessed 05/30/23 07/26/23 13:05 Const Orientation/consciousness: patient oriented x3 Limitations: ambulation with cane HENMT Head: Yes normal to inspection, Yes normocephalic and Yes atraumatic Ears: external ears normal Eyes General: appearance normal, both eyes and all related structures Eyelids: Yes eyelids normal Conjunctivae: conjunctivae normal Neck Neck: Yes normal visual inspection and Yes supple Resp Effort & Inspection: normal respiratory effort Auscultation: clear to auscultation bilaterally Cardio Jugular venous distension: no JVD Rhythm: abnormal rhythm irregularly irregular Heart sounds: S1 normal heart sound present and S2 normal heart sound present GI Inspection: Yes normal to inspection Palpation (GI): Soft to palpation and nontender Auscultation: normal bowel sounds Skin General skin exam: no rashes or lesions noted Neuro General: patient oriented x3 and no focal motor deficits Extrem General: Yes full ROM Psych Appearance: grossly normal Results AMB Hemoglobin A1c AMB Hemoglobin A1c 6.9 % Last Edit by WANG [place] on 07/26/23 13:1 1 Results Reviewed Results Reviewed: Laboratory Last Values Hgb A1c (Clinic) 6.9 % (4.0-6.0) H 07/26/23 13:06 Assessment and Plan Assessment & Plan (1) Physical exam: Code(s): Z00.00 - Encounter for general adult medical examination without abnormal findings Plan: Repeat in a year. (2) Prostate cancer: Code(s): C61 - Malignant neoplasm of prostate Plan: Treated with surgery. Referred to Urology. 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 A1c goal is equal or less than 7%. (4) Atrial fibrillation: Code(s): I48.91 - Unspecified atrial fibrillation Qualifiers: Atrial fibrillation type: longstanding persistent Qualified Code(s): I48.11 - Longstanding persistent atrial fibrillation Plan: Continue Xarelto. (5) CHF (congestive heart failure): Code(s): I50.9 - Heart failure, unspecified Qualifiers: Heart failure chronicity: chronic Heart failure type: systolic Qualified Code(s): I50.22 - Chronic systolic (congestive) heart failure Plan: Continue diuretics. Follow-up with Cardiology. The goal is to not gain 5 lb in a week. Orders: Orders Vitamin D 25-OH Total Today E55.9 - Vitamin D deficiency, unspecified Complete Blood Count Auto Diff Today D72.829 - Elevated white blood cell count, unspecified NT-proBNP Today I50.22 - Chronic systolic (congestive) heart failure Lipid Panel Today E11.9 - Type 2 diabetes mellitus without complications, E78.5 - Hyperlipidemia, unspecified AMB Hemoglobin A1c Today E11.9 - Type 2 diabetes mellitus without complications Uric Acid Today M10.9 - Gout, unspecified Microalbumin, Random (w Creat) Today E11.9 - Type 2 diabetes mellitus without complications Comprehensive [place]. 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
[2023-07-26 13:04] VITALS: BP 132/80; PULSE 82; O2SAT 99; BMI 26.4
== END 2023-07-26 13:37 | disposition home or self-care (01) ==
PROVIDERS: PCP Internal Medicine; Visit Provider Internal Medicine
DX: Z00.00 Encounter for general adult medical examination without abnormal findings (principal); C61 Malignant neoplasm of prostate; E11.9 Type 2 diabetes mellitus without complications; I48.11 Longstanding persistent atrial fibrillation; I50.22 Chronic systolic (congestive) heart failure
CPT/HCPCS: 83036; 99397

== ENCOUNTER 2023-07-27 10:37 | Outpatient (REF) | payer OTHER, SELFPAY ==
[2023-07-27 10:55] LABS: MANUAL DIFF FLAG NO
[2023-07-27 12:09] LABS: Basophils Percent Auto 0.5 % (0-2); Eosinophils Absolute Auto 0.2 X10*3/uL (0.0-0.4); Eosinophils Percent Auto 2.5 % (0-4); Hematocrit 44.9 % (42.0-52.0); Hemoglobin 15.2 g/dl (14.0-18.0); Imm Gran Abs Auto 0.03 X10*3/uL (0.00-0.03); Imm Gran Pct Auto 0.5 % (0.0-0.4); Lymphocytes Absolute Auto 1.8 X10*3/uL (1.2-4.9); Mean Corpuscular HGB Conc 33.9 g/dl (31.0-36.0); Mean Corpuscular Volume 91.4 fL (80.0-98.0); Mean Platelet Volume 9.4 fL (9.4-12.4); Monocytes Absolute Auto 0.6 X10*3/uL (0.1-1.2); Monocytes Percent Auto 9.3 % (2-11); Neutrophils Absolute Auto 3.3 x10*3/uL (2.0-8.3); Neutrophils Percent Auto 56.2 % (45-73); Platelet Count 204 X10*3/uL (160-400); Red Blood Count 4.91 X10*6/uL (4.60-5.80); Red Cell Distribution Width 13.8 % (11.0-16.0); White Blood Count 5.9 X10*3/uL (4.8-10.8)
[2023-07-27 12:26] LABS: Creatinine Urine 95.94 mg/dL; Microalbum/Creatinine Ratio Ur 47.9 ug/mg cr (<30)
[2023-07-27 13:07] LABS: Alanine Aminotransferase 31 U/L (0-40); Albumin Level 4.3 g/dL (3.5-5.0); Alkaline Phosphatase 97 U/L (39-117); Anion Gap 11 (12-20); Aspartate Amino Transferase 27 U/L (5-37); Bilirubin Total 0.6 mg/dL (0.0-1.0); Blood Urea Nitrogen 14 mg/dL (9-16); Calcium 9.6 mg/dL (8.4-10.2); Carbon Dioxide 29 mmol/L (22-29); Chloride 104 mmol/L (96-108); Cholesterol 157 mg/dL (<200); Estimated Glomerular Filt Rate > 60; Glucose Fasting 133 mg/dL (60-99); HDL Cholesterol 49 mg/dL (>40); LDL Cholesterol Calculated 84 mg/dL (<100); Potassium 4.6 mmol/L (3.3-5.1); Sodium 139 mmol/L (135-145); Total Protein 7.8 g/dL (6.5-8.0); Triglycerides 121 mg/dL (<150); Uric Acid 6.7 mg/dL (3.4-7.0)
[2023-07-27 13:10] LABS: PSA,Total (Free>4and<10) < 0.10 ng/mL (0.00-4.00)
[2023-07-27 13:11] LABS: Vitamin D 25-OH Total 38.4 ng/mL (>30)
[2023-07-27 13:24] LABS: Folate 11.3 ng/mL (> or = 4.0); Vitamin B12 238 pg/mL (200-900)
[2023-08-01 22:42] LABS: NT-proBNP 474 pg/mL (<450)
== END 2023-07-27 10:38 | disposition home or self-care (01) ==
LOC: HO.LAB 10:37
PROVIDERS: Visit Provider Internal Medicine
DX: Z12.5 Encounter for screening for malignant neoplasm of prostate (principal); E53.8 Deficiency of other specified B group vitamins; E78.5 Hyperlipidemia, unspecified; E55.9 Vitamin D deficiency, unspecified; D72.829 Elevated white blood cell count, unspecified; E11.9 Type 2 diabetes mellitus without complications; I50.9 Heart failure, unspecified; C61 Malignant neoplasm of prostate; M10.9 Gout, unspecified
CPT/HCPCS: 36415; 80053; 80061; 82043; 82306; 82570; 82607; 82746; 83880; 84153; 84550; 85025

== ENCOUNTER 2023-09-16 11:04 | Outpatient (AMB) | payer OTHER, SELFPAY ==
--- NOTE | 2023-09-16 11:11 | A.OFFVIS_ITS ---
Intake Visit Reasons: history of prostate cancer Intake Note: New Patient presents for initial visit for history of prostate cancer Urology Medications: tamsulosin Blood Thinner: none Supervisor Electronics Inspection Required: Yes Accompanied by: and son Allergies No Known Allergies [No Known Allergies*] Allergy (Verified 09/16/23 21:39) Medication List - Last Reconciled 09/16/23 by ANDREE Hernadnez- allopurinol 300 mg PO DAILY 90 days atorvastatin 80 mg PO DAILY 90 days blood sugar diagnostic (FreeStyle Test strips) Use 1 test strip 3 times per days directed blood-glucose meter (FreeStyle Lite Meter kit) Test Daily cane As directed cholecalciferol (vitamin D3) 50 mcg PO DAILY 90 days clotrimazole-betamethasone 1-0.05 % 1 appl topical BID 30 days colchicine 0.6 mg PO DAILY PRN 10 days [diabetic shoes with 3 inserts diabetic shoes with 3 inserts] diclofenac sodium 1% 4 grams topical QID 30 days eplerenone 25 mg PO DAILY 90 days ezetimibe 10 mg PO DAILY gabapentin 400 mg PO TID 90 days lancets (Acti-Ambrocio Lancets) As directed loratadine (Allergy Relief (loratadine)) 10 mg PO DAILY 90 days metformin 1,000 mg (2 x 500 mg) PO BID 90 days metoprolol succinate ER 25 mg PO DAILY 90 days nitroglycerin 0.4 mg sublingual ONCE PRN 30 days omeprazole 20 mg PO BID 90 days oxycodone-acetaminophen 5-325 mg 1 tab PO Q8H PRN 30 days rivaroxaban (Xarelto) 20 mg PO QPM 90 days sacubitril-valsartan 24-26 mg (Entresto) 1 tab PO BID 30 days sucralfate 1 g PO QID 30 days tamsulosin 0.4 mg PO BEDTIME 90 days temazepam 30 mg PO BEDTIME PRN 30 days HPI Comments Details: J Luis is a very pleasant 77-year-old Tamazight-speaking male patient of Dr. Kessler who was accompanied by his son and his at today's office visit. He has a past medical history of urinary tract infection, congestive heart failure, hypercholesteremia, herpes, atrial fibrillation on chronic anticoagulation, gout, hypertension, diabetes, lumbar degenerative disc disease, and insomnia. He presents to the office today as a new patient for his longstanding history of prostate cancer. He reports previously following up with [facility] for his prostate cancer. He reports initial diagnosis was in 2011 in [place]. He has since completed brachytherapy and intermittent hormones. He reports following up with Allison Gomez at [facility] where he received his intermittent hormone therapy. He discusses previously following up with [facility] [employer] up until 2019. In review of patient's chart it appears PCP obtained PSA 07/23 <0.10. In discussion with the patient today she reports noting urinary urgency and frequency with episodes of incontinence if not near a bathroom. He discusses the symptoms have been present for quite some time however does feel they are worsening. He otherwise denies hematuria, dysuria, foul smelling urine, changes to urinary stream, flank pain, fever, and or chills. In office urinalysis results reviewed with the patient today. [facility] Medical History Left breast lump UTI (urinary tract infection), uncomplicated Right shoulder pain Right knee pain Abdominal pain CHF (congestive heart failure) Pure hypercholesterolemia Herpes zoster Chronic anticoagulation Atrial fibrillation Gout Essential hypertension Diabetes mellitus Lumbar degenerative disc disease Primary insomnia Surgical History History of laparoscopic cholecystectomy History of colonoscopy History of cardiac catheterization History of prostate surgery Family History Father Diabetes Mother Cancer Son Diabetes Brother Prostate CA Social History Household Members: Spouse and Children Housing: House Do you presently have visiting nurse or other home services: No ( takes care of him) Alcohol intake: never Comment: tele Patient Tobacco Use Status: Former Tobacco user Tobacco use type: Cigarette e-Cigarette/Vaping Use: Never Used Second Hand Smoke Exposure: No service: No Current occupational status: disabled Current occupation: right hand Cognitive needs: Yes Hearing needs: No Vision needs: Yes Review of Systems Const Reports as per HPI Eyes Reports no additional complaints ENT Reports no additional complaints Card Reports as per HPI Resp Reports no additional complaints GI Reports no additional complaints Reports as per HPI Musc Reports as per HPI Neuro Reports no additional complaints Psych Reports as per HPI Endo Reports as per HPI Efrain/Lymph Reports as per HPI Aller/Immun Reports no additional complaints Physical Exam Const General: cooperative, healthy appearing, comfortable, no acute distress, well developed, alert and awake Orientation/consciousness: patient oriented x3 Limitations: ambulation with cane HEENT Head: Yes normal to inspection, Yes normocephalic and Yes atraumatic Ears: hearing grossly normal bilaterally Eyes General: appearance normal, both eyes and all related structures Neck Neck: Yes normal visual inspection and Yes trachea midline Chest Chest palpation & inspection: normal inspection of the chest Resp Effort & Inspection: normal respiratory effort and able to speak in complete sentences Cardio Rate: regular rate GI Inspection: Yes normal to inspection General: Yes no CVA tenderness Back/Spine/Pelvis Back: no CVA tenderness Skin General skin exam: no rashes or lesions noted Neuro General: patient oriented x3 Extrem General: Yes normal to inspection Psych Appearance: grossly normal and well kempt Mental Status: mental status grossly normal Speech and movement: Normal speech and movement present and Clear speech present Affect: normal affect Attitude: cooperative Thought process: Normal thought process present Thought content: Normal thought content present Insight: Fair insight present (Psych) Judgement: Fair judgement present (Psych) Results AMB Urinalysis, Automated UA Leukoctes 0 Rere/uL Last Edit by Creww on 09/16/23 11:40 UA Nitrite Negative Last Edit by Creww on 09/16/23 11:40 UA Urobilinogen 0.2 mg/dL Last Edit by Creww on 09/16/23 11:40 UA Protein 0 mg/dL Last Edit by Creww on 09/16/23 11:40 UA pH 5.5 Last Edit by Creww on 09/16/23 11:40 UA Blood 0 Reinaldo/uL Last Edit by Creww on 09/16/23 11:40 UA Specific [place] 1.010 Last Edit by Creww on 09/16/23 11:40 UA Ketone Negative Last Edit by Creww on 09/16/23 11:40 UA Bilirubin 0 mg/dL Last Edit by Creww on 09/16/23 11:40 UA Glucose 0 mg/dL Last Edit by Creww on 09/16/23 11:40 Results Reviewed Results Reviewed: Laboratory Last Values Urine pH (Auto) 5.5 09/16/23 11:38 Specific [place] (Auto) 1.010 09/16/23 11:38 Urine Protein (Auto) 0 mg/dL 09/16/23 11:38 Glucose (UA)(Auto) 0 mg/dL 09/16/23 11:38 Urine Ketones (Auto) Negative 09/16/23 11:38 Urine Blood (Auto) 0 Reinaldo/uL 09/16/23 11:38 Urine Nitrite (Auto) Negative 09/16/23 11:38 Urine Bilirubin (Auto) 0 mg/dL 09/16/23 11:38 Urine Urobilinogen (Auto) 0.2 mg/dL 09/16/23 11:38 Leukocyte Esterase (Auto) 0 Rere/uL 09/16/23 11:38 Assessment & Plan Assessment & Plan (1) Lower urinary tract symptoms: Code(s): R39.9 - Unspecified symptoms and signs involving the genitourinary system Category: Medical (2) Prostate cancer: Code(s): C61 - Malignant neoplasm of prostate Category: Medical (3) Mixed incontinence urge and stress: Code(s): N39.46 - Mixed incontinence Category: Medical Plan In office urinalysis results reviewed with the patient today; as noted above. Will attempt to obtain previous urology records for continuity of care. Will obtain retroperitoneal ultrasound for further assessment evaluation. Recent PSA results reviewed with the patient and his family today; as noted above. Stop Flomax. Start Myrbetriq 25 mg daily. Discussed at length potential causes for lower urinary tract symptoms patient is experiencing. Discussed possible near future in office cystoscopy and or urodynamics for further assessment evaluation. Follow-up in 6-8 weeks with imaging and PVR; or sooner with any issues, concerns, and or questions. Orders: Orders US retroperitoneal comp Today N39.46 - Mixed incontinence, R39.9 - Unspecified symptoms and signs involving the genitourinary system AMB Urinalysis Automated Today Z13.9 - Encounter for screening, unspecified Medications: New mirabegron ER (Myrbetriq) 25 mg PO DAILY 30 days 30 tabs 1RF N30.10 - Interstitial cystitis (chronic) without hematuria, N32.81 - Overactive bladder, R35.1 - Nocturia, R39.15 - Urgency of urination Discontinued tamsulosin Discontinued Reason: Doctor's Order 0.4 mg PO BEDTIME 90 days 90 caps 3RF Patient Instructions: The patient had an opportunity to ask questions regarding the treatment plan. All questions were answered. Physical exam, labs, and imaging were discussed and reviewed in detail. As well as risks, benefits, and discussion of treatment choices. No major barriers to understanding were identified. The patient expressed understanding and agreement with the above treatment plan. The patient was made aware they should contact our office by phone for worsening of their current condition, the appearance of new symptoms, or with any questions or concerns. Compliance is encouraged with any medications and follow up testing that is ordered. It is a privilege to be allowed the opportunity to participate in? your urological care.? Again, if you have any questions or concerns If you have any questions or concerns please do not hesitate to contact me. The office is [phone]. This note is constructed using voice recognition software. While every effort has been made to ensure accuracy molecular biology scientist errors may have been included. Yours sincerely, JOSS Hernandez Coding Level of Care Code New Pt Level 4 (74881) Diagnoses Lower urinary tract symptoms R39.9 Prostate cancer C61 Mixed incontinence urge and stress N39.46
== END 2023-09-16 11:54 | disposition home or self-care (01) ==
PROVIDERS: PCP Internal Medicine; Visit Provider Nurse Practitioner Family
DX: R39.9 Unspecified symptoms and signs involving the genitourinary system (principal); C61 Malignant neoplasm of prostate; N39.46 Mixed incontinence; Z13.9 Encounter for screening, unspecified
CPT/HCPCS: 99204

== ENCOUNTER → 2023-09-16 11:04 | Outpatient (BNVA) | payer OTHER, SELFPAY | PROVIDERS: PCP Internal Medicine; Visit Provider Nurse Practitioner Family | DX: N39.46 Mixed incontinence (principal); R39.9 Unspecified symptoms and signs involving the genitourinary system; C61 Malignant neoplasm of prostate | CPT/HCPCS: 81003; 99202 ==

== ENCOUNTER 2023-09-27 13:32 | Outpatient (AMB) | payer OTHER, SELFPAY ==
--- NOTE | 2023-09-27 13:34 | A.OFFVIS_ITS ---
Vital Signs 09/27/23 13:42 Height 5 ft 9 in Weight 181 lb 14.102 oz BMI 26.9 BP 110/78 Blood Pressure Location Rt brachial Position Sitting Pulse 95 Pulse Oximetry (%) 97 Intake Visit Reasons: Gout, Left Knee pain Intake Note: Patient last seen 03/29/23, presents today for follow up and test results. Dental Laboratory Supervisor Required: Yes Dental Laboratory Supervisor Language: Brain Surgeon Name: J Luis Allergies No Known Allergies [No Known Allergies*] Allergy (Verified 09/27/23 13:43) HPI Comments Details: Mr. Meyer 77 yo M, accompanied by his son, here for follow-up of osteoarthritis and gout flare. Patient reports he usually gets swelling in his knees, sometimes the left and other times the right. He had a recent flare 2 weeks ago in the left knee resolved with Colchicine. 03/2023 visit: Mr. Meyer 77 yo M here for follow-up of osteoarthritis and a recent gout flare. Last seen in September 2021. Patient reports he usually gets swelling in his knees, sometimes the left and other times the right. Prior Visit: Patient reports chronic low back pain that is worsening. Pain is in the lower spine and is worse with use. He states that pain is most noticeable when starting to walk, then gets better, then worse again after prolonged use. Pain is aching then sharp. He is using gabapentin, oxycodone and topical diclofenac. He reports numbness in the left lower leg x 3 years. He admits to episodes of incontinence after treatment for prostate cancer in [place]. He states that he did not have a prostatectomy and follows with Urology at [facility] [place] [place] yearly. He is following with pain management for right glenohumeral joint injections for glenohumeral arthritis. Last injection was in March with good effect. He continues to have some limited range of motion. He also has a history of gout in both knees, currently on Allopurinol 300mg po daily. He denies recent gout flare. He follows with Cardiology at [facility] [place] [place]. [facility] Medical History Left breast lump UTI (urinary tract infection), uncomplicated Right shoulder pain Right knee pain Abdominal pain CHF (congestive heart failure) Pure hypercholesterolemia Herpes zoster Chronic anticoagulation Atrial fibrillation Gout Essential hypertension Diabetes mellitus Lumbar degenerative disc disease Primary insomnia Surgical History History of laparoscopic cholecystectomy History of colonoscopy History of cardiac catheterization History of prostate surgery Family History Father Diabetes Mother Cancer Son Diabetes Brother Prostate CA Social History Household Members: Spouse and Children Housing: House Do you presently have visiting nurse or other home services: No ( takes care of him) Alcohol intake: never Comment: tele Patient Tobacco Use Status: Former Tobacco user Tobacco use type: Cigarette e-Cigarette/Vaping Use: Never Used Second Hand Smoke Exposure: No service: No Current occupational status: disabled Current occupation: right hand Cognitive needs: Yes Hearing needs: No Vision needs: Yes Review of Systems Const All systems reviewed & are unremarkable except as noted in HPI and below Physical Exam Vital Signs: Last Vital Signs Pulse 95 09/27/23 13:42 BP 110/78 09/27/23 13:42 Pulse Ox 97 09/27/23 13:42 BMI result Body Mass Index 26.9 APPEARANCE: Patient in no acute distress EYES no redness, pupils equal and reactive to light, eyelids normal HEART: Regular rhythm, S1-S2 heard, no murmurs, rubs or gallops. LUNG: Clear to percussion and auscultation EXTREMITIES: No edema, no calf tenderness, normal peripheral pulses. No sensory loss to light touch detected bilaterally. NEURO: Oriented and alert x3. No focal weakness. Reflexes symmetric. Uses a cane. SKIN: No inflammatory or neoplastic lesions. Normal color and turgor JOINT EXAM:?? Hands:Normal pain-free range of motion without tenderness, swelling, increased warmth or erythema. 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 [place] nodes Wrists: Normal pain-free range of motion without tenderness, swelling, increased warmth or erythema. Elbows: Normal pain-free range of motion without tenderness, swelling, increased warmth or erythema. Shoulders:?LEFT: Full range of motion without pain. No tenderness, weakness, swelling, increased warmth or erythema. RIGHT: Pain well controlled but limited range of motion, unable to extend or abduct greater than 90 degrees, difficulty with internal rotation. No swelling, increased warmth, or erythema. Knees: Normal of motion mild pain and tenderness, but no increased warmth or erythema.? There is mild effusion to left knee and some tenderness to joint line medial and lateral Ankles:? Normal pain-free range of motion without tenderness, swelling, increased warmth or erythema. Feet: Normal pain-free range of motion without tenderness, swelling, increased warmth or erythema. Results Reviewed Results Reviewed: UA 6.7 Assessment & Plan Assessment & Plan (1) Gout: Code(s): M10.9 - Gout, unspecified Category: Medical Qualifiers: Chronicity: chronic Gout etiology: idiopathic Gout site: knee Laterality: unspecified laterality Presence of tophus: without tophus Qualified Code(s): M1A.0690 - Idiopathic chronic gout, unspecified knee, without tophus (tophi) (2) Left knee pain: Code(s): M25.562 - Pain in left knee Qualifiers: Chronicity: chronic Qualified Code(s): M25.562 - Pain in left knee; G89.29 - Other chronic pain (3) Chondrocalcinosis of right knee: Code(s): M11.261 - Other chondrocalcinosis, right knee Plan #Gout Arthritis/Left Knee Gout Flare: Patient is on allopurinol 300 mg q.d. and uses colchicine 0.6 mg for flare. Most recent flare was in 2 weeks ago. Patient states that the colchicine got rid of the swelling only some pain remains in his left knee. He does have Knee OA. On PE there was tenderness to palpation more on the medial joint line with trace swelling - He thinks he is Ok at this point and does not require an injection today. He has his cane. #Chondrocalcinosis of Right Knee: Colchicine can be used to treat Chondrocalcinosis but is not always effective. Given that patient is T2DM, will consider joint injection vs system steroids if his right knee flares and if colchicine is not effective . #T2DM: Patient was instructed to observe blood sugar level and for signs and symptoms of hyperglycemia after any cortisone injection. 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
[2023-09-27 13:42] VITALS: BP 110/78; PULSE 95; O2SAT 97; BMI 26.9
== END 2023-09-27 14:13 | disposition home or self-care (01) ==
PROVIDERS: PCP Internal Medicine; Visit Provider Nurse Practitioner Family
DX: M1A.0620 Idiopathic chronic gout, left knee, without tophus (tophi) (principal); M25.562 Pain in left knee; G89.29 Other chronic pain; M11.261 Other chondrocalcinosis, right knee
CPT/HCPCS: 99213; G2211

== ENCOUNTER → 2023-09-27 13:32 | Outpatient (BNVA) | payer OTHER, SELFPAY | PROVIDERS: PCP Internal Medicine; Visit Provider Nurse Practitioner Family | DX: M1A.0690 Idiopathic chronic gout, unspecified knee, without tophus (tophi) (principal); M25.562 Pain in left knee; M11.261 Other chondrocalcinosis, right knee; G89.29 Other chronic pain | CPT/HCPCS: 99212 ==

== ENCOUNTER 2023-11-18 12:45 | Outpatient (REF) | payer OTHER, SELFPAY ==
--- NOTE | ~2023-11-18 | US_ITS ---
EXAMINATION: US RETROPERITONEAL COMPLETE (RENAL) CLINICAL INFORMATION: Unspecified symptoms and signs involving the genitourinary system. COMPARISON: CT abdomen and pelvis 08/27/2020. Ultrasound abdomen 08/19/2020 and 11/28/2018. TECHNIQUE: Real-time imaging of the kidneys and bladder. FINDINGS: RIGHT KIDNEY: 11.0 x 5.5 x 5.0 cm (SAG x AP x TRV). The kidney is normal in size, contour, and echogenicity. Renal cortical thickness is normal. No calculi or focal parenchymal lesions. No hydronephrosis. LEFT KIDNEY: 10.6 x 5.7 x 4.8 cm (SAG x AP x TRV). The kidney is normal in size, contour, and echogenicity. Renal cortical thickness is normal. There are persistent lobulations. No calculi or focal parenchymal lesions. No hydronephrosis. BLADDER: Well distended and normal. Bilateral ureteral jets are demonstrated. Prevoid bladder volume is 179 mL. Postvoid bladder volume is 47 mL. ADDITIONAL FINDINGS: Prostate dimensions are 5.1 x 4.4 x 5.6 cm (volume 66.3 mL). US/US retroperitoneal comp IMPRESSION: 1. Unremarkable ultrasound appearance of the kidneys. 2. Unremarkable ultrasound appearance of the urinary bladder. The postvoid residual volume is normal. 3. There is prostatomegaly.
== END 2023-11-18 12:46 | disposition home or self-care (01) ==
LOC: HO.US 12:45
PROVIDERS: PCP Internal Medicine; Visit Provider Nurse Practitioner Family
DX: R39.9 Unspecified symptoms and signs involving the genitourinary system (principal); N39.46 Mixed incontinence
CPT/HCPCS: 76770

== ENCOUNTER 2023-11-28 12:34 | Outpatient (AMB) | payer OTHER, SELFPAY ==
--- NOTE | 2023-11-28 13:16 | A.OFFPC_ITS ---
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 Required: No Accompanied by: Spouse Allergies No Known Allergies [No Known Allergies*] Allergy (Verified 11/28/23 13:30) Medication List - Last Reconciled 11/28/23 by Tatiana Stokes MD allopurinol 300 mg PO DAILY 90 days atorvastatin 80 mg PO DAILY 90 days blood sugar diagnostic (FreeStyle Test strips) Use 1 test strip 3 times per days directed blood-glucose meter (FreeStyle Lite Meter kit) Test Daily cane As directed cholecalciferol (vitamin D3) 50 mcg PO DAILY 90 days clotrimazole-betamethasone 1-0.05 % 1 appl topical BID 30 days colchicine 0.6 mg PO DAILY PRN 10 days [diabetic shoes with 3 inserts diabetic shoes with 3 inserts] diclofenac sodium 1% 4 grams topical QID 30 days eplerenone 25 mg PO DAILY 90 days ezetimibe 10 mg PO DAILY gabapentin 400 mg PO TID 90 days lancets (Acti-Ambrocio Lancets) As directed loratadine (Allergy Relief (loratadine)) 10 mg PO DAILY 90 days metformin 1,000 mg (2 x 500 mg) PO BID 90 days metoprolol succinate ER 25 mg PO DAILY 90 days nitroglycerin 0.4 mg sublingual ONCE PRN 30 days omeprazole 20 mg PO BID 90 days oxycodone-acetaminophen 5-325 mg 1 tab PO Q8H PRN 30 days rivaroxaban (Xarelto) 20 mg PO QPM 90 days sacubitril-valsartan 24-26 mg (Entresto) 1 tab PO BID 30 days sucralfate 1 g PO QID 30 days tamsulosin 0.4 mg PO DAILY 30 days temazepam 30 mg PO BEDTIME PRN 30 days Tobacco use date assessed: 05/30/23 Fall risk assessment: No Falls in past year Last assessed Fall Risk: 11/28/23 Dental Screening Dental Screen Date: 07/26/23 HPI HPI Comments History of Present Illness Details This is a 77-year-old male with diabetes mellitus type 2, hypertension, atrial fibrillation, gout and congestive heart failure that comes today accompanied by for follow-up on his conditions. A1c within goal. Blood pressure stable. Atrial fibrillation and congestive heart failure follow by cardiology. He denies gaining 5 lb in a week. No chest pain or shortness on breath. On chronic anticoagulation and denies any active bleeding. Has not had a gout attack in over 6 months. Walks with a cane for gait stability due to chronic low back pain. [facility] Medical History Left breast lump UTI (urinary tract infection), uncomplicated Right shoulder pain Right knee pain Abdominal pain CHF (congestive heart failure) Pure hypercholesterolemia Herpes zoster Chronic anticoagulation Atrial fibrillation Gout Essential hypertension Diabetes mellitus Lumbar degenerative disc disease Primary insomnia Surgical History History of laparoscopic cholecystectomy History of colonoscopy History of cardiac catheterization History of prostate surgery Family History Father Diabetes Mother Cancer Son Diabetes Brother Prostate CA Social History Household Members: Spouse and Children Housing: House Do you presently have visiting nurse or other home services: No ( takes care of him) Alcohol intake: never Comment: tele Patient Tobacco Use Status: Former Tobacco user Tobacco use type: Cigarette e-Cigarette/Vaping Use: Never Used Second Hand Smoke Exposure: No service: No Current occupational status: disabled Current occupation: right hand Cognitive needs: Yes Hearing needs: No Vision needs: Yes Questionnaire Thrive Questionnaire Date Thrive assessed: 05/30/23 MELBA-7 AMB Questionnaire MELBA-7 Date MELBA - 7 assessed: 05/30/23 Source: Developed by Drs. Isaiah Paul, Corinne Sierra, Shalom Leung and colleagues, with an educational neyda from [employer]. Review of Systems Const All systems reviewed & are unremarkable except as noted in HPI and below Card Denies chest pain at rest, Denies chest pain with activity, Denies edema, Denies irregular heart rhythm, Denies claudication, Denies dyspnea, Denies dyspnea on exertion, Denies orthopnea, Denies paroxysmal nocturnal dyspnea and Denies slow heart rate Resp Denies cough, Denies dyspnea and Denies dyspnea on exertion GI Denies abdominal pain, Denies change in bowel habits, Denies excessive flatus, Denies nausea and Denies vomiting Physical exam (Primary Care) Vital Signs: Last Vital Signs BP 120/70 11/28/23 13:17 BMI result Body Mass Index 26.7 Tobacco/Smoking Status: Tobacco use Status Tobacco use date assessed 05/30/23 11/28/23 13:22 Patient Tobacco Use Status Former Tobacco user 11/28/23 13:22 Tobacco use type Cigarette 11/28/23 13:22 e-Cigarette/Vaping Use Never Used 11/28/23 13:22 Thrive Assessment: Date of Thrive Assessment Date Thrive assessed 05/30/23 11/28/23 13:22 Const Limitations: ambulation with cane Resp Effort & Inspection: normal respiratory effort Auscultation: clear to auscultation bilaterally Cardio Jugular venous distension: no JVD Rate: regular rate Rhythm: regular rhythm Heart sounds: S1 normal heart sound present and S2 normal heart sound present Extrem General: Yes full ROM Results AMB Hemoglobin A1c AMB Hemoglobin A1c 7.0 % Last Edit by WANG Birmingham on 11/28/23 13:2 4 Results Reviewed Results Reviewed: Laboratory Last Values Hgb A1c (Clinic) 7.0 % (4.0-6.0) H 11/28/23 13:24 Assessment and Plan Assessment & Plan (1) Diabetes mellitus: Code(s): E11.9 - Type 2 diabetes mellitus without complications Qualifiers: Diabetes mellitus type: type 2 Diabetes mellitus rat exterminator insulin use: without rat exterminator use Diabetes mellitus complication status: without complication Qualified Code(s): E11.9 - Type 2 diabetes mellitus without complications Plan: Continue metformin. A1c goal is equal or less than 7%. (2) Gout: Code(s): M10.9 - Gout, unspecified Qualifiers: Gout site: knee Gout etiology: idiopathic Chronicity: chronic Laterality: unspecified laterality Presence of tophus: without tophus Qualified Code(s): M1A.0690 - Idiopathic chronic gout, unspecified knee, without tophus (tophi) Plan: Continue allopurinol for prophylaxis. Use colchicine as needed for acute gout attack. (3) Essential hypertension: Code(s): I10 - Essential (primary) hypertension Plan: Continue eplerenone. Blood pressure goal is equal or less than 130/80. (4) Atrial fibrillation: Code(s): I48.91 - Unspecified atrial fibrillation Qualifiers: Atrial fibrillation type: longstanding persistent Qualified Code(s): I48.11 - Longstanding persistent atrial fibrillation Plan: Continue chronic anticoagulation. The goal is heart rate control. Follow-up with Cardiology. (5) CHF (congestive heart failure): Code(s): I50.9 - Heart failure, unspecified Qualifiers: Heart failure type: systolic Heart failure chronicity: chronic Qualified Code(s): I50.22 - Chronic systolic (congestive) heart failure Plan: Continue Entresto. The goal is to not gain 5 lb in a week. Orders: Orders [place] barium swallow Today R13.10 - Dysphagia, unspecified Microalbumin, Random (w Creat) 4 Months E11.9 - Type 2 diabetes mellitus without complications Comprehensive [place]. Panel Fast 4 Months R13.10 - Dysphagia, unspecified AMB Hemoglobin A1c Today E11.9 - Type 2 diabetes mellitus without complications Uric Acid 4 Months M10.9 - Gout, unspecified Vitamin B12 and Folate 4 Months E53.8 - Deficiency of other specified B group vitamins Vitamin D 25-OH Total 4 Months E55.9 - Vitamin D deficiency, unspecified Lipid Panel 4 Months E78.5 - Hyperlipidemia, unspecified NT-proBNP 4 Months I50.22 - Chronic systolic (congestive) heart failure Referrals Gastroenterology Referral R13.10 - Dysphagia, unspecified Coding Level of Care Code Est Pt Level 4 (95523) Complex EM visit Add On G2211 Diagnoses Type 2 diabetes mellitus without complication, without long-term current use of insulin E11.9 Diabetes mellitus type: type 2 Diabetes mellitus care home insulin use: without care home use Diabetes mellitus complication status: without complication 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
[2023-11-28 13:17] VITALS: BP 120/70; BMI 26.7
== END 2023-11-28 13:39 | disposition home or self-care (01) ==
PROVIDERS: PCP Internal Medicine; Visit Provider Internal Medicine
DX: E11.9 Type 2 diabetes mellitus without complications (principal); M1A.0690 Idiopathic chronic gout, unspecified knee, without tophus (tophi); I11.0 Hypertensive heart disease with heart failure; I50.22 Chronic systolic (congestive) heart failure
CPT/HCPCS: 83036; 99214; G2211

== ENCOUNTER 2023-11-29 10:29 | Outpatient (REF) | payer OTHER, SELFPAY ==
[2023-11-29 10:43] LABS: MANUAL DIFF FLAG NO
[2023-11-29 12:33] LABS: Basophils Percent Auto 0.5 % (0-2); Eosinophils Absolute Auto 0.1 X10*3/uL (0.0-0.4); Eosinophils Percent Auto 2.5 % (0-4); Hematocrit 45.4 % (42.0-52.0); Hemoglobin 15.5 g/dl (14.0-18.0); Imm Gran Abs Auto 0.03 X10*3/uL (0.00-0.03); Imm Gran Pct Auto 0.5 % (0.0-0.4); Lymphocytes Absolute Auto 1.5 X10*3/uL (1.2-4.9); Lymphocytes Percent Auto 26.6 % (20-40); Mean Corpuscular HGB Conc 34.1 g/dl (31.0-36.0); Mean Corpuscular Hemoglobin 30.7 pg (27.0-33.0); Mean Corpuscular Volume 89.9 fL (80.0-98.0); Mean Platelet Volume 9.1 fL (9.4-12.4); Monocytes Absolute Auto 0.5 X10*3/uL (0.1-1.2); Monocytes Percent Auto 9.7 % (2-11); Neutrophils Absolute Auto 3.3 x10*3/uL (2.0-8.3); Neutrophils Percent Auto 60.2 % (45-73); Platelet Count 228 X10*3/uL (160-400); Red Blood Count 5.05 X10*6/uL (4.60-5.80); Red Cell Distribution Width 13.4 % (11.0-16.0); White Blood Count 5.6 X10*3/uL (4.8-10.8)
[2023-11-29 12:58] LABS: Cholesterol 118 mg/dL (<200); HDL Cholesterol 43 mg/dL (>40); LDL Cholesterol Calculated 55 mg/dL (<100); Triglycerides 104 mg/dL (<150)
[2023-11-29 13:04] LABS: Alanine Aminotransferase 25 U/L (0-40); Albumin Level 4.5 g/dL (3.5-5.0); Alkaline Phosphatase 90 U/L (39-117); Anion Gap 12 (12-20); Aspartate Amino Transferase 24 U/L (5-37); Bilirubin Total 1.1 mg/dL (0.0-1.0); Blood Urea Nitrogen 13 mg/dL (9-16); Calcium 10.1 mg/dL (8.4-10.2); Carbon Dioxide 29 mmol/L (22-29); Chloride 100 mmol/L (96-108); Cholesterol 116 mg/dL (<200); Estimated Glomerular Filt Rate > 60; Glucose Fasting 135 mg/dL (60-99); HDL Cholesterol 42 mg/dL (>40); LDL Cholesterol Calculated 53 mg/dL (<100); Potassium 4.4 mmol/L (3.3-5.1); Sodium 137 mmol/L (135-145); Triglycerides 107 mg/dL (<150); Uric Acid 7.7 mg/dL (3.4-7.0)
[2023-11-29 13:17] LABS: Vitamin D 25-OH Total 47.1 ng/mL (>30)
[2023-11-29 13:22] LABS: Creatinine Urine 172.55 mg/dL; Microalbum/Creatinine Ratio Ur 28.3 ug/mg cr (<30)
[2023-12-03 07:03] LABS: NT-proBNP 484 pg/mL (<450)
== END 2023-11-29 10:30 | disposition home or self-care (01) ==
LOC: HO.LAB 10:29
PROVIDERS: Absent Provider Internal Medicine; PCP Internal Medicine; Visit Provider Nurse Practitioner
DX: E78.5 Hyperlipidemia, unspecified (principal); E55.9 Vitamin D deficiency, unspecified; M10.9 Gout, unspecified; I50.22 Chronic systolic (congestive) heart failure; D64.9 Anemia, unspecified; E11.9 Type 2 diabetes mellitus without complications
CPT/HCPCS: 36415; 80053; 80061; 82043; 82306; 82570; 83880; 84550; 85025

== ENCOUNTER 2024-01-24 13:44 | Outpatient (REF) | payer OTHER, SELFPAY ==
[2024-01-24 16:12] LABS: Appearance Urine Clear; Color Urine Yellow; Glucose Urine UA Negative (Negative); Leukocyte Esterase Urine Negative (Negative); Nitrite Urine Negative (Negative); PH 5.5 (5.0-9.0); Specific Gravity - Urine 1.015 (1.005-1.025); Urine Blood Negative (Negative); Urine Ketones Negative (Negative); Urine Protein Negative (Neg-Trace)
== END 2024-01-24 13:45 | disposition home or self-care (01) ==
LOC: HO.LAB 13:44
PROVIDERS: PCP Internal Medicine; Visit Provider Internal Medicine
DX: R30.0 Dysuria (principal)
CPT/HCPCS: 81003

== ENCOUNTER 2024-01-31 09:49 | Outpatient (REF) | payer OTHER, SELFPAY ==
[2024-01-31 11:11] LABS: Alanine Aminotransferase 31 U/L (0-40); Albumin Level 4.4 g/dL (3.5-5.0); Alkaline Phosphatase 82 U/L (39-117); Anion Gap 14 (12-20); Aspartate Amino Transferase 29 U/L (5-37); Bilirubin Total 0.8 mg/dL (0.0-1.0); Blood Urea Nitrogen 14 mg/dL (9-16); Calcium 9.9 mg/dL (8.4-10.2); Carbon Dioxide 28 mmol/L (22-29); Chloride 101 mmol/L (96-108); Cholesterol 110 mg/dL (<200); Estimated Glomerular Filt Rate > 60; Glucose Fasting 144 mg/dL (60-99); HDL Cholesterol 43 mg/dL (>40); LDL Cholesterol Calculated 51 mg/dL (<100); Sodium 138 mmol/L (135-145); Total Protein 7.9 g/dL (6.5-8.0); Triglycerides 83 mg/dL (<150); Uric Acid 7.1 mg/dL (3.4-7.0)
[2024-01-31 11:29] LABS: Vitamin D 25-OH Total 42.5 ng/mL (>30)
[2024-01-31 11:34] LABS: Creatinine Urine 77.21 mg/dL; Microalbum/Creatinine Ratio Ur 29.7 ug/mg cr (<30)
[2024-01-31 11:41] LABS: Folate 12.4 ng/mL (> or = 4.0); Vitamin B12 246 pg/mL (200-900)
[2024-02-05 23:04] LABS: NT-proBNP 583 pg/mL (<450)
== END 2024-01-31 09:50 | disposition home or self-care (01) ==
LOC: HO.LAB 09:49
PROVIDERS: PCP Internal Medicine; Visit Provider Internal Medicine
DX: R13.10 Dysphagia, unspecified (principal); M10.9 Gout, unspecified; E53.8 Deficiency of other specified B group vitamins; E55.9 Vitamin D deficiency, unspecified; E11.9 Type 2 diabetes mellitus without complications; E78.5 Hyperlipidemia, unspecified; I50.22 Chronic systolic (congestive) heart failure
CPT/HCPCS: 36415; 80053; 80061; 82043; 82306; 82570; 82607; 82746; 83880; 84550

== ENCOUNTER 2024-02-07 07:44 | Outpatient (AMB) | payer OTHER, SELFPAY ==
[2024-02-07 08:23] VITALS: BP 122/80; BMI 26.6
--- NOTE | 2024-02-07 08:23 | A.OFFPC_ITS ---
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 Required: No Accompanied by: Spouse Allergies No Known Allergies [No Known Allergies*] Allergy (Verified 02/07/24 08:41) Medication List - Last Reconciled 02/07/24 by Tatiana Stokes MD allopurinol 300 mg PO DAILY 90 days atorvastatin 80 mg PO DAILY 90 days blood sugar diagnostic (FreeStyle Test strips) Use 1 test strip 3 times per days directed blood-glucose meter (FreeStyle Lite Meter kit) Test Daily cane As directed cholecalciferol (vitamin D3) 50 mcg PO DAILY 90 days clotrimazole-betamethasone 1-0.05 % 1 appl topical BID 30 days colchicine 0.6 mg PO DAILY PRN 10 days [diabetic shoes with 3 inserts diabetic shoes with 3 inserts] diclofenac sodium 1% 4 grams topical QID 30 days eplerenone 25 mg PO DAILY 90 days ezetimibe 10 mg PO DAILY gabapentin 400 mg PO TID 90 days lancets (Acti-Ambrocio Lancets) As directed loratadine (Allergy Relief (loratadine)) 10 mg PO DAILY 90 days metformin 1,000 mg (2 x 500 mg) PO BID 90 days metoprolol succinate ER 25 mg PO DAILY 90 days nitroglycerin 0.4 mg sublingual ONCE PRN 30 days omeprazole 20 mg PO BID 90 days oxycodone-acetaminophen 5-325 mg 1 tab PO Q8H PRN 30 days rivaroxaban (Xarelto) 20 mg PO QPM 90 days sacubitril-valsartan 24-26 mg (Entresto) 1 tab PO BID 30 days sucralfate 1 g PO QID 30 days tamsulosin 0.4 mg PO DAILY 30 days temazepam 30 mg PO BEDTIME PRN 30 days [wipes As directed] Tobacco use date assessed: 05/30/23 Fall risk assessment: No Falls in past year Last assessed Fall Risk: 02/07/24 Dental Screening Dental Screen Date: 07/26/23 HPI HPI Comments History of Present Illness Details This is a 78-year-old male with diabetes mellitus type 2, pure hypercholesterolemia, congestive heart failure and atrial fibrillation that comes today accompanied by complaining of lower urinary tract symptoms and had hematuria that resolved. Urinalysis done today shows positive nitrites and has some dysuria. I will start him on Cipro. He wants to have a urologist at [facility] and I will refer him. Last A1c was 7% in October. Last LDL was within goal. He denies gaining 5 lb in a week but he is last NT proBNP was more elevated. He does follows with cardiology [facility]. On chronic anticoagulation for atrial fibrillation and complains of some ecchymosis that is expected with his medication. Denies any chest pain or shortness on breath. Walks with a cane for gait stability. [facility] Medical History (Updated 02/07/24 @ 08:52 by Tatiana Stokes MD) Left breast lump UTI (urinary tract infection), uncomplicated Right shoulder pain Right knee pain Abdominal pain CHF (congestive heart failure) Pure hypercholesterolemia Herpes zoster Chronic anticoagulation Atrial fibrillation Gout Essential hypertension Diabetes mellitus Lumbar degenerative disc disease Primary insomnia Surgical History History of laparoscopic cholecystectomy History of colonoscopy History of cardiac catheterization History of prostate surgery Family History Father Diabetes Mother Cancer Son Diabetes Brother Prostate CA Social History Household Members: Spouse and Children Housing: House Do you presently have visiting nurse or other home services: No ( takes care of him) Alcohol intake: never Comment: tele Patient Tobacco Use Status: Former Tobacco user Tobacco use type: Cigarette e-Cigarette/Vaping Use: Never Used Second Hand Smoke Exposure: No service: No Current occupational status: disabled Current occupation: right hand Cognitive needs: Yes Hearing needs: No Vision needs: Yes Questionnaire Thrive Questionnaire Date Thrive assessed: 05/30/23 Are you currently unemployed and looking for a job?: No MELBA-7 AMB Questionnaire MELBA-7 Date MELBA - 7 assessed: 05/30/23 Source: Developed by Drs. Isaiah Paul, Corinne Sierra, Shalom Leung and colleagues, with an educational neyda from [employer]. Review of Systems Const All systems reviewed & are unremarkable except as noted in HPI and below Card Denies chest pain at rest, Denies chest pain with activity, Denies edema, Denies irregular heart rhythm, Denies claudication, Denies dyspnea, Denies dyspnea on exertion, Denies orthopnea, Denies paroxysmal nocturnal dyspnea and Denies slow heart rate Resp Denies cough, Denies dyspnea and Denies dyspnea on exertion GI Denies abdominal pain, Denies change in bowel habits, Denies excessive flatus, Denies nausea and Denies vomiting Denies urinary hesitancy, Denies urinary incontinence and Denies urinary urgency Musc Denies atrophy, Denies deformity and Denies limited range of motion Skin/Breast Denies bleeding lesions, Denies changing lesions and Denies rash Physical exam (Primary Care) Vital Signs: Last Vital Signs BP 122/80 02/07/24 08:23 BMI result Body Mass Index 26.6 Tobacco/Smoking Status: Tobacco use Status Tobacco use date assessed 05/30/23 02/07/24 08:26 Patient Tobacco Use Status Former Tobacco user 02/07/24 08:26 Tobacco use type Cigarette 02/07/24 08:26 e-Cigarette/Vaping Use Never Used 02/07/24 08:26 Thrive Assessment: Date of Thrive Assessment Date Thrive assessed 05/30/23 02/07/24 08:26 Const Limitations: ambulation with cane Resp Effort & Inspection: normal respiratory effort Auscultation: clear to auscultation bilaterally Cardio Jugular venous distension: no JVD Rate: regular rate Rhythm: regular rhythm Heart sounds: S1 normal heart sound present and S2 normal heart sound present Extrem General: Yes full ROM Office Procedures Flu Questionnaire Does the patient have a severe egg allergy?: No Results AMB Urinalysis, Automated UA Leukoctes 1 Rere/uL Last Edit by WANG Birmingham on 02/07/24 08:35 UA Nitrite Positive Last Edit by WANG Birmingham on 02/07/24 08:35 UA Urobilinogen 2 mg/dL Last Edit by WANG Birmingham on 02/07/24 08:35 UA Protein 0 mg/dL Last Edit by WANG Birmingham on 02/07/24 08:35 UA pH 6.0 Last Edit by WANG Birmingham on 02/07/24 08:35 UA Blood 0 Reinaldo/uL Last Edit by WANG Birmingham on 02/07/24 08:35 UA Specific [place] 1.020 Last Edit by WANG Birmingham on 02/07/24 08 :35 UA Ketone Positive Last Edit by WANG Birmingham on 02/07/24 08:35 UA Bilirubin 0 mg/dL Last Edit by WANG Birmingham on 02/07/24 08:35 UA Glucose 0 mg/dL Last Edit by WANG Birmingham on 02/07/24 08:35 Immunizations Fluarix Triv [id number] (PF) 45 mcg (15 mcg x 3)/0.5 mL IM syringe Performing Provider: Tatiana Stkoes MD [facility] [place] [facility] Documented (not given) by: WANG Birmingham on 02/07/24 08:56 Reason Not Given: Not Given Results Reviewed Results Reviewed: Laboratory Last Values Urine pH (Auto) 6.0 02/07/24 08:33 Specific [place] (Auto) 1.020 02/07/24 08:33 Urine Protein (Auto) 0 mg/dL 02/07/24 08:33 Glucose (UA)(Auto) 0 mg/dL 02/07/24 08:33 Urine Ketones (Auto) Positive 02/07/24 08:33 Urine Blood (Auto) 0 Reinaldo/uL 02/07/24 08:33 Urine Nitrite (Auto) Positive 02/07/24 08:33 Urine Bilirubin (Auto) 0 mg/dL 02/07/24 08:33 Urine Urobilinogen (Auto) 2 mg/dL 02/07/24 08:33 Leukocyte Esterase (Auto) 1 Rere/uL 02/07/24 08:33 Coding Level of Care Code Est Pt Level 4 (29136) Complex EM visit Add On G2211 Diagnoses Lower urinary tract symptoms R39.9 Chronic systolic congestive heart failure I50.22 Heart failure type: systolic Heart failure chronicity: chronic Longstanding persistent atrial fibrillation I48.11 Atrial fibrillation type: longstanding persistent Type 2 diabetes mellitus without complication, without long-term current use of insulin E11.9 Diabetes mellitus type: type 2 Diabetes mellitus prison insulin use: without joint terminal attack controller use Diabetes mellitus complication status: without complication Pure hypercholesterolemia E78.00 Time Spent (min) 23 Assessment & Plan Assessment & Plan (1) Lower urinary tract symptoms: Code(s): R39.9 - Unspecified symptoms and signs involving the genitourinary system Category: Medical Plan: Start Cipro. (2) CHF (congestive heart failure): Code(s): I50.9 - Heart failure, unspecified Category: Medical Qualifiers: Heart failure type: systolic Heart failure chronicity: chronic Qualified Code(s): I50.22 - Chronic systolic (congestive) heart failure Plan: Continue Entresto. The goal is to not gain 5 lb in a week (3) Atrial fibrillation: Code(s): I48.91 - Unspecified atrial fibrillation Category: Medical Qualifiers: Atrial fibrillation type: longstanding persistent Qualified Code(s): I48.11 - Longstanding persistent atrial fibrillation Plan: Continue chronic anticoagulation. The goal is heart rate control. (4) Diabetes mellitus: Code(s): E11.9 - Type 2 diabetes mellitus without complications Category: Medical Qualifiers: Diabetes mellitus type: type 2 Diabetes mellitus prison insulin use: without prison use Diabetes mellitus complication status: without complication Qualified Code(s): E11.9 - Type 2 diabetes mellitus without complications Plan: Continue metformin. A1c goal is equal or less than 7%. (5) Pure hypercholesterolemia: Code(s): E78.00 - Pure hypercholesterolemia, unspecified Category: Medical Plan: Continue statins and Zetia. Continue low-cholesterol diet. LDL goal is less than 70. Orders: Orders Influenza [id number] Immunization Today Z23 - Encounter for immunization AMB Urinalysis Automated Today R31.9 - Hematuria, unspecified Referrals Urology Referral N39.46 - Mixed incontinence, N40.0 - Benign prostatic hyperplasia without lower urinary tract symptoms Medications: New ciprofloxacin HCl (Cipro) 250 mg PO BID 6 tabs 0RF 3 days
== END 2024-02-07 08:52 | disposition home or self-care (01) ==
PROVIDERS: PCP Internal Medicine; Visit Provider Internal Medicine
DX: R39.9 Unspecified symptoms and signs involving the genitourinary system (principal); I50.22 Chronic systolic (congestive) heart failure; I48.11 Longstanding persistent atrial fibrillation; E11.9 Type 2 diabetes mellitus without complications; E78.00 Pure hypercholesterolemia, unspecified; R31.9 Hematuria, unspecified; Z23 Encounter for immunization

== ENCOUNTER 2024-02-07 09:01 | Outpatient (REF) | payer OTHER, SELFPAY ==
--- NOTE | ~2024-02-07 | FL_ITS ---
EXAMINATION: XR FLUOROSCOPY UPPER GI WITH AIR CLINICAL INFORMATION: Dysphagia. Reflux. COMPARISON: None TECHNIQUE: Fluoroscopic air contrast upper GI examination was performed utilizing standard techniques with thin and thick barium and effervescent granules. Numerous spot images were obtained. FINDINGS: Lateral cine images of the oropharynx and hypopharynx demonstrate normal swallow mechanism with normal epiglottic inversion and soft palate elevation. No tracheal penetration, glottic or subglottic aspiration identified. No nasopharyngeal reflux present. Hypopharyngeal structures appear normal without evidence of mass or diverticulum. Mild cricopharyngeal achalasia is present. Dual and single contrast images of the esophagus demonstrate a normal caliber. There is a corkscrew appearance of the esophagus. No evidence of stricture, mass, or ulcerations identified. Esophageal peristalsis is severely disorganized. A small type I hiatal hernia is present. No significant gastroesophageal reflux was seen during the course of the examination and on reflux views. Dual contrast and single contrast images of the stomach demonstrated a normal contour. There are multiple foci of contrast pooling in the body and fundus of the stomach that likely represent small superficial aphthous ulcers. No masses are seen. Contrast freely passed into the gastric antrum and duodenal bulb without delay. Single and air-contrast images of the duodenal bulb demonstrate no abnormality. The duodenal sweep has a normal appearance, course, and mucosal fold appearance. The imaged proximal jejunum has a normal fold pattern and caliber. There are multiple small to moderate-sized mesenteric sided diverticula are present throughout the jejunum. FLUOROSCOPY TIME: 5 minutes 34 seconds DOSE AREA PRODUCT: 3674 uGy-m2 (microgray-meter squared) FL/FL barium swallow IMPRESSION: 1. Mild cricopharyngeal achalasia. 2. Corkscrew appearance of the esophagus with severely disorganized peristalsis consistent with esophageal dysmotility. 3. Small type I hiatal hernia 4. Multiple foci of contrast pooling in the body and fundus the stomach that likely represent small superficial aphthous ulcers. Recommend correlation with EGD. 5. Multiple small to moderate-sized diverticula present throughout the jejunum, suggestive of jejunal diverticulosis. This procedure was performed by Percy Jimenez PA-C, and supervised by Dr. Weldon Electronically signed by: Eusebio Weldon MD 02/08/2024 01:10 PM EDT
== END 2024-02-07 09:02 | disposition home or self-care (01) ==
LOC: HO.XRAY 09:01
PROVIDERS: PCP Internal Medicine; Visit Provider Internal Medicine
DX: R13.10 Dysphagia, unspecified (principal)
CPT/HCPCS: 74220; 81003; 90471; 90656; 99212

== ENCOUNTER → 2024-02-07 09:07 | Outpatient (BNV) | payer OTHER, SELFPAY | PROVIDERS: PCP Internal Medicine; Visit Provider Radiology Diagnostic Radiology | DX: R13.10 Dysphagia, unspecified (principal) | CPT/HCPCS: 74246 ==

== ENCOUNTER 2024-02-07 10:17 | Outpatient (AMB) | payer OTHER, SELFPAY ==
--- NOTE | 2024-02-07 10:42 | AM.OFFVISNUR ---
Intake Visit Reasons: Flu Shot Allergies No Known Allergies [No Known Allergies*] Allergy (Verified 04/12/24 16:01) Office Procedures Flu Questionnaire Does the patient have a severe egg allergy?: No Does the patient have severe life threatening allergies?: No Does the patient have a fever or illness today?: No Has the patient ever had Guillain-Mcdonough Syndrome?: No Has the patient ever had any past reaction to a flu shot?: No Results AMB Urinalysis, Automated UA Leukoctes 1 Rere/uL Last Edit by Sophie Jain, A on 02/07/24 08:35 UA Nitrite Positive Last Edit by Sophie Jain, RMA on 02/07/24 08:35 UA Urobilinogen 2 mg/dL Last Edit by Sophie Jain, RMA on 02/07/24 08:35 UA Protein 0 mg/dL Last Edit by Sophie Jain, RMA on 02/07/24 08:35 UA pH 6.0 Last Edit by Sophie Jain, RMA on 02/07/24 08:35 UA Blood 0 Reinaldo/uL Last Edit by Sophie Jain, RMA on 02/07/24 08:35 UA Specific [place] 1.020 Last Edit by Sophie Jain, RMA on 02/07/24 08:35 UA Ketone Positive Last Edit by Sophie Jain, RMA on 02/07/24 08:35 UA Bilirubin 0 mg/dL Last Edit by Sophie Jain, RMA on 02/07/24 08:35 UA Glucose 0 mg/dL Last Edit by Sophie Jain, RMA on 02/07/24 08:35 Immunizations Fluarix Triv [id number] (PF) 45 mcg (15 mcg x 3)/0.5 mL IM syringe Performing Provider: Tatiana Stokes MD [facility] [facility] Administered by: Nelia Hernandes RN on 02/07/24 10:43 Dose Route Admin Location Dispensed Lot Number Expiration Date [facility] Analysis Director 0.5 mL IM Left Deltoid 0.5 mL [id number] 10/29/24 [id number] [facility] VIS Given Date VIS Provided VIS Publication Date 02/07/24 Single Vaccine 20 Eligibility Eligibility Date Funding Source Not VF Eligible 02/07/24 Private Assessment & Plan Assessment & Plan Orders: Orders Influenza [id number] Immunization 02/07/24 Z23 - Encounter for immunization
--- NOTE | 2024-02-07 10:43 | AM.OFFVISNUR ---
Intake Visit Reasons: Flu Shot Allergies No Known Allergies [No Known Allergies*] Allergy (Verified 02/07/24 08:41) Office Procedures Flu Questionnaire Does the patient have a severe egg allergy?: No Does the patient have severe life threatening allergies?: No Does the patient have a fever or illness today?: No Has the patient ever had Guillain-Enochs Syndrome?: No Has the patient ever had any past reaction to a flu shot?: No Results AMB Urinalysis, Automated UA Leukoctes 1 Rere/uL Last Edit by Sophie Jain, RMA on 02/07/24 08:35 UA Nitrite Positive Last Edit by Sophie Jain, RMA on 02/07/24 08:35 UA Urobilinogen 2 mg/dL Last Edit by Sophie Jain, RMA on 02/07/24 08:35 UA Protein 0 mg/dL Last Edit by Sophie Jain, RMA on 02/07/24 08:35 UA pH 6.0 Last Edit by Sophie Jain, RMA on 02/07/24 08:35 UA Blood 0 Reinaldo/uL Last Edit by Sophie Jain, RMA on 02/07/24 08:35 UA Specific [place] 1.020 Last Edit by Sophie Jain, RMA on 02/07/24 08:35 UA Ketone Positive Last Edit by Sophie Jain, RMA on 02/07/24 08:35 UA Bilirubin 0 mg/dL Last Edit by Sophie Jain, RMA on 02/07/24 08:35 UA Glucose 0 mg/dL Last Edit by Sophie Jain, RMA on 02/07/24 08:35 Assessment & Plan Assessment & Plan Orders: Orders Influenza [id number] Immunization Today Z23 - Encounter for immunization Medications: New Fluarix Triv (PF) (flu vacc [id number] 6mos up(PF)) 0.5 mL IM ONCE 0.5 mL 0RF NS Z23 - Encounter for immunization
== END 2024-02-07 10:46 | disposition home or self-care (01) ==
PROVIDERS: PCP Internal Medicine; Visit Provider Internal Medicine
DX: Z23 Encounter for immunization (principal)

== ENCOUNTER 2024-03-27 12:26 | Outpatient (AMB) | payer OTHER, SELFPAY ==
--- NOTE | 2024-03-27 12:46 | MHC.OFFVIS ---
Vital Signs 03/27/24 12:47 Height 5 ft 9 in Weight 178 lb 5.663 oz BMI 26.3 BP 122/68 Blood Pressure Location Lt brachial Position Sitting Pulse 56 Pulse Source Pulse Oximeter Pulse Oximetry (%) 98 Oxygen Delivery Method Room Air Intake Visit Reasons: Gout/OA./CM Intake Note: Patient presents for follow up on gout/OA. He was last seen in the office by Rachel Ocampo on 09/27/23. Patient is concerned about spots on his arms and his legs. Machine Stonecutter Required: Yes Machine Stonecutter Name: Emily [id number] Allergies No Known Allergies [No Known Allergies*] Allergy (Verified 03/27/24 12:52) Medication List - Last Reconciled 03/27/24 by Cailin Hernandes MD allopurinol 300 mg PO DAILY 90 days atorvastatin 80 mg PO DAILY 90 days blood sugar diagnostic (FreeStyle Test strips) Use 1 test strip 3 times per days directed blood-glucose meter (FreeStyle Lite Meter kit) Test Daily cane As directed cholecalciferol (vitamin D3) 50 mcg PO DAILY 90 days ciprofloxacin HCl (Cipro) 250 mg PO BID 3 days clotrimazole-betamethasone 1-0.05 % 1 appl topical BID 30 days colchicine 0.6 mg PO DAILY PRN 10 days [diabetic shoes with 3 inserts diabetic shoes with 3 inserts] diclofenac sodium 1% 4 grams topical QID 30 days eplerenone 25 mg PO DAILY 90 days ezetimibe 10 mg PO DAILY gabapentin 400 mg PO TID 90 days lancets (Acti-Ambrocio Lancets) As directed loratadine (Allergy Relief (loratadine)) 10 mg PO DAILY 90 days metformin 1,000 mg (2 x 500 mg) PO BID 90 days metoprolol succinate ER 25 mg PO DAILY 90 days nitroglycerin 0.4 mg sublingual ONCE PRN 30 days omeprazole 20 mg PO BID 90 days oxycodone-acetaminophen 5-325 mg 1 tab PO Q8H PRN 30 days rivaroxaban (Xarelto) 20 mg PO QPM 90 days sacubitril-valsartan 24-26 mg (Entresto) 1 tab PO BID 30 days sucralfate 1 g PO QID 30 days tamsulosin 0.4 mg PO DAILY 30 days temazepam 30 mg PO BEDTIME PRN 30 days [wipes As directed] HPI Comments Details: Patient is a 78-year-old male with hypertension, hyperlipidemia, diabetes, atrial fibrillation on Xarelto, GERD on omeprazole, heart failure with reduced ejection fraction and BPH who presents for follow up of non crystal proven non tophaceous gout Interval History: Patient last seen with Rachel Ocampo 09/27/2023. At that time he was complaining of left knee pain on a background of a recent gout flare involving his left knee. This had resolved with colchicine. Today he reports another gout flare about a week and a half ago involving his right knee. He states that he gets occasional flares sometimes involving the right knee and then we will go to the left knee. Rheumatologic History: Diagnosed with gout based on elevated uric acid and recurrent monoarticular arthritis. Has primary osteoarthritis involving the knees and hands Current Rheumatology Medication(s): Allopurinol 300 mg daily Colchicine 0.6 mg p.r.n. [facility] Medical History (Updated 02/24/24 @ 16:58 by BENJAMIN Carroll) Acute cholecystitis Neck sprain Right knee pain Right shoulder pain UTI (urinary tract infection), uncomplicated Arthritis Leukocytosis Prostate cancer Lower urinary tract symptoms Physical exam Left breast lump Abdominal pain CHF (congestive heart failure) Pure hypercholesterolemia Herpes zoster Chronic anticoagulation Atrial fibrillation Gout Essential hypertension Diabetes mellitus Lumbar degenerative disc disease Primary insomnia Surgical History (Updated 02/24/24 @ 16:58 by BENJAMIN Carroll) History of laparoscopic cholecystectomy History of colonoscopy History of cardiac catheterization History of prostate surgery Family History Father Diabetes Mother Cancer Son Diabetes Brother Prostate CA Social History Household Members: Spouse and Children Housing: House Do you presently have visiting nurse or other home services: No ( takes care of him) Alcohol intake: never Comment: tele Patient Tobacco Use Status: Former Tobacco user Tobacco use type: Cigarette e-Cigarette/Vaping Use: Never Used Second Hand Smoke Exposure: No service: No Current occupational status: disabled Current occupation: right hand Cognitive needs: Yes Hearing needs: No Vision needs: Yes Review of Systems Const Details: Review of Systems Constitutional: Denies fever, chills, weight loss ENT: Denies vision changes, eye pain or eye redness, dental caries, dry mouth GI: Denies nausea, vomiting, diarrhea, abdominal pain, change in BM Pulm: Denies SOB, POWELL, hemoptysis, wheezing Cards: Denies chest pain, palpitations Skin: Denies Raynaud's, rash, nail changes, photosensitivity, SLITTER AND REWINDER MACHINE OPERATOR: Denies headaches, weakness, paresthesias, recurrent falls MSK: as per HPI All other systems reviewed and are unremarkable except noted above Physical Exam Vital Signs: Last Vital Signs Pulse 56 03/27/24 12:47 BP 122/68 03/27/24 12:47 Pulse Ox 98 03/27/24 12:47 Oxygen Delivery Method Room Air 03/27/24 12:47 BMI result Body Mass Index 26.3 Physical Examination CONSTITUITIONAL Patient alert and cooperative. Well appearing and in no apparent painful distress HEENT Conjunctiva and sclera clear. ?Pupils equal round and reactive to light. ?No lymphadenopathy. No tophi noted to the ears CHEST/RESPIRATORY SYSTEM Normal respiratory effort and able to speak in complete sentences. ?Clear to auscultation bilaterally. ?No crackles, rales, rhonchi, wheezes heard. CARDIAC SYSTEM Irregularly irregular rhythm. MSK Hands: No synovitis noted to the MCPs, PIPs or DIPs. ?No tenderness to palpation of these joints. Wrists: ?Full range of motion at the wrists without pain. ?No tenderness to palpation or synovitis noted to the wrists. Elbows: Full range of motion without pain. No tenderness, weakness, swelling, increased warmth or erythema. Shoulders: Right shoulder with reduced range of motion Knees: ?Full range of motion. ?No tenderness, swelling, increased warmth or erythema.? Crepitations noted bilaterally Ankles: Full range of motion. ?No tenderness, swelling, increased warmth or erythema.? Feet: ?Negative squeeze test. ?No tenderness to palpation or swelling of the MTPs. SKIN Skin intact without rashes. Results Reviewed Results Reviewed: Laboratory Tests 11/29/23 01/31/24 10:42 10:14 WBC 5.6 RBC 5.05 Hgb 15.5 Hct 45.4 Plt Count 228 Sodium 138 Potassium 5.0 Chloride 101 Carbon Dioxide 28 BUN 14 Creatinine 1.10 Uric Acid 7.7 H 7.1 H Assessment & Plan Assessment & Plan (1) Gout: Code(s): M10.9 - Gout, unspecified Category: Medical Qualifiers: Chronicity: chronic Gout etiology: idiopathic Gout site: knee Laterality: unspecified laterality Presence of tophus: without tophus Qualified Code(s): M1A.689 - Idiopathic chronic gout, unspecified knee, without tophus (tophi) Plan: #Non crystal proven non tophaceous gout Patient uric acid not at goal. Increase allopurinol to 450 mg daily Colchicine 0.6 mg daily while uric acid is being equalized We will review in 3 months Also recommended multivitamin for muscle contractions that he gets in the night Plan I spent 20 minutes reviewing the record and labs, seeing the patient, discussing the treatment plan and documenting in the medical record Medications: New multivitamin (One Daily Multivitamin tablet) 1 tab PO DAILY 90 tabs 1RF M1A.689 - Idiopathic chronic gout, unspecified knee, without tophus (tophi) Changed From colchicine hold dose if diarrhea occurs 0.6 mg PO DAILY 10 days PRN 10 tabs 2RF gout M1A.689 - Idiopathic chronic gout, unspecified knee, without tophus (tophi) To colchicine hold dose if diarrhea occurs 0.6 mg PO DAILY 90 tabs 1RF gout 90 days M1A - Idiopathic chronic gout, unspecified knee, without tophus (tophi) From allopurinol 300 mg PO DAILY 90 days 90 tabs 0RF M1A.689 - Idiopathic chronic gout, unspecified knee, without tophus (tophi) To allopurinol 450 mg (1.5 x 300 mg) PO DAILY 135 tabs 0RF 90 days M1 - Idiopathic chronic gout, unspecified knee, without tophus (tophi) Coding Level of Care Code Est Pt Level 3 (87258) Complex EM visit Add On G2211 Diagnoses 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
[2024-03-27 12:47] VITALS: BP 122/68; PULSE 56; O2SAT 98; BMI 26.3
== END 2024-03-27 13:54 | disposition home or self-care (01) ==
PROVIDERS: PCP Internal Medicine; Visit Provider Student in an Organized Health Care Education/Training Program
DX: M1A.0690 Idiopathic chronic gout, unspecified knee, without tophus (tophi) (principal)
CPT/HCPCS: 99213; G2211

== ENCOUNTER → 2024-03-27 12:26 | Outpatient (BNVA) | payer OTHER, SELFPAY | PROVIDERS: PCP Internal Medicine; Visit Provider Student in an Organized Health Care Education/Training Program | DX: M1A.0690 Idiopathic chronic gout, unspecified knee, without tophus (tophi) (principal) | CPT/HCPCS: 99212 ==

== ENCOUNTER 2024-04-12 14:54 | Outpatient (AMB) | payer OTHER, SELFPAY ==
--- NOTE | 2024-04-12 15:18 | MHC.PC.OV ---
Vital Signs 04/12/24 15:19 Height 5 ft 9 in Weight 178 lb BMI 26.3 BP 112/68 Blood Pressure Location Lt brachial Position Sitting Intake Visit Reasons: 4 Month F/U Intake Note: Patient here for a 4 month follow up, c/o scratchy throat, cough Airport Baggage Screener Required: No Accompanied by: Self / Same As Patient Allergies No Known Allergies [No Known Allergies*] Allergy (Verified 04/12/24 16:01) Medication List - Last Reconciled 04/12/24 by Tatiana Stokes MD allopurinol 450 mg (1.5 x 300 mg) PO DAILY 90 days atorvastatin 80 mg PO DAILY 90 days blood sugar diagnostic (FreeStyle Test strips) Use 1 test strip 3 times per days directed blood-glucose meter (FreeStyle Lite Meter kit) Test Daily cane As directed cholecalciferol (vitamin D3) 50 mcg PO DAILY 90 days clotrimazole-betamethasone 1-0.05 % 1 appl topical BID 30 days colchicine 0.6 mg PO DAILY 90 days [diabetic shoes with 3 inserts diabetic shoes with 3 inserts] diclofenac sodium 1% 4 grams topical QID 30 days eplerenone 25 mg PO DAILY 90 days ezetimibe 10 mg PO DAILY gabapentin 400 mg PO TID 90 days lancets (Acti-Ambrocio Lancets) As directed loratadine (Allergy Relief (loratadine)) 10 mg PO DAILY 90 days metformin 1,000 mg (2 x 500 mg) PO BID 90 days metoprolol succinate ER 25 mg PO DAILY 90 days multivitamin (One Daily Multivitamin tablet) 1 tab PO DAILY multivitamin (Daily-Ignacia tablet) 1 tab PO DAILY nitroglycerin 0.4 mg sublingual ONCE PRN 30 days omeprazole 20 mg PO BID 90 days oxycodone-acetaminophen 5-325 mg 1 tab PO Q8H PRN 30 days rivaroxaban (Xarelto) 20 mg PO QPM 90 days sacubitril-valsartan 24-26 mg (Entresto) 1 tab PO BID 30 days sucralfate 1 g PO QID 30 days tamsulosin 0.4 mg PO DAILY 30 days temazepam 30 mg PO BEDTIME PRN 30 days [wipes As directed] Tobacco use date assessed: 05/30/23 Fall risk assessment: No Falls in past year Last assessed Fall Risk: 04/12/24 Dental Screening Dental Screen Date: 04/12/24 Did you have a dental visit in the last 12 months?: No Did you have a dental problem in the last 6 months where you did not have access to dental care?: No Was dental information given to patient?: Patient has dentist HPI HPI Comments History of Present Illness Details The patient is a 78-year-old male presenting with a follow-up visit for the management of multiple chronic conditions. These include diabetes mellitus, hypertension, hyperlipidemia, heart failure, and atrial fibrillation. His blood pressure reading is currently well controlled at 112/68 mmHg. The last HbA1c was reported elevated; however, current specific levels were not stated. The BNP related to heart failure was noted to have increased from 400s in October to 500s which necessitates continued monitoring by a habilitation worker, with an upcoming appointment in June. The patient?s atorvastatin dosage of 80 mg has been effective and will be continued. Vitamin D levels are within normal limits. His gout is managed with colchicine, advised as one tablet daily for 30 days, as needed. Additionally, the patient reports taking nitroglycerine sublingual for chest pain which he rarely uses. He is advised on medication changes for reflux treatment related to achalasia and given instructions regarding a scheduled colonoscopy screening for July 12. His current management involves multiple medications including Xarelto for atrial fibrillation, and nocturnal insomnia is managed with Temazepam, both of which were recently refilled. [facility] Medical History Acute cholecystitis Neck sprain Right knee pain Right shoulder pain UTI (urinary tract infection), uncomplicated Arthritis Leukocytosis Prostate cancer Lower urinary tract symptoms Physical exam Left breast lump Abdominal pain CHF (congestive heart failure) Pure hypercholesterolemia Herpes zoster Chronic anticoagulation Atrial fibrillation Gout Essential hypertension Diabetes mellitus Lumbar degenerative disc disease Primary insomnia Surgical History History of laparoscopic cholecystectomy History of colonoscopy History of cardiac catheterization History of prostate surgery Family History Father Diabetes Mother Cancer Son Diabetes Brother Prostate CA Social History Household Members: Spouse and Children Housing: House Do you presently have visiting nurse or other home services: No ( takes care of him) Alcohol intake: never Comment: tele Patient Tobacco Use Status: Former Tobacco user Tobacco use type: Cigarette e-Cigarette/Vaping Use: Never Used Second Hand Smoke Exposure: No service: No Current occupational status: disabled Current occupation: right hand Cognitive needs: Yes Hearing needs: No Vision needs: Yes Questionnaire Thrive Questionnaire Date Thrive assessed: 05/30/23 Are you currently unemployed and looking for a job?: No AUDIT C Alcohol Use Questionnaire (AUDIT-C) 3. How often do you have six or more drinks on one occasion?: Never Total Score: 0 MELBA-7 AMB Questionnaire MELBA-7 Date MELBA - 7 assessed: 05/30/23 Source: Developed by Drs. Isaiah Paul, Corinne Sierra, Shalom Leung and colleagues, with an educational neyda from [employer]. Review of Systems Const Details: - Cardiovascular: Denies new chest pain or dyspnea. - Respiratory: Reports cough with phlegm production. - Genitourinary: Denies urinary symptoms or infections this week. Physical exam (Primary Care) Vital Signs: Last Vital Signs BP 112/68 04/12/24 15:19 BMI result Body Mass Index 26.3 Tobacco/Smoking Status: Tobacco use Status Tobacco use date assessed 05/30/23 04/12/24 15:18 Patient Tobacco Use Status Former Tobacco user 04/12/24 15:18 Tobacco use type Cigarette 04/12/24 15:18 e-Cigarette/Vaping Use Never Used 04/12/24 15:18 Thrive Assessment: Date of Thrive Assessment Date Thrive assessed 05/30/23 04/12/24 15:18 Const Other: General: No confusion Respiratory: Normal respiratory effort, clear to auscultation bilaterally Cardiovascular: No jugular venous distension, regular rate, regular rhythm, S1 normal heart sound present and S2 normal heart sound present Extremities: Full ROM, walks with a cane Limitations: ambulation with cane Results AMB Hemoglobin A1c AMB Hemoglobin A1c 6.9 % Last Edit by WANG [place] on 04/12/24 15:47 Results Reviewed Results Reviewed: Laboratory Last Values Hgb A1c (Clinic) 6.9 % (4.0-6.0) H 04/12/24 15:27 Coding Level of Care Code Est Pt Level 4 (96683) Complex EM visit Add On G2211 Diagnoses Achalasia K22.0 Chronic systolic congestive heart failure I50.22 Heart failure type: systolic Heart failure chronicity: chronic Pure hypercholesterolemia E78.00 Longstanding persistent atrial fibrillation I48.11 Atrial fibrillation type: longstanding persistent 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, unspecified laterality M1A.0690 Gout site: knee Gout etiology: idiopathic Chronicity: chronic Laterality: unspecified laterality Presence of tophus: without tophus Type 2 diabetes mellitus without complication, without long-term current use of insulin E11.9 Diabetes mellitus type: type 2 Diabetes mellitus watcher automat long goods insulin use: without custodial use Diabetes mellitus complication status: without complication Primary insomnia F51.01 Time Spent (min) 25 Assessment & Plan Assessment & Plan (1) Achalasia: Code(s): K22.0 - Achalasia of cardia Category: Medical (2) CHF (congestive heart failure): Code(s): I50.9 - Heart failure, unspecified Category: Medical Qualifiers: Heart failure type: systolic Heart failure chronicity: chronic Qualified Code(s): I50.22 - Chronic systolic (congestive) heart failure (3) Pure hypercholesterolemia: Code(s): E78.00 - Pure hypercholesterolemia, unspecified Category: Medical (4) Atrial fibrillation: Code(s): I48.91 - Unspecified atrial fibrillation Category: Medical Qualifiers: Atrial fibrillation type: longstanding persistent Qualified Code(s): I48.11 - Longstanding persistent atrial fibrillation (5) Gout: Code(s): M10.9 - Gout, unspecified Category: Medical Qualifiers: Gout site: knee Gout etiology: idiopathic Chronicity: chronic Laterality: unspecified laterality Presence of tophus: without tophus Qualified Code(s): M1A.0690 - Idiopathic chronic gout, unspecified knee, without tophus (tophi) (6) Diabetes mellitus: Code(s): E11.9 - Type 2 diabetes mellitus without complications Category: Medical Qualifiers: Diabetes mellitus type: type 2 Diabetes mellitus custodial insulin use: without watcher automat long goods use Diabetes mellitus complication status: without complication Qualified Code(s): E11.9 - Type 2 diabetes mellitus without complications (7) Primary insomnia: Code(s): F51.01 - Primary insomnia Category: Medical Plan - Continue atorvastatin 80 mg as lipid levels are controlled. - Monitor BNP levels with follow-up with a habilitation worker scheduled for June. The goal is to not gain 5 lbs in a week. - Follow up with Gastroenterology for achalasia of esophagus. - Evaluate for diabetes control; the patient will continue current lifestyle measures and medications to manage diabetes and blood pressure. - Maintain current vitamin D supplementation as levels are satisfactory. - Prescribe colchicine daily as needed for 30 days for gout management. - Refill Xarelto and Temazepam for atrial fibrillation and insomnia management, respectively. Patient was informed and verbally consented to the use of an ambient scribe for clinic note documentation during this visit. I discussed the patient?s current health status regarding his chronic conditions including diabetes, hypertension, hyperlipidemia, heart failure, and atrial fibrillation. The slight increase in BNP indicates the need for ongoing monitoring but is not emergent; the patient will see the habilitation worker in June. I explained the continuation of atorvastatin, with emphasis on maintaining cholesterol control, and the need to continue monitoring for achalasia and gastric reflux. The patient was informed about the new vitamin prescription and to continue taking both Vitamin D and multivitamins. Risks and benefits of colchicine for gout prevention were discussed. Regarding his insomnia, refills of Temazepam were provided following patient request. Orders: Orders AMB Hemoglobin A1c 04/12/24 E11.9 - Type 2 diabetes mellitus without complications Lipid Panel 3 Months E78.5 - Hyperlipidemia, unspecified Microalbumin, Random (w Creat) 3 Months R80.9 - Proteinuria, unspecified Complete Blood Count Auto Diff 3 Months D64.9 - Anemia, unspecified IRON PROFILE 3 Months D64.9 - Anemia, unspecified Vitamin D 25-OH Total 3 Months E55.9 - Vitamin D deficiency, unspecified Vitamin B12 and Folate 3 Months E53.8 - Deficiency of other specified B group vitamins Comprehensive [place]. Panel Fast 3 Months I50.22 - Chronic systolic (congestive) heart failure NT-proBNP 3 Months I50.22 - Chronic systolic (congestive) heart failure Medications: Refilled oxycodone-acetaminophen 5-325 mg 1 tab PO Q8H PRN 90 tabs 0RF pain 30 days M89.49 - Other hypertrophic osteoarthropathy, multiple sites nitroglycerin 0.4 mg sublingual ONCE PRN 7 tabs 1RF chest pain 30 days temazepam 30 mg PO BEDTIME PRN 30 caps 0RF sleep 30 days M89.49 - Other hypertrophic osteoarthropathy, multiple sites Patient Instructions: - Continue current atorvastatin regimen. - Monitor for any symptoms of heart failure, and use sublingual nitroglycerine as needed for chest pain. - Follow medication instructions for the management of gout and ensure compliance with colchicine regimen. - Continue lifestyle modifications to manage diabetes and blood pressure. - Attend scheduled colonoscopy on July 12. - Schedule and attend cardiology follow-up in June. - Maintain a healthy lifestyle and monitor symptoms, seeking medical attention if conditions worsen. - Ensure that all prescribed medications are taken as directed and refills are maintained regularly.
[2024-04-12 15:19] VITALS: BP 112/68; BMI 26.3
== END 2024-04-12 16:15 | disposition home or self-care (01) ==
PROVIDERS: PCP Internal Medicine; Visit Provider Internal Medicine
DX: E11.9 Type 2 diabetes mellitus without complications (principal)

== ENCOUNTER → 2024-04-12 14:54 | Outpatient (BNVA) | payer OTHER, SELFPAY | PROVIDERS: PCP Internal Medicine; Visit Provider Internal Medicine | DX: K22.0 Achalasia of cardia (principal); I50.22 Chronic systolic (congestive) heart failure; E78.00 Pure hypercholesterolemia, unspecified; I48.11 Longstanding persistent atrial fibrillation; M1A.0690 Idiopathic chronic gout, unspecified knee, without tophus (tophi); E11.9 Type 2 diabetes mellitus without complications; F51.01 Primary insomnia | CPT/HCPCS: 83036; 99212 ==

== ENCOUNTER 2024-06-01 11:54 | Outpatient (REF) | payer OTHER, SELFPAY ==
[2024-06-01 12:24] LABS: MANUAL DIFF FLAG NO
[2024-06-01 12:45] LABS: Basophils Percent Auto 0.4 % (0-2); Eosinophils Absolute Auto 0.3 X10*3/uL (0.0-0.4); Eosinophils Percent Auto 3.8 % (0-4); Hemoglobin 15.4 g/dl (14.0-18.0); Imm Gran Abs Auto 0.01 X10*3/uL (0.00-0.03); Imm Gran Pct Auto 0.1 % (0.0-0.4); Lymphocytes Absolute Auto 2.3 X10*3/uL (1.2-4.9); Lymphocytes Percent Auto 34.3 % (20-40); Mean Corpuscular HGB Conc 34.2 g/dl (31.0-36.0); Mean Corpuscular Hemoglobin 30.4 pg (27.0-33.0); Mean Corpuscular Volume 88.9 fL (80.0-98.0); Monocytes Absolute Auto 0.8 X10*3/uL (0.1-1.2); Monocytes Percent Auto 11.4 % (2-11); Neutrophils Absolute Auto 3.4 x10*3/uL (2.0-8.3); Platelet Count 204 X10*3/uL (160-400); Red Blood Count 5.06 X10*6/uL (4.60-5.80); Red Cell Distribution Width 13.7 % (11.0-16.0); White Blood Count 6.8 X10*3/uL (4.8-10.8)
[2024-06-01 13:30] LABS: Anion Gap 16 (12-20); Blood Urea Nitrogen 15 mg/dL (9-16); Calcium 10.4 mg/dL (8.4-10.2); Carbon Dioxide 26 mmol/L (22-29); Chloride 102 mmol/L (96-108); Estimated Glomerular Filt Rate > 60; Glucose Random 88 mg/dL (60-115); Potassium 4.2 mmol/L (3.3-5.1); Sodium 140 mmol/L (135-145)
[2024-06-01 13:34] LABS: Creatinine Urine 135.72 mg/dL; Microalbum/Creatinine Ratio Ur 28.7 ug/mg cr (<30)
[2024-06-01 13:39] LABS: Alanine Aminotransferase 22 U/L (0-40); Albumin Level 4.4 g/dL (3.5-5.0); Alkaline Phosphatase 84 U/L (39-117); Anion Gap 17 (12-20); Aspartate Amino Transferase 29 U/L (5-37); Bilirubin Total 0.8 mg/dL (0.0-1.0); Blood Urea Nitrogen 15 mg/dL (9-16); Carbon Dioxide 27 mmol/L (22-29); Chloride 101 mmol/L (96-108); Cholesterol 136 mg/dL (<200); Estimated Glomerular Filt Rate > 60; Glucose Fasting 89 mg/dL (60-99); HDL Cholesterol 53 mg/dL (>40); Iron 54 mcg/dL (45-160); LDL Cholesterol Calculated 66 mg/dL (<100); Percent Iron Saturation 19 % (15-50); Potassium 4.3 mmol/L (3.3-5.1); Sodium 141 mmol/L (135-145); Total Iron Binding Capacity 278 mcg/dL (228-428); Total Protein 8.2 g/dL (6.5-8.0); Triglycerides 85 mg/dL (<150); Unsaturated Iron Binding 224 ug/dL
[2024-06-01 13:41] LABS: Vitamin D 25-OH Total 42.2 ng/mL (>30)
[2024-06-01 13:57] LABS: Folate 15.2 ng/mL (> or = 4.0); Vitamin B12 353 pg/mL (200-900)
[2024-06-06 14:57] LABS: NT-proBNP 714 pg/mL (<450)
== END 2024-06-01 11:55 | disposition home or self-care (01) ==
LOC: HO.LAB 11:54
PROVIDERS: PCP Internal Medicine; Visit Provider Nurse Practitioner
DX: I50.42 Chronic combined systolic (congestive) and diastolic (congestive) heart failure (principal); R80.9 Proteinuria, unspecified; D64.9 Anemia, unspecified; E55.9 Vitamin D deficiency, unspecified; E78.5 Hyperlipidemia, unspecified; E53.8 Deficiency of other specified B group vitamins
CPT/HCPCS: 36415; 80048; 80053; 80061; 82043; 82306; 82570; 82607; 82746; 83540; 83880; 85025

== ENCOUNTER 2024-06-29 12:47 | Outpatient (AMB) | payer OTHER, SELFPAY ==
--- NOTE | 2024-06-29 12:57 | MHC.OFFVIS ---
Vital Signs 06/29/24 13:04 Height 5 ft 9 in Weight 180 lb 12.465 oz BMI 26.7 BP 142/74 H Blood Pressure Location Lt brachial Position Sitting Pulse 63 Pulse Source Pulse Oximeter Pulse Oximetry (%) 98 Oxygen Delivery Method Room Air Intake Visit Reasons: Gout Intake Note: Patient presents for Gout. Digital Marketing Manager Required: Yes Digital Marketing Manager Language: Director Of Online Merchandising Services: Digital Marketing Manager Present Digital Marketing Manager Name: [id number] Information Interpreted: non-clinical & clinical Allergies No Known Allergies [No Known Allergies*] Allergy (Verified 06/29/24 13:03) Medication List - Last Reconciled 06/29/24 by Cailin Hernandes MD allopurinol 450 mg (1.5 x 300 mg) PO DAILY 90 days atorvastatin 80 mg PO DAILY 90 days blood sugar diagnostic (FreeStyle Test strips) Use 1 test strip 3 times per days directed blood-glucose meter (FreeStyle Lite Meter kit) Test Daily cane As directed cholecalciferol (vitamin D3) 50 mcg PO DAILY 90 days clotrimazole-betamethasone 1-0.05 % 1 appl topical BID 30 days colchicine 0.6 mg PO DAILY 90 days dextromethorphan polistirex ER (12-Hour Cough Relief) 10 mL PO Q12H PRN 7 days [diabetic shoes with 3 inserts diabetic shoes with 3 inserts] diclofenac sodium 1% 4 grams topical QID 30 days eplerenone 25 mg PO DAILY 90 days ezetimibe 10 mg PO DAILY gabapentin 400 mg PO TID 90 days lancets (Acti-Ambrocio Lancets) As directed loratadine (Allergy Relief (loratadine)) 10 mg PO DAILY 90 days metformin 1,000 mg (2 x 500 mg) PO BID 90 days metoprolol succinate ER 25 mg PO DAILY 90 days multivitamin (One Daily Multivitamin tablet) 1 tab PO DAILY multivitamin (Daily-Ignacia tablet) 1 tab PO DAILY nitroglycerin 0.4 mg sublingual ONCE PRN 30 days omeprazole 20 mg PO BID 90 days oxycodone-acetaminophen 5-325 mg 1 tab PO Q8H PRN 30 days rivaroxaban (Xarelto) 20 mg PO QPM 90 days sacubitril-valsartan 24-26 mg (Entresto) 1 tab PO BID 30 days sucralfate 1 g PO QID 30 days tamsulosin 0.4 mg PO DAILY 30 days temazepam 30 mg PO BEDTIME PRN 30 days [wipes As directed] HPI Comments Details: Patient is a 78-year-old male with hypertension, hyperlipidemia, diabetes, atrial fibrillation on Xarelto, GERD on omeprazole, heart failure with reduced ejection fraction and BPH who presents for follow up of non crystal proven non tophaceous gout Interval History: Patient last seen 03/27/2024 with me. At that time his uric acid was not at goal and the plan was to increase his allopurinol to 450 mg from 300 mg. He Today he reports a transient gout flare involving his left knee. Also today reports right lateral shoulder pain. Rheumatologic History: Diagnosed with gout based on elevated uric acid and recurrent monoarticular arthritis. Has primary osteoarthritis involving the knees and hands Current Rheumatology Medication(s): Allopurinol 450 mg daily Colchicine 0.6 mg p.r.n. [facility]LY [facility] Medical History Acute cholecystitis Neck sprain Right knee pain Right shoulder pain UTI (urinary tract infection), uncomplicated Arthritis Leukocytosis Prostate cancer Lower urinary tract symptoms Physical exam Left breast lump Abdominal pain CHF (congestive heart failure) Pure hypercholesterolemia Herpes zoster Chronic anticoagulation Atrial fibrillation Gout Essential hypertension Diabetes mellitus Lumbar degenerative disc disease Primary insomnia Surgical History History of laparoscopic cholecystectomy History of colonoscopy History of cardiac catheterization History of prostate surgery Family History Father Diabetes Mother Cancer Son Diabetes Brother Prostate CA Social History Household Members: Spouse and Children Housing: House Do you presently have visiting nurse or other home services: No ( takes care of him) Alcohol intake: never Comment: tele Patient Tobacco Use Status: Former Tobacco user Tobacco use type: Cigarette e-Cigarette/Vaping Use: Never Used Second Hand Smoke Exposure: No service: No Current occupational status: disabled Current occupation: right hand Cognitive needs: Yes Hearing needs: No Vision needs: Yes Review of Systems Const Details: Review of Systems Constitutional: Denies fever, chills, weight loss ENT: Denies vision changes, eye pain or eye redness, dental caries, dry mouth GI: Denies nausea, vomiting, diarrhea, abdominal pain, change in BM Pulm: Denies SOB, POWELL, hemoptysis, wheezing Cards: Denies chest pain, palpitations Skin: Denies Raynaud's, rash, nail changes, photosensitivity, CASEWORKER INTAKE: Denies headaches, weakness, paresthesias, recurrent falls MSK: as per HPI All other systems reviewed and are unremarkable except noted above Physical Exam Vital Signs: Last Vital Signs Pulse 63 06/29/24 13:04 BP 142/74 H 06/29/24 13:04 Pulse Ox 98 06/29/24 13:04 Oxygen Delivery Method Room Air 06/29/24 13:04 BMI result Body Mass Index 26.7 Vital signs reviewed Physical Examination CONSTITUITIONAL Patient alert and cooperative. Well appearing and in no apparent painful distress HEENT Conjunctiva and sclera clear. ?Pupils equal round and reactive to light. ?No lymphadenopathy. No tophi noted to the ears CHEST/RESPIRATORY SYSTEM Normal respiratory effort and able to speak in complete sentences. ?Clear to auscultation bilaterally. ?No crackles, rales, rhonchi, wheezes heard. CARDIAC SYSTEM Irregularly irregular rhythm. MSK Hands: No synovitis noted to the MCPs, PIPs or DIPs. ?No tenderness to palpation of these joints. Wrists: ?Full range of motion at the wrists without pain. ?No tenderness to palpation or synovitis noted to the wrists. Elbows: Full range of motion without pain. No tenderness, weakness, swelling, increased warmth or erythema. Shoulders: Right shoulder with reduced range of motion to active and passive movement secondary to pain. Tenderness to palpation of the subacromial bursa on the right. Mild tenderness to palpation of subacromial bursa on the left but full range of motion to active and passive movement. Knees: ?Full range of motion. ?No tenderness, swelling, increased warmth or erythema.? Crepitations noted bilaterally Ankles: Full range of motion. ?No tenderness, swelling, increased warmth or erythema.? Feet: ?Negative squeeze test. ?No tenderness to palpation or swelling of the MTPs. SKIN Skin intact without rashes. Office Procedures AMB Joint Injection/Aspiration Joint Injection/Aspiration Details: Procedure was explained to the patient and consent was obtained. ? The area of interest was identified and confirmed with patient. ?This was subsequently cleaned with chlorhexidine x3. ? The area was then anesthetized using ethyl chloride spray. 40 mg Kenalog with 1 cc 1% lidocaine was injected without issue. ?Minimal to no bleeding. ?Patient tolerated procedure. Primary Site: right shoulder (right subacromial bursa) Prep: site was prepped using aseptic technique and ethochloride spray was applied Injected: 40 mg of, Kenalog, with 1 mL of, 1% plain lidocaine and in the subcromial space Approach Used: other Procedure: The patient tolerated the procedure well Coding 19336 - Glenohumeral/Tronchanteric Bursa/Intraarticular Procedure code (CPT) selection complete Office Meds lidocaine (PF) 10 mg/mL (1 %) injection solution Performing Provider: Cailin Hernandes MD [place] [facility] [place] Administered by: Cailin Hernandes MD on 06/29/24 15:16 Dose Route Admin Location Dispensed Lot Number Expiration Date [facility] Retail Inventory Control Clerk 1 mL Infiltration right subacromial bursa 2 mL [id number] 07/31/26 57147-904-99 [facility] Kenalog 40 mg/mL suspension for injection Performing Provider: Cailin Hernandes MD [place] [facility] [place] Administered by: Cailin Hernandes MD on 06/29/24 15:16 Dose Route Admin Location Dispensed Lot Number Expiration Date [facility] Retail Inventory Control Clerk 40 mg intrabursal right subacromial bursa 1 mL [id number] 07/31/26 [address]-4 [employer] Results Reviewed Results Reviewed: Laboratory Tests 03/30/23 01/31/24 06/01/24 11:32 10:14 12:22 WBC 6.8 RBC 5.06 Hgb 15.4 Hct 45.0 Plt Count 204 ESR 14 Sodium 140 Potassium 4.2 Chloride 102 Carbon Dioxide 26 BUN 15 Creatinine 0.99 Uric Acid 7.1 H AST 29 ALT 22 XR Right Knee 09/2020 FINDINGS: Mild patellofemoral joint space narrowing with tiny marginal osteophytes. No osseous erosion. No fracture or dislocation. Medial and lateral compartment chondrocalcinosis. Atherosclerotic calcifications. Assessment & Plan Assessment & Plan (1) Gout: Code(s): M10.9 - Gout, unspecified Category: Medical Qualifiers: Gout site: knee Gout etiology: idiopathic Chronicity: chronic Laterality: unspecified laterality Presence of tophus: without tophus Qualified Code(s): M1A.0690 - Idiopathic chronic gout, unspecified knee, without tophus (tophi) Plan: #Non crystal proven non tophaceous gout No recent uric acid to review after increasing allopurinol to 450. We will send for blood work today. Did have an episode of left knee swelling. Advised patient that if this happens again in the future for him to come in for me to evaluate as this could be related to osteoarthritis and not necessarily his gout. Plan - Continue allopurinol 450mg - Labs today: CBC, CMP, ESR, CRP, UA - If uric acid is not at goal (uric acid goal for this patient is <6) we will need to titrate his allopurinol - Continue colchicine 0.6 mg daily for gout prophylaxis - RTC 4 months - Labs before visit: CBC, CMP, ESR, CRP, UA (2) Subacromial bursitis of right shoulder joint: Code(s): M75.51 - Bursitis of right shoulder Plan: #Right subacromial bursitis Patient with right subacromial bursitis status post steroid injection today (3) Encounter for monitoring allopurinol therapy: Code(s): Z51.81 - Encounter for therapeutic drug level monitoring; Z79.899 - Other shelter (current) drug therapy Plan: #Long-term Current Use of Allopurinol Risks and benefits of allopurinol discussed with patient Benefits include decreased gout flares, remission of gout and reduction of tophi Risks include allopurinol hypersensitivity syndrome which is a severe cutaneous adverse reaction associated with allopurinol use particularly in patients who are HLA [id number] positive, increased transaminases, GI upset including diarrhea, nausea and vomiting, and other dermatologic manifestations. Plan I spent 20 minutes reviewing the record and labs, seeing the patient, discussing the treatment plan and documenting in the medical record Orders: Orders Complete Blood Count Auto Diff Today M1A.0690 - Idiopathic chronic gout, unspecified knee, without tophus (tophi) C Reactive Protein Today M1A.0690 - Idiopathic chronic gout, unspecified knee, without tophus (tophi) Uric Acid 4 Months M1A.0690 - Idiopathic chronic gout, unspecified knee, without tophus (tophi) Comprehensive Met. Panel Today M1A.0690 - Idiopathic chronic gout, unspecified knee, without tophus (tophi) Erythrocyte Sedimentation Rate Today - Idiopathic chronic gout, unspecified knee, without tophus (tophi) Uric Acid Today - Idiopathic chronic gout, unspecified knee, without tophus (tophi) Complete Blood Count Auto Diff 4 Months - Idiopathic chronic gout, unspecified knee, without tophus (tophi) Comprehensive Met. Panel 4 Months - Idiopathic chronic gout, unspecified knee, without tophus (tophi) C Reactive Protein 4 Months - Idiopathic chronic gout, unspecified knee, without tophus (tophi) Erythrocyte Sedimentation Rate 4 Months - Idiopathic chronic gout, unspecified knee, without tophus (tophi) AMB Joint Injection/Aspiration Today M75.51 - Bursitis of right shoulder Medications: Refilled colchicine hold dose if diarrhea occurs 0.6 mg PO DAILY 90 days 90 tabs 1RF gout - Idiopathic chronic gout, unspecified knee, without tophus (tophi) allopurinol 450 mg (1.5 x 300 mg) PO DAILY 90 days 135 tabs 1RF M1 - Idiopathic chronic gout, unspecified knee, without tophus (tophi) cane As directed 1 ea 0RF M47.816 - Spondylosis without myelopathy or radiculopathy, lumbar region, M89.49 - Other hypertrophic osteoarthropathy, multiple sites Coding Level of Care Code Est Pt Level 3 (34824) Complex EM visit Add On G2211 Diagnoses 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, unspecified laterality Gout site: knee Gout etiology: idiopathic Chronicity: chronic Laterality: unspecified laterality Presence of tophus: without tophus Subacromial bursitis of right shoulder joint M75.51 Encounter for monitoring allopurinol therapy Z51.81; Z79.899 CPT Codes Coding - Joint 7: 32693 - Glenohumeral/Tronchanteric Bursa/Intraarticular ([id number])
[2024-06-29 13:04] VITALS: BP 142/74; PULSE 63; O2SAT 98; BMI 26.7
--- OUTSIDE RECORDS SUMMARY | 2024-06-29 14:51 | XMS_ITS | Clinical Summary ---
Author Organization [facility] ity Address [address] [place] [address] Care Team Providers Care Radiochemical Technician Name Role Phone Unavailable Primary Care Provider Unavailabl e Social History Tobacco Use Types Packs/Day Years Used Date Smoking Tobacco: Never Assessed Sex and Gender Information Value Date Recorded Sex Assigned at Not on file Legal Sex Male 5:01 AM EST Gender Identity Not on file Sexual Orientation Not on file Plan of Treatment Health Maintenance Due Date Last Done Comments DTaP,Tdap,and Td Vaccines (1 - Tdap) 1964 Pneumococcal Vaccine: 50+ Ye ars (1 of 1 - PCV) 12/25/1995 Zoster Vaccines (1 of 2) 12/25/1995 RSV Immunization Patients 60 + Years Old (1 - 1-dose 75+ series) 2020 COVID-19 Vaccine ( - 2023-2 5 season) 2024 Influenza Vaccine (#1) 2024 HIB Vaccines Aged Out No longer eligi ble based on patient's age to complete this topic HPV Vaccines Aged Out No longer eligi ble based on patient's age to complete this topic Hepatitis A Vaccines Aged Out No long er eligible based on patient's age to complete this topic Hepatitis B Vaccines Aged Out No long er eligible based on patient's age to complete this topic IPV Vaccines Aged Out No longer eligi ble based on patient's age to complete this topic MMR Vaccines Aged Out No longer eligi ble based on patient's age to complete this topic Meningococcal ACWY Vaccine Aged Out N o longer eligible based on patient's age to complete this topic Meningococcal B Vacine Aged Out No lo nger eligible based on patient's age to complete this topic RSV Immunization Patients Un aster 20 months Aged Out No longer eligible b ased on patient's age to complete this topic Varicella Vaccines Aged Out No longer eligible based on patient's age to complete this topic
== END 2024-06-29 13:59 | disposition home or self-care (01) ==
PROVIDERS: PCP Internal Medicine; Visit Provider Student in an Organized Health Care Education/Training Program
DX: M1A.0620 Idiopathic chronic gout, left knee, without tophus (tophi) (principal); M75.51 Bursitis of right shoulder; Z51.81 Encounter for therapeutic drug level monitoring; Z79.899 Other long term (current) drug therapy
CPT/HCPCS: 20610; 99213

== ENCOUNTER → 2024-06-29 12:47 | Outpatient (BNVA) | payer OTHER, SELFPAY | PROVIDERS: PCP Internal Medicine; Visit Provider Student in an Organized Health Care Education/Training Program | DX: M1A.0620 Idiopathic chronic gout, left knee, without tophus (tophi) (principal); M75.51 Bursitis of right shoulder; Z79.899 Other long term (current) drug therapy | CPT/HCPCS: 20610; 99212; J3300 ==

== ENCOUNTER 2024-08-23 10:43 | Outpatient (REF) | payer OTHER, SELFPAY ==
--- OUTSIDE RECORDS SUMMARY | 2024-08-23 12:31 | XMS_ITS | Clinical Summary ---
Author Organization [employer] [employer] [facility] ity Address [address] [place] [address] Care Team Providers Care Emergency Communications Officer Name Role Phone Unavailable Primary Care Provider [...] Vaccines (1 of 2) 12/25/1995 RSV Immunization Adult Patie nts (1 - 1-dose 75+ series) 2020 COVID-19 Vaccine ( - 2023-2 5 season) 2024 Influenza Vaccine (Season Ended) 2024 HIB Vaccines Aged Out No longer [...] age to complete this topic Meningococcal B Vaccine Aged Out No l onger eligible based on patient's age to complete this topic RSV Immunization Patients Un aster 20 months Aged Out No longer eligible b ased on patient's age to complete this topic Varicella Vaccines Aged Out No longer eligible based on patient's age to complete this topic
[2024-08-23 12:55] LABS: MANUAL DIFF FLAG NO
[2024-08-23 13:14] LABS: Basophils Percent Auto 0.5 % (0-2); Eosinophils Absolute Auto 0.2 X10*3/uL (0.0-0.4); Eosinophils Percent Auto 2.6 % (0-4); Hematocrit 43.6 % (42.0-52.0); Hemoglobin 14.6 g/dl (14.0-18.0); Imm Gran Abs Auto 0.02 X10*3/uL (0.00-0.03); Imm Gran Pct Auto 0.4 % (0.0-0.4); Lymphocytes Absolute Auto 1.6 X10*3/uL (1.2-4.9); Lymphocytes Percent Auto 28.1 % (20-40); Mean Corpuscular HGB Conc 33.5 g/dl (31.0-36.0); Mean Corpuscular Hemoglobin 30.4 pg (27.0-33.0); Mean Corpuscular Volume 90.6 fL (80.0-98.0); Mean Platelet Volume 9.2 fL (9.4-12.4); Monocytes Absolute Auto 0.7 X10*3/uL (0.1-1.2); Monocytes Percent Auto 11.4 % (2-11); Neutrophils Absolute Auto 3.3 x10*3/uL (2.0-8.3); Platelet Count 210 X10*3/uL (160-400); Red Blood Count 4.81 X10*6/uL (4.60-5.80); Red Cell Distribution Width 14.7 % (11.0-16.0); White Blood Count 5.7 X10*3/uL (4.8-10.8)
[2024-08-23 13:20] LABS: Alanine Aminotransferase 25 U/L (0-40); Albumin Level 4.3 g/dL (3.5-5.0); Alkaline Phosphatase 101 U/L (39-117); Anion Gap 12 (12-20); Aspartate Amino Transferase 26 U/L (5-37); Bilirubin Total 1.2 mg/dL (0.0-1.0); Blood Urea Nitrogen 18 mg/dL (9-16); C Reactive Protein 0.83 mg/dL (< or = 0.50); Calcium 9.9 mg/dL (8.4-10.2); Carbon Dioxide 29 mmol/L (22-29); Chloride 101 mmol/L (96-108); Estimated Glomerular Filt Rate > 60; Glucose Random 138 mg/dL (60-115); Potassium 4.4 mmol/L (3.3-5.1); Sodium 138 mmol/L (135-145); Total Protein 7.6 g/dL (6.5-8.0); Uric Acid 7.4 mg/dL (3.4-7.0)
[2024-08-23 21:14] LABS: Erythrocyte Sedimentation Rate 14 MM/HR (0-15)
== END 2024-08-23 10:44 | disposition home or self-care (01) ==
LOC: HO.10HDL 10:43
PROVIDERS: Visit Provider Student in an Organized Health Care Education/Training Program
DX: Z00.00 Encounter for general adult medical examination without abnormal findings (principal); M1A.0690 Idiopathic chronic gout, unspecified knee, without tophus (tophi); R25.2 Cramp and spasm; K22.0 Achalasia of cardia; I48.11 Longstanding persistent atrial fibrillation; I50.22 Chronic systolic (congestive) heart failure; E11.9 Type 2 diabetes mellitus without complications
CPT/HCPCS: 36415; 80053; 83036; 84550; 85025; 85652; 86140; 96127; 99212; 99397

== ENCOUNTER 2024-08-23 11:13 | Outpatient (AMB) | payer OTHER, SELFPAY ==
[2024-08-23 12:18] VITALS: BP 118/76; BMI 25.5
--- NOTE | 2024-08-23 12:18 | MHC.PC.OV ---
Vital Signs 08/23/24 12:18 Height 5 ft 9 in Weight 173 lb BMI 25.5 BP 118/76 Blood Pressure Location Lt brachial Position Sitting Intake Visit Reasons: Annual exam Intake Note: Patient here for an annual exam Braddisher Required: No Accompanied by: Spouse Allergies No Known Allergies [No Known Allergies*] Allergy (Verified 08/23/24 12:23) Medication List - Last Reviewed 08/23/24 by WANG [place] allopurinol 450 mg (1.5 x 300 mg) PO DAILY 90 days atorvastatin 80 mg PO DAILY 90 days blood sugar diagnostic (FreeStyle Test strips) Use 1 test strip 3 times per days directed blood-glucose meter (FreeStyle Lite Meter kit) Test Daily cane As directed cholecalciferol (vitamin D3) 50 mcg PO DAILY 90 days clotrimazole-betamethasone 1-0.05 % 1 appl topical BID 30 days colchicine 0.6 mg PO DAILY 90 days dextromethorphan polistirex ER (12-Hour Cough Relief) 10 mL PO Q12H PRN 7 days [diabetic shoes with 3 inserts diabetic shoes with 3 inserts] diclofenac sodium 1% 4 grams topical QID 30 days eplerenone 25 mg PO DAILY 90 days ezetimibe 10 mg PO DAILY gabapentin 400 mg PO TID 90 days lancets (Acti-Ambrocio Lancets) As directed loratadine (Allergy Relief (loratadine)) 10 mg PO DAILY 90 days metformin 1,000 mg (2 x 500 mg) PO BID 90 days metoprolol succinate ER 25 mg PO DAILY 90 days multivitamin (One Daily Multivitamin tablet) 1 tab PO DAILY multivitamin (Daily-Ignacia tablet) 1 tab PO DAILY nitroglycerin 0.4 mg sublingual ONCE PRN 30 days omeprazole 20 mg PO BID 90 days oxycodone-acetaminophen 5-325 mg 1 tab PO Q8H PRN 30 days rivaroxaban (Xarelto) 20 mg PO QPM 90 days sacubitril-valsartan 24-26 mg (Entresto) 1 tab PO BID 30 days sucralfate 1 g PO QID 30 days tamsulosin 0.4 mg PO DAILY 30 days temazepam 30 mg PO BEDTIME PRN 30 days [wipes As directed] zolpidem 10 mg PO BEDTIME PRN 30 days Tobacco use date assessed: 08/23/24 Fall risk assessment: No Falls in past year Last assessed Fall Risk: 08/23/24 Dental Screening Dental Screen Date: 08/23/24 Did you have a dental visit in the last 12 months?: No Did you have a dental problem in the last 6 months where you did not have access to dental care?: No HPI HPI Comments History of Present Illness Details The patient is a 78-year-old male presenting for an annual examination. Notably, he manages Type 2 Diabetes Mellitus, currently with an A1c level of 7.2, indicating a need for continued glycemic control evaluation. His hyperlipidemia is under management with atorvastatin and Ezetimibe, with recent results suggesting therapeutic goals were met. He reported chronic dysphagia, with previous gastroenterology follow-up planned but subsequently canceled. Management will need rescheduling for potential endoscopy to address persistent symptoms. His cardiovascular history includes Coronary Artery Disease, post-cardiac catheterization in 2017, with periodic chest pain insufficiently palliated by nitroglycerin on one recent occasion, necessitating further evaluation. He has a history of successfully treated prostate cancer that required surgical resolution of urethral obstruction and he remains under urologic follow-up. The patient relates chronic back pain managed with Percocet and previously attempted adjustments to his medication regime for sleep disturbances with temazepam and zolpidem. Current compliance with vaccinations is confirmed, including pneumococcal coverage. - Pneumococcal vaccination up-to-date - Last colonoscopy in 2018, discussion about future screenings pending age considerations - Cholesterol management under goal as of last May test - A1c monitoring for Diabetes Mellitus shows a result of 7.2 PFSH Medical History (Updated 08/23/24 @ 12:40 by Tatiana Stokes MD) Physical exam Acute cholecystitis Neck sprain Right knee pain Right shoulder pain UTI (urinary tract infection), uncomplicated Arthritis Leukocytosis Prostate cancer Lower urinary tract symptoms Left breast lump Abdominal pain CHF (congestive heart failure) Pure hypercholesterolemia Herpes zoster Chronic anticoagulation Atrial fibrillation Gout Essential hypertension Diabetes mellitus Lumbar degenerative disc disease Primary insomnia Surgical History History of laparoscopic cholecystectomy History of colonoscopy History of cardiac catheterization History of prostate surgery Family History Father Diabetes Mother Cancer Son Diabetes Brother Prostate CA Social History Household Members: Spouse and Children Housing: House Do you presently have visiting nurse or other home services: No ( takes care of him) Alcohol intake: never Comment: tele Patient Tobacco Use Status: Former Tobacco user Tobacco use type: Cigarette e-Cigarette/Vaping Use: Never Used Second Hand Smoke Exposure: No service: No Current occupational status: disabled Current occupation: right hand Cognitive needs: Yes Hearing needs: No Vision needs: Yes Questionnaire PHQ-9 Over the last 2 weeks, how often have you been bothered by any of the following problems? 1. Little interest or pleasure in doing things: not at all 2. Feeling down, depressed, or hopeless: not at all 3. Trouble falling or staying asleep, or sleeping too much: not at all 4. Feeling tired or having little energy: several days 5. Poor appetite or overeating: not at all 6. Feeling bad about yourself - or that you are a failure or have let yourself or your family down: not at all 7. Trouble concentrating on things, such as reading the newspaper or watching television: not at all 8. Moving or speaking so slowly that other people could have noticed. Or the opposite - being so fidgety or restless that you have been moving around a lot more than usual: not at all 9. Thoughts that you would be better off or of hurting yourself in some way: not at all Total score: 1 Depression Screening Interpretation: Negative Depression Screening Done: Yes 20017 - PHQ-9 Billing: Yes Source: Developed by Drs. Isaiah Paul, Corinne Sierra, Shalom Leung and colleagues, with an educational neyda from [employer]. Thrive Questionnaire Date Thrive assessed: 08/23/24 I am a: Patient What is your living situation today?: I have a place to live, but I am worried about losing it in the future Within the past 12 months, did the food you bought not last and you didn't have the money to get more?: Never true Within the past 12 months, did you worry whether your food would run out before you got money to buy more?: Never true Do you have trouble paying for medicines?: No Do you have trouble getting transportation to medical appointments?: No Do you have trouble paying your heating and electricity bill?: No Do you have trouble taking care of your child, family member or friend?: No Do you have trouble with day-to-day activities such as bathing, preparing meals, shopping, managing finances, etc.?: I choose not to answer this question Are you currently unemployed and looking for a job?: I choose not to answer this question Are you interested in more education?: I choose not to answer this question Please select the resources that you would like help with: None Currently or been in a relationship where the following occur: No concerns reported THRIVE Score: 1 AUDIT C Alcohol Use Questionnaire (AUDIT-C) 1. How often do you have a drink containing alcohol?: Never Total Score: 0 MELBA-7 AMB Questionnaire MELBA-7 Date MELBA - 7 assessed: 08/23/24 Feeling nervous, anxious, or on edge: 0 = Not at all Not being able to stop or control worryin = Not at all Worrying too much about different things: 1 = Several days Trouble relaxin = Not at all Being so restless that it is hard to sit still: 0 = Not at all Becoming easily annoyed or irritable: 0 = Not at all Feeling afraid as if something awful might happen: 0 = Not at all Total MELBA-7 score (0-4 normal; 5-9 mild; 10-14 moderate; 15-21 severe): 1 Source: Developed by Drs. Isaiah Paul, Corinne Sierra, Shalom Leung and colleagues, with an educational neyda from [employer]. MELBA-7 Assessment Billing MELBA-7 Assessment Tool: MELBA-7 Assessment 53956 Review of Systems Const All systems reviewed & are unremarkable except as noted in HPI and below Card Denies chest pain at rest, Denies chest pain with activity, Denies edema, Denies irregular heart rhythm, Denies claudication, Denies dyspnea, Denies dyspnea on exertion, Denies orthopnea, Denies paroxysmal nocturnal dyspnea and Denies slow heart rate Resp Denies cough, Denies dyspnea and Denies dyspnea on exertion GI Denies abdominal pain, Denies change in bowel habits, Denies excessive flatus, Denies nausea and Denies vomiting Denies urinary hesitancy, Denies urinary incontinence and Denies urinary urgency Musc Denies abnormal gait, Denies atrophy, Denies deformity and Denies limited range of motion Skin/Breast Denies bleeding lesions, Denies changing lesions and Denies rash Neuro Denies abnormal gait and Denies lack of coordination Physical exam (Primary Care) Vital Signs: Last Vital Signs BP 118/76 08/23/24 12:18 BMI result Body Mass Index 25.5 Tobacco/Smoking Status: Tobacco use Status Tobacco use date assessed 08/23/24 08/23/24 12:20 Patient Tobacco Use Status Former Tobacco user 08/23/24 12:20 Tobacco use type Cigarette 08/23/24 12:20 e-Cigarette/Vaping Use Never Used 08/23/24 12:20 PHQ-9: PHQ-9 Score PHQ-9: Total score 1 08/23/24 12:31 Depression Screening Interpretation: Negative Thrive Assessment: Date of Thrive Assessment Date Thrive assessed 08/23/24 08/23/24 12:20 Currently or been in a relationship where the following occur: No concerns reported Const Limitations: ambulation with cane HENMT Head: Yes normal to inspection, Yes normocephalic and Yes atraumatic Ears: external ears normal Eyes General: appearance normal, both eyes and all related structures Eyelids: Yes eyelids normal Conjunctivae: conjunctivae normal Neck Neck: Yes normal visual inspection and Yes supple Resp Effort & Inspection: normal respiratory effort Auscultation: clear to auscultation bilaterally Cardio Jugular venous distension: no JVD Rate: regular rate Rhythm: regular rhythm Heart sounds: S1 normal heart sound present and S2 normal heart sound present GI Inspection: Yes normal to inspection Palpation (GI): Soft to palpation and nontender Auscultation: normal bowel sounds Skin General skin exam: no rashes or lesions noted Neuro General: no focal motor deficits Extrem General: Yes full ROM Psych Appearance: grossly normal Results AMB Hemoglobin A1c AMB Hemoglobin A1c 7.2 % Last Edit by WANG [place] on 08/23/24 12:22 Results Reviewed Results Reviewed: Laboratory Last Values Hgb A1c (Clinic) 7.2 % (4.0-6.0) H 08/23/24 12:10 Coding Level of Care Code Est Pt Level 3 (25153) Est Pt Prev Care >65y(34323) Diagnoses Physical exam Z00.00 Muscle cramps R25.2 Achalasia K22.0 Longstanding persistent atrial fibrillation I48.11 Atrial fibrillation type: longstanding persistent Chronic systolic congestive heart failure I50.22 Heart failure type: systolic Heart failure chronicity: chronic Type 2 diabetes mellitus without complication, without long-term current use of insulin E11.9 Diabetes mellitus type: type 2 Diabetes mellitus parts counterman insulin use: without prison use Diabetes mellitus complication status: without complication Additional Codes PHQ-9 - 28763 - PHQ-9 Billing: Yes ([id number]) MELBA-7 Assessment Billing - MELBA-7 Assessment Tool: MELBA-7 Assessment 96195 ([id number]) Time Spent (min) 35 Assessment & Plan Assessment & Plan (1) Physical exam: Code(s): Z00.00 - Encounter for general adult medical examination without abnormal findings Category: Medical (2) Muscle cramps: Code(s): R25.2 - Cramp and spasm Category: Medical (3) Achalasia: Code(s): K22.0 - Achalasia of cardia Category: Medical (4) Atrial fibrillation: Code(s): I48.91 - Unspecified atrial fibrillation Category: Medical Qualifiers: Atrial fibrillation type: longstanding persistent Qualified Code(s): I48.11 - Longstanding persistent atrial fibrillation (5) CHF (congestive heart failure): Code(s): I50.9 - Heart failure, unspecified Category: Medical Qualifiers: Heart failure type: systolic Heart failure chronicity: chronic Qualified Code(s): I50.22 - Chronic systolic (congestive) heart failure (6) Diabetes mellitus: Code(s): E11.9 - Type 2 diabetes mellitus without complications Category: Medical Qualifiers: Diabetes mellitus type: type 2 Diabetes mellitus prison insulin use: without parts counterman use Diabetes mellitus complication status: without complication Qualified Code(s): E11.9 - Type 2 diabetes mellitus without complications Plan The primary areas for current management include achieving better control over the patient's diabetes, maintaining effective hyperlipidemia treatment, and pursuing further evaluation and potential intervention for dysphagia. Monitoring of cardiovascular and pain symptoms in alignment with his established care plans continues to be pivotal. Collaboration with specialists for comprehensive care remains a mendoza component of the patient's ongoing health strategy. Patient was informed and verbally consented to the use of an ambient scribe for clinic note documentation during this visit. I discussed the importance of rescheduling gastroenterology and ophthalmology appointments with the patient to manage dysphagia effectively and update vision care. We addressed the incidence of palliation failure with nitroglycerin, emphasizing emergency consultation if symptoms recur. I highlighted the consistent medication regimen for hyperlipidemia and reviewed his treatment adherence. Conversations included reinforcing diabetes management strategies, encouraging follow-up to monitor A1c improvements. I advised that his routine urological and cardiovascular assessments continue as scheduled. Orders: Orders Lipid Panel 4 Months E78.5 - Hyperlipidemia, unspecified Microalbumin, Random (w Creat) 4 Months R80.9 - Proteinuria, unspecified Vitamin B12 and Folate 4 Months E53.8 - Deficiency of other specified B group vitamins Uric Acid 4 Months M10.9 - Gout, unspecified Comprehensive Freedom. Panel Fast 4 Months K22.0 - Achalasia of cardia AMB Hemoglobin A1c Today E11.9 - Type 2 diabetes mellitus without complications Vitamin D 25-OH Total 4 Months E55.9 - Vitamin D deficiency, unspecified Magnesium 4 Months R25.2 - Cramp and spasm Referrals Ophthalmology Referral E11.9 - Type 2 diabetes mellitus without complications Gastroenterology Referral K22.0 - Achalasia of cardia Medications: Changed From multivitamin (Daily-Ignacia tablet) 1 tab PO DAILY To multivitamin (Daily-Ignacia tablet) 1 tab PO DAILY 90 days 90 tabs 3RF Refilled oxycodone-acetaminophen 5-325 mg 1 tab PO Q8H 30 days PRN 90 tabs 0RF pain M89.49 - Other hypertrophic osteoarthropathy, multiple sites Patient Instructions: - Schedule follow-up appointments with gastroenterology and ophthalmology. - Monitor blood glucose levels regularly; maintain diabetes medication adherence. - Continue atorvastatin and Ezetimibe for cholesterol control. - Seek emergency care for chest pain unrelieved by nitroglycerin. - Adhere to current back pain management plan with Percocet. - Follow up with urologist as per previous schedule. - Update on upcoming healthcare appointments promptly after relocation changes.
--- OUTSIDE RECORDS SUMMARY | 2024-08-23 13:24 | XMS_ITS | Clinical Summary ---
Author Organization [facility] [employer] [facility] ity Address [address] [place] [address] Care Team Providers Care Shredded Filler Machine Wrapper Layer Name Role Phone Unavailable Primary Care Provider [...]
== END 2024-08-23 12:41 | disposition home or self-care (01) ==
LOC: HO.HMCH 11:14
PROVIDERS: PCP Internal Medicine; Visit Provider Internal Medicine
DX: Z00.00 Encounter for general adult medical examination without abnormal findings (principal); I48.11 Longstanding persistent atrial fibrillation; I50.22 Chronic systolic (congestive) heart failure; E11.9 Type 2 diabetes mellitus without complications; R25.2 Cramp and spasm; K22.0 Achalasia of cardia

== ENCOUNTER 2024-10-22 12:19 | Outpatient (REF) | payer OTHER, SELFPAY ==
[2024-10-22 13:08] LABS: MANUAL DIFF FLAG NO
[2024-10-22 13:19] LABS: Basophils Percent Auto 0.4 % (0-2); Eosinophils Absolute Auto 0.3 X10*3/uL (0.0-0.4); Hematocrit 43.5 % (42.0-52.0); Hemoglobin 14.9 g/dl (14.0-18.0); Imm Gran Abs Auto 0.02 X10*3/uL (0.00-0.03); Imm Gran Pct Auto 0.3 % (0.0-0.4); Lymphocytes Absolute Auto 1.6 X10*3/uL (1.2-4.9); Lymphocytes Percent Auto 22.7 % (20-40); Mean Corpuscular HGB Conc 34.3 g/dl (31.0-36.0); Mean Corpuscular Volume 90.6 fL (80.0-98.0); Monocytes Absolute Auto 0.6 X10*3/uL (0.1-1.2); Monocytes Percent Auto 9.2 % (2-11); Neutrophils Absolute Auto 4.4 x10*3/uL (2.0-8.3); Neutrophils Percent Auto 63.4 % (45-73); Platelet Count 217 X10*3/uL (160-400)
[2024-10-22 13:37] LABS: Alanine Aminotransferase 15 U/L (0-40); Albumin Level 4.4 g/dL (3.5-5.0); Alkaline Phosphatase 75 U/L (39-117); Anion Gap 11 (12-20); Aspartate Amino Transferase 24 U/L (5-37); Bilirubin Total 0.7 mg/dL (0.0-1.0); Blood Urea Nitrogen 14 mg/dL (9-16); C Reactive Protein 0.63 mg/dL (< or = 0.50); Calcium 9.5 mg/dL (8.4-10.2); Carbon Dioxide 27 mmol/L (22-29); Chloride 105 mmol/L (96-108); Estimated Glomerular Filt Rate > 60; Glucose Random 103 mg/dL (60-115); Potassium 4.3 mmol/L (3.3-5.1); Sodium 139 mmol/L (135-145); Total Protein 7.5 g/dL (6.5-8.0)
--- OUTSIDE RECORDS SUMMARY | 2024-10-22 13:40 | XMS_ITS | Clinical Summary ---
Author Organization [facility] [employer] [facility] ity Address [address] [place] [address] Care Team Providers Care Senior Software Manager Name Role Phone Unavailable Primary Care Provider [...]
[2024-10-22 13:47] LABS: Uric Acid 6.3 mg/dL (3.4-7.0)
[2024-10-22 14:00] LABS: Erythrocyte Sedimentation Rate 14 MM/HR (0-15)
== END 2024-10-22 12:20 | disposition home or self-care (01) ==
LOC: HO.10HDL 12:19
PROVIDERS: Visit Provider Student in an Organized Health Care Education/Training Program
DX: M1A.0690 Idiopathic chronic gout, unspecified knee, without tophus (tophi) (principal)
CPT/HCPCS: 36415; 80053; 84550; 85025; 85652; 86140

== ENCOUNTER 2024-10-25 13:24 | Outpatient (AMB) | payer OTHER, SELFPAY ==
--- NOTE | 2024-10-25 13:25 | A.OFFVIS_ITS ---
Vital Signs 10/25/24 13:30 Height 5 ft 9 in Weight 175 lb 0.752 oz BMI 25.8 BP 122/70 Blood Pressure Location Lt brachial Position Sitting Pulse 68 Pulse Source Pulse Oximeter Pulse Oximetry (%) 96 Oxygen Delivery Method Room Air Intake Visit Reasons: Gout Intake Note: Patient presents for Gout follow up. Electrophysiology Technician Required: Yes Electrophysiology Technician Language: Glue Wheel Operator Services: Electrophysiology Technician Present Electrophysiology Technician Name: Daniel [id number] Information Interpreted: non-clinical & clinical Allergies No Known Allergies (No Known Allergies*) Allergy (Verified 10/25/24 13:29) Medication List - Last Reconciled 10/25/24 by Cailin Hernandes MD allopurinol 450 mg (1.5 x 300 mg) PO DAILY 90 days atorvastatin 80 mg PO DAILY 90 days blood sugar diagnostic (FreeStyle Test strips) Use 1 test strip 3 times per days directed blood-glucose meter (FreeStyle Lite Meter kit) Test Daily cane As directed cholecalciferol (vitamin D3) 50 mcg PO DAILY 90 days clotrimazole-betamethasone 1-0.05 % 1 appl topical BID 30 days colchicine 0.6 mg PO DAILY 90 days dextromethorphan polistirex ER (12-Hour Cough Relief) 10 mL PO Q12H PRN 7 days [diabetic shoes with 3 inserts diabetic shoes with 3 inserts] diclofenac sodium 1% 4 grams topical QID 30 days eplerenone 25 mg PO DAILY 90 days ezetimibe 10 mg PO DAILY gabapentin 400 mg PO TID 90 days lancets (Acti-Ambrocio Lancets) As directed loratadine (Allergy Relief (loratadine)) 10 mg PO DAILY 90 days metformin 1,000 mg (2 x 500 mg) PO BID 90 days metoprolol succinate ER 25 mg PO DAILY 90 days multivitamin (One Daily Multivitamin tablet) 1 tab PO DAILY multivitamin (Daily-Ignacia tablet) 1 tab PO DAILY 90 days nitroglycerin 0.4 mg sublingual ONCE PRN 30 days omeprazole 20 mg PO BID 90 days oxycodone-acetaminophen 5-325 mg 1 tab PO Q8H PRN 30 days rivaroxaban (Xarelto) 20 mg PO QPM 90 days sacubitril-valsartan 24-26 mg (Entresto) 1 tab PO BID 30 days sucralfate 1 g PO QID 30 days tamsulosin 0.4 mg PO DAILY 30 days temazepam 30 mg PO BEDTIME PRN 30 days [wipes As directed] zolpidem 10 mg PO BEDTIME PRN 30 days HPI Comments Details: Patient is a 78-year-old male with hypertension, hyperlipidemia, diabetes, atrial fibrillation on Xarelto, GERD on omeprazole, heart failure with reduced ejection fraction and BPH who presents for follow up of non crystal proven non tophaceous gout Interval History: Patient last seen 06/29/24 with me. At that time he was following up for his gout. Had a transient gout flare involving his left knee. Also had right lateral shoulder pain. He received a steroid injection to his subacromial bursa Today, Reports that the right shoulder improved but pain returned No further gout flares gets swelling to his left knee intermittently Rheumatologic History: Diagnosed with gout based on elevated uric acid and recurrent monoarticular arthritis. Has primary osteoarthritis involving the knees and hands Current Rheumatology Medication(s): Allopurinol 450 mg daily Colchicine 0.6 mg p.r.n. [facility] Medical History (Updated 08/23/24 @ 12:40 by Tatiana Stokes MD) Physical exam Acute cholecystitis Neck sprain Right knee pain Right shoulder pain UTI (urinary tract infection), uncomplicated Arthritis Leukocytosis Prostate cancer Lower urinary tract symptoms Left breast lump Abdominal pain CHF (congestive heart failure) Pure hypercholesterolemia Herpes zoster Chronic anticoagulation Atrial fibrillation Gout Essential hypertension Diabetes mellitus Lumbar degenerative disc disease Primary insomnia Surgical History History of laparoscopic cholecystectomy History of colonoscopy History of cardiac catheterization History of prostate surgery Family History Father Diabetes Mother Cancer Son Diabetes Brother Prostate CA Social History Household Members: Spouse and Children Housing: House Do you presently have visiting nurse or other home services: No ( takes care of him) Alcohol intake: never Comment: tele Patient Tobacco Use Status: Former Tobacco user Tobacco use type: Cigarette e-Cigarette/Vaping Use: Never Used Second Hand Smoke Exposure: No service: No Current occupational status: disabled Current occupation: right hand Cognitive needs: Yes Hearing needs: No Vision needs: Yes Review of Systems Const Details: Review of Systems Constitutional: Denies fever, chills, weight loss ENT: Denies vision changes, eye pain or eye redness, dental caries, dry mouth GI: Denies nausea, vomiting, diarrhea, abdominal pain, change in BM Pulm: Denies SOB, POWELL, hemoptysis, wheezing Cards: Denies chest pain, palpitations Skin: Denies Raynaud's, rash, nail changes, photosensitivity, GPS FIELD DATA COLLECTOR: Denies headaches, weakness, paresthesias, recurrent falls MSK: as per HPI All other systems reviewed and are unremarkable except noted above Physical Exam Vital Signs: Last Vital Signs Pulse 68 10/25/24 13:30 BP 122/70 10/25/24 13:30 Pulse Ox 96 10/25/24 13:30 Oxygen Delivery Method Room Air 10/25/24 13:30 BMI result Body Mass Index 25.8 Vital signs reviewed Physical Examination CONSTITUITIONAL Patient alert and cooperative. Well appearing and in no apparent painful distress HEENT Conjunctiva and sclera clear. ?Pupils equal round and reactive to light. ?No lymphadenopathy. No tophi noted to the ears CHEST/RESPIRATORY SYSTEM Normal respiratory effort and able to speak in complete sentences. ?Clear to auscultation bilaterally. ?No crackles, rales, rhonchi, wheezes heard. CARDIAC SYSTEM Irregularly irregular rhythm. MSK Hands: No synovitis noted to the MCPs, PIPs or DIPs. ?No tenderness to palpation of these joints. Wrists: ?Full range of motion at the wrists without pain. ?No tenderness to palpation or synovitis noted to the wrists. Elbows: Full range of motion without pain. No tenderness, weakness, swelling, increased warmth or erythema. Shoulders: Right shoulder with reduced range of motion to active and passive movement secondary to pain. Tenderness to palpation of the subacromial bursa on the right. No tenderness to palpation of subacromial bursa on the left but full range of motion to active and passive movement. Knees: ?Full range of motion. ?No tenderness, swelling, increased warmth or erythema.? Crepitations noted bilaterally. Mild effusion noted to the left Ankles: Full range of motion. ?No tenderness, swelling, increased warmth or erythema.? Feet: ?Negative squeeze test. ?No tenderness to palpation or swelling of the MTPs. SKIN Skin intact without rashes. Office Procedures AMB Joint Injection/Aspiration Joint Injection/Aspiration Details: Procedure was explained to the patient and informed consent was obtained. ? Risks associated with the procedure were discussed with the patient including but not limited to bleeding, infection, drug reactions and reactions to the topical anesthetic. Patient made aware of signs to look out for infectious complications. The area of interest was identified and confirmed with patient. ?This was subsequently cleaned with chlorhexidine x3. ? The area was then anesthetized using ethyl chloride spray. 40 mg Kenalog with 1 cc 1% lidocaine was injected without issue. ?Minimal to no bleeding. ?Patient tolerated procedure. Primary Site: right shoulder Prep: site was prepped using aseptic technique and ethochloride spray was applied Injected: 40 mg of, Kenalog, with 1 mL of and 1% plain lidocaine Approach Used: other Procedure: The patient tolerated the procedure well Coding 52177 - Large joint Procedure code (CPT) selection complete Office Meds lidocaine (PF) 10 mg/mL (1 %) injection solution Performing Provider: Cailin Hernandes MD Performing Location: [facility] Rheumatology Administered by: Cailin Hernandes MD on 10/25/24 14:06 Dose Route Admin Location Dispensed Lot Number Expiration Date [facility] General Machine Operator 1 mL Infiltration right shoulder bursa 2 mL [id number] 06/30/26 07692 -[id number] [employer] Total Dispensed Waste 2 mL 50 % Kenalog 40 mg/mL suspension for injection Performing Provider: Cailin Hernandes MD Performing Location: [facility] [place] Rheumatology Administered by: Cailin Hernandes MD on 10/25/24 14:06 Dose Route Admin Location Dispensed Lot Number Expiration Date [facility] General Machine Operator 40 mg intrabursal right subacromial bursa 1 mL [id number] 07/31/25 81 [id number] [employer] Total Dispensed Waste 1 mL 0 % Results Reviewed Results Reviewed: Laboratory Tests 08/23/24 10/22/24 10:54 12:22 WBC 7.0 RBC 4.80 Hgb 14.9 Hct 43.5 Plt Count 217 ESR 14 Sodium 139 Potassium 4.3 Chloride 105 Carbon Dioxide 27 BUN 14 Creatinine 1.15 Uric Acid 7.4 H 6.3 AST 24 ALT 15 Alkaline Phosphatase 75 C-Reactive Protein 0.83 H 0.63 H Assessment & Plan Assessment & Plan (1) Gout: Code(s): M10.9 - Gout, unspecified Category: Medical Qualifiers: Gout site: knee Gout etiology: idiopathic Chronicity: chronic Laterality: unspecified laterality Presence of tophus: without tophus Qualified Code(s): M1A.689 - Idiopathic chronic gout, unspecified knee, without tophus (tophi) Plan: #Non crystal proven non tophaceous gout Patient is a 78-year-old male with non crystal proven non tophaceous gout here today for follow up. Uric acid improved on 450 of allopurinol but not at goal. Plan - Increase allopurinol to 600mg daily - Continue colchicine 0.6 mg daily for gout prophylaxis - RTC 4 months - Labs before visit: CBC, CMP, ESR, CRP, UA (2) Primary osteoarthritis involving multiple joints: Code(s): M89.49 - Other hypertrophic osteoarthropathy, multiple sites Category: Medical Plan: #Polyarticular OA Left knee effusion likely 2/2 OA Check Knee XRs (3) Subacromial bursitis of right shoulder joint: Code(s): M75.51 - Bursitis of right shoulder Plan: #Right subacromial bursitis Patient with right subacromial bursitis status post steroid injection today Send to PT for right shoulder (4) Encounter for monitoring allopurinol therapy: Code(s): Z51.81 - Encounter for therapeutic drug level monitoring; Z79.899 - Other loan servicing specialist (current) drug therapy Plan: #Long-term Current Use of Allopurinol Risks and benefits of allopurinol discussed with patient Benefits include decreased gout flares, remission of gout and reduction of tophi Risks include allopurinol hypersensitivity syndrome which is a severe cutaneous adverse reaction associated with allopurinol use particularly in patients who are HLA B*5801 positive, increased transaminases, GI upset including diarrhea, nausea and vomiting, and other dermatologic manifestations. Plan I spent 30 minutes reviewing the record and labs, seeing the patient, discussing the treatment plan and documenting in the medical record Orders: Orders Comprehensive Met. Panel 4 Months M1 - Idiopathic chronic gout, unspecified knee, without tophus (tophi) XR knee RT 3V Today M89.49 - Other hypertrophic osteoarthropathy, multiple sites PT Evaluation and Treatment Today M25.511 - Pain in right shoulder Complete Blood Count Auto Diff 4 Months - Idiopathic chronic gout, unspecified knee, without tophus (tophi) C Reactive Protein 4 Months M1 - Idiopathic chronic gout, unspecified knee, without tophus (tophi) Erythrocyte Sedimentation Rate 4 Months M1 - Idiopathic chronic gout, unspecified knee, without tophus (tophi) Uric Acid 4 Months M1 - Idiopathic chronic gout, unspecified knee, without tophus (tophi) XR knee LT 3V Today M89.49 - Other hypertrophic osteoarthropathy, multiple sites AMB Joint Injection/Aspiration Today M75.51 - Bursitis of right shoulder Medications: Changed From allopurinol 450 mg (1.5 x 300 mg) PO DAILY 90 days 135 tabs 1RF - Idiopathic chronic gout, unspecified knee, without tophus (tophi) To allopurinol 600 mg (2 x 300 mg) PO DAILY 180 tabs 1RF 90 days M1 - Idiopathic chronic gout, unspecified knee, without tophus (tophi) Coding Level of Care Code Est Pt Level 4 (47295) Complex EM visit Add On G2211 Diagnoses 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, unspecified laterality Gout site: knee Gout etiology: idiopathic Chronicity: chronic Laterality: unspecified laterality Presence of tophus: without tophus Primary osteoarthritis involving multiple joints M89.49 Subacromial bursitis of right shoulder joint M75.51 Encounter for monitoring allopurinol therapy Z51.81; Z79.899 CPT Codes Coding - 06676 Large joint: 36363 - Large joint ([id number])
[2024-10-25 13:30] VITALS: BP 122/70; PULSE 68; O2SAT 96; BMI 25.8
== END 2024-10-25 14:07 | disposition home or self-care (01) ==
LOC: HO.RHE 13:24
PROVIDERS: PCP Internal Medicine; Visit Provider Student in an Organized Health Care Education/Training Program
DX: M89.49 Other hypertrophic osteoarthropathy, multiple sites (principal); M1A.09X0 Idiopathic chronic gout, multiple sites, without tophus (tophi); M75.51 Bursitis of right shoulder; Z51.81 Encounter for therapeutic drug level monitoring; Z79.899 Other long term (current) drug therapy
CPT/HCPCS: 20610; 99214

== ENCOUNTER → 2024-10-25 13:24 | Outpatient (BNVA) | payer OTHER, SELFPAY | PROVIDERS: PCP Internal Medicine; Visit Provider Student in an Organized Health Care Education/Training Program | DX: M1A.0610 Idiopathic chronic gout, right knee, without tophus (tophi) (principal); M1A.0690 Idiopathic chronic gout, unspecified knee, without tophus (tophi); M47.816 Spondylosis without myelopathy or radiculopathy, lumbar region; M89.49 Other hypertrophic osteoarthropathy, multiple sites; M75.51 Bursitis of right shoulder; Z51.81 Encounter for therapeutic drug level monitoring; Z79.899 Other long term (current) drug therapy | CPT/HCPCS: 20610; 99212; J3300 ==

== ENCOUNTER 2024-12-05 14:36 | Outpatient (AMB) | payer OTHER, SELFPAY ==
[2024-12-05 14:39] VITALS: BP 126/76; PULSE 68; TEMP 36.7; O2SAT 100; BMI 25.4
--- NOTE | 2024-12-05 14:39 | MHC.OFFWIV ---
Intake Vital Signs 12/05/24 14:39 Height 5 ft 9 in Weight 172 lb 4 oz BMI 25.4 BP 126/76 Blood Pressure Location Lt brachial Position Sitting Pulse 68 Temp 98.0 F Temp Source Oral Pulse Oximetry (%) 100 Oxygen Delivery Method Room Air Intake Visit Reasons: EP-lt side chest lump Patient Tobacco Use Status: Former Tobacco user Supervisor Finishing Department Required: No Allergies No Known Allergies (No Known Allergies*) Allergy (Verified 12/05/24 14:48) Medication List - Last Reconciled 12/05/24 by Ashok Ritchie MD allopurinol 600 mg (2 x 300 mg) PO DAILY 90 days atorvastatin 80 mg PO DAILY 90 days blood sugar diagnostic (FreeStyle Test strips) Use 1 test strip 3 times per days directed blood-glucose meter (FreeStyle Lite Meter kit) Test Daily cane As directed cholecalciferol (vitamin D3) 50 mcg PO DAILY 90 days clotrimazole-betamethasone 1-0.05 % 1 appl topical BID 30 days colchicine 0.6 mg PO DAILY 90 days dextromethorphan polistirex ER (12-Hour Cough Relief) 10 mL PO Q12H PRN 7 days [diabetic shoes with 3 inserts diabetic shoes with 3 inserts] diclofenac sodium 1% 4 grams topical QID 30 days eplerenone 25 mg PO DAILY 90 days ezetimibe 10 mg PO DAILY gabapentin 400 mg PO TID 90 days lancets (Acti-Ambrocio Lancets) As directed loratadine (Allergy Relief (loratadine)) 10 mg PO DAILY 90 days metformin 1,000 mg (2 x 500 mg) PO BID 90 days metoprolol succinate ER 25 mg PO DAILY 90 days multivitamin (One Daily Multivitamin tablet) 1 tab PO DAILY nitroglycerin 0.4 mg sublingual ONCE PRN 30 days omeprazole 20 mg PO BID 90 days oxycodone-acetaminophen 5-325 mg 1 tab PO Q8H PRN 30 days rivaroxaban (Xarelto) 20 mg PO QPM 90 days sacubitril-valsartan 24-26 mg (Entresto) 1 tab PO BID 30 days sucralfate 1 g PO QID 30 days tamsulosin 0.4 mg PO DAILY 30 days temazepam 30 mg PO BEDTIME PRN 30 days [wipes As directed] zolpidem 10 mg PO BEDTIME PRN 30 days Do you need a note to return to daycare/school/sports/work: No HPI EP-lt side chest lump HPI Details Chief Complaint The patient presents with a lump on the left side of the chest. History of Present Illness The patient is a 78-year-old male presenting with a subcutaneous chest mass. Subcutaneous chest mass: - Onset approximately three weeks ago. - Initially larger and progressively decreasing in size. - Noticed by the patient's spouse during sleep. - No associated pain, nausea, vomiting, or eating difficulties. - Currently asymptomatic with regard to other symptoms. Social History: - The patient is living with family members who are attentive to his health. Problem List - Subcutaneous chest mass , most likely lipoma of chest wall Patient Instructions - Monitor the size and appearance of the lump. - If it enlarges again, consider medical re-evaluation. - Continue observing dietary habits and watch for any emergence of symptoms. - Attend the scheduled appointment with the healthcare provider for further evaluation. Review of Systems - General: No fever no chills - Neurological: No headaches no dizziness - Ear nose throat: No sore throat no hearing difficulty no ear pain - Cardiovascular: No syncope, no chest pain, no palpitations - Gastrointestinal: No nausea vomiting or diarrhea Physical Exam General: No acute distress HEENT: No acute findings Neck: Supple Respiratory system: Able to talk in full sentences Chest: Left side mid clavicular line soft lump size of 1 in x 2 in nontender to palpation superficial Gastrointestinal: No pain SLIVER CHOPPER: Alert awake oriented x3 motor sensory intact PFSH Medical History Physical exam Acute cholecystitis Neck sprain Right knee pain Right shoulder pain UTI (urinary tract infection), uncomplicated Arthritis Leukocytosis Prostate cancer Lower urinary tract symptoms Left breast lump Abdominal pain CHF (congestive heart failure) Pure hypercholesterolemia Herpes zoster Chronic anticoagulation Atrial fibrillation Gout Essential hypertension Diabetes mellitus Lumbar degenerative disc disease Primary insomnia Surgical History History of laparoscopic cholecystectomy History of colonoscopy History of cardiac catheterization History of prostate surgery Family History Father Diabetes Mother Cancer Son Diabetes Brother Prostate CA Social History Household Members: Spouse and Children Housing: House Do you presently have visiting nurse or other home services: No ( takes care of him) Alcohol intake: never Comment: tele Patient Tobacco Use Status: Former Tobacco user Tobacco use type: Cigarette e-Cigarette/Vaping Use: Never Used Second Hand Smoke Exposure: No service: No Current occupational status: disabled Current occupation: right hand Cognitive needs: Yes Hearing needs: No Vision needs: Yes Physical Exam Vital Signs: Last Vital Signs Temp 98.0 F 12/05/24 14:39 Pulse 68 12/05/24 14:39 BP 126/76 12/05/24 14:39 Pulse Ox 100 12/05/24 14:39 Oxygen Delivery Method Room Air 12/05/24 14:39 BMI result Body Mass Index 25.4 Assessment & Plan Assessment & Plan (1) Lipoma of chest wall: Code(s): D17.1 - Benign lipomatous neoplasm of skin and subcutaneous tissue of trunk Plan Chief Complaint The patient presents with a lump on the left side of the chest. History of Present Illness The patient is a 78-year-old male presenting with a subcutaneous chest mass. Subcutaneous chest mass: - Onset approximately three weeks ago. - Initially larger and progressively decreasing in size. - Noticed by the patient's spouse during sleep. - No associated pain, nausea, vomiting, or eating difficulties. - Currently asymptomatic with regard to other symptoms. Social History: - The patient is living with family members who are attentive to his health. Problem List - Subcutaneous chest mass , most likely lipoma of chest wall Patient Instructions - Monitor the size and appearance of the lump. - If it enlarges again, consider medical re-evaluation. - Continue observing dietary habits and watch for any emergence of symptoms. - Attend the scheduled appointment with the healthcare provider for further evaluation. Coding Level of Care Code Est Pt Level 3 (84942) Diagnoses Lipoma of chest wall D17.1
--- OUTSIDE RECORDS SUMMARY | 2024-12-05 15:01 | XMS_ITS | Encounter Summary ---
Author Organization [facility] Address [address] [facility] [address] [place] [phone] Phone Care Team Providers Care Brick Sorter Name Role Phone Tatiana Gordon MD Primary Care Provid er Encounter Details Date Type Department Care Team (Late st Contact Info) Description 07/09/2022 Procedure Pass [facility] Cardiac US [address] [place] [address] Social History Tobacco Use Types Packs/Day Years Used Date Smoking Tobacco: Former Smokeless Tobacco: Never Alcohol Use Standard Drinks/Week Comments No 0 (1 standard drink = 0.6 oz pur e alcohol) Sex and Gender Information Value Date Recorded Sex Assigned at Not on file Legal Sex Male 6:35 PM EDT Gender Identity Not on file Sexual Orientation Not on file documented as of this encounter Functional Status * Patient is deaf or has serious difficulty with hearing Answer Date of Assessment Author No 01/14/2016 10:17 AM Ania Goldsmith NP * 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 with seeing, even when wearing glasses Answer Date of Assessment Author No 01/14/2016 10:17 AM Ania Goldsmith NP * Patient has serious difficulty walking or climbing stairs (5yr old or older) Answer Date of Assessment Author No 01/14/2016 10:17 AM Ania Goldsmith NP * Patient has serious difficulty dressing or bathing (5yr old or older) Answer Date of Assessment Author No 01/14/2016 10:17 AM EDT Ania Manuel NP * Patient has serious difficulty doing errands alone such as visiting a doctor???s office or shopping, due to physical, mental, or emotional condition (15 years old or older) Answer Date of Assessment Author No 01/14/2016 10:17 AM EDT Ania Manuel NP documented as of this encounter Mental Status * Patient has serious difficulty concentrating, remembering, or making decisions due to physical, mental, or emotional condition Answer Entry Date Author No 01/14/2016 10:17 AM EDT Ania Manuel NP documented in this encounter Plan of Treatment Upcoming Encounters Date Type Department Care Team (Late st Contact Info) Description 10/31/2024 Procedure Pass [facility] Cardiac [address] [address] 11/06/2025 11:30 AM EDT Appointment [facility] Cardiac US [address] [place] [id number] Scottie Witt MD [address] [place] [id number] [email or web address] 11/06/2025 1:00 PM EDT Office Visit [facility] Cardiovascular Medicine [address] [place] [address], [address], [address] [place] [address] Arminda Milian FNP [address] [place] [address] [email or web address] documented as of this encounter Visit Diagnoses Not on filedocumented in this encounter Care Teams Brick Sorter Relationship Specialty Start Date End Date Tatiana Gordon MD [address] [place] [phone] PCP - General Internal Medicine 12/25/21 documented as of this encounter Additional Source Comments The information contained in this document represents components of the legal health record. It is not the complete legal health record.[facility]
--- OUTSIDE RECORDS SUMMARY | 2024-12-05 15:01 | XMS_ITS | Clinical Summary ---
Author Organization [facility] ity Address [address] [place] [address] Care Team Providers Care Faculty Administrator Name Role Phone Unavailable Primary Care Provider [...] - 1-dose 75+ series) 2020 COVID-19 Vaccine (1 - 2023-2 5 season) 2024 Depression Screening 05/02/2024 Influenza Vaccine (#1) 2024 HIB Vaccines Aged [...]
== END 2024-12-05 15:24 | disposition home or self-care (01) ==
PROVIDERS: PCP Internal Medicine; Visit Provider Internal Medicine
DX: D17.1 Benign lipomatous neoplasm of skin and subcutaneous tissue of trunk (principal)

== ENCOUNTER → 2024-12-05 14:36 | Outpatient (BNVA) | payer OTHER, SELFPAY | PROVIDERS: PCP Internal Medicine; Visit Provider Internal Medicine | DX: D17.1 Benign lipomatous neoplasm of skin and subcutaneous tissue of trunk (principal) | CPT/HCPCS: 99212 ==

== ENCOUNTER 2025-03-25 11:48 | Outpatient (REF) | payer OTHER, SELFPAY ==
[2025-03-25 14:34] LABS: Folate 15.9 ng/mL (> or = 4.0); Vitamin B12 224 pg/mL (200-900)
--- OUTSIDE RECORDS SUMMARY | 2025-03-25 15:45 | XMS_ITS | Encounter Summary ---
Author Organization [employer] [facility] Address [address] [facility] [address] [place] [address] Phone Care Team Providers Care Feller Machine Operator Name Role Phone Pk Mercado MD Unavailable [phone] García Milligan MD Primary Care Provi aster Tatiana Gordon MD Primary Care Provid er Unknown, Unknown Primary Care Provider Tatiana Curry MD Primary Care Provid er Encounter Details Date Type Department Care Team (Late st Contact Info) Description 01/12/2016 Procedure Pass [facility] [place], [address] [facility], 2nd [place] [address] Social History Tobacco Use Types Packs/Day Years Used Date Smoking Tobacco: Never Smokeless Tobacco: Never Sex and Gender Information Value Date Recorded Sex Assigned at Not on file Legal Sex Male 6:35 PM EDT Gender Identity Not on file Sexual Orientation Not on file documented as of this encounter Plan of Treatment Upcoming Encounters Date Type Department Care Team (Late st Contact Info) Description 10/31/2024 Procedure Pass [facility] Card[facility] US [address] [place] [address] 11/06/2025 11:30 AM EDT Appointment [facility] US [address] [place] [address] Scottie Witt MD [address] [facility] [address] [place] [address] [email or web address] 11/06/2025 1:00 PM EDT Office Visit [facility] Medicine [address] [facility], 5th Floor, [address] [place] [address] Arminda Milian FNP [address] [place] [address] [email or web address] documented as of this encounter Visit Diagnoses Not on filedocumented in this encounter Additional Health Concerns Infection Onset Date Last Indicated Resolved Time CoV-Risk Comment:Per note documentation 08/23/2020 08/23/2020 12:02 AM EDT documented as of this encounter Care Teams Feller Machine Operator Relationship Specialty Start Date End Date García Milligan MD [address] [place] [address] [email or web address] PCP - General Internal Medicine 01/09/16 Tatiana Gordon MD [address] [place] [address] PCP - General Internal Medicine 06/27/17 06/11/21 Unknown, Unknown, PCP - General 06/18/21 12/24/21 Tatiana Gordon MD [address] [place] [address] PCP - General Internal Medicine 12/25/21 Pk Mercado MD [address] [place] [phone] (work) [email or web address] 10/30/1312/31 documented as of this encounter Additional Source Comments The information contained in this document represents components of the legal health record. It is not the complete legal health record.[facility]
--- OUTSIDE RECORDS SUMMARY | 2025-03-25 15:45 | XMS_ITS | Encounter Summary ---
Author Organization [employer] [facility] Address [address] [facility] [address] [place] [address] Phone Care Team Providers Care Internet Manager Name Role Phone Tatiana Gordon MD Primary Care Provid er Encounter Details Date Type Department Care Team (Late st Contact Info) Description 12/25/2021 Procedure Pass [facility] [place] [place] [address] [place] [address] Social History Tobacco Use Types Packs/Day Years [...] st Contact Info) Description 10/31/2024 Procedure Pass [facility] [place] [address] [address] 11/06/2025 11:30 AM EDT Appointment [facility] [place] [address] [place] [address] Scottie Witt MD [address] [place] [address] [email or web address] 11/06/2025 1:00 PM EDT Office Visit [facility] [place] [address] [place] [address], 5th Floor, [address] [place] [address] Arminda Milian FNP [address] [place] [address] [email or web address] documented as of this encounter Visit Diagnoses Not on filedocumented in this encounter Care Teams Internet Manager Relationship Specialty Start Date End Date Tatiana Gordon MD [address] [place] [address] PCP - General Internal Medicine 12/25/21 documented as of this encounter Additional Source Comments The information contained in this document represents components of the legal health record. It is not the complete legal health record.[facility]
--- OUTSIDE RECORDS SUMMARY | 2025-03-25 15:45 | XMS_ITS | Encounter Summary ---
Author Organization [employer] [facility] Address [address] [employer] [facility] [address] [place] [address] Phone Care Team Providers Care Embedded Systems Designer Name Role Phone Tatiana Gordon MD Primary Care Provid er Encounter Details Date Type Department Care Team (Late st Contact Info) Description 07/09/2022 Procedure [place] [facility] [place] [address] [place] [address] Social History Tobacco Use Types Packs/Day Years [...] st Contact Info) Description 10/31/2024 Procedure [place] [facility] [place] [address] [address] 11/06/2025 11:30 AM EDT Appointment [facility] [place] US [address] [place] [address] Scottie Witt MD [address] [place] [address] [email or web address] 11/06/2025 1:00 PM EDT Office Visit [facility] [place] [address] [place] [address], 5th Floor, [address] [place] [address] Arminda Milian FNP [address] [place] [address] [email or web address] documented as of this encounter Visit Diagnoses Not on filedocumented in this encounter Care Teams Embedded Systems Designer Relationship Specialty Start Date End Date Tatiana Gordon MD [address] [place] [address] PCP - General Internal Medicine 12/25/21 documented as of this encounter Additional Source Comments The information contained in this document represents components of the legal health record. It is not the complete legal health record.[facility]
--- OUTSIDE RECORDS SUMMARY | 2025-03-25 15:45 | XMS_ITS | Encounter Summary ---
Author Organization [employer] [facility] [facility] Address [address] [place] [address] Phone Care Team Providers Care Senior Ui Ux Designer Name Role Phone Unknown, Unknown Primary Care Provider Tatiana Curry MD Primary Care Provid er Reason for Visit * Reason Comments Medication Refill Encounter Details Date Type Department Care Team (Late st Contact Info) Description 11/16/2021 Refill [facility] [place] & [place] [address] [facility], 5th Floor, [address] [place] [address] Jesusita Tellez MD [email or web address] Medication Refill Social History Tobacco Use Types Packs/Day Years [...] AM EDT Ania Manuel NP * 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 with seeing, even when wearing glasses Answer Date of Assessment Author No 01/14/2016 10:17 AM EDT Ania Manuel NP * Patient has serious difficulty walking or climbing stairs (5yr old or older) Answer Date of Assessment Author No 01/14/2016 10:17 AM EDT Ania Manuel NP * Patient has serious difficulty dressing [...] st Contact Info) Description 10/31/2024 Procedure Pass [facility] [place] US [address] [place] [address] 11/06/2025 11:30 AM EDT Appointment [facility] [place] [address] [place] [address] Scottie Witt MD [address] [place] [address] [email or web address] 11/06/2025 1:00 PM EDT Office Visit [facility] [place]ovascular [place] [address] [place] [address], 5th Floor, [address] [place] [address] Arminda Milian FNP [address] [place] [address] [email or web address] documented as of this encounter Visit Diagnoses Not on filedocumented in this encounter Care Teams Senior Ui Ux Designer Relationship Specialty Start Date End Date Unknown, Unknown, PCP - General 06/18/21 12/24/21 Tatiana Gordon MD [address] [place] [address] PCP - General Internal Medicine 12/25/21 documented as of this encounter Additional Source Comments The information contained in this document represents components of the legal health record. It is not the complete legal health record.[facility]
--- OUTSIDE RECORDS SUMMARY | 2025-03-25 15:45 | XMS_ITS | Encounter Summary ---
Author Organization [employer] [facility] Address [address] [place] [address] Phone Care Team Providers Care Oil Refinery Operator Name Role Phone Tatiana Gordno MD Primary Care Provid er Reason for Visit * Reason Comments Medication Refill Encounter Details Date Type Department Care Team (Late st Contact Info) Description 03/03/2022 Refill [facility] Heart Failure & Transplantation [address] [facility], 5th Floor, [address] [place] [address] Jesusita Tellez MD [email or web address] Medication Refill Social History Tobacco Use Types [...] st Contact Info) Description 10/31/2024 Procedure Pass [facility] Cardiac US [address] [place] [address] 11/06/2025 11:30 AM EDT Appointment [facility] Cardiac US [address] [place] [address] Scottie Witt MD [address] [place] [address] [email or web address] 11/06/2025 1:00 PM EDT Office Visit [facility] Cardiovascular Medicine [address] [place] [address], 5th Floor, [address] [place] [address] Arminda Milian FNP [address] [place] [phone] [email or web address] documented as of this encounter Visit Diagnoses Diagnosis Congestive heart failure, unspecified HF chronicity, unspecified heart failure type documented in this encounter Care Teams Oil Refinery Operator Relationship Specialty Start Date End Date Tatiana Gordon MD [address] [place] [address] PCP - General Internal Medicine 8/26/22 documented as of this encounter Additional Source Comments The information contained in this document represents components of the legal health record. It is not the complete legal health record.[facility]
--- OUTSIDE RECORDS SUMMARY | 2025-03-25 15:46 | XMS_ITS | Encounter Summary ---
Author Organization [employer] [facility] Address [address] [place] [address] Phone Care Team Providers Care Vp Scientific Name Role Phone Unknown, Unknown Primary Care Provider Tatiana Curry MD Primary Care Provid er Reason for Visit * Reason Comments Medication Refill Encounter Details Date Type Department Care Team (Late st Contact Info) Description 11/25/2021 Refill [facility] & Transplantation [address] [facility], 5th Floor, [address] [place] [address] Jesusita Tellez MD [email or web address] Medication Refill Social History Tobacco Use [...] Contact Info) Description 10/31/2024 Procedure Pass [facility] [place] US [address] [place] [address] 11/06/2025 11:30 AM EDT Appointment [facility] [place] US [address] [place] [address] Scottie Witt MD [address] [place] [address] [email or web address] 11/06/2025 1:00 PM EDT Office Visit [facility] Cardiovascular Medicine [address] [place] [address], 5th Floor, [address] [place] [address] Arminda Milian FNP [address] [place] [address] [email or web address] documented as of this encounter Visit Diagnoses Not on filedocumented in this encounter Care Teams Vp Scientific Relationship Specialty Start Date End Date Unknown, Unknown, PCP - General 06/18/21 12/24/21 Tatiana Gordon MD [address] [place] [address] PCP - General Internal Medicine 12/25/21 documented as of this encounter Additional Source Comments The information contained in this document represents components of the legal health record. It is not the complete legal health record.[facility]
--- OUTSIDE RECORDS SUMMARY | 2025-03-25 15:46 | XMS_ITS | Encounter Summary ---
Author Organization [facility] Address [address] [facility] [address] [place] [address] Phone Care Team Providers Care Director Music Name Role Phone Tatiana Gordon MD Primary Care Provid er Unknown, Unknown Primary Care Provider Tatiana Curry MD Primary Care Provid er Encounter Details Date Type Department Care Team (Late st Contact Info) Description 02/03/2018 Procedure Pass [facility] Emergency Imaging, Main [address], Floor 1 [place] [address] Social History Tobacco Use Types Packs/Day Years [...] st Contact Info) Description 10/31/2024 Procedure Pass [facility] Cardiac [address] [address] 11/06/2025 11:30 AM EDT Appointment [facility] Cardiac US [address] [place] [address] Scottie Witt MD [address] [place] [phone] [email or web address] 11/06/2025 1:00 PM EDT Office Visit [facility] Cardiovascular Medicine [address] [place] [address], 5th Floor, [address] [place] [address] Arminda Milian FNP [address] [place] [address] [email or web address]@[email or web address] documented as of this encounter Visit Diagnoses Not on filedocumented in this encounter Additional Health Concerns Infection Onset Date Last Indicated Resolved Time CoV-Risk Comment:Per note documentation 08/23/2020 08/23/2020 12:02 AM EDT documented as of this encounter Care Teams Director Music Relationship Specialty Start Date End Date Tatiana Gordon MD [address] [place] [address] PCP - General Internal Medicine 06/27/17 06/11/21 Unknown, Unknown, MD PCP - General 06/18/21 12/24/21 Tatiana Gordon MD [address] [place] [address] PCP - General Internal Medicine 12/25/21 documented as of this encounter Additional Source Comments The information contained in this document represents components of the legal health record. It is not the complete legal health record.[facility]
--- OUTSIDE RECORDS SUMMARY | 2025-03-25 15:46 | XMS_ITS | Encounter Summary ---
Author Organization [employer] [facility] Address [address] [facility] [address] [place] [address] Phone Care Team Providers Care Color Dipper Name Role Phone Unknown, Unknown Primary Care Provider Tatiana Curry MD Primary Care Provid er Encounter Details Date Type Department Care Team (Late st Contact Info) Description 06/12/2021 Procedure Pass [facility] US [address] [place] [address] Social History Tobacco Use Types Packs/Day Years [...] Contact Info) Description 10/31/2024 [place] [facility] [place] [address] [address] 11/06/2025 11:30 AM EDT Appointment [facility] [place] US [address] [place] [address] Scottie Witt MD [address] [place] [phone] RINA@[email or web address] 11/06/2025 1:00 PM EDT Office Visit [facility] [place] [address] [place] [address], 5th Floor, [address] [place] [address] Arminda Milian FNP [address] [place] [address] [email or web address]@[email or web address] documented as of this encounter Visit Diagnoses Not on filedocumented in this encounter Care Teams Color Dipper Relationship Specialty Start Date End Date Unknown, Unknown, PCP - General 06/18/21 12/24/21 Tatiana Gordon MD [address] [place] [address] PCP - General Internal Medicine 12/25/21 documented as of this encounter Additional Source Comments The information contained in this document represents components of the legal health record. It is not the complete legal health record.[facility]
--- OUTSIDE RECORDS SUMMARY | 2025-03-25 15:46 | XMS_ITS | Encounter Summary ---
Author Organization [employer] [facility] Address [address] [place] [address] Phone Care Team Providers Care Repairer Welding Equipment Name Role Phone Tatiana Gordon MD Primary Care Provid er Unknown, Unknown Primary Care Provider Tatiana Curry MD Primary Care Provid er Encounter Details Date Type Department Care Team (Late st Contact Info) Description 12/01/2020 Procedure Pass [facility] Account Development Representative [address], [address] 9, [address] [place] [address] Social History Tobacco Use Types Packs/Day Years [...] st Contact Info) Description 10/31/2024 Procedure Pass [facility] [place] US [address] [place] [address] 11/06/2025 11:30 AM EDT Appointment [facility] [place] US [address] [place] [address] Scottie Witt MD [address] [place] [phone] [email or web address] 11/06/2025 1:00 PM EDT Office Visit [facility] Cardiovascular Medicine [address] [place] [address], 5th Floor, [address] [place] [address] Arminda Milian FNP [address] [place] [address] LADARIUS@[email or web address] documented as of this encounter Visit Diagnoses Not on filedocumented in this encounter Care Teams Repairer Welding Equipment Relationship Specialty Start Date End Date Tatiana Gordon MD [address] [place] [address] PCP - General Internal Medicine 06/27/17 06/11/21 Unknown, Unknown, PCP - General 06/18/21 12/24/21 Tatiana Gordon MD [address] [place] [address] PCP - General Internal Medicine 12/25/21 documented as of this encounter Additional Source Comments The information contained in this document represents components of the legal health record. It is not the complete legal health record.[facility]
--- OUTSIDE RECORDS SUMMARY | 2025-03-25 15:46 | XMS_ITS | Encounter Summary ---
Author Organization [employer] [facility] Address [address] [facility] [address] [place] [address] Phone Care Team Providers Care Charger Operator Helper Name Role Phone Tatiana Gordon MD Primary Care Provid er Unknown, Unknown Primary Care Provider Tatiana Curry MD Primary Care Provid er Encounter Details Date Type Department Care Team (Late st Contact Info) Description 10/10/2020 Procedure Pass [facility] PERIOPERATIVE DEPT [address] [place] [phone] Social History Tobacco Use Types Packs/Day [...] st Contact Info) Description 10/31/2024 Procedure Pass [facility] Cardiac [address] [address] 11/06/2025 11:30 AM EDT Appointment [facility] Cardiac US [address] [place] [address] Scottie Witt MD [address] [address] RINA@[email or web address] 11/06/2025 1:00 PM EDT Office Visit [facility] Cardiovascular Medicine [address] [place] [address], 5th Floor, [address] [place] [address] Arminda Milian FNP [address] [place] [address] LADARIUS@[email or web address] documented as of this encounter Visit Diagnoses Not on filedocumented in this encounter Care Teams Charger Operator Helper Relationship Specialty Start Date End Date Tatiana Gordon MD [address] [place] [address] PCP - General Internal Medicine 06/27/17 06/11/21 Unknown, Unknown, PCP - General 06/18/21 12/24/21 Tatiana Gordon MD 5 [place] [address] PCP - General Internal Medicine 12/25/21 documented as of this encounter Additional Source Comments The information contained in this document represents components of the legal health record. It is not the complete legal health record.[facility]
--- OUTSIDE RECORDS SUMMARY | 2025-03-25 15:46 | XMS_ITS | Encounter Summary ---
Author Organization [employer] [facility] Address Critical access hospital [facility] [address] [place] [address] Phone Care Team Providers Care Laboratory Monitor Name Role Phone Tatiana Gordon MD Primary Care Provid er Unknown, Unknown Primary Care Provider Tatiana Curry MD Primary Care Provid er Encounter Details Date Type Department Care Team (Late st Contact Info) Description 08/23/2020 Procedure Pass [facility] Emergency Imaging, Main [address], Floor 1 [place] [address] Social History Tobacco Use Types Packs/Day Years [...] 10:17 AM EDT Ania Manuel NP * Calculated C-SSRS Risk Score (Lifetime/Recent) Answer Date of Assessment Author No Risk Indicated 08/24/2020 5:00 AM EDT Monica Calix RN * Reagan Suicide Severity Rating Scale (Screener/Recent Self-Report) Question Answer Date of Assessment Author 1. Wish to be (Past 1 Month) No 5:00 AM EDT Monica Calix RN 2. Non-Specific Active Suici wilton Thoughts (Past 1 Month) No 08/24/2020 5:00 AM EDT Cecelia Calix RN 6. Suicidal Behavior (Lifetime) No 5:00 AM EDT Monica Calix RN documented as of this encounter Mental Status * Patient has serious difficulty concentrating, remembering, or making decisions due to physical, mental, or emotional condition Answer Entry Date Author No 01/14/2016 10:17 AM EDT Ania Manuel NP documented in this encounter Plan of Treatment Upcoming Encounters Date Type Department Care Team (Late st Contact Info) Description 10/31/2024 Procedure Pass [facility] Cardiac US [address] [place] [address] 11/06/2025 11:30 AM EDT Appointment [facility] Cardiac US [address] [place] [address] Scottie Witt MD [address] [place] [phone] [email or web address] 11/06/2025 1:00 PM EDT Office Visit [facility] Cardiovascular Medicine [address] [place] [address], 5th Floor, [address] [place] [address] Arminda Milian FNP [address] [place] [address] [email or web address] documented as of this encounter Visit Diagnoses Not on filedocumented in this encounter Additional Health Concerns Infection Onset Date Last Indicated Resolved Time CoV-Risk Comment:Per note documentation 08/23/2020 08/23/2020 12:02 AM EDT documented as of this encounter Care Teams Laboratory Monitor Relationship Specialty Start Date End Date Tatiana Gordon MD [address] [place] [address] PCP - General Internal Medicine 06/27/17 06/11/21 Unknown, Unknown, MD PCP - General 06/18/21 12/24/21 Tatiana Gordon MD [address] [place] [address] PCP - General Internal Medicine 12/25/21 documented as of this encounter Additional Source Comments The information contained in this document represents components of the legal health record. It is not the complete legal health record.[facility]
--- OUTSIDE RECORDS SUMMARY | 2025-03-25 15:46 | XMS_ITS | Encounter Summary ---
Author Organization [employer] [facility] Address [address] [place] [address] Phone Care Team Providers Care Under Trimmer Name Role Phone Unknown, Unknown Primary Care Provider Tatiana Curry MD Primary Care Provid er Reason for Visit * Reason Comments Medication Refill Encounter Details Date Type Department Care Team (Late st Contact Info) Description 11/16/2021 Refill [facility] Heart Failure & Transplantation [address] [facility], 5th Floor, [address] [place] [address] Jesusita Tellez MD [email or web address] [email or web address] Medication Refill Social History Tobacco Use Types [...] st Contact Info) Description 10/31/2024 Procedure Pass [facility] Cardiac US [address] [place] [address] 11/06/2025 11:30 AM EDT Appointment [facility] Cardiac US [address] [place] [address] Scottie Witt MD [address] [place] [address] RINA@[email or web address] 11/06/2025 1:00 PM EDT Office Visit [facility] Cardiovascular Medicine [address] [place] [address], 5th Floor, [address] [place] [address] Arminda Milian FNP [address] [place] [address] LADARIUS@[email or web address] documented as of this encounter Visit Diagnoses Not on filedocumented in this encounter Care Teams Under Trimmer Relationship Specialty Start Date End Date Unknown, Unknown, PCP - General 06/18/21 12/24/21 Tatiana Gordon MD [address] [place] [address] PCP - General Internal Medicine 12/25/21 documented as of this encounter Additional Source Comments The information contained in this document represents components of the legal health record. It is not the complete legal health record.[facility]
--- OUTSIDE RECORDS SUMMARY | 2025-03-25 15:46 | XMS_ITS | Encounter Summary ---
Author Organization [facility] Address [facility] [employer] [facility] [address] [place] [address] Phone Care Team Providers Care Classification Analyst Name Role Phone Tatiana Gordon MD Primary Care Provid er Unknown, Unknown Primary Care Provider Tatiana Curry MD Primary Care Provid er Encounter Details Date Type Department Care Team (Late st Contact Info) Description 07/25/2017 Procedure Pass [facility] Emergency Imaging, Main [address], Floor 1 [place] [address] Social History Tobacco Use Types Packs/Day Years [...] Assessment Author No 01/14/2016 10:17 AM EDT nAia Manuel NP * Patient has serious difficulty [...] st Contact Info) Description 10/31/2024 Procedure Pass [facility] Cardiac [address] [address] 11/06/2025 11:30 AM EDT Appointment [facility] Cardiac US [address] [place] [address] Scottie Witt MD [address] [place] [phone] [email or web address] 11/06/2025 1:00 PM EDT Office Visit [facility] Cardiovascular Medicine [address] [place] [address], 5th Floor, [address] [place] [address] Arminda Milian FNP [address] [place] [address] LADARIUS@[email or web address] documented as of this encounter Visit Diagnoses Not on filedocumented in this encounter Additional Health Concerns Infection Onset Date Last Indicated Resolved Time CoV-Risk Comment:Per note documentation 08/23/2020 08/23/2020 12:02 AM EDT documented as of this encounter Care Teams Classification Analyst Relationship Specialty Start Date End Date Tatiana Gordon MD [address] [place] [address] PCP - General Internal Medicine 06/27/17 06/11/21 Unknown, Unknown, MD PCP - General 06/18/21 12/24/21 Tatiana Gordon MD [address] [place] [address] PCP - General Internal Medicine 12/25/21 documented as of this encounter Additional Source Comments The information contained in this document represents components of the legal health record. It is not the complete legal health record.[facility]
[2025-03-25 15:47] LABS: Alanine Aminotransferase 16 U/L (0-40); Albumin Level 4.6 g/dL (3.5-5.0); Alkaline Phosphatase 92 U/L (39-117); Anion Gap 14 (12-20); Aspartate Amino Transferase 38 U/L (5-37); Blood Urea Nitrogen 12 mg/dL (9-16); Calcium 9.6 mg/dL (8.4-10.2); Carbon Dioxide 25 mmol/L (22-29); Chloride 104 mmol/L (96-108); Cholesterol 203 mg/dL (<200); Estimated Glomerular Filt Rate > 60; HDL Cholesterol 45 mg/dL (>40); Magnesium 1.9 mg/dL (1.6-2.6); Potassium 4.4 mmol/L (3.3-5.1); Sodium 139 mmol/L (135-145); Total Protein 8.0 g/dL (6.5-8.0); Triglycerides 225 mg/dL (<150); Uric Acid 7.3 mg/dL (3.4-7.0)
--- OUTSIDE RECORDS SUMMARY | 2025-03-25 15:47 | XMS_ITS | Encounter Summary ---
Author Organization [employer] [facility] Address [facility] [address] [place] [address] Phone Care Team Providers Care Form Tamping Machine Operator Name Role Phone Tatiana Gordon MD Primary Care Provid er Unknown, Unknown Primary Care Provider Tatiana Curry MD Primary Care Provid er Encounter Details Date Type Department Care Team (Late st Contact Info) Description 07/18/2020 Procedure Pass [facility] [address] [facility], 6th [place] [address] Social History Tobacco Use Types Packs/Day Years [...] st Contact Info) Description 10/31/2024 Procedure Pass [facility] Cardiac US [address] [place] [address] 11/06/2025 11:30 AM EDT Appointment [facility] Cardiac US [address] [place] [address] Scottie Witt MD [address] [place] [phone] [email or web address] 11/06/2025 1:00 PM EDT Office Visit [facility] Cardiovascular Medicine [address] [place] [address], 5th Floor, [address] [place] [address] Arminda Milian FNP [address] [place] [address] LADARIUS@[email or web address] documented as of this encounter Visit Diagnoses Not on filedocumented in this encounter Additional Health Concerns Infection Onset Date Last Indicated Resolved Time CoV-Risk Comment:Per note documentation 08/23/2020 08/23/2020 12:02 AM EDT documented as of this encounter Care Teams Form Tamping Machine Operator Relationship Specialty Start Date End Date Tatiana Gordon MD [address] [place] [address] PCP - General Internal Medicine 06/27/17 06/11/21 Unknown, Unknown, MD PCP - General 06/18/21 12/24/21 Tatiana Gordon MD [address] [place] [address] PCP - General Internal Medicine 12/25/21 documented as of this encounter Additional Source Comments The information contained in this document represents components of the legal health record. It is not the complete legal health record.[facility]
--- OUTSIDE RECORDS SUMMARY | 2025-03-25 15:47 | XMS_ITS | Encounter Summary ---
Author Organization [employer] [facility] Address [facility] [employer] [facility] [address] [place] [address] Phone Care Team Providers Care Farmworker Dairy Name Role Phone Tatiana Gordon MD Primary Care Provid er Unknown, Unknown Primary Care Provider Tatiana Curry MD Primary Care Provid er Encounter Details Date Type Department Care Team (Late st Contact Info) Description 08/23/2020 Procedure Pass [facility] Emergency Radiology, Main [address], Floor 1 [place] [address] Social History Tobacco Use Types Packs/Day Years [...] 5:00 AM EDT Monica Calix RN * Seltzer Suicide Severity Rating Scale (Screener/Recent Self-Report) Question [...] st Contact Info) Description 10/31/2024 Procedure Pass [facility] Cardiac US [address] [place] [address] 11/06/2025 11:30 AM EDT Appointment [facility] Cardiac US [address] [place] [address] Scottie Witt MD [address] [place] [address] RINA@[email or web address] 11/06/2025 1:00 PM EDT Office Visit [facility] Cardiovascular Medicine [address] [place] [address], 5th Floor, [address] [place] [address] Arminda Milian FNP [address] [place] [address] LADARIUS@[email or web address] documented as of this encounter Visit Diagnoses Not on filedocumented in this encounter Additional Health Concerns Infection Onset Date Last Indicated Resolved Time CoV-Risk Comment:Per note documentation 08/23/2020 08/23/2020 12:02 AM EDT documented as of this encounter Care Teams Farmworker Dairy Relationship Specialty Start Date End Date Tatiana Gordon MD [address] [place] [address] PCP - General Internal Medicine 06/27/17 06/11/21 Unknown, Unknown, MD PCP - General 06/18/21 12/24/21 Tatiana Gordon MD 5 [place] [address] PCP - General Internal Medicine 12/25/21 documented as of this encounter Additional Source Comments The information contained in this document represents components of the legal health record. It is not the complete legal health record.[facility]
--- OUTSIDE RECORDS SUMMARY | 2025-03-25 15:47 | XMS_ITS | Clinical Summary ---
Author Organization [employer] [facility]y Address [address] [place] [address] Care Team Providers Care Job Checker Name Role Phone Unavailable Primary Care Provider [...] nts (1 - 1-dose 75+ series) 2020 Depression Screening 05/02/2024 COVID-19 Vaccine (1 - 2024-2 6 season) 2024 Influenza Vaccine (#1) 2024 HIB [...]
--- OUTSIDE RECORDS SUMMARY | 2025-03-25 15:47 | XMS_ITS | Encounter Summary ---
Author Organization [employer] [facility] Address [facility] [employer] [facility] [address] [place] [address] Phone Care Team Providers Care Correction Officer [place] [facility] Name Role Phone Tatiana Gordon MD Primary Care Provid er Unknown, Unknown Primary Care Provider Tatiana Curry MD Primary Care Provid er Encounter Details Date Type Department Care Team (Late st Contact Info) Description 08/26/2020 Procedure Pass [facility] [address] [facility], 4th [place] [address] Social History Tobacco Use Types Packs/Day Years [...] Description 10/31/2024 Procedure Pass [facility] Cardiac US [address] [place] [address] 11/06/2025 11:30 AM EDT Appointment [facility] Cardiac US [address] [place] [address] Scottie Witt MD [address] [address] [email or web address] 11/06/2025 1:00 PM EDT Office Visit [facility] Cardiovascular Medicine [address] [facility], 5th Floor, [address] [place] [address] Arminda Milian FNP [address] [place] [address] LADARIUS@[email or web address] documented as of this encounter Visit Diagnoses Not on filedocumented in this encounter Care Teams Correction Officer [place] [facility] Relationship Specialty Start Date End Date Tatiana Gordon MD [address] [place] [address] PCP - General Internal Medicine 06/27/17 06/11/21 Unknown, Unknown, PCP - General 06/18/21 12/24/21 Tatiana Gordon MD [address] [place] [address] PCP - General Internal Medicine 12/25/21 documented as of this encounter Additional Source Comments The information contained in this document represents components of the legal health record. It is not the complete legal health record.[facility]
--- OUTSIDE RECORDS SUMMARY | 2025-03-25 15:47 | XMS_ITS | Clinical Summary ---
Author Organization [facility] Address [address] [place] [phone] Phone Care Team Providers Care Meter And Service Line Inspector Name Role Phone Tatiana Gordon MD Primary Care Provid er Allergies No known active allergies Medications omeprazole (PRILOSEC) 20 MG capsule Take 1 capsule (20 mg total) by mouth 2 (two) times a day before meals. 60 capsule 5 6 Active tamsulosin (FLOMAX) 0.4 mg Cp24 Take 0.4 mg by mouth daily. Active metFORMIN (GLUCOPHAGE) 500 MG tablet Take 1,000 mg by mouth 2 (two) times a day with meals. Active gabapentin (NEURONTIN) 400 MG capsule Take 400 mg by mouth 3 (three) times a day. Per [employer]/cloud subject matter expert Active allopurinol (ZYLOPRIM) 100 MG tablet Take 300 mg by mouth daily. Active cholecalciferol (VITAMIN D3) 2,000 unit capsule Take 2,000 Units by mouth daily. Active acetaminophen (TYLENOL) 325 mg tablet Take 1-2 tablets (325-650 mg total) by mouth every 6 (six) hours as needed for mild pain. 0 9 Active temazepam (RESTORIL) 30 mg capsule Take 30 mg by mouth nightly at bedtime as needed for sleep. Active diclofenac sodium (VOLTAREN) 1 % Gel Apply 4 g topically as needed. Active oxyCODONE-acetamin ophen (PERCOCET) 5-325 mg per tablet Take 1 tablet by mouth every 8 (eight) hours as needed for pain (specific location in comments). Active atorvastatin (LIPITOR) 80 MG tablet Take 80 mg by mouth daily. Active nitroglycerin (NITROSTAT) 0.[address] 1 TABLET UNDER THE TONGUE EVERY 5 MINUTES FOR CHEST PAIN 25 tablet 3 1 Active rivaroxaban (XARELTO) 20 mg Tab Take 20 mg by mouth daily with dinner. Active dicyclomine (BENTYL) 10 MG capsule Take 10 mg by mouth 4 (four) times a day before meals and nightly. Active sucralfate (CARAFATE) 1 gram tablet Take 1 g by mouth 4 (four) times a day. Active loratadine (CLARITIN) 10 mg tablet Take 10 mg by mouth daily. Active colchicine (COLCRYS) 0.6 mg tablet Take 0.6 mg by mouth daily. Active therapeutic multivitamin tablet Take 1 tablet by mouth daily. Active ezetimibe (ZETIA) 10 mg tabletIndications: Hyperlipidemia, unspecified hyperlipidemia type TAKE 1 TABLET (10 MG TOTAL) BY MOUTH DAILY. 90 tablet 3 5 Active eplerenone (INSPRA) 25 MG tabletIndications: Chronic combined systolic and diastolic heart failure TAKE 1 TABLET BY MOUTH EVERY DAY 90 tablet 3 5 Active metoprolol succinate (TOPROL-XL) 25 MG 24 hr tabletIndications: Chronic combined systolic and diastolic heart failure,Coronary artery disease involving pokagon coronary artery of pokagon heart with unstable angina pectoris,Atrial fibrillation, unspecified type Take 1 tablet (25 mg total) by mouth 2 (two) times a day. 180 tablet 3 5 Active sacubitriL-valsart an (ENTRESTO) 24-26 mg per tabletIndications: Congestive heart failure, unspecified HF chronicity, unspecified heart failure type Take 1 tablet by mouth 2 (two) times a day. 180 tablet 3 5 Active Active Problems Problem Noted Date Diagnosed Date Chronic systolic heart failure 12/01/2020 Cholecystitis 08/23/2020 Assessment & Plan (08/27/2020 1:41 PM EDT): Patient presenting after 1-2 weeks of abdominal pain found to have cholecystitis at OSH (admission 08/19-08/22). Apparently offered surgery there but pt declined, hence, discharged with PO antibiotics. Pt now presents with recurrent abdominal pain. MRCP here shows distended GB with wall thickening suggestive of cholecystitis, potentially acalculous though pt would be unusual substrate for that (not critically ill). MRCP notes prominent CBD and pancreatic duct of unclear significance; no obstructing stone or mass lesion seen. Abdomen benign, pain very mild, and pt not systemically ill at this point. 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 Ampulla was biopsied. Normal CEA and CA 19-9. BCx no growth. -GI signed off -Surgery consulted, appreciate recs -f/u ampulla pathology sent on 08/26 -Bridging with heparin gtt as outlined elsewhere given need for procedures -c/w CTX/flagyl (08/23-) -Serial abdominal exams -Trend LFTs Serum lipase elevation 08/23/2020 Assessment & Plan (08/23/2020 11:57 PM EDT): Lipase elevation to this degree has also been seen in patients with cholecystitis so this is likely the etiology, especially in light of the lack of pancreatic inflammation on imaging. - CTM patient's clinical exam in case of change HFrEF (heart failure with reduced ejection fract ion) 02/17/2019 Assessment & Plan (08/27/2020 1:40 PM EDT): Appears compensated at this time. EF at 30%. Reported atypical chest pain this noon which resolved. EKG and trop negative. - continue metoprolol, aldactone, lisinopril Assessment & Plan (03/18/2019 8:29 PM EST): The patient's symptoms have resolved since starting a diuretic, increasing lisinopril and toprol XL, and adding spironolactone. Assessment & Plan (02/20/2019 3:41 PM EDT): In September 2018 preserved LVEF per MIBI, underwent elective hernia surgery at [facility] on 02/09 complicated by an episode of chest discomfort and concern for NSTEMI with reduced EF 20% per TTE. -02/11 Coronary angiography: stable chronic CAD without evidence of culprit.( reviewed no culprit vessels) He was treated with medical therapy and discharged home on 02/14. Subsequently developed worsening HF sxs, POWELL, LE edema weight gain of 5lbs. Was told to go the EW which he came to [facility] as he is followed here. Trop's elevated peaked to 503 with elevated NT BNP 12K and newly depressed LVEF by ED bedside US reported. Repeat TTE. Completed 02/20 pending Briskly diuresed on 20mg lasix IVP, 3 doses with improvement in sxs. Plan: - TTE 02/20 follow up on results ( Dr Rojas reviewed OSH and reported EF 30%) - strict I/Os FR 2000 liters - standing weights EDW @158 - changed to oral diuretics lasix 40 (new) - increased lisinopril 5mg BID will need labs on Tuesday - increased toprol 100 mg po bid ( patient warm) - CAD angioreviewed - nutrition to see with family - discussed no ETOH, states does not drink regularly holiday only, TSH normal no iron deficiency - stopping imdur to liberalize BP Sleep apnea 11/09/2018 Chronic insomnia 11/09/2018 Epididymo-orchitis 05/01/2018 Abdominal pain 01/10/2016 Assessment & Plan (01/12/2016 3:52 PM EDT): Complaints of vomiting and diarrhea and epigastric pain None today Ab and Pelvic CT showed no evidenc of acute intra-abdominal pathology to explain pain. Colonic diverticulosis without evidenc of diverticulitis Assessment & Plan (01/11/2016 5:46 PM EDT): Patient's chest pain syndrome was virtually concomittant with an epigastric abdominal pain syndrome that included nausea, vomiting and diarrhea. He continues to have some mild RUQ pain with palpation. LFTs wnl. No evidence of infection at present. - consider RUQUS Chest pain 01/10/2016 Atrial fibrillation 04/27/2013 Overview (06/22/2014): Atrial fibrillation; EC04/22/13 Assessment & Plan (12/05/2021 8:13 AM EDT): Atrial fibrillation, persistent The patient does not report any symptoms today from AF But I cannot rule out the possibility that is still affective him. We will give him dual chamber device and investigate possible Cardioversions and maintenance of sinus rhythm in the related time. He is appropriately anticoagulated with Xarelto 20 mg daily based on the CHADS2-VASc score of 6 [age - 75, diabetes mellitus, hypertension, CAD]. His renal function is normal [Creatinine -- 1.17 on 12/03/2021] so the 20 mg dose is appropriate for him. Assessment & Plan (08/25/2020 3:08 PM EDT): -Given need for EUS, and if more ill this admission, surgery or stent placement, hold xarelto -High chadsvasc of 6 with possible reported prior stroke. Will started on heparin gtt as bridge rik-procedurally. -Continue home metoprolol Assessment & Plan (03/18/2019 8:27 PM EST): He is in chronic AF on Metoprolol tartrate for rate control and anticoagulation with rivaroxaban. Assessment & Plan (02/20/2019 3:42 PM EDT): History of permanent atrial fibrillation, currently with moderate ventricular response. Previously on apixaban for CVA prophylaxis, now on xarelto (switched at [facility] for unclear reasons). NO intervention indicated, can change back to Xarelto from LMWH Plan: - xarelto 20mg po qm,today ok to resume no intervention indicated - BB for rate control Assessment & Plan (01/12/2016 3:45 PM EDT): Continue digoxin, level low but compliance a likely issue Not on AC, will consider prior to discharge Continue BB Assessment & Plan (01/11/2016 5:43 PM EDT): Patient reportedly has a history of atrial fibrillation for at least 2.5 years. It is unclear why he is not on anticoagulation per my discussion with him today. Rates adequately controlled today. - continue digoxin 250mcg po qd - dig level in AM - continue atenolol for now - CHADSVASC = 5 with available data - reasonable to discuss OAC on discharge if patient is amenable Uncoded IPMN 04/27/2013 Overview (06/22/2014): IPMN Diabetes mellitus 04/12/2013 Overview (06/22/2014): Diabetes mellitus Assessment & Plan (02/20/2019 3:25 PM EDT): On metformin at home. Which we are holding while in patient . HBA1C 6.7 well controlled on regimen Plan: - cover with RONALD - FS AC/HS - C/O urinary dysuria . UA not impressive await cx data ( patient states he did have urinary catheter at time of OR02/09 at [facility]) CX <10,000 enterococcus and mixed bacteria NO ABX INDICATED - resume metformin on discharge Hypertensive disorder 06/04/2009 Overview (06/22/2014): Hypertensive disorder Assessment & Plan (08/27/2020 1:39 PM EDT): - continue lasix, metop, spironolactone and lisinopril - hold diuretics when NPO for procedure Assessment & Plan (03/18/2019 8:21 PM EST): BP is low on current regimen. Will monitor during the program and communicate with Dr. Rojas as needed. Assessment & Plan (02/20/2019 3:23 PM EDT): BP's normal to slightly high on admission. 120-140. Has diuresed and Adjusted RX for GDMT for reduced EF with improvement to target Plan: See above:will continue with toprol escalated to 100 BID, escalated lisinopril to 5 BIID, added aldactone and diuretics which is new for patient stopped imdur 02/20 to liberalize BP to increase CHRYSTAL Coronary artery disease invo lving pokagon coronary artery of pokagon heart without angina pectoris 05/12/2009 Overview (06/22/2014): Coronary artery disease; s/p OR 03/10 Assessment & Plan (08/24/2020 12:33 AM EDT): - continue metoprolol and statin, ACEI Assessment & Plan (03/18/2019 8:33 PM EST): Cardiac catheterization did not reveal a culprit lesion to explain the NSTEMI and decrease in LVEF. HF medication were adjusted. Would have used the regadenoson-mibi Study from 10/06/18 for an exercise prescription if the LVEF had been obtained during that Study. We do not know if the depressed LVEF is new. Would obtain an ETT Modified Nakul Protocol prior to starting the cardiac rehabilitation program, for exercise prescriptions and to evaluate for arrhythmia with exercise.. Assessment & Plan (02/20/2019 3:16 PM EDT): Followed with Ren[facility], - Most recent MIBI 09/2018 with inferiror thinning, no ishcemia - History of reported OR in 2008 requiring PCI. He has since done well without recurrent need for PCI. - presented for elective ventral hernia repair at [facility] c/b drop Ef and underwent cardiac cath without new obstructive CAD. ( reviewed: small distal PDA lesion, moderate D2 and Ramus moderate). No PCI indicated no culprit vessel seen, possbile SIRS secondary to demand? - His biomarker elevation is consistent with demand no specific ECG evidence of ischemia at present. - CT negative for PE. No chest pain, has diuresed ( down 9 pounds) to 158 and breathing has improved. At home weight was reportedly about 160lbs on admission 167 lbs Plan: - GDMT adjusting - continue aspirin 81mg po qd - continue lipitor 80mg po qm - stop imdur ( has been on 30mg daily) in favor of increasing lisinopril to 5 BID for adverse remodeling. - Aldactone 12.5 daily ~02/20 - toprol 100mg qd has been escalated for rate improvement 02/20 watch for worsening signs of HF as this may have been compensation although appears to be tolerating an creat stable - TTE pending prelim with EF @ 30% - changed to lasix 40 daily , appears euvolemic 158 EDW Assessment & Plan (01/11/2016 5:42 PM EDT): Patient presented with [facility] with a somewhat atypical chest pain syndrome that included waxing and waning chest pain for multiple days, though did include some typical features including substernal discomfort radiating to his left chest and neck into his left arm that improved with SL TNG. Biomarkers have remained negative but adenoMIBI showed evidence of possible small area of inferior ischemia. ECGs have been unremarkable. Given these findings, he will undergo coronary angiography. Unfortunately, the patient is very unsure about what medications he takes at home and his family reports that they left a list in his backpack that we cannot locate. There was also no answer at his usual [facility] pharmacy. - start aspirin 81mg po qd - continue home plavix 75mg po qd - continue PPI given concern for PUD - start 'home' atorvastatin 80mg po qd (was given zocor in ED, but patient reports he takes lipitor) - continue home atenolol 25mg po qd - patient's family to bring in home medication list in AM - plan for coronary angiogram in AM History of peptic ulcer disease 10/25/2001 Overview (06/22/2014): H/O Peptic ulcer disease History of diverticulitis 10/25/2001 Overview (06/22/2014): H/O Diverticulitis H/O prostatitis 10/25/2001 Overview (06/22/2014): H/O Prostatitis Gout 10/25/2001 Overview (06/22/2014): Gout Hyperlipidemia 10/25/2001 Overview (06/22/2014): Hyperlipidemia Assessment & Plan (03/18/2019 8:31 PM EST): Continue lipitor as above for Chol 128, HDL 40, LDL 68, TG 101 on 10/06/18. Assessment & Plan (01/12/2016 3:50 PM EDT): The patient has a receipt from pharmacy for simva 20 mg On lipitor 80 mg now Fasting lipids in am Assessment & Plan (01/11/2016 5:45 PM EDT): Stable. Prior LDL above goal, unclear what therapy he was on. He tells me he takes lipitor but was given simvastatin based on a different medication list from his . We will clarify his home medications, though he likely warrants the upgrade to high-potency statin given his LDL and history of CAD. - LDL last year 106 - lipid panel in AM - atorvastatin 80mg po qd Resolved Problems Problem Noted Date Diagnosed Date Resolved Date Pancreatitis 08/23/2020 08/23/2020 Assessment & Plan (08/23/2020 11:51 PM EDT): Coronary artery disease (CAD) excluded 01/12/2016 11/09/2018 Assessment & Plan (01/12/2016 3:44 PM EDT): Plan for CCL tomorrow given + stress (though mild small inferior ischemia) SRUTHI's unremarkable, troponin negative. No chest pain since admission On exam today the chest pain is focal and reproduced with pressing one finger to the area No complaints of back pain Called patient's reported pharmacy and he has not gotten meds filled since April 2015 Plan to continue aspirin and Plavix Pt reports home dose of lipitor 80 mg, continue Received atenolol and lisinopril today Hold in am and reassess CVA (cerebral vascular accident) 01/12/2016 11/09/2018 Assessment & Plan (01/12/2016 4:05 PM EDT): Per patient, CVA about 3 years ago Walks with cane since this happened PT consult Head CT 11/2014 showed no definite evidence of acute or remote infarction, MRI would be more sensitive for evaluation Ordered, not done yet today ? Early am H/O sleep disorder 10/25/2001 9 Overview (06/22/2014): H/O Sleep disorder Immunizations Immunization Administration Dates Next Due [id number] FORMULATION 06/04/2009 INFLUENZA, SPLIT VIRUS, TRIVALENT PF 04/27/2013 Influenza, Unspecified Formulation 04/24/2013(De ferred: Other) Pneumococcal polysaccharide PPSV23 04/24(Deferred: Other - pt. not sure if he had it, wants to follow up with son and PCP) Family History Medical History Relation Comments Type 2 Diabetes Brother diabetes clarissaitu s type 2 Heart attack Father Myocardial infar ction Type 2 Diabetes Father diabetes clarissaitu s type 2 Heart attack Mother Myocardial infar ction Type 2 Diabetes Mother diabetes clarissaitu s type 2 Relation Status Comments Brother Father Mother Social History Tobacco Use Types Packs/Day Years Used Date Smoking Tobacco: Former Smokeless Tobacco: Never Tobacco Cessation:Counseling Given: Not Answered Alcohol Use Standard Drinks/Week Comments No 0 (1 standard drink = 0.6 oz pur e alcohol) Education Answer Date Recorded Are you interested in more education? Not on larissa e 08/27/2022 Are you concerned about learning? Not on file 08/27/2022 No 08/27/2022 No 08/27/2022 Digital Access Answer Date Recorded No 09/21/2022 No 09/21/2022 Reliable internet access at home? Not on file 09/21/2022 Device with a working camera? Not on file Sex and Gender Information Value Date Recorded Sex Assigned at Not on file Legal Sex Male 6:35 PM EDT Gender Identity Not on file Sexual Orientation Not on file Last Filed Vital Signs Vital Sign Reading Time Taken Comments Blood Pressure 130/73 10/31/2024 10:43 AM EDT Pulse 80 10/31/2024 10:43 AM EDT Temperature 36.9 C (98.4 F) 12/01/2020 10:08 AM EDT Respiratory Rate 14 10/10/2020 1:55 PM EDT Oxygen Saturation 99% 12/01/2020 3:00 PM EDT Inhaled Oxygen Concentration - - Weight 78 kg (172 lb) 10/31/2024 10:43 AM EDT Height 172.7 cm (5' 8 ) 10/31/2024 8:08 AM EDT Body Mass Index 26.15 10/31/2024 8:08 AM EDT Plan of Treatment Upcoming Encounters Date Type Department Care Team (Late st Contact Info) Description 10/31/2024 Procedure Pass [facility] [address] [place] [address] 11/06/2025 11:30 AM EDT Appointment [facility] [address] [place] [address] Scottie Witt MD [address] [facility] [address] [place] [address] [email or web address] 11/06/2025 1:00 PM EDT Office Visit [facility] [address] [facility] 5th [address], [address] [place] [address] Arminda Milian FNP [address] [place] [address] [email or web address] Due Date Last Done Comments DEPRESSION SCREENING 1957 SMOKING Hx and SMOKELESS TOBACCO SCREENING 1958 HEPATITIS C SCREENING 12/25/1963 ZOSTER VACCINES (1 of 2) 12/25/1995 DIABETIC EYE EXAM 06/22/2014 RSV VACCINE (1 - 1-dose 75+ series) 2020 HEMOGLOBIN A1C 10/07/2022 04/08/2022, 0807/2021, 10/27/2020, Additional history exists INFLUENZA VACCINE (#1) 2024 9, 01/19/2018, 11/30/2016, Additional history exists COVID-19 VACCINE ( season) 2024 09/03/2020, 08/06/2020 BLOOD PRESSURE 05/03/2025 10/31/2024 CREATININE LEVEL 06/01/2025 06/01/2024, , 07/27/2023, Additional history exists POTASSIUM LEVEL 06/01/2025 06/01/2024, 05/04, 07/27/2023, Additional history exists Adult Td,Tdap Booster 11/30/2026 11/30/2016, 015 HEPATITIS A VACCINES Aged Out 07/28/2009 No long er eligible based on patient's age to complete this topic PNEUMOCOCCAL VACCINES (50+ years) Completed 02/06/2018, 11/30/2016 HIB VACCINES Aged Out No longer eligi ble based on patient's age to complete this topic MENINGOCOCCAL VACCINES (ACWY) Aged Out No longer eligible based on patient's age to complete this topic MENINGOCOCCAL VACCINES (B) Aged Out N o longer eligible based on patient's age to complete this topic Medical Devices Not on file Procedures Procedure Name Priority Date/Time Associated Diagnosis Comments EXTERNALLY RESULTED CHEMISTRY Routine 06/01/2024 12:22 PM EST OUTSIDE HEMOGLOBIN A1C Routine 04/08/2022 from Last 3 Months or Most Recently Relevant to Health Maintenance Results * (ABNORMAL) EXTERNALLY RESULTED CHEMISTRY (06/01/2024 12:22 PM EST) Sodium - External 141 135 - 145 mmol/L Comment:Done At [facility] Potassium - External 4.3 3.3 - 5.1 mmol/L Comment:Done At [facility] Chloride - External 101 96 - 108 mmol/L Comment:Done At [facility] CO2 - External 27 22 - 29 mmol/L Comment:Done At [facility] BUN - External 15 9 - 16 mg/dL Comment:Done At [facility] Creatinine, serum - External 0.97 0.5 - 1.4 mg/dL Comment:Done At [facility] BUN/Creatinine - External eGFR - External Glucose - External Calcium - External 10.0 8.4 - 10.2 mg/dL Comment:Done At [facility] Phosphorus - External Magnesium - External Albumin - External 4.4 3.5 - 5.0 g/dL Comment:Done At [facility] Bilirubin, total - External 0.8 0.0 - 1.0 mg/dL Comment:Done At [facility] Bilirubin, direct - External Bilirubin (conjugated) - External Bilirubin, indirect - External Protein - External 8.2(A) 6.5 - 8.0 g/dL Comment:Done At [facility] Alkaline Phosphatase - External 84 39 - 117 U/L Comment:Done At [facility] AST - External 29 5 - 37 U/L Comment:Done At [facility] ALT - External 22 0 - 40 U/L Comment:Done At [facility] Amylase - External Lipase (u/L) - External Cholesterol, total - External 136 <=200 mg/dL Comment:Done At [facility] LDL - External 66 <=100 mg/dL Comment:Done At [facility] Triglycerides - External 85 <=150 mg/dL Comment:Done At [facility] HDL - External 53 >=40 mg/dL Comment:Done At [facility] TIBC - External 278 228 - 428 mcg/dL Comment:Done At [facility] Iron - External 54 45 - 160 mcg/dL Comment:Done At [facility] Ferritin - External Folate - External 15.2 >=4.0 ng/mL Comment:Done At [facility] Vitamin B12 - External 353 200 - 900 pg/mL Comment:Done At [facility] CK - External Cotinine - External C-peptide (ng/mL) - External C-peptide (pmol/L) - External HCG, qualitative - External HCG, total - External NT-proBNP - External PTH - External TSH - External T3 - External Total T4 - External Free T4 - External Vitamin D 25(OH) - External AFP (Tumor Marker) - External Uric Acid - External PSA - External GGT - External Lactate, dehydrogenase - External Ammonia - External Vitamin A - External Alk phos: Intestinal Isoenzymes - External Alk phos: Bone Isoenzymes - External Alk phos: Liver Isoenzymes - External Alk phos: Placental Isoenzymes - External Alk phos: Macrohepatic Isoenzymes - External Cystatin C - External 06/01/2024 12:2 2 PM EST us Historical Provider LAB BLOOD ORDERABLES Edit ed Result - Final * (ABNORMAL) Outside HbA1c (04/08/2022) Hemoglobin A1c - External 7(A) 4 - 6 % Comment:[facility] us Historical Provider LAB BLOOD ORDERABLES Josee l Result from Last 3 Months or Most Recently Relevant to Health Maintenance Insurance MEDICARE REPLACEMENT MEDICARE REPLACEMENT MEDICARE REPLACEMENT MEDICARE REPLACEMENT MEDICARE REPLACEMENT MEDICARE REPLACEMENT MEDICARE REPLACEMENT MEDICARE REPLACEMENT CHARLINE GREGORIO [id number] Advance Directives For more information, please contact: [phone] (9AM - 5PM [facility], Tuesday-Tuesday) * Full Code (Latest Code Status on File) Date Activated Date Inactivated Comments 08/26/2020 3:59 PM Question Answer Comments Code Status Confirmed With: Patient Code Status Communicated To: Inpatient Attending * Full Code (Presumed) Date Activated Date Inactivated Comments 02/17/2019 11:44 PM 02/21/2019 4:46 PM * Full Code (Confirmed) Date Activated Date Inactivated Comments 01/11/2016 8:25 AM 01/14/2016 2:18 PM Question Answer Comments Code Discussion Comments: patient Care Teams Meter And Service Line Inspector Relationship Specialty Start Date End Date Tatiana Gordon MD [address] [place] [address] PCP - General Internal Medicine 12/25/21 Additional Source Comments The information contained in this document represents components of the legal health record. It is not the complete legal health record.[facility]
--- OUTSIDE RECORDS SUMMARY | 2025-03-25 15:47 | XMS_ITS | Encounter Summary ---
Author Organization [employer] [facility] Address [address] [place] [phone] Phone Care Team Providers Care Administrative Nursing Supervisor Name Role Phone Tatiana Gordon MD Primary Care Provid er Encounter Details Date Type Department Care Team (Late st Contact Info) Description 08/03/2023 Procedure Pass [facility] [place] [place] Cardiac US [address] [place] [address] Social History Tobacco Use Types Packs/Day Years [...] Author No 01/14/2016 10:17 AM EDT Ania Manuel, DEBIT AGENT * Patient is blind or has serious [...] st Contact Info) Description 10/31/2024 Procedure Pass [facility] [place] [place] Cardiac US [address] [place] [id number] 11/06/2025 11:30 AM EDT Appointment [facility] [place] [place] Cardiac US [address] [place] [address] Scottie Witt MD [address] [address] [email or web address] 11/06/2025 1:00 PM EDT Office Visit [facility] [place] [place] Cardiovascular Medicine [address] [facility], 5th Floor, [address] [place] [address] Arminda Milian FNP [address] [place] [address] [email or web address] documented as of this encounter Visit Diagnoses Not on filedocumented in this encounter Care Teams Administrative Nursing Supervisor Relationship Specialty Start Date End Date Tatiana Gordon MD [address] [place] [address] PCP - General Internal Medicine 12/25/21 documented as of this encounter Additional Source Comments The information contained in this document represents components of the legal health record. It is not the complete legal health record.[facility]
--- OUTSIDE RECORDS SUMMARY | 2025-03-25 15:48 | XMS_ITS | Encounter Summary ---
Author Organization [facility] [facility] Address [address] [facility] [address] [place] [phone] Phone Care Team Providers Care Reference Archivist Name Role Phone Tatiana Gordon MD Primary Care Provid er Unknown, Unknown Primary Care Provider Tatiana Curry MD Primary Care Provid er Encounter Details Date Type Department Care Team (Late st Contact Info) Description 07/16/2020 Procedure Pass [facility] [place] [address] [place] [address] Social History Tobacco Use Types Packs/Day Years [...] st Contact Info) Description 10/31/2024 Procedure Pass [facility] [place] [address] [address] 11/06/2025 11:30 AM EDT Appointment [facility] [place] [facility] [address] [place] [phone] Scottie Witt MD [address] [place] [phone] [email or web address] 11/06/2025 1:00 PM EDT Office Visit [facility] [place] [address] [place] [address], [address] Floor, [address] [place] [address] Arminda Milian FNP [address] [place] [address] [email or web address] documented as of this encounter Visit Diagnoses Not on filedocumented in this encounter Additional Health Concerns Infection Onset Date Last Indicated Resolved Time CoV-Risk Comment:Per note documentation 08/23/2020 08/23/2020 12:02 AM EDT documented as of this encounter Care Teams Reference Archivist Relationship Specialty Start Date End Date Tatiana Gordon MD [address] [place] [address] PCP - General Internal Medicine 06/27/17 06/11/21 Unknown, Unknown, MD PCP - General 06/18/21 12/24/21 Tatiana Gordon MD [address] [place] [address] PCP - General Internal Medicine 12/25/21 documented as of this encounter Additional Source Comments The information contained in this document represents components of the legal health record. It is not the complete legal health record.[facility]
[2025-03-25 16:03] LABS: Microalbum/Creatinine Ratio Ur 65.3 ug/mg cr (<30)
== END 2025-03-25 11:49 | disposition home or self-care (01) ==
LOC: HO.10HDL 11:48
PROVIDERS: Visit Provider Internal Medicine
DX: M19.011 Primary osteoarthritis, right shoulder (principal); G47.00 Insomnia, unspecified; E55.9 Vitamin D deficiency, unspecified; E53.8 Deficiency of other specified B group vitamins; M10.9 Gout, unspecified; R80.9 Proteinuria, unspecified; R25.2 Cramp and spasm; E78.5 Hyperlipidemia, unspecified; K22.0 Achalasia of cardia; Z79.899 Other long term (current) drug therapy
CPT/HCPCS: 36415; 80053; 80061; 82043; 82306; 82570; 82607; 82746; 83735; 84550; 96127

== ENCOUNTER 2025-03-25 12:24 | Outpatient (AMB) | payer OTHER, SELFPAY ==
[2025-03-25 12:51] VITALS: BP 140/72; PULSE 74; TEMP 36.8; O2SAT 99; BMI 25.1
--- NOTE | 2025-03-25 12:51 | A.OFFPC_ITS ---
Vital Signs 03/25/25 12:51 Height 5 ft 9 in Weight 170 lb BMI 25.1 BP 140/72 H Blood Pressure Location Lt brachial Position Sitting Pulse 74 Pulse Source Pulse Oximeter Temp 98.3 F Temp Source Temporal Artery Scan Pulse Oximetry (%) 99 Oxygen Delivery Method Room Air Intake Visit Reasons: RT arm pain Intake Note: Patient is here to follow up on Right arm pain. Asbestos Hazard Abatement Worker Required: Yes Asbestos Hazard Abatement Worker Name: ID: [id number] Whiskey Filterer: Not Required per policy Accompanied by: Spouse Allergies No Known Allergies (No Known Allergies*) Allergy (Verified 03/25/25 12:54) Medication List - Last Reconciled 03/25/25 by Elva Rm MD acetaminophen 500 mg PO TID allopurinol 600 mg (2 x 300 mg) PO DAILY 90 days atorvastatin 80 mg PO DAILY 90 days blood sugar diagnostic (FreeStyle Test strips) Use 1 test strip 3 times per days directed blood-glucose meter (FreeStyle Lite Meter kit) Test Daily cane As directed cholecalciferol (vitamin D3) 50 mcg PO DAILY 90 days clotrimazole-betamethasone 1-0.05 % 1 appl topical BID 30 days colchicine 0.6 mg PO DAILY 90 days dextromethorphan polistirex ER (12-Hour Cough Relief) 10 mL PO Q12H PRN 7 days [diabetic shoes with 3 inserts diabetic shoes with 3 inserts] diclofenac sodium 1% 4 grams topical QID 30 days eplerenone 25 mg PO DAILY 90 days ezetimibe 10 mg PO DAILY gabapentin 400 mg PO TID 90 days lancets (Acti-Ambrocio Lancets) As directed lidocaine 5% 1 patch topical DAILY loratadine (Allergy Relief (loratadine)) 10 mg PO DAILY 90 days metformin 1,000 mg (2 x 500 mg) PO BID 90 days metoprolol succinate ER 25 mg PO DAILY 90 days multivitamin (One Daily Multivitamin tablet) 1 tab PO DAILY nitroglycerin 0.4 mg sublingual ONCE PRN 30 days omeprazole 20 mg PO BID 90 days oxycodone-acetaminophen 5-325 mg 1 tab PO Q8H PRN 30 days rivaroxaban (Xarelto) 20 mg PO QPM 90 days sacubitril-valsartan 24-26 mg (Entresto) 1 tab PO BID 30 days sucralfate 1 g PO QID 30 days tamsulosin 0.4 mg PO DAILY 30 days temazepam 30 mg PO BEDTIME PRN 30 days [wipes As directed] zolpidem 10 mg PO BEDTIME PRN 30 days Tobacco use date assessed: 03/25/25 Fall risk assessment: No Falls in past year Last assessed Fall Risk: 08/23/24 Dental Screening Dental Screen Date: 08/23/24 Did you have a dental visit in the last 12 months?: No Did you have a dental problem in the last 6 months where you did not have access to dental care?: No HPI HPI Comments History of Present Illness Details The patient is a 79 year old individual presenting with severe right arm pain. The pain, which began a week prior as mild, has progressively intensified to the point of causing insomnia. The pain originates in the right shoulder, radiates down the arm, and is exacerbated by attempts to lift the arm. The patient denies any recent falls or trauma to the arm. 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 Previous treatment included a shoulder injection by his sequencing machine operator on October 25, 2024, which provided significant pain relief. A recent follow-up appointment was canceled by the provider's office, and a new appointment has not yet been rescheduled. Current pain management includes diclofenac 1% gel, Percocet 5-325 mg at night for sleep, and Tylenol as needed in the morning. The patient also reports a prior history of physical therapy, which was discontinued due to it causing severe pain. [facility] Medical History (Updated 03/25/25 @ 13:38 by Elva Rm MD) Right shoulder pain Physical exam Acute cholecystitis Neck sprain Right knee pain UTI (urinary tract infection), uncomplicated Arthritis Leukocytosis Prostate cancer Lower urinary tract symptoms Left breast lump Abdominal pain CHF (congestive heart failure) Pure hypercholesterolemia Herpes zoster Chronic anticoagulation Atrial fibrillation Gout Essential hypertension Diabetes mellitus Lumbar degenerative disc disease Primary insomnia Surgical History History of laparoscopic cholecystectomy History of colonoscopy History of cardiac catheterization History of prostate surgery Family History Father Diabetes Mother Cancer Son Diabetes Brother Prostate CA Social History Household Members: Spouse and Children Housing: House Do you presently have visiting nurse or other home services: No ( takes care of him) Alcohol intake: never Comment: tele Patient Tobacco Use Status: Former Tobacco user Tobacco use type: Cigarette e-Cigarette/Vaping Use: Never Used Second Hand Smoke Exposure: No service: No Current occupational status: disabled Current occupation: right hand Cognitive needs: Yes Hearing needs: No Vision needs: Yes Questionnaire PHQ-9 Over the last 2 weeks, how often have you been bothered by any of the following problems? 1. Little interest or pleasure in doing things: not at all 2. Feeling down, depressed, or hopeless: not at all 3. Trouble falling or staying asleep, or sleeping too much: not at all 4. Feeling tired or having little energy: several days 5. Poor appetite or overeating: not at all 6. Feeling bad about yourself - or that you are a failure or have let yourself or your family down: not at all 7. Trouble concentrating on things, such as reading the newspaper or watching television: not at all 8. Moving or speaking so slowly that other people could have noticed. Or the opposite - being so fidgety or restless that you have been moving around a lot more than usual: not at all 9. Thoughts that you would be better off or of hurting yourself in some way: not at all Total score: 1 Depression Screening Interpretation: Negative Depression Screening Done: Yes 90294 - PHQ-9 Billing: Yes Source: Developed by Drs. Isaiah Paul, Corinne Sierra, Shalom Leung and colleagues, with an educational neyda from [employer]. Thrive Questionnaire Date Thrive assessed: 08/23/24 I am a: Patient What is your living situation today?: I have a place to live, but I am worried about losing it in the future Within the past 12 months, did the food you bought not last and you didn't have the money to get more?: Never true Within the past 12 months, did you worry whether your food would run out before you got money to buy more?: Never true Do you have trouble paying for medicines?: No Do you have trouble getting transportation to medical appointments?: No Do you have trouble paying your heating and electricity bill?: No Do you have trouble taking care of your child, family member or friend?: No Do you have trouble with day-to-day activities such as bathing, preparing meals, shopping, managing finances, etc.?: I choose not to answer this question Are you currently unemployed and looking for a job?: I choose not to answer this question Are you interested in more education?: I choose not to answer this question Please select the resources that you would like help with: None Currently or been in a relationship where the following occur: No concerns reported THRIVE Score: 1 AUDIT C Alcohol Use Questionnaire (AUDIT-C) 1. How often do you have a drink containing alcohol?: Never Total Score: 0 MELBA-7 AMB Questionnaire MELBA-7 Date MELBA - 7 assessed: 08/23/24 Feeling nervous, anxious, or on edge: 0 = Not at all Not being able to stop or control worryin = Not at all Worrying too much about different things: 1 = Several days Trouble relaxin = Not at all Being so restless that it is hard to sit still: 0 = Not at all Becoming easily annoyed or irritable: 0 = Not at all Feeling afraid as if something awful might happen: 0 = Not at all Total MEBLA-7 score (0-4 normal; 5-9 mild; 10-14 moderate; 15-21 severe): 1 Source: Developed by Drs. Isaiah Paul, Corinne Sierra, Shalom Leung and colleagues, with an educational neyda from [employer]. MELBA-7 Assessment Billing MELBA-7 Assessment Tool: MELBA-7 Assessment 53160 Physical exam (Primary Care) Vital Signs: Last Vital Signs Temp 98.3 F 03/25/25 12:51 Pulse 74 03/25/25 12:51 BP 140/72 H 03/25/25 12:51 Pulse Ox 99 03/25/25 12:51 Oxygen Delivery Method Room Air 03/25/25 12:51 General: Well-appearing, alert, oriented ?3, in no acute distress. Cardiovascular: RRR, S1-S2 appreciated, no murmurs, rubs or gallops. Respiratory: Lungs clear to auscultation bilaterally, no wheezes, rales or rhonchi. Abdomen: Soft, nontender, nondistended. Normoactive bowel sounds. Shoulder: Right shoulder range of motion is very limited due to severe pain. BMI result Body Mass Index 25.1 Tobacco/Smoking Status: Tobacco use Status Tobacco use date assessed 03/25/25 03/25/25 12:53 Patient Tobacco Use Status Former Tobacco user 03/25/25 12:53 Tobacco use type Cigarette 03/25/25 12:53 e-Cigarette/Vaping Use Never Used 03/25/25 12:53 PHQ-9: PHQ-9 Score PHQ-9: Total score 1 03/25/25 12:53 Depression Screening Interpretation: Negative Thrive Assessment: Date of Thrive Assessment Date Thrive assessed 08/23/24 03/25/25 12:53 Currently or been in a relationship where the following occur: No concerns reported Coding Level of Care Code Est Pt Level 4 (88071) Diagnoses Acute pain of right shoulder M25.511 Chronicity: acute Additional Codes MELBA-7 Assessment Billing - MELBA-7 Assessment Tool: MELBA-7 Assessment 79767 ([id number]) PHQ-9 - 42323 - PHQ-9 Billing: Yes ([id number]) Assessment & Plan Assessment & Plan (1) Right shoulder pain: Code(s): M25.511 - Pain in right shoulder Category: Medical Qualifiers: Chronicity: acute Qualified Code(s): M25.511 - Pain in right shoulder Plan: Patient presenting with with acute on chronic right shoulder pain secondary to underlying severe arthritis. Patient is currently using diclofenac gel 1%, Percocet 5-325 mg 1 tab Q 8 hours p.r.n. and Tylenol p.r.n. patient reports previous injection with his sequencing machine operator in September 2024 that helped, but has no upcoming appointments. - obtain x-ray of the right shoulder - start lidocaine patches once daily as needed for pain - patient requesting refill for Percocet, medication refilled - may alternate Tylenol with Percocet every 4 hours for improved pain management until he is able to get the injection -patient referred to pain management for corticosteroid injection -patient declines physical therapy at this time due to pain that limits his ability to work with them. Orders: Orders XR shoulder RT min 2V Today M25.511 - Pain in right shoulder Referrals Pain Management Referral M25.511 - Pain in right shoulder Medications: New lidocaine 5% leave on most painful area for up to 12 hrs 1 patch topical DAILY 30 ea 1RF pain acetaminophen 500 mg PO TID 90 caps 1RF pain Refilled oxycodone-acetaminophen 5-325 mg Partial Fill upon patient request. 1 tab PO Q8H PRN 90 tabs 0RF pain 30 days
== END 2025-03-25 13:36 | disposition home or self-care (01) ==
LOC: HO.HMCH 12:25
PROVIDERS: PCP Internal Medicine; Visit Provider Student in an Organized Health Care Education/Training Program
DX: M25.511 Pain in right shoulder (principal)